=== PATIENT | male | born 1935 | race Caucasian/White ===

== ENCOUNTER 2017-12-26 04:05 | Observation (INO) | payer MEDICARE ==
[2017-12-26 05:10] LABS: INR-International Normal Ratio 2.1; PTT 35.9 SEC (22.9-36.1); Prothrombin Time 23.9 SEC (12.0-14.7)
[2017-12-26 05:17] LABS: ALT (SGPT) 36 U/L (8-55); AST (SGOT) 34 U/L (5-34); Albumin 4.3 g/dL (3.4-4.8); Alkaline Phosphatase 86 U/L (40-150); Anion Gap 12 mmol/L (10-20); BUN (Urea Nitrogen) 34 mg/dL (8.4-25.7); Bilirubin, Total 1.2 mg/dL (0.2-1.2); CK (CPK) 88 U/L (30-200); Calc. Creatinine Clearance 0 mL/min (70-130); Calcium 9.3 mg/dL (7.8-10.44); Carbon Dioxide 30 mmol/L (23-31); Chloride 102 mmol/L (98-107); Estimated GFR-MDRD 36; Globulin 2.8 g/dL (2.4-3.5); Glucose 162 mg/dL (83-110); Potassium 4.8 mmol/L (3.5-5.1); Protein, Total 7.1 g/dL (5.8-8.1); Sodium 139 mmol/L (136-145)
[2017-12-26 05:22] LABS: Troponin I 0.016 ng/mL (< 0.028)
[2017-12-26 05:35] LABS: #Eosinphils 0.1 thou/uL (0.0-0.7); #Lymphocytes 0.5 thou/uL (1.20-3.40); #Monocytes 0.8 thou/uL (0.11-0.59); #Neutrophils 7.4 thou/uL (1.40-6.50); %Basophils 0.1 % (0.0-1.0); %Eosinophils 0.7 % (0.0-10.0); %Lymphocytes 5.6 % (21.0-51.0); %Monocytes 8.9 % (0.0-10.0); %Neutrophils 84.6 % (42.0-75.0); Hemoglobin 13.3 g/dL (14.0-18.0); MDiff Complete? YES; Macrocytosis SLIGHT = 6-15 cells (100X) (0-5/hpf); Mean Corpuscular HGB CONC 32.5 g/dL (32.0-36.0); Mean Corpuscular Hemoglobin 33.5 pg (27.0-31.0); Mean Platelet Volume 9.5 fL (7.4-10.4); PLT Morphology Comment Appears Decreased; Platelet Count 112 thou/uL (130-400); RBC Distribution Width 12.5 % (11.5-14.5); Red Blood Cell (RBC) Count 3.97 mill/uL (4.70-6.10); White Blood Cell (WBC) Count 8.7 thou/uL (4.8-10.8)
[2017-12-26] MEDS ORDERED: Oseltamivir 75 MG CAP PO SCH (06:30)
[2017-12-26] MEDS ORDERED: Magnesium Sulfate 2 GM/100 ML BAG ONE (07:16)
[2017-12-26] MEDS ORDERED: Ondansetron HCl/PF 4 MG/2 ML Vial SLOW IVP PRN (08:31)
[2017-12-26] MEDS ORDERED: HYDROcodone/Acetaminophen 5/325 mg Tablet PO PRN ×2 (08:31)
[2017-12-26] MEDS ORDERED: Ondansetron ODT 4 MG TAB SL PRN (08:31)
[2017-12-26] MEDS ORDERED: Acetaminophen 325 MG TAB PO PRN (08:31)
--- NOTE | 2017-12-26 10:56 | RAD ---
CHEST 1 VIEW: HISTORY: Dyspnea. COMPARISON: 01/17/10 and 04/17/16. FINDINGS: Cardiac silhouette is magnified and upper limits of normal in size. Pulmonary vasculature is more en gorged than on the previous exam. Mediastinum is midline with postoperative changes, aortic calcific ation, and a multilead left subclavian cardiac electronic device. Chronic interstitial opacities of the lung bases appear stable. No pneumothorax. IMPRESSION: Chronic interstitial opacities and other chronic-type findings are stable. POS: PAOLA
[2017-12-26] MEDS ORDERED: Furosemide 40 MG TAB PO PRN (12:28)
[2017-12-26] MEDS ORDERED: Amiodarone 200 MG TAB PO SCH (12:30)
[2017-12-26] MEDS ORDERED: Potassium Chloride 10 MEQ TAB PO SCH (12:30)
[2017-12-26] MEDS ORDERED: Losartan 25 MG TAB PO SCH (12:30)
[2017-12-26] MEDS ORDERED: Dutasteride 0.5 MG CAP PO SCH (12:30)
[2017-12-26] MEDS ORDERED: Carvedilol 25 MG TAB PO SCH (12:30)
[2017-12-26] MEDS ORDERED: Furosemide 40 MG/4 ML VIAL SLOW IVP SCH (12:30)
--- NOTE | 2017-12-26 13:29 | HP ---
DATE OF ADMISSION: 12/26/2017 CHIEF COMPLAINT: Dyspnea. HISTORY OF PRESENT ILLNESS: This is an 82-year-old male patient of Dr. Ancelmo leblanc who came to the emergency room for acute onset of dyspnea with subjective fever and was worried he was having flu. He had been checked for flu and it was negative, also chest x-ray which showed no pu lmonary infiltrates. He does have a complicated history of ischemic cardiomyopathy. His temperature in the ER was 99. So the emergency room physician wanted to put him in for observation due to his l evel of the potential for problems. PAST MEDICAL HISTORY: Positive for ischemic cardiomyopathy, last EF of 15%-20%. He sees Dr. Herring. He has got atherosclerotic coronary vascular disease, atrial fibrillation, anticoagulated. Also has BPH with LUTS. Has history of hypertension, has a history of colon cancer and statin intolerance. PAST SURGICAL HISTORY: He had a vasectomy in 1970. He had a CABG in 1999 and had a partial colectom y for colon cancer in 2002. He had an incisional hernia repair in 2011 and an ICD placed in 2014. ALLERGIES: PENICILLIN AND DEMEROL. CURRENT MEDICATIONS: He is on Coumadin 4 mg a day, goes to the Coumadin clinic, he is on aspirin 81 mg a day, he is on potassium 10 mEq daily, Flomax daily, Maribell also takes that daily, Lasix 80 mg angelito ly, and he has 40 mg dose that he takes every 4 days, Coreg 6.25 mg twice a day, amiodarone 100 mg a day, losartan 25 mg a day, niacin 1000 mg twice a day, vitamin C daily, Benefiber daily, omega 3 farrah y, cinnamon daily, turmeric daily and p.r.n. Dulcolax. FAMILY HISTORY: He also has family history of heart disease in his parents. He had a sibling with a breast cancer and another with heart disease. He has children who has had sudden , acute AK, o ne with lung cancer, stroke and heart disease. SOCIAL HISTORY: He is a , has several children. He lives at home by himself. Occasional alc ohol use. No tobacco use. 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 REVIEW OF SYSTEMS: He denies any headache or visual changes. No trouble chewing or swallowing. No chest pain, just shortness of breath, but no cough, no hemoptysis. Denies any nausea, vomiting or ab dominal pain. Denies any hematemesis. No diarrhea, constipation or changes to his bowel habits. No hematochezia, melena or bright red blood per rectum. Denies any dysuria, hematuria or changes to th e bladder habits. Denies any paresis or paresthesias. No weakness and no auditory or visual halluci nations. Denies any suicidal or homicidal ideation. PHYSICAL EXAMINATION: GENERAL: He is asleep, but easily aroused, walk in the room. He had no complaints. Said his shortn ess of breath was essentially back to his baseline. He did have oxygen on currently by nasal cannula at 2 liters. His blood pressure 90s/60s which is fairly consistent with him at home, pulse 58, resp iration is 16, satting 99% on 2 liters. HEENT: Shows normocephalic, atraumatic cranium with pupils that are equal, round, and reactive to li ght and accommodation. Extraocular movements are intact. Mucosa membranes are moist, sclerae is ani cteric. NECK: Supple, no JVD, no bruits, no thyromegaly. HEART: S1, S2, with no rubs, murmurs, or gallops. LUNGS: Clear to auscultation bilaterally with no rales, rhonchi or wheezes. ABDOMEN: Soft, nontender, nondistended. No hepatosplenomegaly, bowel sounds are equal and throughou t. GENITOURINARY: Deferred. EXTREMITIES: Show good palpable pulses in all 4 extremities, but he does have 2+ edema to both lower extremities at the mid calf. DTRs are 2+ and equal. NEUROLOGIC: Alert and oriented x4. He has no motor or sensory deficits. Cranial nerves II-XII are equal and symmetrical. LABORATORY AND X-RAY FINDINGS: White count 8.7, H and H 13 and 41 respectively, 112,000 platelets. Neutrophils 85%, lymphocytes 5.5%. INR is within goal of 2.1. Chemistry shows sodium 139, potassium 4.8, chloride 102, bicarbonate 30, BUN 34, creatinine 1.8. Blood sugars are 162 and GFR is depresse d at 36. AST and ALT are normal at 34 and 36 respectively. CK is normal at 88. Beta natriuretic pe ptide is elevated at 758. Chest x-ray is negative and flu is negative as stated in the HPI. ASSESSMENT AND PLAN: Congestive heart failure exacerbation with dyspnea, also with likely chronic re nal insufficiency. We will continue his home medications. We will add one time Lasix dose now since he is essentially back to baseline. We will continue the DuoNebs and try to wean him off his oxygen . Hopefully home in the morning.
[2017-12-26] MEDS ORDERED: Warfarin Sodium 2 MG TAB PO SCH (17:00)
[2017-12-26 17:49] VITALS: BMI 28.0
[2017-12-26] MEDS ORDERED: Tamsulosin HCl 0.4 MG CAP PO SCH (21:00)
[2017-12-27 08:35] VITALS: TEMP 98
[2017-12-27 08:38] VITALS: BP 117/59
[2017-12-27] MEDS ORDERED: Losartan 25 MG TAB PO SCH (09:00)
[2017-12-27] MEDS ORDERED: Carvedilol 25 MG TAB PO SCH (09:00)
[2017-12-27] MEDS ORDERED: Amiodarone 200 MG TAB PO SCH (09:00)
[2017-12-27] MEDS ORDERED: Dutasteride 0.5 MG CAP PO SCH (09:00)
[2017-12-27] MEDS ORDERED: Potassium Chloride 10 MEQ TAB PO SCH (09:00)
[2017-12-27] MEDS ORDERED: Furosemide 80 MG TAB PO SCH (09:00)
--- NOTE | 2017-12-27 12:26 | DIS ---
DATE OF ADMISSION: 12/26/2017 DATE OF DISCHARGE: 12/27/2017 ADMISSION DIAGNOSIS: Acute bronchitis, possible congestive heart failure. DISCHARGE DIAGNOSIS: Bronchitis, improved. OTHER DIAGNOSES: Episode of hemoptysis, history of cardiomyopathy, history of coronary artery diseas e, history of benign prostatic hyperplasia. CONSULTATIONS: None. PROCEDURES: Telemetry monitoring, rule out OR, IV antibiotic therapy, oxygen therapy. HOSPITAL COURSE: This is an 82-year-old gentleman with a history of ischemic cardiomyopathy with an ejection fraction less than 20%. He is status post ICD placement in 2014. He was admitted with feve r and cough. He had negative flu test and was given a dose of Tamiflu. He admits to episodes of hem optysis after 1-2 days of severe coughing, this is improved. He is now ambulating in the hallway. Cinthia glass was given nebulizer treatments with significant improvement as well as IV antibiotics. He continue s to have a cough that is closer to his baseline, is ambulating without difficulty, and was able to w ramya off of oxygen, and is stable for discharge. DISCHARGE PHYSICAL EXAMINATION: VITAL SIGNS: Temperature 98.4, pulse is 60, respirations 12-16, pulse ox is 94% on room air, blood p ressure 108/66. GENERAL: He is awake and alert, in no acute distress. Speech is clear. Off of oxygen. Mucosa is m oist. NECK: Supple. HEART: Regular rate and rhythm. LUNGS: With scattered rhonchi. Occasional expiratory wheezes, but good aeration, no rales. ABDOMEN: Obese, soft. EXTREMITIES: With no edema. LABORATORY DATA: Reviewed. Cardiac enzymes were negative. INR of 2.1. DISCHARGE MEDICATIONS: Include DuoNeb q.6 hours p.r.n., amiodarone 200 mg daily, Coreg 25 mg daily, Avodart 0.5 mg daily, Lasix 80 mg daily, losartan 50 mg daily, potassium 10 mEq daily, Flomax 0.4 mg daily, warfarin 4 mg daily, Zithromax daily for 5 more days. Prescription given for nebulizer. FOLLOWUP INSTRUCTIONS: Patient to follow up in my office within the next week.
--- NOTE | 2018-02-11 10:39 | EKG ---
Test Reason : Blood Pressure : / mmHG Vent. Rate : 081 BPM Atrial Rate : 092 BPM P-R Int : 000 ms QRS Dur : 164 ms QT Int : 444 ms P-R-T Axes : 000 -46 090 degrees QTc Int : 515 ms Electronic ventricular pacemaker Appropriate capture Confirmed by MOISE DENIS DO ([id number]), commercial production editor MAY HENDRICKS ([id number]) on 02/11/2018 10:38:57 AM Referred By: Confirmed By:MOISE DENIS DO
== END 2017-12-27 09:52 | disposition home or self-care (01) ==
LOC: ERS 04:05 → 2SW 06:20
PROVIDERS: ADMIT Family Medicine; ATTEND Family Medicine
DX: J20.9 Acute bronchitis, unspecified (principal); I25.5 Ischemic cardiomyopathy; I25.10 Atherosclerotic heart disease of native coronary artery without angina pectoris; I48.91 Unspecified atrial fibrillation; I11.0 Hypertensive heart disease with heart failure; I50.9 Heart failure, unspecified; I25.2 Old myocardial infarction; N40.0 Benign prostatic hyperplasia without lower urinary tract symptoms; Z85.038 Personal history of other malignant neoplasm of large intestine; Z87.891 Personal history of nicotine dependence; Z80.1 Family history of malignant neoplasm of trachea, bronchus and lung; Z79.82 Long term (current) use of aspirin; Z79.01 Long term (current) use of anticoagulants; Z79.899 Other long term (current) drug therapy; Z88.0 Allergy status to penicillin; Z88.5 Allergy status to narcotic agent; Z88.8 Allergy status to other drugs, medicaments and biological substances; Z95.810 Presence of automatic (implantable) cardiac defibrillator; Z95.1 Presence of aortocoronary bypass graft; Z90.49 Acquired absence of other specified parts of digestive tract; Z98.890 Other specified postprocedural states
CPT/HCPCS: 71045; 80053; 82550; 82553; 83605; 83880; 84484; 85025; 85610; 85730; 87040; 87804 ×2; 93005; 94640 ×3; 96365; 96367; 96375 ×2; 99285; G0378; 36415; A4216; J0696; J1940; J3475; J7050; J7620

== ENCOUNTER 2018-05-16 09:58 | Emergency (ER) | payer MEDICARE ==
[2018-05-16] MEDS ORDERED: Adacel (T-DAP) 0.5 ML VIAL ONE (11:07)
[2018-05-16] MEDS ORDERED: Bacitracin Zinc 1 Packet ONE (11:16)
== END 2018-05-16 11:28 | disposition home or self-care (01) ==
LOC: ERS 09:58
DX: S51.812A Laceration without foreign body of left forearm, initial encounter (principal); I11.0 Hypertensive heart disease with heart failure; I50.9 Heart failure, unspecified; I49.9 Cardiac arrhythmia, unspecified; I25.2 Old myocardial infarction; I48.91 Unspecified atrial fibrillation; N40.0 Benign prostatic hyperplasia without lower urinary tract symptoms; Z79.01 Long term (current) use of anticoagulants; Z87.891 Personal history of nicotine dependence; Z23 Encounter for immunization; Z85.038 Personal history of other malignant neoplasm of large intestine
CPT/HCPCS: 90471; 90715

== ENCOUNTER 2019-03-30 10:44 | Emergency (ER) | payer MEDICARE ==
[2019-03-30 11:42] LABS: #Eosinphils 0.1 thou/uL (0.0-0.7); #Lymphocytes 0.8 thou/uL (1.20-3.40); #Monocytes 0.9 thou/uL (0.11-0.59); %Eosinophils 0.7 % (0.0-10.0); %Lymphocytes 5.9 % (21.0-51.0); %Monocytes 7.3 % (0.0-10.0); Hemoglobin 11.7 g/dL (14.0-18.0); Mean Corpuscular HGB CONC 32.6 g/dL (32.0-36.0); Mean Corpuscular Hemoglobin 32.8 pg (27.0-31.0); Mean Platelet Volume 8.9 fL (7.4-10.4); Platelet Count 183 thou/uL (130-400); RBC Distribution Width 12.5 % (11.5-14.5); Red Blood Cell (RBC) Count 3.57 mill/uL (4.70-6.10); White Blood Cell (WBC) Count 12.7 thou/uL (4.8-10.8)
[2019-03-30 12:03] LABS: ALT (SGPT) 40 U/L (8-55); AST (SGOT) 20 U/L (5-34); Albumin 3.8 g/dL (3.4-4.8); Alkaline Phosphatase 80 U/L (40-150); Anion Gap 10 mmol/L (10-20); BUN (Urea Nitrogen) 64 mg/dL (8.4-25.7); Bilirubin, Total 0.9 mg/dL (0.2-1.2); Calc. Creatinine Clearance 0 mL/min (70-130); Calcium 8.9 mg/dL (7.8-10.44); Carbon Dioxide 28 mmol/L (23-31); Chloride 101 mmol/L (98-107); Estimated GFR-MDRD 33; Globulin 2.4 g/dL (2.4-3.5); Glucose 127 mg/dL (83-110); Potassium 4.4 mmol/L (3.5-5.1); Protein, Total 6.2 g/dL (5.8-8.1); Sodium 135 mmol/L (136-145)
--- NOTE | 2019-03-30 12:37 | CT ---
Exam: Head CT without contrast HISTORY: Syncope COMPARISON: none FINDINGS: Hemorrhage: No intraparenchymal hemorrhage or extra-axial hematoma. Brain parenchyma: Cortical mayo-white matter differentiation is preserved. No mass effect or midline shift. Basilar cisterns are patent. Age-appropriate atrophy. Ventricular system: Ventricles and sulci are patent and symmetric. Calvarium: Intact. Sinuses and mastoid air cells: Adequate aeration. IMPRESSION: No acute intracranial process.
[2019-03-30 14:03] LABS: Bilirubin Negative (Negative); Blood, Urine Negative (Negative); Clarity CLEAR (Clear); Glucose, Urine (Dipstick) Negative (Negative); Leukocyte Negative (Negative); Nitrite Negative (Negative); Protein, Urine (Dipstick) Negative (Neg-Trace); Specific Gravity, Urine 1.016 (1.002-1.036); pH, Urine 5.5 (5.0-9.0)
== END 2019-03-30 14:20 | disposition home or self-care (01) ==
LOC: ERS 10:44
DX: R55 Syncope and collapse (principal); I25.2 Old myocardial infarction; I11.0 Hypertensive heart disease with heart failure; I50.9 Heart failure, unspecified; Z87.891 Personal history of nicotine dependence; Z79.899 Other long term (current) drug therapy
CPT/HCPCS: 36415; 70450; 80053; 81003; 82550; 83880; 84484; 85025; 93005

== ENCOUNTER 2019-08-09 09:27 | Emergency (ER) | payer MEDICARE ==
--- NOTE | 2019-08-09 10:28 | RAD ---
EXAM: XR Abdomen 2 View/1 View Cxr PROVIDED CLINICAL HISTORY: Constipation. COMPARISON: 10/15/2012 FINDINGS: A triple lead left subclavian AICD device remains in place. Postsurgical changes related to CABG are again noted. Cardiac silhouette is mildly enlarged. The pulmonary vasculature is within normal limits. Calcified granuloma again overlies the lateral right upper lung zone. There is mild linear at electasis versus scarring at the right lung base. There are postsurgical changes of the abdomen with radiopaque suture material overlying the right upp er quadrant and pelvis with surgical clips also overlying the central pelvis. A moderate amount of retained fecal material is seen in the colon extending from the proximal transverse colon to the rect um. Bowel gas pattern is otherwise nonspecific. No dilated distended gas-filled loops of small bowel are seen. Vascular calcifications are seen in the thoracic and abdominal aorta as well as iliac arteries. Mild degenerative changes are noted in the spine with mild left convex curvature of the lumbar spine. IMPRESSION: 1. Constipation. Bowel gas pattern is otherwise nonspecific. 2. Postsurgical changes of the abdomen.
== END 2019-08-09 11:12 | disposition home or self-care (01) ==
LOC: ERS 09:27
DX: K59.00 Constipation, unspecified (principal); I25.2 Old myocardial infarction; I48.91 Unspecified atrial fibrillation; I10 Essential (primary) hypertension; Z79.891 Long term (current) use of opiate analgesic; Z79.82 Long term (current) use of aspirin; Z79.899 Other long term (current) drug therapy
CPT/HCPCS: 74022

== ENCOUNTER 2019-09-27 08:09 | Outpatient (CLI) | payer MEDICARE ==
--- NOTE | 2019-09-27 09:15 | ULT ---
US Renal Bilateral STANDARD History: Chronic kidney disease Comparison: CT exam 2003 Findings: Real-time grayscale, color, and spectral analysis of the kidneys and renal arteries was per formed as well as the arcuate vessels. The right kidney measures 9.5 x 5 x 4.1 cm and the left kidney measures 11 x 5.6 x 4.5 cm. Urinary bl adder volume is 55 mL. No renal mass or hydronephrosis. There is an anterior interpolar left renal cyst measuring 1.1 cm, si milar to the CT examination from 2002. The right renal artery peak systolic velocity is 268 cm/s and the left renal artery peak systolic suellen ocity is 152 cm/s. The aortic peak systolic velocity is 91 cm/s. The right renal artery/aortic ratio is 2.9 and the left renal artery/aortic ratio is 1.6 Right kidney arcuate resistive index is 0.66 and the left kidney arcuate resistive index is 0.59. Impression: 1. Evidence of high-grade right renal artery stenosis. 2. Unchanged from 2003 simple cyst left kidney measuring up to 1.1 cm. 3. Mildly increased resistive right arcuate resistive indices.
== END 2019-09-27 08:10 | disposition home or self-care (01) ==
LOC: BICULT 08:09
PROVIDERS: ATTEND Internal Medicine Nephrology
DX: I12.9 Hypertensive chronic kidney disease with stage 1 through stage 4 chronic kidney disease, or unspecified chronic kidney disease (principal); N18.4 Chronic kidney disease, stage 4 (severe); D63.1 Anemia in chronic kidney disease; I25.5 Ischemic cardiomyopathy; R55 Syncope and collapse; M81.8 Other osteoporosis without current pathological fracture; I87.2 Venous insufficiency (chronic) (peripheral); E78.2 Mixed hyperlipidemia; G47.9 Sleep disorder, unspecified; I95.9 Hypotension, unspecified; I70.1 Atherosclerosis of renal artery; N28.1 Cyst of kidney, acquired; Z95.1 Presence of aortocoronary bypass graft; Z95.810 Presence of automatic (implantable) cardiac defibrillator
CPT/HCPCS: 76770; 93975

== ENCOUNTER 2019-12-11 15:53 | Inpatient (IN) | payer MEDICARE ==
[~2019-12-11 15:53] MED LIST: Heparin 1,000 UNITS/ML VIAL ONE
[2019-12-11 18:50] LABS: #Eosinphils 0.1 thou/uL (0.0-0.7); #Lymphocytes 0.8 thou/uL (1.20-3.40); #Monocytes 0.7 thou/uL (0.11-0.59); #Neutrophils 5.3 thou/uL (1.40-6.50); %Basophils 0.2 % (0.0-1.0); %Eosinophils 1.4 % (0.0-10.0); %Lymphocytes 11.9 % (21.0-51.0); %Monocytes 10.2 % (0.0-10.0); %Neutrophils 76.2 % (42.0-75.0); Hemoglobin 6.8 g/dL (14.0-18.0); Mean Corpuscular HGB CONC 28.4 g/dL (32.0-36.0); Mean Corpuscular Hemoglobin 20.7 pg (27.0-31.0); Mean Platelet Volume 11.3 fL (7.4-10.4); Platelet Count 173 thou/uL (130-400); Red Blood Cell (RBC) Count 3.27 mill/uL (4.70-6.10); White Blood Cell (WBC) Count 6.9 thou/uL (4.8-10.8)
[2019-12-11 18:57] LABS: INR-International Normal Ratio 1.4; PTT 34.2 SEC (22.9-36.1); Prothrombin Time 17.3 SEC (12.0-14.7)
--- NOTE | 2019-12-11 19:04 | RAD ---
CHEST ONE VIEW: Indication: History of CHF. Comparison: Acute abdominal series, 08-09-19 FINDINGS: There is mild cardiomegaly with mild pulmonary vascular congestion and mild interstitial edema. There are small bilateral pleural effusions. There is a multi-lead AICD and post CABG change, stable appea ring. No pneumothorax is evident. IMPRESSION: Findings of mild CHF. POS: BH
[2019-12-11 19:12] LABS: ALT (SGPT) 21 U/L (8-55); AST (SGOT) 15 U/L (5-34); Albumin 3.6 g/dL (3.4-4.8); Alkaline Phosphatase 90 U/L (40-110); Anion Gap 11 mmol/L (10-20); BUN (Urea Nitrogen) 38 mg/dL (8.4-25.7); Bilirubin, Total 0.6 mg/dL (0.2-1.2); Calc. Creatinine Clearance 27 mL/min (70-130); Calcium 8.5 mg/dL (7.8-10.44); Carbon Dioxide 30 mmol/L (23-31); Chloride 102 mmol/L (98-107); Estimated GFR-MDRD 29; Globulin 2.3 g/dL (2.4-3.5); Glucose 109 mg/dL (83-110); Magnesium 2.2 mg/dL (1.6-2.6); Potassium 4.1 mmol/L (3.5-5.1); Protein, Total 5.9 g/dL (5.8-8.1); Sodium 139 mmol/L (136-145)
[2019-12-11] MEDS ORDERED: Acetaminophen 325 MG TAB PO PRN (19:38)
[2019-12-11] MEDS ORDERED: Ondansetron PF 4 MG/2 ML Vial IVP PRN (19:38)
--- NOTE | 2019-12-11 20:59 | CON ---
DATE OF CONSULTATION: 12/11/2019 This is an Advanced Heart failure Cardiology consult service. REASON FOR CONSULT: Management of advanced heart failure. HISTORY OF PRESENT ILLNESS: Mr. Juan Alberto Baer, 84-year-old gentleman with heart failure with reduced ejection fraction, likely due to ischemic cardiomyopathy, is admitted for management of acute on chronic heart failure. He first experienced heart problems back in 1999 when he had a myocardial infarction. He said that he felt extremely short of breath, cannot breathe when he tried to go to sleep. Then, he went to the ER. He was found to have a myocardial infarction. He required emergent coronary artery bypass graft x3. He also received AICD implant. He was hospitalized for 28 days. He was discharged. After 7 years of steady rehab , he returned to normal function. He said that he can walk as far as he wants without any problem and do as much activities as he want without any problem. He was remarried in 2012. In fact, he was dancing with and did consistent ballroom dancing until spring. He said his symptoms really started in summer. He noticed his blood pressure dropped low in May 2019. He had problems standing up. His heart failure symptoms became progressive. His walking distance progressively decreased due to shortness of breath and fatigue. Just before admission, he could only walk about 15 to 30 steps. This greatly differed from his baseline. He also has increasing orthopnea. Within the last 3 to 4 weeks, he had to sleep straight up every night. In fact, he has PND every night. He describes that he was waking up about 2-3 o'clock in the morning and needed to breathe and cannot really go back to sleep. Due to his low blood pressure, his cardiac medication had to be decreased. He could not tolerate Entresto anymore; that was stopped. He was on carvedilol 25 mg twice a day that was able to maintain blood pressure over 100 with that for years, but due to his low blood pressure, that was also titrated back down to 6.25 mg twice a day. His diuretic was titrated up. He is up to Lasix 80 mg daily; unfortunately, that was insufficient. His edema has increased. He now requires wrapping of both legs. His edema started from the feet that is now about his hips. He also has early satiety. He was seen in the Heart Failure Clinic. At that time, his AICD Bi-V pacemaker was adjusted. The rate was increased from 60 to 70. Activity sensitivity threshold was decreased, so it rate increase will occur to support activity. He said that with that adjustment, his walking distance is doubled from 15 feet to 30 feet. Lasix was also changed to torsemide to have better gut absorption and longer duration. After a period of about 3 or 4 days, he may be negative only 0.5 pound. During that visit, many options were discussed. The three most probable options include: 1. Consideration of hospice. 2. Doing the best possible diuresis as an outpatient, expecting worsening renal function. 3. A trial of inotropic therapy to try to improve his quality of life, perhaps extend his life. After some discussion, the patient chose option 3. Since the short trial of torsemide was not beneficial, now he is being admitted for trial of inotropic therapy to relieve the symptoms and provide some relief. PAST MEDICAL HISTORY: 1. Coronary artery disease, CABGX3 in 1999 after a myocardial infarction. 2. Heart failure with reduced ejection fraction. 3. Mitral regurgitation. 4. Aortic insufficiency. 5. Some history of hepatitis. 6. Colon cancer, status post resection in year 2002. 7. Statin intolerance. SOCIAL HISTORY: 1. He is a former smoker, stopped in 1982. 2. He has occasional alcohol use. 3. He denies any illicit drugs. He currently lives with second . His first after over 50 years. He has been to his second since 2013. FAMILY HISTORY: His father of cancer at age 55. His mother at age 84 with complication from dementia. Sibling from breast cancer and heart disease. REVIEW OF SYSTEMS: CONSTITUTIONAL: No fever. No chills. No night sweats. However, he has progressive fatigue and also weight gain and also loss of appetite. HEENT: There is no changing noted in vision, hearing, or swallowing. However, he is on treatment for macular degeneration. He gets a shot every 4 months. PULMONARY: Please see HPI. CARDIOVASCULAR: Please see HPI. He denied palpitations, but he has some occasional chest discomfort. GI: No vomiting. No diarrhea. No blood in his stool. No change in the bowel habits. . He does take 2 prostate medications. He said he is able to urinate well with his 2 prostate medications. MUSCULOSKELETAL: He has some joint pains, but that is due to swelling. INTEGUMENT: He has skin breakdowns in his left leg due to severe edema and weeping and that portion is being wrapped currently. NEUROLOGIC: There are no focal deficits. PSYCHIATRIC: He is not depressed. ENDOCRINE: There is no polyuria, no polydipsia. HEMATOLOGIC: There is no easy bruising or bleeding, even though he is on Eliquis. ALLERGIES AND SENSITIVITY: He is allergic to penicillin. OUTPATIENT MEDICATIONS: His outpatient medications include: 1. Aspirin 81 mg daily. 2. Levothyroxine 25 mcg daily. 3. Finasteride 5 mg daily. 4. Tamsulosin, which is Flomax 0.4 mg daily. 5. Potassium chloride 10 mEq one tab daily. 6. Carvedilol 6.25 mg b.i.d. 7. Torsemide 40 mg daily. 8. Once A Day Vitamin daily. 9. Hutchinson-3 1200 mg capsule once a day. PHYSICAL EXAMINATION: VITAL SIGNS: Heart rate 70, blood pressure 98/46, his oxygen saturation is about 99% on room air. The telemetry was examined. He is paced at 70 beats per minute, but he has frequently occurring PVCs about once every 30 seconds. GENERAL: Alert and conversational; however, he is short of breath. He is unable to speak in long sentences without being about short of breath. He is in mild discomfort. HEENT: EOMI, PERRL. Oropharynx benign with moist mucosa. There is no lymphadenopathy. NECK: His JVP is very much elevated above his earlobe, >15 cm with positive hepatojugular reflux. PULMONARY: There is good air movement on the right lung, but there are diminished breath sounds and crackles at the left base. CARDIAC: Regular with occasional irregularity rhythm. There is S1, S2, there is 3/6 holosystolic murmur at the apex with radiation to the left axilla. There is 3/6 diastolic murmur at the right sternal border. There is a crescendo-decrescendo systolic murmur at the right upper sternal border, so consequently he has mitral regurgitation, aortic insufficiency, and aortic stenosis murmurs. His PMI also is inferiorly and laterally displaced about the 7th intercostal space on the left. ABDOMEN: Mildly distended. Positive bowel sounds. Some fluid wave. EXTREMITIES: His lower extremities are wrapped and there is 3+ pitting edema from his feet all the way to nearly upper thighs on the right leg and to the hip on the left. ASSESSMENT: An 84-year-old gentleman, who resides in AHA stage C and [place] [employer] IIIB heart failure with reduced ejection fraction. It is an ischemic cardiomyopathy with both systolic and diastolic dysfunction. Mitral regurgitation, aortic insufficiency, and possibly aortic stenosis all have contributed to this. He is currently in volume overload and decompensated. The need to gradually reduce his carvedilol to lowest effective dose of 6.25 mg, stopping Entresto, and increasing diuretic showed that he has considerably deteriorated in summer 2018. He is pacemaker dependent because he is E-nxgdy-Q-paced at 98%. Although he did improve with increasing pacing rate to 70, it was insufficient. At this point, the only reasonable option for him to improve functioning and improve quality of life is a trial of inotropic therapy. With inotropic support, we hope to pull off fluids and increase his mobility and give him some life back. Please see the following for recommendations. RECOMMENDATIONS: 1. Start Milrinone at 0.125 mcg/kg/minute IV GTT. If his systolic blood pressure is above 92 mmHg, increase that to 0.25 mcg/kg/minute IV GTT. 2. If the patient's blood pressures start to dip below 90 mmHg systolic, please start dobutamine at 2.5 mcg/kg/minute IV GTT. 3. Continue with carvedilol 6.25 mg b.i.d. 4. Restart amiodarone 200 mg p.o. b.i.d. He will likely need this. 5. Continue with Eliquis 2.5 mg p.o. b.i.d., but check his labs to make sure his PTT is not going too high. This will need to be held for insertion of PICC. 6. Please insert PICC for long-term Milrinone infusion therapy. 7. Please also do echocardiogram, we will need to document his new cardiac function, I believe this is much worsened than in summer 2018. 8. Also, we will provide Protonix 20 mg p.o. daily for GI protection. 9. Please consult Wound Care to see whether they will continue to wrap him and maintain through wrapping while he is hospitalized. 10. I will contact [employer] to re-interrogate the pacemaker to make sure there was no arrhythmia developing since last Wednesday. It has been a pleasure taking care of Ab Juan Alberto Baer, if you have any questions, please give me a call. Job ID: [id number]
--- NOTE | 2019-12-11 21:17 | PDOC.HHP ---
Hospitalist HPI - History of Present Illness SOB, MATSON History of Present Illness: 84 YO man with a PMH of CAD s/p CABG, ICD s/p AICD, Afib, cololn Ca s/p resctuon , NSTEMI and BPH who was admitted formj the cardiology clinc due to worsening SOB and MATSON. Pt has a hx of IHD s/p an AICD and has been on Coreg and Entresto with increased doses of Lasix but has been getting worse. SOB, MATSON and edema has gotten worse in the last few weeks. Pt is now unable to ambulate short distance without getting SOB. He now has to sleep on a chair. Edema despite compressive wrapping is now in up to his thigh. He had been referred to Dr Avalos the automotive painter helper and after review in the clinic today, it was decided that pt should be admitted for a milrinone gtt for failed oral med therapy. Pt denies CP, fever, chills or cough. He does have edema, PND and orthopnea. Pt has been admitted now for further mgt. Hospitalist ROS - Review of Systems Constitutional: reports: weakness. denies: fever, chills, sweats, malaise, other Eyes: denies: pain, vision change, conjunctivae inflammation, eyelid inflammation, redness, other ENT: denies: ear pain, ear discharge, nose pain, nose discharge, nose congestion , mouth pain, mouth swelling, throat pain, throat swelling, other Respiratory: reports: cough, shortness of breath, SOB with excertion. denies: dry, hemoptysis, pleuritic pain, sputum, wheezing, other Cardiovascular: reports: orthopnea, paroxysmal noc. dyspnea, edema. denies: chest pain, palpitations, light headedness, other Gastrointestinal: denies: nausea, vomiting, abdominal pain, diarrhea, constipation, melena, hematochezia, other Genitourinary: denies: dysuria, frequency, incontinence, hematuria, retention, other Musculoskeletal: denies: neck pain, shoulder pain, arm pain, back pain, hand pain, leg pain, foot pain, other Skin: denies: rash, lesions, karlo, bruising, other Neurological: denies: weakness, numbness, incoordination, change in speech, confusion, seizures, other - Medication Medications: Active Medications Generic Name Dose Route Start Last Admin Trade Name Marleny PRN Reason Stop Dose Admin Milrinone Lactate 20 mg/ 100 mls @ 2.9 mls/hr 12/11/19 18:45 12/11/19 19:48 Sodium Chloride IVPB 100 mls INF MAXI Administration Protocol Hospitalist History - Past Medical History Cardiac: reports: AFIB, CAD, CHF, HTN, FL, Valve insufficiency Heme/Onc: reports: Cancer (Colon cancer) - Past Surgical History Past Surgical History: reports: CABG, Hernia Repair, Other (Colon resection) - Family History Family History: reports: hypertension - Social History Smoking Status: Former smoker Alcohol: reports: None Living Situation: With Family Activity level: independent ambulation - Exam General Appearance: NAD, awake alert Eye: PERRL, anicteric sclera ENT: normocephalic atraumatic, no oropharyngeal lesions Neck: supple, symmetric, no thyromegaly, JVD Heart: RRR, no murmur, no gallops, normal peripheral pulses, murmur present, II/ IV, III/IV Respiratory: CTAB, no wheezes, no rales, no ronchi Gastrointestinal: soft, non-distended, normal bowel sounds Extremities: no cyanosis, no clubbing, no edema, 2+ LE edema Neurological: cranial nerve grossly intact, no focal deficits Musculoskeletal: normal tone, normal strength Psychiatric: normal affect, normal behavior, A&O x 3 Hospitalist Results - Labs Result Diagrams: 12/11/19 18:31 12/11/19 18:31 Lab results: WBC 6.9 thou/uL (4.8-10.8) 12/11/19 18:31 Hgb 6.8 g/dL (14.0-18.0) L 12/11/19 18:31 Hct 23.9 % (42.0-52.0) L 12/11/19 18:31 MCV 73.0 fL (78.0-98.0) L 12/11/19 18:31 Plt Count 173 thou/uL (130-400) 12/11/19 18: Neutrophils % 76.2 % (42.0-75.0) H 12/11/19 18:31 Sodium 139 mmol/L (136-145) 12/11/19 18:31 Potassium 4.1 mmol/L (3.5-5.1) 12/11/19 18:31 Chloride 102 mmol/L (98-107) 12/11/19 18:31 Carbon Dioxide 30 mmol/L (23-31) 12/11/19 18:31 BUN 38 mg/dL (8.4-25.7) H 12/11/19 18:31 Creatinine 2.16 mg/dL (0.7-1.3) H 12/11/19 18:31 Glucose 109 mg/dL (83-110) 12/11/19 18:31 Calcium 8.5 mg/dL (7.8-10.44) 12/11/19 18:31 Total Bilirubin 0.6 mg/dL (0.2-1.2) 12/11/19 18:31 AST 15 U/L (5-34) 12/11/19 18:31 ALT 21 U/L (8-55) 12/11/19 18:31 Alkaline Phosphatase 90 U/L (40-110) 12/11/19 18:31 B-Natriuretic Peptide 1346.7 pg/mL (0-100) H 12/11/19 18:25 Serum Total Protein 5.9 g/dL (5.8-8.1) 12/11/19 18:31 Albumin 3.6 g/dL (3.4-4.8) 12/11/19 18:31 Hospitalist H&P A/P - Problem (1) CHF (congestive heart failure), NYHA class IV Code(s): I50.9 - HEART FAILURE, UNSPECIFIED Status: Acute Qualifiers: Congestive heart failure chronicity: acute on chronic Assessment and Plan: Pt was on lasix, Coreg and entresto as an outpt but symps did not improve. Cardiology rec admission w milrinon gtt administration. Will defer mgt to cardiology and f/u with further recs (2) CAD (coronary artery disease) Code(s): I25.10 - ATHSCL HEART DISEASE OF [place] CORONARY ARTERY W/O ANG PCTRS Status: Acute Qualifiers: Coronary Disease-Associated Artery/Lesion type: [place] artery [place] vs. transplanted heart: [place] heart Associated angina: without angina Qualified Code(s): I25.10 - Atherosclerotic heart disease of [place] coronary artery without angina pectoris Assessment and Plan: Will cont med mgt. (3) Anemia Code(s): D64.9 - ANEMIA, UNSPECIFIED Status: Acute Qualifiers: Anemia type: unspecified type Qualified Code(s): D64.9 - Anemia, unspecified Assessment and Plan: Hg is 6.8. This could be contributing to pts SOB. Will transfuse 1 unit of PRBCs. Given use of Coumadin, will check for occult blood. Also give hx of colon cancer will check CEA. (4) CKD (chronic kidney disease) Code(s): N18.9 - CHRONIC KIDNEY DISEASE, UNSPECIFIED Status: Acute (5) CKD (chronic kidney disease), stage III Code(s): N18.3 - CHRONIC KIDNEY DISEASE, STAGE 3 (MODERATE) Status: Chronic Assessment and Plan: Unsure of baseline, will monitor for now. Will consult renal if needed. (6) BPH (benign prostatic hyperplasia) Code(s): N40.0 - BENIGN PROSTATIC HYPERPLASIA WITHOUT LOWER URINRY TRACT SYMP Status: Acute Qualifiers: Lower urinary tract symptom presence: symptoms absent Qualified Code(s): N40.0 - Benign prostatic hyperplasia without lower urinary tract symptoms Assessment and Plan: Cont Flomax. (7) Atrial fibrillation Code(s): I48.91 - UNSPECIFIED ATRIAL FIBRILLATION Status: Acute Assessment and Plan: Rate controlled. Cont med mgt including Coumadin. Will monitor INR. - Plan Plan: PPx: Coumadin. CODE: DNR. Disposition: Admit to ICU.
[2019-12-11] MEDS: Carvedilol 6.25 MG TAB PO SCH (22:20)
[2019-12-12 04:22] LABS: Iron 43 ug/dL (65-175); Iron Binding Capacity, Total 340 mcg/dL (261-462)
[2019-12-12 04:24] LABS: Anion Gap 10 mmol/L (10-20); BUN (Urea Nitrogen) 41 mg/dL (8.4-25.7); Calc. Creatinine Clearance 30 mL/min (70-130); Calcium 8.3 mg/dL (7.8-10.44); Carbon Dioxide 30 mmol/L (23-31); Chloride 104 mmol/L (98-107); Estimated GFR-MDRD 34; Glucose 97 mg/dL (83-110); Iron 43 ug/dL (65-175); Iron Binding Capacity, Total 344 mcg/dL (261-462); Potassium 3.9 mmol/L (3.5-5.1); Sodium 140 mmol/L (136-145)
[2019-12-12 04:36] LABS: #Eosinphils 0.1 thou/uL (0.0-0.7); #Lymphocytes 0.8 thou/uL (1.20-3.40); #Monocytes 0.7 thou/uL (0.11-0.59); #Neutrophils 3.7 thou/uL (1.40-6.50); %Basophils 0.6 % (0.0-1.0); %Eosinophils 2.3 % (0.0-10.0); %Lymphocytes 14.5 % (21.0-51.0); %Monocytes 12.6 % (0.0-10.0); %Neutrophils 69.9 % (42.0-75.0); Hemoglobin 6.7 g/dL (14.0-18.0); Mean Corpuscular HGB CONC 28.9 g/dL (32.0-36.0); Mean Corpuscular Hemoglobin 21.3 pg (27.0-31.0); Mean Corpuscular Volume 73.6 fL (78.0-98.0); Mean Platelet Volume 11.3 fL (7.4-10.4); Platelet Count 154 thou/uL (130-400); RBC Distribution Width 17.5 % (11.5-14.5); Red Blood Cell (RBC) Count 3.15 mill/uL (4.70-6.10); White Blood Cell (WBC) Count 5.3 thou/uL (4.8-10.8)
--- NOTE | 2019-12-12 07:36 | PDOC.PULCN ---
Pulmonology Consult: HPI - Date of Consult Date: 12/12/19 Time: 08:00 - Consult Details Reason for Consult: Acute on chronic CHF exacerbation requiring vasopressor support - History of Present Illness HPI: LENIN JAMES JR is a 84 year-old M with CHF with AICD, NYHA class IV, CKD, hx of colon cancer who was sent from cardiology clinic due to worsening edema and dyspnea. Patient reports he had been feeling SOB for the past 6 weeks in which he has been seeing Dr. Hart. He was switched from daily PO lasix to torsemide with some improvement initially. However, when seen in clinic yesterday he was noticeably short of breath and had increasing leg edema. He was sent straight to the hospital in which he was found to be in acute CHF exacerbation and started on milrinone and IV diuretics. Pulmonology Consult: ROS - Review of Systems Constitutional: negative: fever, chills Cardiovascular: paroxysmal nocturnal dyspnea. negative: chest pain, palpitations Respiratory: exercise intolerance. negative: chest tightness, pain on deep breathing, non-productive cough, short of breath, tachypnea, wheezing Pulmonology Consult: [facility] Source: patient Past Medical History: 1. CAD , CABG x3 after [place] in 2. HFrEF 3. Mitral regurg 4. Aortic insufficiency 5. Colon Ca s/p resection in 2002 - Social History Smoking Status: Former smoker Pack Years: 20 Alcohol Use: rarely Drug Use History: none Living Situation: Pulmonology Consult: Meds - Medications Medications: Current Medications Acetaminophen (Tylenol) 650 mg PO Q4H PRN PRN Reason: Headache/Fever/Mild Pain (1-3) Albuterol/Ipratropium (Duoneb) 3 ml NEB [id number] [facility] Last Admin: 12/12/19 00:41 Dose: 3 ml Amiodarone HCl (Cordarone) 200 mg PO DAILY [facility] Carvedilol (Coreg) 6.25 mg PO BID [facility] Last Admin: 12/11/19 22:20 Dose: 6.25 mg Dutasteride (Avodart) 0.5 mg PO DAILY [facility] Enoxaparin Sodium (Lovenox) 30 mg SC 0900 [facility] Furosemide (Lasix) 80 mg PO QAM [facility] Milrinone Lactate 20 mg/ (Sodium Chloride) 100 mls @ 2.9 mls/hr IVPB INF [facility]; Protocol Last Admin: 12/11/19 19:48 Dose: 100 mls Ondansetron HCl (Zofran) 4 mg IVP Q6H PRN PRN Reason: Nausea/Vomiting Potassium Chloride (Klor-Con 10) 10 meq PO QAM-WM MAXI Sodium Chloride (Flush - Normal Saline) 10 ml IVF PRN PRN PRN Reason: Saline Flush Tamsulosin HCl (Flomax) 0.4 mg PO DAILY MAXI Warfarin Sodium (Coumadin) 4 mg PO 1700 MAXI - Allergies Allergies/Adverse Reactions: Allergies Allergy/AdvReac Type Severity Reaction Status Date / Time ESTUARDO Inhibitors Allergy Verified 02/15/14 15:52 meperidine Allergy Verified 02/15/14 15:52 Penicillins Allergy Verified 02/15/14 15:52 [id number] Reductase Allergy Verified 02/15/14 15:52 Inhibitor Pulmonology Consult: PE - Physical Exam Constitutional: NAD HEENT: sclera anicteric Deviation from normal: JVD Respiratory: other (crackles in bibasilar areas). negative: accessory muscle use, prolonged expiratory phase, respiratory distress Focused Respiratory Location: decreased breath sounds: Right, Left, dullness to percussion: Right, Left Gastrointestinal: soft, non-tender Deviation from normal: 3+ edema left leg, 1+ righ tleg Neurological: non-focal, moves all 4 limbs Pulmonology Consult: Results - Labs Result Diagrams: 12/12/19 03:17 12/12/19 03:17 Pulmonology Consult: A/P - Problem (1) Anemia Current Visit: Yes Code(s): D64.9 - ANEMIA, UNSPECIFIED Status: Acute Qualifiers: Anemia type: unspecified type Qualified Code(s): D64.9 - Anemia, unspecified (2) CHF (congestive heart failure), NYHA class IV Current Visit: Yes Code(s): I50.9 - HEART FAILURE, UNSPECIFIED Status: Acute Qualifiers: Congestive heart failure chronicity: acute on chronic (3) Congestive heart failure, NYHA class 3 and ACC/AHA stage C Current Visit: Yes Code(s): I50.9 - HEART FAILURE, UNSPECIFIED Status: Acute (4) CAD (coronary artery disease) Current Visit: Yes Code(s): I25.10 - ATHSCL HEART DISEASE OF [place] CORONARY ARTERY W/O ANG PCTRS Status: Chronic Qualifiers: Coronary Disease-Associated Artery/Lesion type: [place] artery [place] vs. transplanted heart: [place] heart Associated angina: without angina Qualified Code(s): I25.10 - Atherosclerotic heart disease of [place] coronary artery without angina pectoris (5) Chronic anticoagulation Current Visit: Yes Code(s): Z79.01 - PENITENTIARY (CURRENT) USE OF ANTICOAGULANTS Status: Chronic (6) Pacemaker Current Visit: Yes Code(s): Z95.0 - PRESENCE OF CARDIAC PACEMAKER Status: Chronic (7) Atrial fibrillation Current Visit: No Code(s): I48.91 - UNSPECIFIED ATRIAL FIBRILLATION Status: Chronic - Time Time: 50% of the time was spent in coordination of care (as documented) at patient's floor/unit and/or counseling patient. Time with Patient: greater than 50 minutes - Plan Plan: 84 yo M with CHFrEF with AICD here with with acute CHF exacerbation requiring inotropic support 1. Acute on chronic CHF exacerbation-Requiring vasopressor support with milrinone with borderline MAPs. Consider dobutmaine. IV lasix. 2. Heart failure with reduced and preserved ejection fraction 3. Anemia, microcytic- Iron deficiency, replace iron. Monitor for clinical signs of bleeding. Patient with history of colon CA s/p colectomy. CT chest/abd pending to assess for recurrence. Hb 6.7, initiate PRBC x2 with lasix in between to prevent fluid overload. 4. Hypotension- Secondary to #2. Continue vasopressor support but consider addition of dobutamine since it has less effect
[2019-12-12] MEDS ORDERED: Furosemide 100 MG/10 ML VIAL SLOW IVP PRN (07:47)
[2019-12-12] MEDS ORDERED: Potassium Chloride 10 MEQ TAB PO SCH (08:00)
--- NOTE | 2019-12-12 08:29 | PRG ---
DATE OF SERVICE: 12/12/2019 SUBJECTIVE: Mr. Juan Alberto Baer was admitted for acute on chronic heart failure last night. He had an uneven night. He had difficulty falling sleep, was not able to sleep until about 4 o'clock this morning. He was short of breath and needed to sit up about 45 degrees or higher to sleep. He was found to have a low hemoglobin at about 6.9 and received 1 unit of transfusion. He seemed to be able to tolerated the transfusion without any difficulty. However, his blood pressure remained low between 90 and 95 most of the time. Actually this is not far from his baseline. REVIEW OF SYSTEMS: GENERAL: There is no fever or chills. HEENT: There is no change in vision, hearing, or swallowing. PULMONARY: See description. He still has shortness of breath with talking and he was orthopneic. CARDIOVASCULAR: He does not complain of palpitations or syncope. GI: He is able to eat. He did not have a bowel movement. He did not complain of blood in stool or dark stool. He did not complain of change in eating habit except for early satiety. : He is able to urinate. JOINTS: He has joint discomfort, but he felt like his edema has decreased. INTEGUMENT: There is no complaint of new lesion. NEUROLOGIC: He is able to move limbs well. There are no focal deficits. PSYCHIATRIC: He is not depressed. MEDICATIONS: His current cardiac medications are 1. Amiodarone 200 mg daily. 2. Warfarin 4 mg at night. 3. Carvedilol 6.25 mg twice a day. 4. Milrinone currently running at 0.25 mcg/kg/minute. 5. Lasix 80 mg by mouth in the morning. However, this was not given due to the lower blood pressure. 6. Potassium chloride 10 mEq daily. LABORATORY DATA: Sodium 140, potassium 3.9, BUN 41, creatinine at 1.91. This is slight improvement from last night. From overnight, his BNP is 1347. OBJECTIVE: VITAL SIGNS: His telemetry was reviewed overnight. He is generally paced at 70 beats per minute. There are PVCs, but there are no other concerning arrhythmias. His current vitals are heart rate paced at 70, blood pressure 94/ 49, oxygen saturation about 98%. GENERAL: He is alert, conversational, but he is short of breath when he is trying to speak long sentences. HEENT: EOMI, PERRL. Oropharynx benign with moist mucosa. There is no erythema. NECK: His JVP is elevated above to the earlobe, it is about 15 cm with positive hepatojugular reflux. PULMONARY: He has decreased breath sounds with crackles at the left base and a little more crackles on the right base, so this is worse than last night. HEART: Regular rate and regular rhythm, but with an occasional irregularity. There is normal S1, S2, there is a loud 3/6 holosystolic murmur at the apex with radiation to the left axilla, there is likely a 2/6 diastolic murmur at the right sternal border, there is 3/6 crescendo decrescendo murmur at right upper sternal border , his PMI is inferiorly and laterally displaced. ABDOMEN: Soft, nontender. Positive bowel sounds, possibly small amount of fluid wave. His lower extremities are still wrapped. He has a 3+ pitting edema going above his knees. ASSESSMENT: An 84-year-old gentleman remains in [place] Heart Association stage C and [place] Heart Association IIIB heart failure with reduced ejection fraction. He has a combination of systolic and diastolic dysfunctions. It is due to ischemic cardiomyopathy with likely both aortic insufficiency and mitral regurgitation contributions. He has anemia that is new. Apparently, anemia occurred about August of this past year. This needs to be worked up. He is currently still volume overloaded, little bit worse than last night as evidenced by increased crackles in lungs. Today, we will carefully transfused him to make sure he has enough hemoglobin and to find the source of potential blood loss, yet maintain his cardiac output, not volume overload to the point of severe decompensation. RECOMMENDATIONS: Please see the following for detailed recommendations. 1. Add dobutamine 2.5 mcg/kg/minute IV GTT in addition to milrinone. This will provide additional cardiac output and pressure. 2. Transfuse 2 units of blood. 3. Lasix 60 mg IV one dose between first and second unit of blood, so this will provide volume relief. 4. Noncontrast CT of the chest, abdomen and pelvis with oral contrast to look for potential bleeding and mass because he also has history of resected colon cancer that has not been followed. 5. Before blood transfusion, please add retic count, erythropoietin, ferritin, and a BNP to the lab this morning. 6. Consider consult GI after the CT scan if there are concerning lesions found because this could be recurrence of colon cancer in addition of a heart failure exacerbation. In addition, stop warfarin. He has not been taking warfarin. He has been using Eliquis, he will thus continue with the Eliquis 2.5 mg twice a day because that is easier reversed. 7. I will stop Flomax for now because that dropped his blood pressure. 8. Stop his oral Lasix as we are going to use IV for today. It has been a pleasure taking care of Mr. Juan Alberto Baer. If any questions, please give me a call. Job ID: [id number] MTDD
[2019-12-12 08:35] LABS: Reticulocyte Count 2.3 % (0.5-1.5)
[2019-12-12] MEDS: DOBUTamine 500 mg/250 ml 500 MG in Premix Bag 1 BAG IVPB SCH (08:49)
[2019-12-12] MEDS: Carvedilol 6.25 MG TAB PO SCH ×2 (08:56→20:44)
[2019-12-12] MEDS ORDERED: TAMSULOSIN HCL PO SCH (09:00)
[2019-12-12] MEDS ORDERED: Furosemide 80 MG TAB PO SCH (09:00)
[2019-12-12] MEDS ORDERED: Amiodarone 200 MG TAB PO SCH (09:00)
[2019-12-12] MEDS ORDERED: DUTASTERIDE PO SCH (09:00)
[2019-12-12] MEDS ORDERED: Enoxaparin Sodium 30 MG/0.3 ML SYRINGE SC SCH (09:00)
[2019-12-12] MEDS ORDERED: Tamsulosin HCl 0.4 MG CAP PO SCH ×2 (09:00)
[2019-12-12] MEDS ORDERED: [UNRECOGNIZED DRUG - OTHER] PO SCH (09:00)
[2019-12-12] MEDS ORDERED: Dutasteride 0.5 MG CAP PO SCH (09:00)
--- NOTE | 2019-12-12 09:10 | PDOC.HOSPP ---
- Subjective Encounter Date: 12/12/19 Encounter Time: 11:20 Subjective: Patient feels weak. SOB with any activity. Stable from yesterday. Admitted yesterday for severe CHF and trial of IV meds by cardiology. - Objective Vital Signs & Weight: Vital Signs (12 hours) Temp Pulse Pulse Resp BP BP BP 12/12/19 08:56 103/50 L 12/12/19 07:46 72 13 12/12/19 07:19 98.5 F 12/12/19 03:44 97.9 F 12/12/19 03:00 92/51 L 12/12/19 02:40 98.4 F 70 20 92/51 L 12/12/19 02:30 93/47 L 12/12/19 02:00 95/55 L 12/12/19 01:30 95/52 L 12/12/19 01:15 96/49 L 12/12/19 01:00 103/51 L 12/12/19 00:45 93/50 L 12/12/19 00:41 73 12 12/12/19 00:30 91/51 L 12/12/19 00:00 93/53 L 12/11/19 23:45 98.2 F 74 18 100/50 L 100/50 L 12/11/19 23:42 97.9 F 12/11/19 23:30 97.6 F 71 18 102/65 102/65 12/11/19 23:15 97/43 L 12/11/19 23:00 91/53 L 12/11/19 22:45 72 100/51 L 12/11/19 22:30 72 18 103/50 L 12/11/19 22:20 103/50 L 12/11/19 22:15 70 18 92/51 L 12/11/19 21:39 97.6 F Pulse Ox 12/12/19 08:56 12/12/19 07:46 100 12/12/19 07:19 12/12/19 03:44 12/12/19 03:00 12/12/19 02:40 100 12/12/19 02:30 12/12/19 02:00 12/12/19 01:30 12/12/19 01:15 12/12/19 01:00 12/12/19 00:45 01/21/20 00:41 100 12/12/19 00:30 12/12/19 00:00 12/11/19 23:45 100 12/11/19 23:42 12/11/19 23:30 100 12/11/19 23:15 12/11/19 23:00 12/11/19 22:45 12/11/19 22:30 100 12/11/19 22:20 12/11/19 22:15 100 12/11/19 21:39 Weight Weight 166 lb 1.6 oz Most Recent Monitor Data Heart Rate from ECG 70 NIBP 91/59 NIBP BP-Mean 69 Respiration from ECG 17 SpO2 99 I&O: 12/11/19 12/12/19 12/13/19 06:59 06:59 06:59 Intake Total 645 Output Total 580 Balance 65 Result Diagrams: 12/12/19 03:17 12/12/19 03:17 Hospitalist ROS - Review of Systems Constitutional: denies: fever, chills Respiratory: reports: SOB with excertion. denies: cough Cardiovascular: reports: orthopnea. denies: chest pain, palpitations Gastrointestinal: denies: nausea, vomiting, abdominal pain - Medication Medications: Active Medications Generic Name Dose Route Start Last Admin Trade Name Freq PRN Reason Stop Dose Admin Albuterol/Ipratropium 3 ml 12/12/19 01:00 12/12/19 07:46 Duoneb NEB 3 ml [id number] MAXI Administration Amiodarone HCl 200 mg 12/12/19 09:00 12/12/19 08:57 Cordarone PO Not Given DAILY MAXI Carvedilol 6.25 mg 12/11/19 21:00 12/12/19 08:56 Coreg PO 6.25 mg BID MAXI Administration Dutasteride 0.5 mg 12/12/19 09:00 12/12/19 08:56 Avodart PO 0.5 mg DAILY MAXI Administration Enoxaparin Sodium 30 mg 12/12/19 09:00 12/12/19 08:34 Lovenox SC Not Given 0900 MAXI Milrinone Lactate 20 mg/ 100 mls @ 2.9 mls/hr 12/11/19 18:45 12/11/19 19:48 Sodium Chloride IVPB 100 mls INF MAXI Administration Protocol Dobutamine HCl/Dextrose 500 mg 250 mls @ 5.65 mls/hr 12/12/19 07:45 12/12/19 08:49 / Device IVPB 250 mls INF MAXI Administration Protocol 2.5 MCG/KG/MIN Potassium Chloride 10 meq 12/12/19 08:00 12/12/19 08:56 Klor-Con 10 PO 10 meq QAM-WM MAXI Administration - Exam General Appearance: NAD, awake alert Heart: RRR, no murmur, no gallops, no rubs Respiratory: CTAB, no wheezes, no rales, no ronchi Gastrointestinal: soft, non-tender, non-distended, normal bowel sounds Extremities: 2+ LE edema Extremities - other findings: Left greater than right Psychiatric: normal affect, normal behavior, A&O x 3 Hosp A/P (1) Congestive heart failure, NYHA class 3 and ACC/AHA stage C Code(s): I50.9 - HEART FAILURE, UNSPECIFIED Status: Acute (2) Pacemaker Code(s): Z95.0 - PRESENCE OF CARDIAC PACEMAKER Status: Chronic (3) CAD (coronary artery disease) Code(s): I25.10 - ATHSCL HEART DISEASE OF [place] CORONARY ARTERY W/O ANG PCTRS Status: Chronic Qualifiers: Coronary Disease-Associated Artery/Lesion type: [place] artery [place] vs. transplanted heart: [place] heart Associated angina: without angina Qualified Code(s): I25.10 - Atherosclerotic heart disease of [place] coronary artery without angina pectoris (4) Chronic anticoagulation Code(s): Z79.01 - [place] (CURRENT) USE OF ANTICOAGULANTS Status: Chronic (5) Atrial fibrillation Code(s): I48.91 - UNSPECIFIED ATRIAL FIBRILLATION Status: Chronic (6) BPH (benign prostatic hyperplasia) Code(s): N40.0 - BENIGN PROSTATIC HYPERPLASIA WITHOUT LOWER URINRY TRACT SYMP Status: Chronic Qualifiers: Lower urinary tract symptom presence: symptoms absent Qualified Code(s): N40.0 - Benign prostatic hyperplasia without lower urinary tract symptoms (7) Anemia Code(s): D64.9 - ANEMIA, UNSPECIFIED Status: Acute Qualifiers: Anemia type: unspecified type Qualified Code(s): D64.9 - Anemia, unspecified (8) CKD (chronic kidney disease), stage III Code(s): N18.3 - CHRONIC KIDNEY DISEASE, STAGE 3 (MODERATE) Status: Chronic - Plan (1) Congestive heart failure, NYHA class 3 and ACC/AHA stage C - starting Milrinone drip - switch to IV Lasix - Dobutamine drip this AM (2) Pacemaker (3) CAD (coronary artery disease) - hx of CABG (4) Chronic anticoagulation - on Eliquis low dose (5) Atrial fibrillation - restarting Amiodarone per cardiology (6) BPH (benign prostatic hyperplasia) (7) Anemia - transfused 1 unit PRBC without improvement in Hgb, 2 units today with Lasix (8) CKD (chronic kidney disease), stage III - Uncertain baseline, improved this AM with heart interventions Further treatment course as directed by Dr. Avalos (Cardiology)
[2019-12-12 09:13] LABS: CEA, Serum 7.03 ng/mL (< or = 5.0); Ferritin 14.8 ng/mL (22-322)
[2019-12-12] MEDS: Apixaban 2.5 MG TAB PO SCH ×2 (09:38→20:44)
--- NOTE | 2019-12-12 10:28 | CT ---
EXAM: CT of the chest without contrast CT of the abdomen and pelvis without contrast HISTORY: Edema in the bilateral lower extremities. COMPARISON: None TECHNIQUE: 1. Multiple contiguous axial images were obtained in a CT the chest without contrast. Coronal and sag ittal reformats were performed. 2. Multiple contiguous axial images were obtained and a CT of the abdomen and pelvis without contrast . Oral contrast was administered. Coronal and sagittal reformats were performed. FINDINGS: CT CHEST: HEART: Increased in size without focal cardiac abnormality. There is a pacemaker with its leads in th e right atrium, right ventricle, and coronary sinus. MEDIASTINUM: No hilar or mediastinal lymphadenopathy. LUNGS: Calcified granuloma in the right upper lobe. Emphysematous changes in the lungs. PLEURAL SPACE: Small bilateral pleural effusions. CHEST WALL SOFT TISSUES: Unremarkable CT ABDOMEN/PELVIS: ABDOMEN: LIVER: within normal limits. BILE DUCTS: Normal caliber. GALLBLADDER: Absent. PANCREAS: within normal limits. SPLEEN: Calcified granuloma ADRENALS: within normal limits. KIDNEYS: within normal limits. PELVIS: REPRODUCTIVE ORGANS: No pelvic masses. URETERS: within normal limits. BLADDER: within normal limits. PERITONEUM: No ascites or free air, no fluid collection. BOWEL: Normal caliber. An anastomotic staple line is seen in the right colon in the right upper quadr ant of the abdomen. MESENTERY AND RETROPERITONEUM: No enlarged mesenteric or retroperitoneal lymph nodes. VESSELS: Atherosclerotic calcification in the aorta. ABDOMINAL WALL: Diffuse soft tissue anasarca is seen. OSSEOUS STRUCTURES: Degenerative changes in the spine. IMPRESSION: 1. No evidence of retroperitoneal hematoma. 2. Small bilateral pleural effusions
--- NOTE | 2019-12-12 15:54 | SPC ---
Ultrasound and Fluoroscopic guided right upper extremity PICC placement HISTORY: Need for central vascular access. FINDINGS: Informed consent obtained prior to the procedure. An appropriate access site was determined with ultrasound guidance. The area was then meticulously pr epped and draped in usual sterile fashion. Skin overlying the right basilic vein anesthetized with 1% buffered lidocaine. Utilizing direct sonog raphic guidance, vascular access is obtained via the right basilic vein, and an 0.018in guidewire was advanced to the distal SVC. Intravascular length is calculated at 36 cm, and the PICC is cut acco rdingly. Needle is removed and replaced with a peel-away sheath. The PICC was advanced over the wire. Wire and peel-away sheath were removed. The tip of the catheter overlies the distal SVC. The catheter was accessed and aspirated/flushed easily. FINDINGS: Technically successful placement of a 36 centimeter single lumen 5 [place] right upper extremity PICC line. IMPRESSION: Successful ultrasound guided placement of a right upper extremity PICC.
[2019-12-12] MEDS ORDERED: Warfarin Sodium 2 MG TAB PO SCH (17:00)
[2019-12-13] MEDS: DOBUTamine 500 mg/250 ml 500 MG in Premix Bag 1 BAG IVPB SCH (05:20)
[2019-12-13 05:48] LABS: #Eosinphils 0.1 thou/uL (0.0-0.7); #Lymphocytes 0.5 thou/uL (1.20-3.40); #Neutrophils 7.7 thou/uL (1.40-6.50); %Basophils 0.2 % (0.0-1.0); %Eosinophils 0.8 % (0.0-10.0); %Lymphocytes 5.4 % (21.0-51.0); %Monocytes 10.7 % (0.0-10.0); %Neutrophils 82.8 % (42.0-75.0); Hemoglobin 9.3 g/dL (14.0-18.0); Mean Corpuscular Hemoglobin 22.8 pg (27.0-31.0); Mean Corpuscular Volume 75.8 fL (78.0-98.0); Mean Platelet Volume 11.6 fL (7.4-10.4); Platelet Count 164 thou/uL (130-400); RBC Distribution Width 18.5 % (11.5-14.5); Red Blood Cell (RBC) Count 4.07 mill/uL (4.70-6.10); White Blood Cell (WBC) Count 9.3 thou/uL (4.8-10.8)
[2019-12-13] MEDS: Levothyroxine Sodium 25 MCG TAB PO SCH (05:54)
[2019-12-13 06:01] LABS: Anion Gap 11 mmol/L (10-20); BUN (Urea Nitrogen) 32 mg/dL (8.4-25.7); Calc. Creatinine Clearance 35 mL/min (70-130); Calcium 8.4 mg/dL (7.8-10.44); Carbon Dioxide 29 mmol/L (23-31); Chloride 103 mmol/L (98-107); Estimated GFR-MDRD 41; Glucose 96 mg/dL (83-110); Magnesium 2.3 mg/dL (1.6-2.6); Potassium 3.4 mmol/L (3.5-5.1); Sodium 140 mmol/L (136-145)
[2019-12-13] MEDS ORDERED: Potassium Chloride 10 MEQ TAB PO SCH (08:00)
[2019-12-13] MEDS ORDERED: Potassium Chloride 20 MEQ TAB PO SCH (08:15)
--- NOTE | 2019-12-13 08:46 | CON ---
DATE OF CONSULTATION: 12/13/2019 Advanced Heart failure consult Service Last 24 hours Mr. Baer had a good day. He received 2 units of blood transfusion throughout the day without difficulty. PICC was placed. CT scan was done and did not show any concerning mass or hematoma. He responded to Lasix 60 mg IV well. However, he required dobutamine 5 mcg/kg/min in addition to milrinone 0.25 mcg/kg/min to maintain his pressure and cardiac output. With this combination and blood, he has a systolic blood pressure now over 110 and sometimes over 120. He said he is breathing better, feeling stronger. He wants to walk now. He also believed that his leg has shrunk and the abdomen has gotten smaller. REVIEW OF SYSTEMS: GENERAL: He denies fever and chills. HEENT: He denies any changing in vision, hearing or swallowing. PULMONARY: He is less short of breath. CARDIOVASCULAR: No palpitation, no syncope and he is able to sleep through the night. GI. He is able to eat well. There is no report of blood in the stool or melena. : He was not able to urinate and Villegas had to be placed. JOINTS: He has evidence of joint swelling. The knee joint swelling has decreased. INTEGUMENT: He had breakdown of left leg, but he is not complaining of that. NEUROLOGIC: There are no focal deficits. CURRENT MEDICATIONS: Include amiodarone 200 mg b.i.d., Eliquis 2.5 mg b.i.d., dobutamine currently at 5 mcg/kg/min, carvedilol 6.25 mg b.i.d., Milrinone 0.25 mcg/kg/min p.o. b.i.d., furosemide 60 mg IV b.i.d., potassium 10 mEq daily, and levothyroxine at 25 mcg daily. PHYSICAL EXAMINATION: VITAL SIGNS: Heart rate 70, blood pressure 122/60. GENERAL: He is alert, conversational. He is less short of breath today, can able to sustain longer sentences. HEENT: Show EOMI, PERRL. Oropharynx benign. There is moist mucosa. There is no erythema . However, this has been draining at the left-side of back of his throat. PULMONARY: He has decreased breath sounds and crackles at the left base, but this is decreased from yesterday. HEART: Regular rate with some occasional irregular rhythm. There are some PVCs. There is a 3/6 diastolic murmur at the right sternal border. His PMI is inferolaterally displaced roughly about 7 intercostal space. ABDOMEN: Soft, nontender. Positive bowel sounds. It is less distended. EXTREMITIES: His lower extremity still has 3+ edema, but is now lower. His amount of edema around the knees also has decreased. LABORATORY DATA: He has significant values and his blood chemistry are sodium remains steady at 140, his potassium decreased from 3.9 to 3.4. His creatinine has improved from 1.91 down to 1.61. His BNP has decreased from greater than 1,300 down to 799. However, he has a low ferritin at 14.8 and slightly elevated CEA 7.03. ASSESSMENT: This is an 84-year-old gentleman remains in [place] Heart Association stage C and [place] heart Association class 3B heart failure with reduced ejection fraction. He has combination of systolic and diastolic dysfunction. It is caused by ischemic cardiomyopathy. He also has mitral regurgitation and aortic insufficiency contributing to heart failure. Currently , his anemia has been relieved with blood transfusion. His cardiac output has greatly increased with combination of blood transfusion, dobutamine and Milrinone. He remains volume overloaded, but less so. His renal function has improved. His BNP also significant decreased. We will still need to work out potential urology and GI issues during this visit. He will likely need long-term Milrinone therapy. RECOMMENDATIONS: 1. Decrease dobutamine down to 4 mcg/kg/minute IV GTT. We will be attempting to titrate this off in the next several days. 2. Please consult Urology for Urolift. This will allow him to urinate without needing a Villegas and without needing Flomax because he is not tolerating long- term Flomax. It lower his blood pressure too much. 3. Please consult GI. Please consider both EGD and colonoscopy for source of bleed. He does have iron deficiency anemia. Even though there is no masses seen on the noncontrast CT, it will be good to check for potential source of GI bleed. He is currently in stable enough condition to undergo both a colonoscopy and EGD. 4. Please give him K-Dur 40 mEq one dose now and then increase his potassium supplement to K-Dur 20 mEq twice per day. 5. We will also contact infusion company and have a financial look to see if his insurance can support long-term Milrinone. It has been a pleasure taking care of Mr. Juan Alberto Baer, if you have any questions, please feel free to give me a call. Job ID: [id number] MTDD
[2019-12-13] MEDS: Carvedilol 6.25 MG TAB PO SCH ×2 (09:24→20:40)
[2019-12-13] MEDS: Amiodarone 200 MG TAB PO SCH ×2 (09:24→20:40)
[2019-12-13] MEDS: Finasteride 5 MG TAB PO SCH (09:25)
[2019-12-13] MEDS: Furosemide 100 MG/10 ML VIAL SLOW IVP SCH ×2 (09:25→20:41)
[2019-12-13] MEDS: Apixaban 2.5 MG TAB PO SCH ×2 (09:25→20:40)
--- NOTE | 2019-12-13 09:36 | PDOC.HOSPP ---
- Subjective Encounter Date: 12/13/19 Encounter Time: 11:00 Subjective: Patient feeling a bit restless and wanting to ambulate some today. Feels like his edema is better. - Objective Vital Signs & Weight: Vital Signs (12 hours) Temp Pulse Resp BP BP BP Pulse Ox 12/13/19 09:24 115/53 L 12/13/19 09:05 97.8 F 74 20 120/59 L 98 12/13/19 08:00 73 20 113/58 L 98 12/13/19 07:16 98.0 F 12/13/19 06:58 70 16 12/13/19 06:45 71 18 110/56 L 97 12/13/19 06:30 71 18 117/56 L 96 12/13/19 06:15 118/56 L 12/13/19 06:00 105/37 L 12/13/19 05:45 119/56 L 12/13/19 05:30 109/55 L 12/13/19 04:30 114/53 L 12/13/19 04:00 98.6 F 117/56 L 12/13/19 03:30 116/55 L 12/13/19 03:00 118/53 L 12/13/19 02:30 111/53 L 12/13/19 02:00 109/52 L 12/13/19 01:30 113/54 L 12/13/19 01:00 103/51 L 12/13/19 00:30 122/56 L 12/13/19 00:06 70 16 99 12/13/19 00:00 98.5 F 117/56 L 12/12/19 23:30 109/56 L 12/12/19 23:00 106/53 L 12/12/19 22:00 107/51 L Weight Admit Weight 170 lb 14.4 oz Weight 167 lb 6.4 oz Most Recent Monitor Data Heart Rate from ECG 70 NIBP 111/50 NIBP BP-Mean 55 Respiration from ECG 16 SpO2 96 I&O: 12/12/19 12/13/19 12/14/19 06:59 06:59 06:59 Intake Total 645 1000 Output Total 580 1505 Balance 65 -505 Result Diagrams: 12/13/19 05:20 12/13/19 05:20 Hospitalist ROS - Review of Systems Constitutional: denies: fever, chills Respiratory: reports: SOB with excertion. denies: cough, shortness of breath Cardiovascular: reports: orthopnea. denies: chest pain, palpitations Gastrointestinal: denies: nausea, vomiting, abdominal pain Genitourinary: denies: dysuria, hematuria - Medication Medications: Active Medications Generic Name Dose Route Start Last Admin Trade Name Freq PRN Reason Stop Dose Admin Albuterol/Ipratropium 3 ml 12/12/19 01:00 12/13/19 06:58 Duoneb NEB 3 ml [id number] MAXI Administration Amiodarone HCl 200 mg 12/13/19 09:00 12/13/19 09:24 Cordarone PO 200 mg BID MAXI Administration Apixaban 2.5 mg 12/12/19 09:00 12/13/19 09:25 Eliquis PO 2.5 mg BID MAXI Administration Carvedilol 6.25 mg 12/11/19 21:00 12/13/19 09:24 Coreg PO 6.25 mg BID MAXI Administration Finasteride 5 mg 12/13/19 09:00 12/13/19 09:25 Proscar PO 5 mg DAILY MAXI Administration Furosemide 60 mg 12/13/19 09:00 12/13/19 09:25 Lasix SLOW IVP 60 mg BID MAXI Administration Milrinone Lactate 20 mg/ 100 mls @ 2.9 mls/hr 12/11/19 18:45 12/13/19 05:20 Sodium Chloride IVPB 100 mls INF MAXI Administration Protocol Levothyroxine Sodium 25 mcg 12/13/19 06:00 12/13/19 05:54 Synthroid PO 25 mcg 0600 MAXI Administration Potassium Chloride 40 meq 12/13/19 08:15 12/13/19 09:23 K-Dur PO 12/13/19 10:00 40 meq NOW MAXI Administration - Exam General Appearance: NAD, awake alert ENT: moist mucosa Heart: RRR, no murmur, no gallops, no rubs Respiratory: CTAB, no wheezes, no rales, no ronchi Gastrointestinal: soft, non-tender, non-distended, normal bowel sounds Extremities: 1+ LE edema Extremities - other findings: left greater than right Psychiatric: normal affect, normal behavior, A&O x 3 Hosp A/P (1) Congestive heart failure, NYHA class 3 and ACC/AHA stage C Code(s): I50.9 - HEART FAILURE, UNSPECIFIED Status: Acute (2) Pacemaker Code(s): Z95.0 - PRESENCE OF CARDIAC PACEMAKER Status: Chronic (3) CAD (coronary artery disease) Code(s): I25.10 - ATHSCL HEART DISEASE OF [place] CORONARY ARTERY W/O ANG PCTRS Status: Chronic Qualifiers: Coronary Disease-Associated Artery/Lesion type: [place] artery [place] vs. transplanted heart: [place] heart Associated angina: without angina Qualified Code(s): I25.10 - Atherosclerotic heart disease of [place] coronary artery without angina pectoris (4) Chronic anticoagulation Code(s): Z79.01 - TREASURY MANAGER (CURRENT) USE OF ANTICOAGULANTS Status: Chronic (5) Atrial fibrillation Code(s): I48.91 - UNSPECIFIED ATRIAL FIBRILLATION Status: Chronic (6) BPH (benign prostatic hyperplasia) Code(s): N40.0 - BENIGN PROSTATIC HYPERPLASIA WITHOUT LOWER URINRY TRACT SYMP Status: Chronic Qualifiers: Lower urinary tract symptom presence: symptoms absent Qualified Code(s): N40.0 - Benign prostatic hyperplasia without lower urinary tract symptoms (7) Anemia Code(s): D64.9 - ANEMIA, UNSPECIFIED Status: Acute Qualifiers: Anemia type: unspecified type Qualified Code(s): D64.9 - Anemia, unspecified (8) CKD (chronic kidney disease), stage III Code(s): N18.3 - CHRONIC KIDNEY DISEASE, STAGE 3 (MODERATE) Status: Chronic - Plan (1) Congestive heart failure, NYHA class 3 and ACC/AHA stage C - on Milrinone drip and Dobutamine with SBP 110-120 - switched to IV Lasix with some improvement - Cardiology plans to wean Dobutamine as tolerated (2) Pacemaker (3) CAD (coronary artery disease) - hx of CABG (4) Chronic anticoagulation - on Eliquis low dose (5) Atrial fibrillation - on Amiodarone per cardiology (6) BPH (benign prostatic hyperplasia) - Urology consulted by Dr. Avalos for possible prostate procedure (7) Anemia - transfused 3 units PRBC with improved Hbg to 9 - hemoccult stools and GI consult (8) CKD (chronic kidney disease), stage III - Uncertain baseline, improving Further treatment course as directed by Dr. Avalos (Cardiology)
[2019-12-13] MEDS: Potassium Chloride 20 MEQ TAB PO SCH (18:11)
--- NOTE | 2019-12-13 21:33 | CON ---
DATE OF CONSULTATION: 12/13/2019 REASON FOR CONSULTATION: Anemia, history of colonic malignancy. CONSULTING PROVIDER: Leroy Longoria MD HISTORY OF PRESENT ILLNESS: The patient is an 84-year-old male with past medical history of coronary artery disease, status post CABG, congestive heart failure with significantly decreased ejection fraction, status post AICD, atrial fibrillation, on anticoagulation, BPH and colon cancer, status post right hemicolectomy in October 2003, who initially presented with complaints of shortness of breath. He states that he was in his usual state of best until approximately 7 to 8 months ago when he started having progressively worsening shortness of breath, both at rest and exertion. This was accompanied by increased generalized weakness and fatigue, again progressing over the same time. 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 However, during the course of this hospitalization, he was noted to have a significantly decreased H and H concerning for a possible bleeding source. Labs obtained to that effect were more indicative of an iron deficiency anemia. Upon questioning the patient, he denies any episodes of hematemesis, melena, or hematochezia at any time and had been having approximately 1 bowel movement every 1 to 2 days that were normal in consistency and coloration. Prior to admission, he did endorse increased lower extremity edema bilaterally in addition to minimal weeping of fluid from his lower extremities in addition to increased constipation with harder to pass stools. However, he denies any nausea, vomiting, fevers, chills, hematemesis, hematochezia, melena, dysphagia, odynophagia, or diarrhea. 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 The patient subsequently underwent right hemicolectomy in October 2003 with 23 lymph nodes negative consistent with local regional disease. 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 He subsequently underwent a repeat colonoscopy in 2003 with normal-appearing anastomosis within the right colon in addition to no abnormalities seen in the rectum. Per patient, he states he had a repeat colonoscopy in or around 2009, but unfortunately does not remember where this procedure took place, nor records available for review at this time. He cannot remember any additional recommendations based on that particular colonoscopy. REVIEW OF SYSTEMS: A 10-category review of systems was obtained with all responses negative except for the pertinent positives as listed in HPI. PAST MEDICAL HISTORY: As per HPI. PAST SURGICAL HISTORY: CABG, hernia repair, right hemicolectomy. FAMILY HISTORY: Denies any GI malignancies. SOCIAL HISTORY: Denies any tobacco, alcohol, or illicit drug use. OUTPATIENT MEDICATIONS: Reviewed. ALLERGIES: ESTUARDO INHIBITORS, MEPERIDINE, PENICILLIN, AND STATINS. PHYSICAL EXAMINATION: VITAL SIGNS: Temperature 97.9, pulse 73, blood pressure 113/58, respiratory rate 24, saturating 96% on room air. GENERAL: The patient was lying in bed, in no acute distress. Alert and oriented x4. HEENT: Normocephalic, atraumatic. NECK: Supple. No scleral icterus noted. CARDIOVASCULAR: Regular rate and rhythm. 3/6 systolic murmur best heard at the left lower sternal border in the midclavicular line. No discernible gallops or rubs. RESPIRATORY: Clear to auscultation in the bilateral upper lung lainez as well as the right lower lung lainez, but diminished air flow within the left lower lobe. ABDOMEN: Normoactive bowel sounds, soft, nontender, nondistended. EXTREMITIES: 2+/3+ bilateral lower extremity edema extending up to the bilateral knees. No cyanosis or clubbing. LABORATORY DATA: CBC with a white blood cell count of 9.3, hemoglobin 9.3, hematocrit 30.8, platelets 164, MCV 73.6, and RDW 17.5. Chemistry with a sodium of 140, potassium 3.4, chloride 103, CO2 of 29, BUN 32, creatinine 1.61, glucose 96. AST 15, ALT 21, alkaline phosphatase 90, total bilirubin 0.6. Iron 43, ferritin 14, TIBC 340, reticulocyte count 2.3%. INR 1.4 with a BNP of 799. IMAGING DATA: CT of the abdomen and pelvis was obtained on December 12, 2019, which showed increased cardiac size without focal cardiac abnormality. The pacemaker was in appropriate position with leads in the right atrium, right ventricle and coronary sinus, emphysematous changes were seen in the lungs with a calcified granuloma in the right upper lobe. Also noted were small bilateral pleural effusions. However, in the abdomen, no ascites or free air were seen. An anastomotic staple line was seen in the right colon at roughly the right upper quadrant, but there were no enlarged mesenteric or retroperitoneal lymph nodes. Diffuse tissue anasarca was seen during that exam and there was no evidence of retroperitoneal hematoma. Chest x-ray was obtained on December 11, 2019, which showed mild cardiomegaly with mild pulmonary vascular congestion and mild interstitial edema in association with small bilateral pleural effusions consistent with congestive heart failure. ASSESSMENT AND PLAN: The patient is an 84-year-old male with past medical history of coronary artery disease, congestive heart failure with decreased ejection fraction, status post AICD, atrial fibrillation, on anticoagulation, BPH, and colonic adenocarcinoma, status post right hemicolectomy, presenting with an iron deficiency anemia. Iron deficiency anemia: The patient was initially admitted to the hospital with progressively worsening shortness of breath at both rest and exertion over the last 7 to 8 months. This was associated with increased lower extremity edema and generalized fatigue/weakness. On admission to the hospital, he was noted to have what appeared to be an acute on chronic congestive heart failure exacerbation and was placed on a dobutamine and Milrinone drip in order to maintain cardiac output. However, during the course of this admission, he was noted to have a significantly decreased H and H with an unknown etiology at this time given lack of evidence of hematemesis, melena, or hematochezia. When coupled with his personal history of colonic adenocarcinoma in 2002, it is concerning for a recurrence of colon cancer, although current imaging thus far does not yield any findings consistent with that diagnosis so far. Given his iron deficiency anemia, the differential could include GI malignancy, chronic GI blood loss (secondary to gastritis, esophagitis, arteriovenous malformation, Dieulafoy lesion, or colitis), ischemic colitis (especially due to decreased cardiac output) or non GI origin. RECOMMENDATIONS: 1. We would continue to trend the patient's H and H and transfuse as necessary to maintain an H and H of 06/11. 2. We will continue to monitor clinically for signs of active GI bleeding. 3. We will continue the patient on pantoprazole 40 b.i.d. in light of possible active GI bleed. 4. We would attempt to hold any anticoagulation on this patient, especially in light of possible active GI bleed. 5. At the current time, while the patient is on both dobutamine and Milrinone drip, he is currently at risk for periprocedural complications related to upper and lower endoscopy. I would recommend optimization of his cardiac status prior to undergoing endoscopic procedures. There was mention in the chart of Milrinone as an outpatient, which may be unavoidable, but the patient will need to be off a dobutamine drip prior to any sort of invasive procedures (especially in light of no active GI bleeding). 6. I broached the subject of a possible malignancy generating his iron deficiency anemia and the patient is of the opinion that if an additional cancer is found, that he would not want heroic measures for treatment of this including chemotherapy or surgery given his high risk of complications from either these modalities. We will continue to follow. Please call with any questions. Job ID: [id number]
--- NOTE | 2019-12-13 21:59 | CON ---
DATE OF CONSULTATION: 12/13/2019 REASON FOR CONSULTATION: Benign prostatic hypertrophy with outlet obstruction. HISTORY OF PRESENT ILLNESS: Mr. 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 The patient is admitted to the hospital for Milrinone treatment, as well as dobutamine. He is being treated with Lasix for congestive heart failure. The patient has had prostate hypertrophy, which has been managed with finasteride and tamsulosin in the past. As recently as September, he had a postvoid residual as low as 55 mL and was not known to be in retention. During this hospital admission, a Villegas catheter has been placed for management of large amounts of urinary output due to Lasix. He does not report gross hematuria. ALLERGIES: THE PATIENT SELF REPORTS AN ALLERGY TO DEMEROL AND PENICILLINS. MEDICATIONS: Complete home medication list includes: 1. Eliquis 2.5 mg p.o. daily. 2. Lasix 80 mg p.o. daily. 3. Carvedilol 25 mg p.o. daily. 4. Potassium chloride extended release 10 mEq p.o. daily. 5. Amiodarone 200 mg p.o. daily. 6. Aspirin 81 mg p.o. daily. 7. Daily multivitamin. 8. Finasteride 5 mg p.o. daily. 9. Tamsulosin 0.4 mg p.o. twice daily. 10. Levothyroxine 25 mcg p.o. daily. PAST MEDICAL HISTORY: 1. Coronary artery disease, status post coronary bypass graft. 2. History of atrial fibrillation. 3. Colon cancer, status post resection. 4. History of non-STEMI heart attack. 5. Benign prostatic hypertrophy managed with medical therapy. PAST SURGICAL HISTORY: 1. Coronary artery bypass graft. 2. ICD. 3. Open colon cancer resection. No history of previous genitourinary surgery. REVIEW OF SYSTEMS: GENERAL: This is patient is reporting shortness of breath at home. HEAD, EYES, EARS, NOSE, AND THROAT: Negative. PULMONARY: The patient reports dyspnea on exertion and shortness of breath. CARDIAC: Denies chest pain. GASTROINTESTINAL: Some bloating sensation. GENITOURINARY: The patient reports he is not generally able to void in the supine position, but voids fine while standing up when he is on his medications. NEUROLOGIC: No specific complaints. MUSCULOSKELETAL: No current complaints other than swelling of his bilateral lower extremities. The patient has had wrapping of his bilateral lower extremities. Reports he has had some weeping from his left leg in the recent days. PHYSICAL EXAMINATION: VITAL SIGNS: Pulse 73, respirations 18, O2 saturations 97% currently on room air, blood pressure is 105/52. GENERAL: This is a pleasant white male, in no apparent distress. He is evaluated in his intensive care unit room. He has some swelling of his lower extremities. HEAD, EYES, EARS, NOSE, AND THROAT: Extraocular movements are intact. Sclerae anicteric. Oropharynx is clear. NECK: Supple. LUNGS: Appear to be clearing superiorly. CARDIAC: Regular rate and rhythm. The patient has had an implantable defibrillator, status post coronary bypass grafting as a median sternotomy. ABDOMEN: Soft, obese, and nontender. He has had a midline supraumbilical to infraumbilical surgical incisional scar compatible with his known history of colon cancer surgery. GENITOURINARY: A Villegas catheter is in place and is draining straw-colored urine. The phallus is without lesion. Testes found bilaterally in scrotum. They are smooth, anodular, and nontender. Digital rectal examination is performed, finds relatively small prostate. EXTREMITIES: Bilateral lower extremities are edematous as his upper extremities. Due to presumed diuresis, there is some wrinkling observed of his arms bilaterally. This is less noticeable on his legs. Lower extremities are wrapped. LABORATORY STUDIES: The patient has no PSA on record. BNP was elevated to 799 at this admission. Serum electrolytes show current blood urea nitrogen at 32 and creatinine of 1.61. Estimated glomerular filtration rate is 41, BUN to creatinine ratio is 16.8. Hematologic profile shows white blood cell count at 9300 today, hemoglobin 9.3, and hematocrit of 30.8. Chest, abdomen, and pelvis CT was performed on 12/12/2019. This study shows increased heart size without focal cardiac abnormality. No hilar or mediastinal lymphadenopathy. Calcified granuloma present in the patient's left upper lobe and emphysematous changes in the lungs. Small bilateral pleural effusions were also noted. The abdomen appears essentially normal except for the absence of the gallbladder. Kidneys were read out as within normal limits. Ureters and patient's bladder also within normal limits. ASSESSMENT AND PLAN: 1. Benign prostatic hypertrophy, managed with medical therapy. The patient and I discussed various options for him which would include self intermittent catheterization, continuation of his indwelling Villegas catheter, a suprapubic tube or possibly surgical interventions if his health continues to improve and he could be removed from anticoagulation. Briefly discussed UroLift device with them in addition to transurethral resection or thermal therapies are also available. Laser ablation is also an available possibility. However, the patient would require general anesthesia. Discussed with the patient the options and he at this time is inclined to self intermittent catheterization, which is reasonable as long as the patient is proficient and performing it. 2. The patient may follow up in my office at [facility] at present time. Indwelling Villegas catheter appears appropriate given Lasix diuresis. A voiding trial could be performed prior to discharge home or in my office if necessary. Over 70 minutes of initial consultation, evaluation, and assessment time was spent on this patient today. Job ID: [id number]
[2019-12-14] MEDS: Levothyroxine Sodium 25 MCG TAB PO SCH (05:47)
[2019-12-14 05:54] LABS: Anion Gap 10 mmol/L (10-20); BUN (Urea Nitrogen) 28 mg/dL (8.4-25.7); Calc. Creatinine Clearance 37 mL/min (70-130); Calcium 8.2 mg/dL (7.8-10.44); Carbon Dioxide 29 mmol/L (23-31); Chloride 104 mmol/L (98-107); Estimated GFR-MDRD 44; Glucose 99 mg/dL (83-110); Magnesium 2.3 mg/dL (1.6-2.6); Potassium 3.6 mmol/L (3.5-5.1); Sodium 139 mmol/L (136-145)
[2019-12-14 06:36] LABS: Band 13 % (5-11); Eosinophils 2 % (0-10); Hemoglobin 9.1 g/dL (14.0-18.0); Lymphocytes 7 % (21-51); MDiff Complete? YES; Mean Corpuscular Volume 76.4 fL (78.0-98.0); Mean Platelet Volume 11.1 fL (7.4-10.4); Monocytes 7 % (0-10); Neutrophil 71 % (42-75); Platelet Count 158 thou/uL (130-400); RBC Distribution Width 19.1 % (11.5-14.5); Red Blood Cell (RBC) Count 3.95 mill/uL (4.70-6.10); White Blood Cell (WBC) Count 8.3 thou/uL (4.8-10.8)
--- NOTE | 2019-12-14 08:41 | PRG ---
DATE OF SERVICE: 12/14/2019 SUBJECTIVE: Overnight last 24 hour events. Mr. Baer had a good day. He feels strong. He is breathing well. He was visited by multiple people. I appreciate the input from Urology and also GI consultants. Urology believe when hospitalized Villegas catheter would do. He can go home on intermittent self catheterization if needed and perhaps consider outpatient procedure only if needed. From GI perspective, they would like to have dobutamine titrated off before they would consider a procedure. Mr. Baer has been able to sleep well. However, he wants to be able to walk. He denies any palpitations, syncope. He also believes his peripheral edema has decreased somewhat. He notices that his abdomen thinner and has less fluid around his knees. REVIEW OF SYSTEMS: GENERAL: No fever or chills. HEENT: There is no change in vision, hearing, or swallowing. PULMONARY: He denies productive cough. CARDIOVASCULAR: Please see HPI. GI: There is no melena, blood in his stool. He is hungry. : He is now requiring Villegas catheter to urination. INTEGUMENT: He believes his swelling is decreasing. MUSCULOSKELETAL: His joint swelling is decreasing. NEUROLOGIC: There is no focal deficit. PSYCH: He is not depressed. MEDICATIONS: His current cardiac medications include 1. Amiodarone 200 mg twice a day. 2. Apixaban 2.5 mg p.o. b.i.d. 3. Dobutamine currently at 4 mcg/kg/minute IV GTT. 4. Carvedilol 6.25 mg twice a day. 5. Milrinone 0.25 mcg/kg IV GTT. 6. Lasix 60 mg IV twice a day. 7. Potassium chloride 20 mEq twice a day. OBJECTIVE: VITAL SIGNS: His telemetry was reviewed. His heart rate is paced at 70, his average rate is about 75. He has been more active yesterday. There are no concerning arrhythmia. He does have PVCs. Heart rate 70, blood pressure 119/58, oxygen saturation 100% on room air. GENERAL: He is alert, conversational, quite energetic today. HEENT: Show EOMI, PERRL. Oropharynx benign. Moist mucosa. NECK: JVP is about 13 cm today, is less so than prior two days. PULMONARY: He has good air movement and good breath sounds both sides. He had left base crackles, now has disappeared. CARDIAC: Regular rate and rhythm with occasional PVCs. There is a 3/6 holosystolic murmur at apex with radiation to the left axilla. There is 2/6 diastolic murmur in the right sternal border. So, he has combination of mitral regurgitation, aortic insufficiency. His PMI is inferolaterally displaced. ABDOMEN: Soft, nontender, slightly distended. It is less so before. EXTREMITIES: His lower extremity edema is still 3+ to his knees, it is decreasing daily. He has a net negative of 1 L out yesterday. His BUN has decreased down to 28. Creatinine also has decreased down to 1.51, so his renal function is improving. ASSESSMENT: This 84-year-old gentleman remains [place] [employer] stage C and also [place] Heart [employer] Class 3B heart failure with reduced ejection fraction. He has combination of systolic and diastolic dysfunction. It is caused by ischemic cardiomyopathy. He has mitral regurgitation, aortic insufficiency contributing to his heart failure. Milrinone + dobutamine augmentation is providing sufficient cardiac output. He remains volume overloaded but less today. He will need chronic milrinone infusion for quality of life and also better survival. I appreciate the recommendations from Urology and GI. We will plan to titrate off dobutamine and have him ready for the procedure by next Wednesday. RECOMMENDATIONS: 1. Decrease dobutamine down to 2.5 mcg/kg/minute IV GTT. We will be titrating this down every day until it is off. The target day for completely off is this , then he will be ready for procedure next Wednesday. 2. Increase Milrinone to 0.3 mcg/kg/minute IV GTT. 3. Please ask cardiac rehab to come by to walk the patient at least twice today. 4. The cuff is causing quite a bit of pressure on the left arm, please find suitable cuff mechanism to measure blood pressure, he maybe needing them intermittently. It has been a pleasure taking care of Mr. Juan Alberto Baer. If you have any questions, please give me a call. Job ID: [id number] [facility]
[2019-12-14] MEDS: Potassium Chloride 20 MEQ TAB PO SCH ×2 (09:15→17:48)
[2019-12-14] MEDS: Apixaban 2.5 MG TAB PO SCH ×2 (09:15→21:12)
[2019-12-14] MEDS: Finasteride 5 MG TAB PO SCH (09:15)
[2019-12-14] MEDS: Carvedilol 6.25 MG TAB PO SCH ×2 (09:15→21:12)
[2019-12-14] MEDS: Amiodarone 200 MG TAB PO SCH ×2 (09:16→21:11)
[2019-12-14] MEDS: Furosemide 100 MG/10 ML VIAL SLOW IVP SCH ×2 (09:16→21:11)
--- NOTE | 2019-12-14 09:51 | PDOC.HOSPP ---
- Subjective Encounter Date: 12/14/19 Encounter Time: 11:10 Subjective: Patient without complaints. Does want to get up to ambulate so he doesn't get weak. Has been doing exercises on the edge of the bed. [place] in and urinating very well, lower extremity edema improved. - Objective Vital Signs & Weight: Vital Signs (12 hours) Temp Pulse Resp BP BP BP Pulse Ox 12/14/19 09:15 115/53 L 12/14/19 09:00 120/54 L 12/14/19 08:00 114/53 L 12/14/19 07:29 71 14 12/14/19 06:00 118/57 L 12/14/19 05:00 112/56 L 12/14/19 03:26 98.9 F 12/14/19 02:00 104/53 L 12/14/19 01:00 118/56 L 12/14/19 00:20 70 20 100 12/14/19 00:00 117/58 L 12/13/19 22:00 137/61 Weight Admit Weight 170 lb 14.4 oz Weight 165 lb 12.8 oz Most Recent Monitor Data Heart Rate from ECG 70 NIBP 99/64 NIBP BP-Mean 75 Respiration from ECG 21 SpO2 98 I&O: 12/13/19 12/14/19 12/15/19 06:59 06:59 06:59 Intake Total 1000 1761 Output Total 1505 2825 Balance -505 -1064 Result Diagrams: 12/14/19 05:25 12/14/19 05:25 Hospitalist ROS - Review of Systems Constitutional: denies: fever, chills Respiratory: denies: cough, shortness of breath Cardiovascular: denies: chest pain, palpitations, orthopnea Gastrointestinal: denies: nausea, vomiting, abdominal pain, diarrhea, constipation - Medication Medications: Active Medications Generic Name Dose Route Start Last Admin Trade Name Freq PRN Reason Stop Dose Admin Albuterol/Ipratropium 3 ml 12/12/19 01:00 12/14/19 07:29 Duoneb NEB 3 ml [id number] MAXI Administration Amiodarone HCl 200 mg 12/13/19 09:00 12/14/19 09:16 Cordarone PO 200 mg BID MAXI Administration Apixaban 2.5 mg 12/12/19 09:00 12/14/19 09:15 Eliquis PO 2.5 mg BID MAXI Administration Carvedilol 6.25 mg 12/11/19 21:00 12/14/19 09:15 Coreg PO 6.25 mg BID MAXI Administration Finasteride 5 mg 12/13/19 09:00 12/14/19 09:15 Proscar PO 5 mg DAILY MAXI Administration Furosemide 60 mg 12/13/19 09:00 12/14/19 09:16 Lasix SLOW IVP 60 mg BID MAXI Administration Levothyroxine Sodium 25 mcg 12/13/19 06:00 12/14/19 05:47 Synthroid PO 25 mcg 0600 MAXI Administration Pantoprazole Sodium 40 mg 12/14/19 09:00 12/14/19 09:15 Protonix PO 40 mg BID MAXI Administration Potassium Chloride 20 meq 12/13/19 17:00 12/14/19 09:15 K-Dur PO 20 meq BID-WM MAXI Administration - Exam General Appearance: NAD, awake alert ENT: moist mucosa Heart: RRR, no murmur, no gallops, no rubs Respiratory: CTAB, no wheezes, no rales, no ronchi Gastrointestinal: soft, non-tender, non-distended, normal bowel sounds Extremities: 1+ LE edema Neurological: no focal deficits Psychiatric: normal affect, normal behavior, A&O x 3 Hosp A/P (1) Congestive heart failure, NYHA class 3 and ACC/AHA stage C Code(s): I50.9 - HEART FAILURE, UNSPECIFIED Status: Acute (2) Pacemaker Code(s): Z95.0 - PRESENCE OF CARDIAC PACEMAKER Status: Chronic (3) CAD (coronary artery disease) Code(s): I25.10 - ATHSCL HEART DISEASE OF [place] CORONARY ARTERY W/O ANG PCTRS Status: Chronic Qualifiers: Coronary Disease-Associated Artery/Lesion type: [place] artery [place] vs. transplanted heart: [place] heart Associated angina: without angina Qualified Code(s): I25.10 - Atherosclerotic heart disease of [place] coronary artery without angina pectoris (4) Chronic anticoagulation Code(s): Z79.01 - RETIREMENT (CURRENT) USE OF ANTICOAGULANTS Status: Chronic (5) Atrial fibrillation Code(s): I48.91 - UNSPECIFIED ATRIAL FIBRILLATION Status: Chronic (6) BPH (benign prostatic hyperplasia) Code(s): N40.0 - BENIGN PROSTATIC HYPERPLASIA WITHOUT LOWER URINRY TRACT SYMP Status: Chronic Qualifiers: Lower urinary tract symptom presence: symptoms absent Qualified Code(s): N40.0 - Benign prostatic hyperplasia without lower urinary tract symptoms (7) Anemia Code(s): D64.9 - ANEMIA, UNSPECIFIED Status: Acute Qualifiers: Anemia type: unspecified type Qualified Code(s): D64.9 - Anemia, unspecified (8) CKD (chronic kidney disease), stage III Code(s): N18.3 - CHRONIC KIDNEY DISEASE, STAGE 3 (MODERATE) Status: Chronic - Plan (1) Congestive heart failure, NYHA class 3 and ACC/AHA stage C - on Milrinone drip and Dobutamine with SBP 110-120 - switched to IV Lasix and diuresing well - Cardiology plans to wean Dobutamine as tolerated (2) Pacemaker (3) CAD (coronary artery disease) - hx of CABG (4) Chronic anticoagulation - on Eliquis low dose (5) Atrial fibrillation - on Amiodarone per cardiology (6) BPH (benign prostatic hyperplasia) - Urology consulted by Dr. Avalos for possible prostate procedure, recommend atwood on I&O cath, f/u outpatient (7) Anemia- iron studies consistent with iron deficiency - transfused 3 units PRBC with improved Hbg to 9 - hemoccult stools and GI consult- plan for endoscopy after off dobutamine (8) CKD (chronic kidney disease), stage III - Uncertain baseline, improving PT to get patient ambulating as tolerated Further treatment course as directed by Dr. Avalos (Cardiology)
--- NOTE | 2019-12-14 20:26 | CON ---
DATE OF CONSULTATION: 12/14/2019 REASON FOR CONSULTATION: 1. Benign prostatic hypertrophy with a desire to be off tamsulosin. 2. Indwelling Villegas catheter. BRIEF HISTORY: Mr. 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 Avalos for cardiology needs. The patient is currently on diuresis with Lasix for his congestive heart failure and is making gradual progress toward the goal of a nearly diuresed state. The patient is having progressively decreased edema in his face and upper extremities, which is evident on exam today. There have been no overnight significant interval events other than continued diuresis. No specific events, specifically no gross hematuria despite low level Eliquis anticoagulation. PHYSICAL EXAMINATION: GENERAL: This is a pleasant elderly white male. He is awake, alert, and is able to arise from bed under his own strength. VITAL SIGNS: Blood pressure is 132/61, pulse 73, respirations 12, O2 saturations 100%. HEAD, EYES, EARS, NOSE, AND THROAT: Extraocular movements are intact. Sclerae anicteric. Oropharynx is clear. The patient is able to eat his regular solid food today. NECK: Supple. LUNGS: Clear bilaterally. CARDIAC: Regular rate and rhythm. ABDOMEN: Soft, obese, and nontender. EXTREMITIES: The upper extremities are clear to large amount of edema. There is some wrinkling of the skin on the right arm, also on the left, although there are areas of edema likely related to the blood pressure cuff. Lower extremities remain edematous. His generalized anasarca appears much reduced on physical exam today. LABORATORY STUDIES: The patient's white count is 8300, hemoglobin 9.1, hematocrit is 30.2. The differential today shows 91% neutrophils and 13% bands. Serum chemistries showed the patient's creatinine of 1.51, blood urea nitrogen at 28. Electrolytes otherwise within normal limits. BNP remains elevated today at 865. ASSESSMENT AND PLAN: Benign prostatic hypertrophy with obstruction with desire to be off tamsulosin. The patient and I discussed the intermittent catheterization as an alternative to having indwelling Villegas catheter and he would like to proceed with that diuresis has been performed. The patient may even be able to void on finasteride alone with the catheter removed after adequate diuresis has been performed. The patient and I discussed that he would not be a quality surgical candidate for UroLift or intervention such as TURP. I believe at the present time, UroLift would be a reasonable consideration for him, but I think he should be an outpatient status before we consider any type of intervention. At present time, I would recommend either leaving a Villegas catheter indwelling if he requires continued diuresis after discharge home, to proceed with a voiding trial in my office with personalized instruction and intermittent catheterization at that point or catheter replacement as his choice. Possible other temporizing measures might be required such as temporary suprapubic tube while he awaits a definitive procedure for outlet obstruction. Job ID: [id number]
--- NOTE | 2019-12-14 22:45 | PRG ---
DATE OF SERVICE: 12/14/2019 REASON FOR CONSULTATION: Anemia, history of colonic malignancy. SUBJECTIVE: The patient did well overnight with no acute events or problems. Per nursing staff today, the patient was able to get out of bed and ambulate around the unit a few times without difficulty or increased shortness of breath. He has also been having good urinary output consistent with adequate diuresis per Cardiology recommendations. However, he does continue to have both the milrinone and dobutamine drips at this time with down titration of the dobutamine drip ongoing. He adds that he was able to tolerate his diet well today without any acute events or problems. Currently, he denies any nausea, vomiting, fevers, chills, hematemesis, melena, hematochezia, dysphagia, or odynophagia. OBJECTIVE: VITAL SIGNS: Temperature 98.9, pulse 82, blood pressure 122/58, respiratory rate 17, saturating 100% on room air. GENERAL: The patient was sitting at bedside, in no acute distress. Alert and oriented x4. No conversational dyspnea. CARDIOVASCULAR: Regular rate and rhythm. 3/6 systolic murmur best heard at the left lower sternal border in the midclavicular line. No discernible gallops or rubs. RESPIRATORY: Clear to auscultation bilaterally, but with mildly diminished air flow within the left lower lobe. ABDOMEN: Normoactive bowel sounds. Soft, nontender, nondistended. EXTREMITIES: 2+ bilateral lower extremity edema extending up to the bilateral lower knees. No cyanosis or clubbing. LABORATORY DATA: CBC with a white blood cell count of 8.3, hemoglobin 9.1, hematocrit 30.2, platelets 158. Chemistry with sodium of 139, potassium 3.6, chloride 104, CO2 of 29, BUN 28, creatinine 1.51, glucose 99. IMAGING DATA: The patient underwent echocardiogram on December 13, 2019, which showed a decreased ejection fraction visually estimated at 20% to 25%, as well as anterior and apex akinetic wall and lateral wall severe hypokinesis. Restrictive filling pattern was also seen during the echo with normal right ventricular size and function. The left atrium was moderately to severely dilated in addition to moderate in large mid of the right atrium, severe mitral regurgitation was present, mild to moderate aortic regurgitation was present, moderate to severe tricuspid regurgitation, and mild pulmonic regurgitation was present. ASSESSMENT AND PLAN: The patient is an 84-year-old male with past medical history of coronary artery disease, congestive heart failure with ejection fraction of 20% to 25%, status post AICD, atrial fibrillation on anticoagulation, BPH, and colonic adenocarcinoma status post right hemicolectomy, presenting with iron deficiency anemia. Iron deficiency anemia. The patient was initially admitted to the hospital with progressively worsening shortness of breath at rest and exertion over the last seven to eight months. On admission to the hospital, he was noted to have significantly decreased H and H with iron indices consistent with an iron deficiency anemia. Prior to admission and during this admission, the patient denies any episodes of hematemesis, melena, or hematochezia. However, when coupled with his personal history of colonic adenocarcinoma in 2002 in addition to rectal polyps with high-grade dysplasia at the same time, it is concerning for recurrence of colonic adenocarcinoma. However, differential could also include GI malignancy, chronic GI blood loss secondary to arteriovenous malformation, Dieulafoy lesion, colitis or ulceration (ischemic colitis), stercoral colitis or adverse reaction of chronic anticoagulation. RECOMMENDATIONS: 1. Would continue to trend his H and H, transfuse as necessary to maintain an H and H of 7/21. 2. Continue to monitor clinically for signs of active GI bleeding. 3. Would continue patient on pantoprazole 40 mg b.i.d. in light of possible active GI bleed. 4. Would recommend holding any anticoagulation on this patient and specially in light of possible active GI bleed. 5. Currently, the patient is on both dobutamine and Milrinone drip, but with plans to down titrate the dobutamine drip over the course of the next 2 days. If this can be performed and given his increased functional status evidenced by his ability to ambulate around the unit, the patient could be considered for endoscopic evaluation concerning his anemia. However, his anticoagulation will need to be stopped at least 48 hours prior to the procedure. We will continue to follow. Please call with any questions. Job ID: [id number]
[2019-12-15 04:01] LABS: #Eosinphils 0.2 thou/uL (0.0-0.7); #Lymphocytes 0.8 thou/uL (1.20-3.40); #Neutrophils 6.5 thou/uL (1.40-6.50); %Basophils 0.1 % (0.0-1.0); %Eosinophils 2.6 % (0.0-10.0); %Lymphocytes 9.9 % (21.0-51.0); %Monocytes 11.2 % (0.0-10.0); %Neutrophils 76.2 % (42.0-75.0); Hemoglobin 9.2 g/dL (14.0-18.0); Mean Corpuscular HGB CONC 30.8 g/dL (32.0-36.0); Mean Corpuscular Hemoglobin 23.5 pg (27.0-31.0); Mean Corpuscular Volume 76.5 fL (78.0-98.0); Mean Platelet Volume 10.9 fL (7.4-10.4); Platelet Count 155 thou/uL (130-400); RBC Distribution Width 19.4 % (11.5-14.5); Red Blood Cell (RBC) Count 3.89 mill/uL (4.70-6.10); White Blood Cell (WBC) Count 8.5 thou/uL (4.8-10.8)
[2019-12-15] MEDS: Levothyroxine Sodium 25 MCG TAB PO SCH (05:44)
--- NOTE | 2019-12-15 08:28 | PRG ---
DATE OF SERVICE: 12/15/2019 SUBJECTIVE: Mr. Juan Alberto Baer had an excellent day yesterday. His came and visited him twice. He was able to walk with cardiac rehab completely around the unit. This is much more longer walking distance than he was able to do at home. He was able to do this without being short of breath. He denies palpitations or syncope. He still has some trouble sleeping, not because of orthopnea but because in the hospital situation, he wants to do more exercise. It was communicated to me that if we can get the dobutamine off today, then GI could possibly do colonoscopy on Wednesday. REVIEW OF SYSTEMS: GENERAL: No fever or chills. PULMONARY: There is no productive cough. CARDIOVASCULAR: See HPI. GI: He is eating well. There is no nausea, vomiting, or diarrhea. : He still needs a Villegas. MUSCULOSKELETAL: He said that his swelling around the knee joint has greatly decreased and he can feel being much more loose around his lower legs. INTEGUMENT: He does not complain of new skin breakdown. NEUROLOGIC: There are no focal deficits. PSYCHIATRIC: He is energetic, wants to do things today. There are no complaints or signs of depression. MEDICATIONS: Active medications include 1. Amiodarone 200 mg twice a day. 2. Apixaban 2.5 mg b.i.d. 3. Dobutamine currently at 2.5 mcg/kg/minute. 4. Carvedilol 6.25 mg twice a day. 5. Milrinone at 0.3 mcg/kg/minute IV GTT. 6. Lasix 60 mg IV b.i.d. 7. Potassium supplement at 20 mEq b.i.d. 8. Levothyroxine 25 mcg daily. PHYSICAL EXAMINATION: VITAL SIGNS: The telemetry was reviewed. His average heart rate is now slightly below 70. There are occasional PVCs. There are no concerning arrhythmias. His vitals are heart rate 71, blood pressure 117/56. GENERAL: He is alert and conversational, energetic, wants to eat breakfast and wants go out walking and wants to be able to dinner with his . HEENT: Show EOMI, PERRL. Oropharynx is benign. Moist mucosa. There is no erythema, no exudate. NECK: His JVP is little bit lower today about 12 cm. PULMONARY: Good air movement bilaterally. Clear to auscultation bilaterally. There are no more rales. This is an excellent improvement. CARDIAC: Regular rate and rhythm with occasional PVC, normal S1 and S2, there is 3/6 holosystolic murmur at the apex with radiation to the left axilla, there is 2/6 diastolic murmur at the right sternal border. ABDOMEN: Soft, nontender, is less distended. EXTREMITIES: Lower extremity, he still has pitting edema above the knee, but much less so today. His lower leg between his knee and feet is now soft. The edema also has greatly decreased there too. His net I's and O's are net negative 1033 mL. His weight has decreased down to 164 pounds. Furthermore, his BNP has decreased down to 787. 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 It is a combination of ischemic cardiomyopathy, mitral regurgitation, and also aortic insufficiency. He has combined systolic and diastolic dysfunction. Currently, he is doing well with lower dose of dobutamine and increasing dose of milrinone. This is providing sufficient cardiac output. We will aim to titrate off dobutamine completely today. Titrating off dobutamine will enable him to have a colonoscopy done on Wednesday if desired. RECOMMENDATIONS: 1. Decrease dobutamine down to 1.25 mcg/kg/minute IV GTT. If systolic pressure remains about 95 mmHg during the shift, dobutamine can be stopped. 2. Increase milrinone to 0.375 mcg/kg IV GTT. 3. Please also continue to have Cardiac Rehab to come out to walk him. 4. Please also consult Physical Therapy to give him the exercises he really wanted. 5. Please work with GI specialty sales consultant to set up to get bowel preparations on Wednesday. It is expected that he should be off dobutamine tonight. It has been a pleasure taking care of Mr. Juan Alberto Baer. If you any questions, please give me a call. Job ID: [id number] [id number]
[2019-12-15 09:42] LABS: Anion Gap 11 mmol/L (10-20); BUN (Urea Nitrogen) 26 mg/dL (8.4-25.7); Calc. Creatinine Clearance 37 mL/min (70-130); Calcium 8.8 mg/dL (7.8-10.44); Carbon Dioxide 30 mmol/L (23-31); Chloride 103 mmol/L (98-107); Estimated GFR-MDRD 44; Glucose 114 mg/dL (83-110); Magnesium 2.2 mg/dL (1.6-2.6); Potassium 3.6 mmol/L (3.5-5.1); Sodium 140 mmol/L (136-145)
[2019-12-15] MEDS: Amiodarone 200 MG TAB PO SCH ×2 (10:09→19:46)
[2019-12-15] MEDS: Furosemide 100 MG/10 ML VIAL SLOW IVP SCH ×2 (10:09→19:47)
[2019-12-15] MEDS: Finasteride 5 MG TAB PO SCH (10:09)
[2019-12-15] MEDS: Carvedilol 6.25 MG TAB PO SCH ×2 (10:09→19:47)
[2019-12-15] MEDS: Potassium Chloride 20 MEQ TAB PO SCH ×2 (10:09→17:58)
--- NOTE | 2019-12-15 14:52 | PRG ---
DATE OF SERVICE: 12/15/2019 REASON FOR CONSULTATION: Anemia, history of colonic malignancy. SUBJECTIVE: Overnight, the patient did not experience any acute events or problems. Per nursing staff, he was able to ambulate around the unit with cardiac rehab without any difficulty. Upon talking with the patient, he also states that with ambulation this morning, it did not make him increasingly short of breath compared to prior to admission. He has had approximately 1 bowel movement over the last 24 hours with no difficulty with defecation nor any bleeding noted. Currently, he denies any nausea, vomiting, fevers, chills, hematemesis, melena, hematochezia, dysphagia, or odynophagia. OBJECTIVE: VITAL SIGNS: Temperature 97.7, pulse 70, blood pressure 107/57, respiratory rate 15, saturating 99% on room air. GENERAL: The patient was lying in bed, in no acute distress. Alert and oriented x4. No conversational dyspnea. CARDIOVASCULAR: Regular rate and rhythm. 3/6 systolic murmur best heard at the left lower sternal border in the midclavicular line. No discernible gallops or rubs. RESPIRATORY: Clear to auscultation bilaterally. ABDOMEN: Normoactive bowel sounds. Soft, nontender, nondistended. EXTREMITIES: 2+ bilateral lower extremity edema extending up to the knees. No cyanosis or clubbing. LABORATORY DATA: CBC with a white blood cell count of 8.5, hemoglobin 9.2, hematocrit 29.8, platelets 155. Chemistry with a sodium of 140, potassium 3.6, chloride 103, CO2 of 30, BUN 26, creatinine 1.5, glucose 114, BNP 787. IMAGING DATA: No current GI imaging is available for review. ASSESSMENT AND PLAN: The patient is an 84-year-old male with past medical history of coronary artery disease, congestive heart failure with an ejection fraction of 20% to 25%, status post AICD, atrial fibrillation, on anticoagulation, BPH, and colonic adenocarcinoma, status post right hemicolectomy, presenting with iron deficiency anemia. Iron deficiency anemia: The patient was initially admitted to the hospital with progressive worsening of shortness of breath at both rest and exertion for over the last 7 to 8 months. On admission, he was noted to have an acute on chronic exacerbation of his congestive heart failure, but he was also noted to have a decreased H and H with iron indices consistent with iron deficiency anemia. Prior to and during this admission, he has not had any episodes of hematemesis, melena, or hematochezia that would be indicative of a GI bleed. However, the patient does have a history of colonic adenocarcinoma of the cecum in 2002 for which the patient underwent right hemicolectomy. At that time, he also had multiple rectal polyps that showed high-grade dysplasia with the most recent colonoscopy in 2009 showing no evidence of that after the initial polypectomies. At this time, the origin of his iron-deficiency anemia is unknown but could include GI malignancy, chronic GI blood loss secondary to bleeding source (arteriovenous malformation, Dieulafoy lesion, colitis or peptic ulcer disease), stercoral colitis, anemia of chronic disease or adverse reaction to chronic anticoagulation with Eliquis. RECOMMENDATIONS: 1. We will continue to trend his H and H and transfuse as necessary to maintain an H and H of 7/. 2. Continue to monitor clinically for signs of active GI bleeding. 3. Would continue patient on pantoprazole 40 mg b.i.d. in light of possible active GI bleed. 4. Would continue to hold any anticoagulation on this patient in preparation for procedures on Wednesday. 5. If the patient is cleared for endoscopic management and can be weaned off the dobutamine drip, then would consider both EGD and colonoscopy on Wednesday. We will continue to follow. Dr. Mendoza will be on-call this weekend. Please direct any questions toward him. Job ID: [id number]
[2019-12-15] MEDS: Apixaban 2.5 MG TAB PO SCH (14:59)
--- NOTE | 2019-12-15 19:14 | PDOC.HOSPP ---
- Subjective Subjective: Lying in bed comfortably. Still on dobutamine and milrinone drip. - Objective Vital Signs & Weight: Vital Signs (12 hours) Temp Pulse Pulse Pulse BP BP BP 12/15/19 18:00 12/15/19 17:00 69 12/15/19 15:17 98.6 F 12/15/19 15:00 12/15/19 14:00 12/15/19 13:00 12/15/19 12:00 12/15/19 11:30 97.7 F 12/15/19 11:00 12/15/19 10:09 122/58 L 12/15/19 10:00 12/15/19 09:10 94 70 131/61 108/52 L 12/15/19 09:00 12/15/19 08:00 12/15/19 07:30 98.4 F BP BP Pulse Ox Pulse Ox Pulse Ox 12/15/19 18:00 115/54 L 12/15/19 17:00 114/58 L 12/15/19 15:17 12/15/19 15:00 108/52 L 12/15/19 14:00 112/53 L 12/15/19 13:00 117/55 L 12/15/19 12:00 107/57 L 12/15/19 11:30 12/15/19 11:00 116/55 L 12/15/19 10:09 12/15/19 10:00 123/56 L 12/15/19 09:10 98 98 12/15/19 09:00 110/56 L 12/15/19 08:00 98/54 L 100 12/15/19 07:30 Weight Admit Weight 170 lb 14.4 oz Weight 164 lb Most Recent Monitor Data Heart Rate from ECG 72 NIBP 99/64 NIBP BP-Mean 75 Respiration from ECG 19 SpO2 94 I&O: 12/14/19 12/15/19 12/16/19 06:59 06:59 06:59 Intake Total 1761 2365 920 Output Total 6325 5604 1600 Balance -1064 -1033 -680 Result Diagrams: 12/15/19 03:51 12/15/19 08:53 Hospitalist ROS - Review of Systems All other systems reviewed; all pertinent +/- noted in HPI/Subj - Medication Medications: Active Medications Generic Name Dose Route Start Last Admin Trade Name Freq PRN Reason Stop Dose Admin Amiodarone HCl 200 mg 12/13/19 09:00 12/15/19 10:09 Cordarone PO 200 mg BID MAXI Administration Carvedilol 6.25 mg 12/11/19 21:00 12/15/19 10:09 Coreg PO 6.25 mg BID MAXI Administration Finasteride 5 mg 12/13/19 09:00 12/15/19 10:09 Proscar PO 5 mg DAILY MAXI Administration Furosemide 60 mg 12/13/19 09:00 12/15/19 10:09 Lasix SLOW IVP 60 mg BID MAXI Administration Milrinone Lactate 20 mg/ 100 mls @ 8.72 mls/hr 12/14/19 09:00 12/15/19 19:00 Sodium Chloride IVPB 100 mls INF MAXI Administration Protocol 0.375 MCG/KG/MIN Levothyroxine Sodium 25 mcg 12/13/19 06:00 12/15/19 05:44 Synthroid PO 25 mcg 0600 MAXI Administration Pantoprazole Sodium 40 mg 12/14/19 09:00 12/15/19 10:09 Protonix PO 40 mg BID MAXI Administration Potassium Chloride 20 meq 12/13/19 17:00 12/15/19 17:58 K-Dur PO 20 meq BID-WM MAXI Administration - Exam General Appearance: NAD, awake alert Eye: PERRL, anicteric sclera ENT: normocephalic atraumatic, no oropharyngeal lesions, moist mucosa Neck: supple, symmetric, no JVD, no thyromegaly, no lymphadenopathy, no carotid bruit Heart: RRR, no murmur, no gallops, no rubs, normal peripheral pulses Respiratory: CTAB, no wheezes, no rales, no ronchi, normal chest expansion, no tachypnea, normal percussion Gastrointestinal: soft, non-tender, non-distended, normal bowel sounds, no palpable masses, no hepatomegaly, no splenomegaly, no bruit Extremities: no cyanosis, no clubbing, no edema Skin: normal turgor, no lesions, no rashes Neurological: cranial nerve grossly intact, normal sensation to touch, no weakness, no focal deficits, no new deficit Musculoskeletal: normal tone, normal strength, no muscle wasting Psychiatric: normal affect, normal behavior, A&O x 3 Hosp A/P - Plan Hosp A/P (1) Congestive heart failure, NYHA class 3 and ACC/AHA stage C Code(s): I50.9 - HEART FAILURE, UNSPECIFIED Status: Acute (2) Pacemaker Code(s): Z95.0 - PRESENCE OF CARDIAC PACEMAKER Status: Chronic (3) CAD (coronary artery disease) Code(s): I25.10 - ATHSCL HEART DISEASE OF [place] CORONARY ARTERY W/O ANG PCTRS Status: Chronic Qualifiers: Coronary Disease-Associated Artery/Lesion type: [place] artery [place] vs. transplanted heart: [place] heart Associated angina: without angina Qualified Code(s): I25.10 - Atherosclerotic heart disease of [place] coronary artery without angina pectoris (4) Chronic anticoagulation Code(s): Z79.01 - MANAGER INTERNET (CURRENT) USE OF ANTICOAGULANTS Status: Chronic (5) Atrial fibrillation Code(s): I48.91 - UNSPECIFIED ATRIAL FIBRILLATION Status: Chronic (6) BPH (benign prostatic hyperplasia) Code(s): N40.0 - BENIGN PROSTATIC HYPERPLASIA WITHOUT LOWER URINRY TRACT SYMP Status: Chronic Qualifiers: Lower urinary tract symptom presence: symptoms absent Qualified Code(s): N40.0 - Benign prostatic hyperplasia without lower urinary tract symptoms (7) Anemia Code(s): D64.9 - ANEMIA, UNSPECIFIED Status: Acute Qualifiers: Anemia type: unspecified type Qualified Code(s): D64.9 - Anemia, unspecified (8) CKD (chronic kidney disease), stage III Code(s): N18.3 - CHRONIC KIDNEY DISEASE, STAGE 3 (MODERATE) Status: Chronic - Plan (1) Congestive heart failure, NYHA class 3 and ACC/AHA stage C - on Milrinone drip and Dobutamine with SBP 110-120 - Cardiology plans to wean Dobutamine as tolerated - Continue lasix IV (2) Pacemaker (3) CAD (coronary artery disease) - hx of CABG (4) Chronic anticoagulation - on Eliquis low dose (5) Atrial fibrillation - on Amiodarone per cardiology (6) BPH (benign prostatic hyperplasia) - Urology is following, [place] was traumatic, continue to monitor (7) Anemia- iron studies consistent with iron deficiency - Hb stable at 9 - GI to plan for endoscopy (8) CKD (chronic kidney disease), stage III - Uncertain baseline, improving PT to get patient ambulating as tolerated Further treatment course as directed by Dr. Avalos (Cardiology)
--- NOTE | 2019-12-15 22:07 | CON ---
DATE OF CONSULTATION: 12/15/2019 REASON FOR CONSULTATION: 1. Urinary retention. 2. Prostatic hypertrophy. 3. Need for Villegas catheter due to aggressive diuresis. HISTORY OF PRESENT ILLNESS: Mr. 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 The patient has had an indwelling Villegas catheter placed. He was well managed on finasteride and Flomax in the past but due to maximization of his management for cardiac needs, he is off his tamsulosin on this admission. The patient is making good progress with his diuresis, has indwelling Villegas catheter. He has had no interval issues with hematuria. PHYSICAL EXAMINATION: VITAL SIGNS: Temperature is 98.6, blood pressure is 108/52, pulse is 70, respiratory rate is down to 18, O2 saturation is now 97% on room air. HEAD, EYES, EARS, NOSE, AND THROAT: Extraocular movements are intact. Sclerae anicteric. Oropharynx clear. NECK: Supple. LUNGS: Predominantly clear superiorly today. There are few crackles in the bilateral bases. ABDOMEN: Soft and nontender. GENITOURINARY: Indwelling Villegas catheter is draining straw-colored urine. There is no blood evident. LABORATORY STUDIES: White count is 8500, hemoglobin is 9.2, and hematocrit of 29.8. Serum chemistries show blood urea nitrogen now at 26, with a creatinine of 1.50, unchanged from yesterday. ASSESSMENT AND PLAN: 1. Benign prostatic hypertrophy with obstruction. The patient will need to follow up in my office for further evaluation. I am recommending voiding trial, as well as intermittent catheterization instruction in my clinic. We will proceed with that after discharge and also will proceed with plans for cystoscopic evaluation to assess for actual cause of his obstructive outlet stricture, nonfunctional sphincter or BPH are in all the differential. He was previously managed well with finasteride and Flomax, and there seems to have been a global climate change analyst the last year or so. 2. At discharge, the patient's finasteride should be continued and it is okay to hold his Flomax. In my absence this weekend, Dr. Live Burgess, will be covering for me and is available by pager. Job ID: [id number]
[2019-12-16] MEDS: Levothyroxine Sodium 25 MCG TAB PO SCH (05:34)
[2019-12-16 06:06] LABS: #Eosinphils 0.2 thou/uL (0.0-0.7); #Lymphocytes 0.9 thou/uL (1.20-3.40); #Monocytes 0.8 thou/uL (0.11-0.59); %Basophils 0.2 % (0.0-1.0); %Eosinophils 2.3 % (0.0-10.0); %Lymphocytes 9.6 % (21.0-51.0); %Monocytes 9.1 % (0.0-10.0); %Neutrophils 78.8 % (42.0-75.0); Hemoglobin 9.7 g/dL (14.0-18.0); Mean Corpuscular Hemoglobin 23.3 pg (27.0-31.0); Mean Corpuscular Volume 77.7 fL (78.0-98.0); Mean Platelet Volume 11.6 fL (7.4-10.4); Platelet Count 173 thou/uL (130-400); RBC Distribution Width 20.2 % (11.5-14.5); Red Blood Cell (RBC) Count 4.17 mill/uL (4.70-6.10); White Blood Cell (WBC) Count 8.9 thou/uL (4.8-10.8)
[2019-12-16 06:07] LABS: INR-International Normal Ratio 1.2; PTT 32.7 SEC (22.9-36.1); Prothrombin Time 14.9 SEC (12.0-14.7)
[2019-12-16 06:30] LABS: ALT (SGPT) 16 U/L (8-55); AST (SGOT) 14 U/L (5-34); Albumin 3.6 g/dL (3.4-4.8); Alkaline Phosphatase 89 U/L (40-110); Anion Gap 12 mmol/L (10-20); BUN (Urea Nitrogen) 28 mg/dL (8.4-25.7); Bilirubin, Total 1.1 mg/dL (0.2-1.2); Calc. Creatinine Clearance 37 mL/min (70-130); Calcium 8.8 mg/dL (7.8-10.44); Carbon Dioxide 31 mmol/L (23-31); Chloride 103 mmol/L (98-107); Estimated GFR-MDRD 44; Globulin 2.5 g/dL (2.4-3.5); Glucose 116 mg/dL (83-110); Magnesium 2.2 mg/dL (1.6-2.6); Potassium 3.8 mmol/L (3.5-5.1); Protein, Total 6.1 g/dL (5.8-8.1); Sodium 142 mmol/L (136-145)
--- NOTE | 2019-12-16 09:35 | PRG ---
DATE OF SERVICE: 12/16/2019 This is a daily progress note from [facility]. SUBJECTIVE: Mr. Baer had another excellent day. He was able to walk around the unit twice without difficulty. He did not have shortness of breath. This is a significant improvement from home. Dobutamine was able to be titrated off yesterday. He was able to maintain the blood pressure well above 100 consistently without dobutamine. Consequently, he is ready to undergo colonoscopy. REVIEW OF SYSTEMS: GENERAL: No fever or chills. PULMONARY: There is no productive cough. CARDIOVASCULAR: There is no palpitation or syncope. GI: He is eating well. There is no nausea, vomiting, diarrhea, or blood in stool. : He still needs a Villegas. MUSCULOSKELETAL: He said he has a swelling around the knees, it continues to decrease. INTEGUMENT: There is no new skin breakdown. NEUROLOGIC: There are no focal deficits. PSYCHIATRIC: He is energetic, wants to walk and after conversation, he does agreeable to have an EGD and colonoscopy done. MEDICATIONS: His current cardiac medications include: 1. Amiodarone 200 mg b.i.d. 2. Carvedilol 6.25 mg p.o. b.i.d. 3. Milrinone at 0.375 mcg/kg/minute IV GTT. 4. Lasix at 60 mg IV b.i.d. 5. Potassium chloride supplement at 20 mEq twice per day. OBJECTIVE: VITAL SIGNS: Heart rate 70 and blood pressure 110/53. GENERAL: He is alert and conversational and energetic. HEENT: Show EOMI, PERRL. Oropharynx benign. There is no lymphadenopathy. His mucosas are moist. There is no erythema. No exudate. NECK: His JVP remains elevated about 12 cm with positive hepatojugular reflux. LUNGS: There are good air movements. Clear to auscultation bilaterally. HEART: Regular rate and rhythm with occasional irregularity, there is 3/6 holosystolic murmur at the apex with radiation to the left axilla. There is also 2/6 diastolic murmur at right sternal border. Thus, he has murmurs of mitral regurgitation and aortic insufficiency. ABDOMEN: Soft and nontender. Positive bowel sounds. His fluids waves have decreased. EXTREMITIES: Lower extremities still has 3+ edema about his knees, but less so in his lower extremity from knee until his feet is also much looser, so he has continued decreasing fluid. LABORATORY DATA: He has a net negative of 1.7 L. His significant labs are BUN 28 and creatinine 1.5. But, his creatinine has been stable at this number. His BNP has further decreased down to 759. 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 Combination ischemic cardiomyopathy, mitral regurgitation, and aortic insufficiency are contributed to his heart failure. He has combined systolic and diastolic dysfunction. Milrinone at 0.375 mcg/kg/ minute has provided him sufficient cardiac output. He remains a bit volume overloaded; however, he has sufficient diuresis with a net negative 1.7 L yesterday. It remains important to elucidate a cause of a 3 unit blood loss. It will affect his medical treatment greatly in the upcoming months. Thus, per the patient's agreement this morning, I believe that we should proceed with esophagogastroduodenoscopy and colonoscopy to identify the cause of blood loss. If there is no GI cause of blood loss with already very high erythropoetin level, then primary bone marrow failure could be the cause. If there is a GI cause of blood loss, then we would change the anticoagulation regimen and that will need to be corrected accordingly. Perhaps if it is a duodenal ulcer, then treatment with antibiotics would correct the situation. As discussed with the patient, if colon cancer was discovered, we will also alter the course of treatment completely. With the GI workup, we appreciate the help of a doctor, Kehinde Banuelos. Please see the following for my recommendations. RECOMMENDATIONS: 1. Continue Milrinone at 0.375 mcg/kg/minute. 2. Lasix 60 mg IV one dose only this morning and then hold it until the colonoscopy is over. 3. It is okay to hold and continue to hold Eliquis until the GI workup has been completed. 4. Once colonoscopy is over and if the patient remains stable, then will restart active diuresis again as Lasix 60 mg IV b.i.d. 5. After recent sufficient diuresis, we will convert to oral diuretics before going home. 6. It is anticipated that the patient will be going home next Wednesday or Wednesday. It has been a pleasure of taking care of Mr. Juan Alberto Baer. If you have questions, please give me a call. Job ID: [id number]
[2019-12-16] MEDS: Amiodarone 200 MG TAB PO SCH ×2 (09:48→20:35)
[2019-12-16] MEDS: Carvedilol 6.25 MG TAB PO SCH ×2 (09:48→20:34)
[2019-12-16] MEDS: Potassium Chloride 20 MEQ TAB PO SCH ×2 (09:48→17:43)
[2019-12-16] MEDS: Finasteride 5 MG TAB PO SCH (09:48)
[2019-12-16] MEDS: Furosemide 100 MG/10 ML VIAL SLOW IVP SCH (09:49)
--- NOTE | 2019-12-16 11:30 | PDOC.HOSPP ---
- Subjective Subjective: Off dobutamine. Still on Milrinone. Now participating in physical therapy. No overnight events. - Objective Vital Signs & Weight: Vital Signs (12 hours) Temp Pulse Pulse BP BP BP BP 12/16/19 11:05 98.4 F 12/16/19 10:57 79 72 116/56 L 106/54 L 12/16/19 09:48 122/58 L 12/16/19 07:48 12/16/19 07:09 97.4 F L 12/16/19 05:00 12/16/19 04:00 97.7 F 12/16/19 03:00 12/16/19 02:00 114/58 L 12/16/19 01:00 98.7 F 99/49 L 12/16/19 00:00 BP Pulse Ox Pulse Ox Pulse Ox 12/16/19 11:05 12/16/19 10:57 100 100 12/16/19 09:48 12/16/19 07:48 96 12/16/19 07:09 12/16/19 05:00 110/53 L 12/16/19 04:00 110/55 L 12/16/19 03:00 106/53 L 12/16/19 02:00 12/16/19 01:00 12/16/19 00:00 114/57 L Weight Admit Weight 170 lb 14.4 oz Weight 161 lb 12.8 oz Most Recent Monitor Data Heart Rate from ECG 71 NIBP 99/64 NIBP BP-Mean 75 Respiration from ECG 21 SpO2 98 I&O: 12/15/19 12/16/19 12/17/19 06:59 06:59 06:59 Intake Total 2217 1239 Output Total 5990 2950 Balance -1033 -1712 Result Diagrams: 12/16/19 05:45 12/16/19 05:45 Hospitalist ROS - Review of Systems All other systems reviewed; all pertinent +/- noted in HPI/Subj - Medication Medications: Active Medications Generic Name Dose Route Start Last Admin Trade Name Freq PRN Reason Stop Dose Admin Amiodarone HCl 200 mg 12/13/19 09:00 12/16/19 09:48 Cordarone PO 200 mg BID MAXI Administration Carvedilol 6.25 mg 12/11/19 21:00 12/16/19 09:48 Coreg PO 6.25 mg BID MAXI Administration Finasteride 5 mg 12/13/19 09:00 12/16/19 09:48 Proscar PO 5 mg DAILY MAXI Administration Milrinone Lactate 20 mg/ 100 mls @ 8.72 mls/hr 12/14/19 09:00 12/16/19 05:56 Sodium Chloride IVPB 100 mls INF MAXI Administration Protocol 0.375 MCG/KG/MIN Levothyroxine Sodium 25 mcg 12/13/19 06:00 12/16/19 05:34 Synthroid PO 25 mcg 0600 MAXI Administration Pantoprazole Sodium 40 mg 12/14/19 09:00 12/16/19 09:48 Protonix PO 40 mg BID MAXI Administration Potassium Chloride 20 meq 12/13/19 17:00 12/16/19 09:48 K-Dur PO 20 meq BID-WM MAXI Administration - Exam General Appearance: NAD, awake alert Eye: PERRL, anicteric sclera ENT: normocephalic atraumatic, no oropharyngeal lesions, moist mucosa Neck: supple, symmetric, no JVD, no thyromegaly, no lymphadenopathy, no carotid bruit Heart: RRR, no murmur, no gallops, no rubs, normal peripheral pulses Respiratory: CTAB, no wheezes, no rales, no ronchi, normal chest expansion, no tachypnea, normal percussion Gastrointestinal: soft, non-tender, non-distended, normal bowel sounds, no palpable masses, no hepatomegaly, no splenomegaly, no bruit Extremities: no cyanosis, no clubbing, no edema Skin: normal turgor, no lesions, no rashes Neurological: cranial nerve grossly intact, normal sensation to touch, no weakness, no focal deficits, no new deficit Musculoskeletal: normal tone, normal strength, no muscle wasting Psychiatric: normal affect, normal behavior, A&O x 3 Hosp A/P - Plan Hosp A/P (1) Congestive heart failure, NYHA class 3 and ACC/AHA stage C Code(s): I50.9 - HEART FAILURE, UNSPECIFIED Status: Acute (2) Pacemaker Code(s): Z95.0 - PRESENCE OF CARDIAC PACEMAKER Status: Chronic (3) CAD (coronary artery disease) Code(s): I25.10 - ATHSCL HEART DISEASE OF [place] CORONARY ARTERY W/O ANG PCTRS Status: Chronic Qualifiers: Coronary Disease-Associated Artery/Lesion type: [place] artery [place] vs. transplanted heart: [place] heart Associated angina: without angina Qualified Code(s): I25.10 - Atherosclerotic heart disease of [place] coronary artery without angina pectoris (4) Chronic anticoagulation Code(s): Z79.01 - [employer] (CURRENT) USE OF ANTICOAGULANTS Status: Chronic (5) Atrial fibrillation Code(s): I48.91 - UNSPECIFIED ATRIAL FIBRILLATION Status: Chronic (6) BPH (benign prostatic hyperplasia) Code(s): N40.0 - BENIGN PROSTATIC HYPERPLASIA WITHOUT LOWER URINRY TRACT SYMP Status: Chronic Qualifiers: Lower urinary tract symptom presence: symptoms absent Qualified Code(s): N40.0 - Benign prostatic hyperplasia without lower urinary tract symptoms (7) Anemia Code(s): D64.9 - ANEMIA, UNSPECIFIED Status: Acute Qualifiers: Anemia type: unspecified type Qualified Code(s): D64.9 - Anemia, unspecified (8) CKD (chronic kidney disease), stage III Code(s): N18.3 - CHRONIC KIDNEY DISEASE, STAGE 3 (MODERATE) Status: Chronic - Plan (1) Congestive heart failure, NYHA class 3 and ACC/AHA stage C - on Milrinone drip - Continue lasix IV - CV team, Dr. Avalos is following (2) Pacemaker (3) CAD (coronary artery disease) - hx of CABG (4) Chronic anticoagulation - on Eliquis low dose (5) Atrial fibrillation - on Amiodarone per cardiology (6) BPH (benign prostatic hyperplasia) - Urology is following, atwood was traumatic, continue to monitor (7) Anemia- iron studies consistent with iron deficiency - Hb stable at 9 - GI to plan for endoscopy tomorrow (8) CKD (chronic kidney disease), stage III - Uncertain baseline, improving PT to get patient ambulating as tolerated Further treatment course as directed by Dr. Avalos (Cardiology)
--- NOTE | 2019-12-16 17:07 | PRG ---
DATE OF SERVICE: 12/16/2019 This is a cross coverage for Dr. Kehinde Banuelos. SUBJECTIVE: Mr. Juan Alberto Baer is an 84-year-old male, hospitalized with heart failure and elevated BNP. He said he has been diuresed and he is feeling much better. He was seen by Dr. Banuelos because of anemia and past history of colon cancer surgery many years ago. His CEA level is slightly elevated. He had no h/o melena or hematochezia. No melena. He was on Eliquis, which is on hold for possible EGD, colonoscopy tomorrow. He appears very comfortable. He is not short winded. Denies any chest pain or any difficulty breathing. OBJECTIVE: GENERAL: He appears very comfortable. VITAL SIGNS: He is afebrile. Temperature 98.6 degrees Fahrenheit, pulse is 75, blood pressure 101/51. CARDIOVASCULAR SYSTEM: First and second heart sounds heard. LUNGS: Clear to auscultation. ABDOMEN: Soft. No organomegaly. No tenderness. LABORATORY DATA: From today shows WBC 8900, hemoglobin 9.7, hematocrit 32.4, MCV 77, platelet count is 173,000. Chem 7 is normal. BUN is 28, creatinine is 1.50. BNP is still high but coming down to 759. PLAN: EGD and colonoscopy tomorrow. Job ID: [id number] [facility]
[2019-12-16] MEDS ORDERED: GoLYTELY 4,000 ml Bottle PO SCH (18:00)
[2019-12-17 05:07] LABS: #Basophils 0.1 thou/uL (0.0-0.2); #Eosinphils 0.2 thou/uL (0.0-0.7); #Lymphocytes 0.9 thou/uL (1.20-3.40); #Monocytes 0.7 thou/uL (0.11-0.59); #Neutrophils 5.1 thou/uL (1.40-6.50); %Basophils 0.8 % (0.0-1.0); %Eosinophils 3.1 % (0.0-10.0); %Lymphocytes 12.6 % (21.0-51.0); %Neutrophils 73.5 % (42.0-75.0); Hemoglobin 8.8 g/dL (14.0-18.0); Mean Corpuscular HGB CONC 29.3 g/dL (32.0-36.0); Mean Corpuscular Hemoglobin 23.2 pg (27.0-31.0); Mean Corpuscular Volume 79.3 fL (78.0-98.0); Mean Platelet Volume 10.4 fL (7.4-10.4); Platelet Count 148 thou/uL (130-400); RBC Distribution Width 20.4 % (11.5-14.5); Red Blood Cell (RBC) Count 3.79 mill/uL (4.70-6.10)
[2019-12-17 05:22] LABS: Anion Gap 12 mmol/L (10-20); BUN (Urea Nitrogen) 23 mg/dL (8.4-25.7); Calc. Creatinine Clearance 43 mL/min (70-130); Calcium 8.5 mg/dL (7.8-10.44); Carbon Dioxide 32 mmol/L (23-31); Chloride 101 mmol/L (98-107); Estimated GFR-MDRD 53; Glucose 98 mg/dL (83-110); Magnesium 2.1 mg/dL (1.6-2.6); Potassium 3.5 mmol/L (3.5-5.1); Sodium 141 mmol/L (136-145)
[2019-12-17] MEDS: Levothyroxine Sodium 25 MCG TAB PO SCH (05:29)
[2019-12-17] MEDS ORDERED: PROPOFOL 200 MG/20 ML VIAL ONE (09:06)
--- NOTE | 2019-12-17 09:29 | PDOC.HOSPP ---
- Subjective Subjective: Going for colonoscopy and EGD today. No overnight issues. Has been particpating well with physical therapy. - Objective Vital Signs & Weight: Vital Signs (12 hours) Temp BP BP 12/17/19 07:06 98.8 F 12/17/19 06:21 94/47 L 12/17/19 05:00 108/54 L 12/17/19 04:00 104/52 L 12/17/19 03:48 98.6 F 12/17/19 03:00 99/50 L 12/17/19 01:00 100/50 L 12/17/19 00:00 123/58 L 12/16/19 23:31 97.7 F 12/16/19 23:00 101/49 L 12/16/19 22:00 98/47 L Weight Admit Weight 170 lb 14.4 oz Weight 161 lb 12.8 oz Most Recent Monitor Data Heart Rate from ECG 70 NIBP 99/64 NIBP BP-Mean 75 Respiration from ECG 16 SpO2 95 I&O: 12/16/19 12/17/19 12/18/19 06:59 06:59 06:59 Intake Total 1239 1136 Output Total 2950 1075 Balance -1711 61 Result Diagrams: 12/17/19 04:50 12/17/19 04:50 Hospitalist ROS - Review of Systems All other systems reviewed; all pertinent +/- noted in HPI/Subj - Medication Medications: Active Medications Generic Name Dose Route Start Last Admin Trade Name Freq PRN Reason Stop Dose Admin Amiodarone HCl 200 mg 12/13/19 09:00 12/16/19 20:35 Cordarone PO 200 mg BID MAXI Administration Carvedilol 6.25 mg 12/11/19 21:00 12/16/19 20:34 Coreg PO 6.25 mg BID MAXI Administration Finasteride 5 mg 12/13/19 09:00 12/16/19 09:48 Proscar PO 5 mg DAILY MAXI Administration Milrinone Lactate 20 mg/ 100 mls @ 8.72 mls/hr 12/14/19 09:00 12/16/19 18:07 Sodium Chloride IVPB 100 mls INF MAXI Administration Protocol 0.375 MCG/KG/MIN Levothyroxine Sodium 25 mcg 12/13/19 06:00 12/17/19 05:29 Synthroid PO 25 mcg 0600 MAXI Administration Pantoprazole Sodium 40 mg 12/14/19 09:00 12/16/19 20:34 Protonix PO 40 mg BID MAXI Administration Potassium Chloride 20 meq 12/13/19 17:00 12/16/19 17:43 K-Dur PO 20 meq BID-WM MAXI Administration - Exam General Appearance: NAD, awake alert Eye: PERRL, anicteric sclera ENT: normocephalic atraumatic, no oropharyngeal lesions, moist mucosa Neck: supple, symmetric, no JVD, no thyromegaly, no lymphadenopathy, no carotid bruit Heart: RRR, no murmur, no gallops, no rubs, normal peripheral pulses Respiratory: CTAB, no wheezes, no rales, no ronchi, normal chest expansion, no tachypnea, normal percussion Gastrointestinal: soft, non-tender, non-distended, normal bowel sounds, no palpable masses, no hepatomegaly, no splenomegaly, no bruit Extremities: no cyanosis, no clubbing, no edema Skin: normal turgor, no lesions, no rashes Neurological: cranial nerve grossly intact, normal sensation to touch, no weakness, no focal deficits, no new deficit Musculoskeletal: normal tone, normal strength, no muscle wasting Psychiatric: normal affect, normal behavior, A&O x 3 Hosp A/P - Plan Hosp A/P (1) Congestive heart failure, NYHA class 3 and ACC/AHA stage C Code(s): I50.9 - HEART FAILURE, UNSPECIFIED Status: Acute (2) Pacemaker Code(s): Z95.0 - PRESENCE OF CARDIAC PACEMAKER Status: Chronic (3) CAD (coronary artery disease) Code(s): I25.10 - ATHSCL HEART DISEASE OF [place] CORONARY ARTERY W/O ANG PCTRS Status: Chronic Qualifiers: Coronary Disease-Associated Artery/Lesion type: [place] artery [place] vs. transplanted heart: [place] heart Associated angina: without angina Qualified Code(s): I25.10 - Atherosclerotic heart disease of [place] coronary artery without angina pectoris (4) Chronic anticoagulation Code(s): Z79.01 - [place] (CURRENT) USE OF ANTICOAGULANTS Status: Chronic (5) Atrial fibrillation Code(s): I48.91 - UNSPECIFIED ATRIAL FIBRILLATION Status: Chronic (6) BPH (benign prostatic hyperplasia) Code(s): N40.0 - BENIGN PROSTATIC HYPERPLASIA WITHOUT LOWER URINRY TRACT SYMP Status: Chronic Qualifiers: Lower urinary tract symptom presence: symptoms absent Qualified Code(s): N40.0 - Benign prostatic hyperplasia without lower urinary tract symptoms (7) Anemia Code(s): D64.9 - ANEMIA, UNSPECIFIED Status: Acute Qualifiers: Anemia type: unspecified type Qualified Code(s): D64.9 - Anemia, unspecified (8) CKD (chronic kidney disease), stage III Code(s): N18.3 - CHRONIC KIDNEY DISEASE, STAGE 3 (MODERATE) Status: Chronic - Plan (1) Congestive heart failure, NYHA class 3 and ACC/AHA stage C - on Milrinone drip - Continue lasix IV - CV team, Dr. Avalos is following (2) Pacemaker (3) CAD (coronary artery disease) - hx of CABG (4) Chronic anticoagulation - on Eliquis low dose (5) Atrial fibrillation - on Amiodarone per cardiology (6) BPH (benign prostatic hyperplasia) - Urology is following, atwood was traumatic, continue to monitor (7) Anemia- iron studies consistent with iron deficiency - Hb stable at 9 (8) CKD (chronic kidney disease), stage III - Uncertain baseline, improving (9) Colonic mass - Seen on colonoscopy today, biopsed PT to get patient ambulating as tolerated Further treatment course as directed by Dr. Avalos (Cardiology) Disposition: Colonoscopy showing colonic mass today. Multidisciplinary conference with Dr. Avalos expected this week to decide further management and plan.
--- NOTE | 2019-12-17 09:49 | OP ---
DATE OF PROCEDURE: 12/17/2019 OPERATIVE PROCEDURES: 1. Colonoscopy with biopsy. 2. Colonoscopy with tattooing of lesion in the colon, around the splenic flexure, distal transverse colon. PREOPERATIVE DIAGNOSES: Anemia, history of colon cancer status post surgery more than 16 years ago. POSTOPERATIVE DIAGNOSES: 1. Polypoid lesion at the splenic flexure, possibly distal transverse colon. I cannot advance the scope past the lesion. 2. Retained fecal material. 3. Large hemorrhoids. DESCRIPTION OF PROCEDURE: The patient was placed on his left lateral position and was given sedation by Anesthesia Department. A rectal exam was done before scope was advanced into the rectum. No lesions felt on rectal exam. A Pentax video colonoscope was introduced into the rectum and advanced all the way to a distance of 90 cm. The patient did have some redundant colon. There was a friable polypoid lesion seen around 90 cm from the anal margin. I presumed the lesion to be located around the distal transverse colon, splenic flexure area. The lesion was biopsied. Also, the lesion was tattooed for future surgical resection. Withdrawal of scope in the area around the descending colon, sigmoid colon, no lesion seen. Rectum showed hemorrhoids, but he did have large amount of retained stool. ENDOSCOPIC IMPRESSION: Mass of the distal transverse colon, possibly splenic flexure, biopsied and tattooed. Recommend surgical input. Job ID: [id number]
[2019-12-17] MEDS: Carvedilol 6.25 MG TAB PO SCH ×2 (10:08→21:18)
[2019-12-17] MEDS: Amiodarone 200 MG TAB PO SCH ×2 (10:08→21:18)
[2019-12-17] MEDS: Finasteride 5 MG TAB PO SCH (10:08)
--- NOTE | 2019-12-17 10:08 | OP ---
DATE OF PROCEDURE: 12/17/2019 PROCEDURE PERFORMED: Esophagogastroduodenoscopy with biopsy. PREOPERATIVE DIAGNOSIS: Anemia. POSTOPERATIVE DIAGNOSES: 1. 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 2. Hiatus hernia. 3. 1 cm sized submucosal polypoid lesion over the lower pole of the gastric body, not biopsied as appears benign. 4. Prominent submucosal veins. Vigorous gastric atrophy. DESCRIPTION OF PROCEDURE: The patient was placed on his left lateral position and was given sedation by Anesthesia Department. Then Pentax videogastroscope under direct vision passed down the oropharynx past the GE junction into the stomach and subsequently descending duodenum. The Z-line was identified around 40 cm from the oral incisor. The patient had irregular Z-line and what appeared to be Mcclure's mucosa. He had a hiatus hernia, which measured probably about 3 to 4 cm. Retroflexion failed to show any pathology in fundus or cardia. The gastric mucosa showed some prominent submucosal veins. The lower pole of body indicative of possibly gastric atrophy. There was a 1 cm submucosal lesion in the gastric body over the lower part which was not biopsied. The incisura angularis, no lesion seen. The gastric and the antrum, no pathology. The duodenal bulb, descending duodenum, no lesions seen. The stomach decompressed and scope was removed. RECOMMENDATION: 1. Heart-healthy diet. 2. Surgical input. Job ID: [id number]
[2019-12-17] MEDS: Potassium Chloride 20 MEQ TAB PO SCH ×2 (10:09→16:50)
[2019-12-17] MEDS ORDERED: Iopamidol-370 76% 500 ML 1 ML ONE (14:24)
[2019-12-17] MEDS ORDERED: Furosemide 40 MG/4 ML VIAL SLOW IVP SCH (16:00)
--- NOTE | 2019-12-17 16:43 | PRG ---
DATE OF SERVICE: 12/17/2019 SUBJECTIVE: Mr. Baer had a good day. He was able to sleep well last night. He went through a colonoscopy preparation without any difficulties. However, he and the nursing staff did notice there was blood in the stool. He went down to colonoscopy at 7:15 this morning. He came back from colonoscopy and EGD without difficulties. Afterwards, he was able to walk 2 laps around this CCU. He said he is able to do this without being short of breath and feels good. He told his and daughter that he felt like his time went back with 5 years that he is really to live again. REVIEW OF SYSTEMS: GENERAL: No fever or chills. PULMONARY: No productive cough. CARDIOVASCULAR: No palpitations or syncope. GI: He went through colonoscopy. There was blood in the stool. : He still needs a Villegas. MUSCULOSKELETAL: He has swelling around knees, but it is still decreasing. INTEGUMENT: There is no new skin breakdown. NEUROLOGIC: There are no focal deficits. PSYCHIATRIC: He is energetic, wants to walk. He is not depressed. CARDIAC MEDICATIONS: 1. Amiodarone 200 mg b.i.d. 2. Carvedilol 6.25 mg b.i.d. 3. Milrinone at 0.375 mcg/kg/minute IV GTT. 4. Potassium chloride supplement at 20 mEq per day. OBJECTIVE: His tele was reviewed. He has an occasional PVC. There is no concerning arrhythmia. VITAL SIGNS: His heart rate 70, last blood pressure display on machine was 132/ 70, oxygen is 99% on room air. GENERAL: He is alert, conversational, and energetic. HEENT: Show EOMI. PERRL. Oropharynx benign. There is moist mucosa. There is no lymphadenopathy. There is no erythema. No exudate. NECK: His JVP about 12 cm with hepatojugular reflux is not increased. It is same as yesterday. LUNGS: Good air movement bilaterally. Clear to auscultation bilaterally. HEART: Regular rate and rhythm with occasional irregularity. There is 3/6 holosystolic murmur at the apex with radiation to axilla. There is also 2/6 diastolic murmur at the right sternal border. Says he has both mitral regurgitation and aortic insufficiency. ABDOMEN: Soft, nontender. Positive bowel sounds. His fluid waves have decreased. EXTREMITIES: He still has 3+ edema, but then the fluid around the knee has decreased. He can actually see his patella. His lower extremity still has edema, but then this is much more softer. This was even after only single dose of Lasix and bowel prep from yesterday. LABORATORY DATA: His laboratory value show that his creatinine has improved to 1.29. His BUN has decreased down to 23, however, he has a slight elevation of bicarb at 32. Images from colon cancer were reviewed. It show a bleeding mass about the splenic flexure. It is quite prominent. Thus, he is likely to have recurrent colon cancer. The procedure note also confirm the existence of colon cancer. ASSESSMENT: An 84-year-old gentleman, has [place] Heart Association stage C and [place] Heart Association class 3B heart failure with reduced ejection fraction. It is a combination of ischemic cardiomyopathy, mitral regurgitation, and aortic insufficiency. He has combined systolic and diastolic dysfunctions. He also has anemia. Now, it is showing that he has recurrent large colon cancer about the splenic flexure. This will change the treatment goals. Immediately, we will stop anticoagulation. We will also switch from more of an aggressive diuresis to renal function preservation. We will need to consult Oncology and also Surgery to assess the entire situation. He is at least a moderate risk to undergo for surgery. The overall approach needs to be discussed across multidiscipline and with the family. RECOMMENDATIONS: 1. Discontinue Eliquis. 2. Continue with milrinone 0.375 mcg/kg/ minute IV GTT. 3. Lasix 40 mg IV one dose now and see that output. We will aim to be -500 mL daily instead of much more to preserve renal function. 4. Please add acetazolamide 250 mg p.o. daily. 5. Consult Oncology, Dr. Yanes about on treatment of colon cancer. 6. We will contact Dr. Kehinde Banuelos and potential surgeon who may consider this surgery. 7. We will also consult with his long-term vigoureux printer, Dr. Jose Herring about heart and then all entire process. It has been pleasure taking care of Mr. Baer. Regardless of the overall decision, I will continue to help him and do my most to ensure he had good cardiac output for longevity and quality of life. Job ID: [id number] [facility]
[2019-12-18 04:49] LABS: #Eosinphils 0.2 thou/uL (0.0-0.7); #Lymphocytes 0.8 thou/uL (1.20-3.40); #Monocytes 0.7 thou/uL (0.11-0.59); #Neutrophils 6.9 thou/uL (1.40-6.50); %Basophils 0.4 % (0.0-1.0); %Eosinophils 1.9 % (0.0-10.0); %Lymphocytes 9.6 % (21.0-51.0); %Monocytes 7.9 % (0.0-10.0); %Neutrophils 80.2 % (42.0-75.0); Hemoglobin 8.9 g/dL (14.0-18.0); Mean Corpuscular HGB CONC 29.4 g/dL (32.0-36.0); Mean Corpuscular Hemoglobin 23.3 pg (27.0-31.0); Mean Corpuscular Volume 79.1 fL (78.0-98.0); Mean Platelet Volume 10.5 fL (7.4-10.4); Platelet Count 157 thou/uL (130-400); RBC Distribution Width 20.3 % (11.5-14.5); Red Blood Cell (RBC) Count 3.81 mill/uL (4.70-6.10); White Blood Cell (WBC) Count 8.6 thou/uL (4.8-10.8)
[2019-12-18 05:06] LABS: Anion Gap 10 mmol/L (10-20); BUN (Urea Nitrogen) 23 mg/dL (8.4-25.7); Calc. Creatinine Clearance 40 mL/min (70-130); Calcium 8.6 mg/dL (7.8-10.44); Carbon Dioxide 33 mmol/L (23-31); Chloride 100 mmol/L (98-107); Estimated GFR-MDRD 48; Glucose 105 mg/dL (83-110); Magnesium 2.1 mg/dL (1.6-2.6); Potassium 4.1 mmol/L (3.5-5.1); Sodium 139 mmol/L (136-145)
[2019-12-18] MEDS: Levothyroxine Sodium 25 MCG TAB PO SCH (05:16)
[2019-12-18] MEDS ORDERED: Sodium Chloride 0.9% 250 ML 250 ML IV SCH (07:45)
[2019-12-18] MEDS ORDERED: Spironolactone 25 MG TAB PO SCH (08:00)
--- NOTE | 2019-12-18 08:04 | CT ---
CT CHEST AND ABDOMEN AND PELVIS WITH IV CONTRAST: HISTORY: Splenic flexure mass seen in colonoscopy. Staging evaluation. COMPARISON: 12/12/2019 FINDINGS: THORAX: Small bilateral pleural effusions are again seen but the pleural effusions have each diminish ed in size compared to the prior exam. Calcified granulomata are seen in the right upper lobe. No noncalcified pulmonary nodule or mass is s een. There is no consolidation identified. Post surgical changes related to CABG are noted. A left subclavian AICD device is again noted in plac e. Prominent vascular calcifications are seen in the coronary arteries as well as involving the thora cic aorta. No mediastinal lymphadenopathy is seen. Contrast is seen in the esophagus, which may be related to gastroesophageal reflux. Calcifications are seen in each lobe of the thyroid gland. There has been no additional interval change from prior study. ABDOMEN AND PELVIS: Calcified granulomata are seen in the liver and spleen, similar to prior study. A subcentimeter, [id number]-characterize, hypodense lesion is seen in the mid portion left kidney. The pancreas is mildly atrophic but normal in appearance. The bilateral adrenal glands and right kidney demonstrate a normal CT appearance. A Villegas catheter is present in a partially decompressed urinary bladder. Gas is present in the urinar y bladder, likely related to the catheterization. Surgical clips are seen in the lower pelvis and there are anastomotic suture lines involving the rect um as well as involving the colon in the right upper quadrant. A moderate amount of retained fecal material is seen in the transverse colon. The patient has a repor mehul splenic flexure mass but this is difficult to definitely delineate on this exam although there is a questionable mild area of narrowing with suggested thickening in the region of the splenic flexure , however this would be better visualized on colonoscopy. There is evidence of a right hemicolectomy. Loops of small bowel are normal in caliber. Dense vascular calcifications are seen in the abdominal aorta and involving the iliac arteries. No enlarged lymph nodes are seen by CT size criteria. Degenerative changes are seen in the spine and involving the hips bilaterally. There has been no significant interval change compared to the prior exam. IMPRESSION: 1. Small left and tiny right pleural effusions. The pleural effusions have decreased in size compared to the prior study. 2. Contrast in the distal esophagus which may be related to gastroesophageal reflux. 3. Post surgical changes of the abdomen and pelvis. 4. Mass in the region of the splenic flexure is not definitely delineated on this examination. There is a questionable area of mild focal narrowing but again mass is difficult to definitely evaluate and would be better evaluated on a colonoscopy. 5. No evidence of lymphadenopathy. 6. No suspicious lytic or sclerotic osseous lesions are identified. POS: [facility]
--- NOTE | 2019-12-18 08:25 | PRG ---
DATE OF SERVICE: 12/18/2019 SUBJECTIVE: Mr. Juan Alberto Baer had a good day. He tolerated a colonoscopy procedure and an EGD procedures without any difficulty. Unfortunately, colon cancer was discovered at the left splenic flexure. Afterwards, GI ordered a contrast with CT scan and that was done overnight. Diuretics also was reduced in support of CT contrast. There was an episode where there was leaking milrinone tubing. So it is not sure how much milrinone he actually received during the day. Overall, he is doing well. He is energetic and vigorous. He does want to pursue curative surgery if that is possible. He was able to sleep well without PND. He also denied shortness of breath, palpitations and syncope. He is able to walk around the CCU unit at least twice without being short of breath which is a significant improvement from his baseline. REVIEW OF SYSTEMS: GENERAL: No fever and chills. PULMONARY: There is no productive cough. CARDIOVASCULAR: See HPI. GI: There is no complaint of nausea or vomiting. There is no josseline blood in the stool. : He still needs a Villegas for urine output. MUSCULOSKELETAL: He does have swelling around the knee joints and lower extremity. He has slightly increased edema. INTEGUMENT: There are no new breakdowns. NEUROLOGIC: There are no focal deficits. PSYCHIATRIC: He is not depressed. He wants to live life fully. CURRENT CARDIAC MEDICATIONS: Include 1. Carvedilol 6.25 mg twice per day. 2. Milrinone at 0.375 mcg/kg/minute. 3. Amiodarone 200 mg b.i.d. 4. Potassium 20 mEq supplement twice a day. 5. Acetazolamide 250 mg was added, first dose expected to be today. His creatinine bumped up slightly to 1.4. His BNP also increased. 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 It is caused by a combination of ischemic cardiomyopathy, mitral regurgitation, and also aortic insufficiency. He has both systolic and diastolic dysfunction. More importantly, he has recurrent colon cancer at the left splenic flexure. He has sufficient cardiac output with milrinone 0.375 mcg/kg/minute. The IV contrast flow, decrease in diuretics, and also some period of missing milrinone have caused slight increases in creatinine and bumped the BNP. At this point, we will focus on kidney preservation for potential surgery and keep him even or slightly negative in terms of volume status. We will wait for the official reading from Radiology, Oncology consult, and Surgery consult, for the eventual overall plan. Per discussion with patient and family last night, they will like to pursue curative surgery if possible. RECOMMENDATIONS: 1. Please provide normal saline 250 mL over 5 hours. 2. Afterwards, Lasix 60 mg IV one dose. 3. Start spironolactone at 12.5 mg p.o. daily. 4. We will assess day by day in terms of how much diuretics he needs in terms of keeping even at slightly net negative to preserve renal function. We will consult Surgery formally if that has not already not been done. 5. Aim to conduct a family meeting with multidisciplines on Wednesday if possible. It has been a pleasure taking care of Mr. Juan Alberto Baer. If any questions, please give me a call. Job ID: [id number] MTDD
[2019-12-18] MEDS: Potassium Chloride 20 MEQ TAB PO SCH ×2 (09:05→18:34)
[2019-12-18] MEDS: Amiodarone 200 MG TAB PO SCH ×2 (09:05→21:51)
[2019-12-18] MEDS: AcetaZOLAMIDE 250 MG TAB PO SCH (09:05)
[2019-12-18] MEDS: Carvedilol 6.25 MG TAB PO SCH ×2 (09:06→21:50)
[2019-12-18] MEDS: Finasteride 5 MG TAB PO SCH (09:06)
--- NOTE | 2019-12-18 11:17 | PDOC.GSCN ---
Surgery Consult: HPI - Consult details Date: 12/18/19 Time: 11:10 Reason for consult: endoscopy (colonoscopy showed cancer at left splenic flexure ) Requesting physician: Kehinde Banuelos History of present illness: 12/18/19 11:11 Mr. Baer is a 84-year-old male with a h/o of a significant PMH who was hospitalized for heart failure and elevated BNP. Yesterday he underwent a colonoscopy procedure and EGD procedure without any difficulty. Unfortunately, recurrent colon cancer was discovered at the left splenic flexure. He then had a CT scan with contrast. Surgery Consult: Exam - Vital signs Vital signs: Vital Signs - Most Recent Temp Pulse Resp BP Pulse Ox 98.4 F 74 20 122/59 L 96 12/18/19 07:00 12/17/19 13:16 12/17/19 09:50 12/18/19 09:06 12/18/19 08:00 Surgery Consult: Meds - Medications Medications: Current Medications Acetaminophen (Tylenol) 650 mg PO Q4H PRN PRN Reason: Headache/Fever/Mild Pain (1-3) Acetazolamide (Diamox) 250 mg PO QAM [facility] Last Admin: 12/18/19 09:05 Dose: 250 mg Albuterol/Ipratropium (Duoneb) 3 ml NEB Q6H PRN PRN Reason: Dyspnea/Wheezing/SOB Amiodarone HCl (Cordarone) 200 mg PO BID [facility] Last Admin: 12/18/19 09:05 Dose: 200 mg Carvedilol (Coreg) 6.25 mg PO BID [facility] Last Admin: 12/18/19 09:06 Dose: 6.25 mg Finasteride (Proscar) 5 mg PO DAILY [facility] Last Admin: 12/18/19 09:06 Dose: 5 mg Furosemide (Lasix) 60 mg IVPB 1200 [facility] Stop: 12/18/19 15:00 Dobutamine HCl/Dextrose (Dobutamine 500 Mg/250 Ml) 250 mls @ 2.847 mls/hr IVPB INF MAXI Milrinone Lactate 20 mg/ (Sodium Chloride) 100 mls @ 8.72 mls/hr IVPB INF [facility]; Protocol Last Admin: 12/16/19 18:07 Dose: 100 mls Sodium Chloride (Normal Saline 0.9% 250 Ml Bag) 250 mls @ 50 mls/hr IV .Q5H [facility] Stop: 12/18/19 12:44 Last Admin: 12/18/19 09:06 Dose: 250 mls Levothyroxine Sodium (Synthroid) 25 mcg PO 0600 [facility] Last Admin: 12/18/19 05:16 Dose: 25 mcg Ondansetron HCl (Zofran) 4 mg IVP Q6H PRN PRN Reason: Nausea/Vomiting Pantoprazole Sodium (Protonix) 40 mg PO BID [facility] Last Admin: 12/18/19 09:06 Dose: 40 mg Potassium Chloride (K-Dur) 20 meq PO BID-[facility] Last Admin: 12/18/19 09:05 Dose: 20 meq Sodium Chloride (Flush - Normal Saline) 10 ml IVF PRN PRN PRN Reason: Saline Flush Last Admin: 12/17/19 10:08 Dose: 10 ml Spironolactone (Aldactone) 12.5 mg PO QAM-[facility] Last Admin: 12/18/19 09:05 Dose: 12.5 mg - Allergies Allergies/Adverse Reactions: Allergies Allergy/AdvReac Type Severity Reaction Status Date / Time ESTUARDO Inhibitors Allergy Verified 02/15/14 15:52 meperidine Allergy Verified 02/15/14 15:52 Penicillins Allergy Verified 02/15/14 15:52 [id number] Reductase Allergy Verified 02/15/14 15:52 Inhibitor Surgery Consult: Results - Labs Result Diagrams: 12/18/19 04:32 12/18/19 04:32 Lab results: Laboratory Results WBC 8.6 thou/uL (4.8-10.8) 12/18/19 04:32 RBC 3.81 mill/uL (4.70-6.10) L 12/18/19 04:32 Hgb 8.9 g/dL (14.0-18.0) L 12/18/19 04:32 Hct 30.1 % (42.0-52.0) L 12/18/19 04:32 MCV 79.1 fL (78.0-98.0) 12/18/19 04:32 MCH 23.3 pg (27.0-31.0) L 12/18/19 04:32 MCHC 29.4 g/dL (32.0-36.0) L 12/18/19 04:32 RDW 20.3 % (11.5-14.5) H 12/18/19 04:32 Plt Count 157 thou/uL (130-400) 12/18/19 04:32 MPV 10.5 fL (7.4-10.4) H 12/18/19 04:32 Neutrophils % 80.2 % (42.0-75.0) H 12/18/19 04:32 Neutrophils % (Manual) Not Reportable 12/18/19 04:32 Band Neuts % (Manual) 13 % (5-11) H 12/14/19 05:25 Lymphocytes % 9.6 % (21.0-51.0) L 12/18/19 04:32 Lymphocytes % (Manual) 7 % (21-51) L 12/14/19 05:25 Monocytes % 7.9 % (0.0-10.0) 12/18/19 04:32 Monocytes % (Manual) 7 % (0-10) 12/14/19 05:25 Eosinophils % 1.9 % (0.0-10.0) 12/18/19 04:32 Eosinophils % (Manual) 2 % (0-10) 12/14/19 05:25 Basophils % 0.4 % (0.0-1.0) 12/18/19 04:32 Neutrophils # 6.9 thou/uL (1.40-6.50) H 12/18/19 04:32 Lymphocytes # 0.8 thou/uL (1.20-3.40) L 12/18/19 04:32 Monocytes # 0.7 thou/uL (0.11-0.59) H 12/18/19 04:32 Eosinophils # 0.2 thou/uL (0.0-0.7) 12/18/19 04:32 Basophils # 0.0 thou/uL (0.0-0.2) 12/18/19 04:32 Retic Count 2.3 % (0.5-1.5) H 12/12/19 08:09 Immature Retic Fraction 0.456 Ratio (0.163-0.362) H 12/12/19 08:09 PT 14.9 SEC (12.0-14.7) H 12/16/19 05:45 INR 1.2 12/16/19 05:45 APTT 32.7 SEC (22.9-36.1) 12/16/19 05:45 Sodium 139 mmol/L (136-145) 12/18/19 04:32 Potassium 4.1 mmol/L (3.5-5.1) 12/18/19 04:32 Chloride 100 mmol/L (98-107) 12/18/19 04:32 Carbon Dioxide 33 mmol/L (23-31) H 12/18/19 04:32 Anion Gap 10 mmol/L (10-20) 12/18/19 04:32 BUN 23 mg/dL (8.4-25.7) 12/18/19 04:32 Creatinine 1.40 mg/dL (0.7-1.3) H 12/18/19 04:32 Estimated GFR (MDRD) 48 12/18/19 04:32 Glucose 105 mg/dL (83-110) 12/18/19 04:32 Calcium 8.6 mg/dL (7.8-10.44) 12/18/19 04:32 Magnesium 2.1 mg/dL (1.6-2.6) 12/18/19 04:32 Iron 43 ug/dL (65-175) L 12/12/19 03:17 TIBC 344 mcg/dL (261-462) 12/12/19 03:17 % Saturation 13 % (20-50) L 12/12/19 03:17 Erythropoietin 773.0 mIU/mL (2.6-18.5) H 12/12/19 08:09 Ferritin 14.80 ng/mL (22-322) L 12/12/19 08:09 Total Bilirubin 1.1 mg/dL (0.2-1.2) 12/16/19 05:45 AST 14 U/L (5-34) 12/16/19 05:45 ALT 16 U/L (8-55) 12/16/19 05:45 Alkaline Phosphatase 89 U/L (40-110) 12/16/19 05:45 B-Natriuretic Peptide 1041.6 pg/mL (0-100) H 12/18/19 04:32 Serum Total Protein 6.1 g/dL (5.8-8.1) 12/16/19 05:45 Albumin 3.6 g/dL (3.4-4.8) 12/16/19 05:45 Globulin 2.5 g/dL (2.4-3.5) 12/16/19 05:45 Albumin/Globulin Ratio 1.4 g/dL (1.2-2.2) 12/16/19 05:45 Carcinoembryonic Ag 7.03 ng/mL (< or = 5.0) H 12/12/19 08:09 TSH 3rd Generation 4.7314 uIU/mL (0.35-4.94) 12/11/19 18:31 Blood Type A POSITIVE 12/16/19 05:45 Antibody Screen NEGATIVE 12/16/19 05:45 Crossmatch See Detail 12/11/19 18:29
[2019-12-18] MEDS ORDERED: Furosemide 100 MG/10 ML VIAL IVPB SCH (12:00)
[2019-12-18] MEDS ORDERED: Meropenem 2 GM, Admixture Fee 1 EACH in Sodium Chloride 0.9% 100 ML IVPB SCH (12:45)
[2019-12-18] MEDS ORDERED: GoLYTELY 4,000 ml Bottle PO SCH (12:45)
--- NOTE | 2019-12-18 18:28 | CON ---
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 Naik in 2002. He apparently had a colonoscopy in 2009. On this occasion, he came in terribly anemic and dyspneic and was found to have a hemoglobin of 6. He has been given 3 units of blood. His hemoglobin is 9. He feels much better and is not dyspneic anymore. He is on a Midodrine drip for his cardiomyopathy. Cardiac ejection fraction 20% to 25%, followed by Dr. Jose Herring. He has had a coronary artery bypass grafting in 3-vessels after an ME in 2009. The patient had a colonoscopy by Dr. Mendoza on 12/17/2019 and noted to have a small benign-appearing gastric polyp, but he could not pass the scope beyond the obstructing tumor mass in the area thought to be the splenic flexure. This was located about 90 cm from the anal verge. There was retained stool distally. The patient states he took a bowel prep prior to this and did not experience any nausea, vomiting, bloating, or distention and had bowel movements. After the colonoscopy, the patient was placed back on a regular diet. I was consulted today. As noted above, his hemoglobin is 8.9 after 3 units of blood. His coag studies are essentially normal. His anticoagulants have been held since admission. His renal function is slightly abnormal; creatinine 1.4, BUN 23, and GFR 48. His CEA level was 7.03. He has had two CT scans of his abdomen and pelvis, one on admission on 12/11/2019, and another on 12/17/2019. These have not revealed any hepatic abnormalities. There is no evidence of metastatic disease. He has changes post right colectomy on the second CAT scan. There was noted to be some appreciated abnormality of the splenic flexure. No evidence of metastasis. ALLERGIES: ESTUARDO INHIBITORS AND PENICILLIN. SOCIAL HISTORY: Tobacco none since . Alcohol, occasional drinker, two a day occasional. MEDICATIONS: At home; 1. Carvedilol. 2. Flomax. 3. Demadex. 4. Eliquis. 5. Finasteride. 6. Levothyroxine. PAST SURGICAL HISTORY: In 2002, Dr. Naik performed a right colectomy, open T3 N0 M0. In 2011, I performed a laparoscopic mesh repair of an incisional hernia, midline Parietex mesh. At the same anesthesia, he underwent a right inguinal hernia repair with mesh. In 2009, he had a coronary artery bypass grafting, three vessels after myocardial infarction. Had a vasectomy as a young adult. Right leg varicosities excision and stripping in greater saphenous vein many years ago. PAST MEDICAL HISTORY: Hepatitis B, hypertension, coronary artery disease, cardiac ejection fraction 20% to 25% on a midodrine drip probably going home that. Anemia, 3 units of blood transfused and chronic anticoagulation held since the . PICC line placed at this hospitalization. Past history of atrial fibrillation. The patient has class IIIb heart failure with a reduced ejection fraction 20% to 25%. Echocardiogram, diastolic and systolic dysfunction, ischemic history caused by an ischemic cardiomyopathy, status post CABG. He has mitral regurgitation, aortic insufficiency contributing to his heart failure. He has been seen by Cardiology, who will see him perioperatively. BPH. PHYSICAL EXAMINATION: VITAL SIGNS: Height 5 feet 6 inches, 166 pounds, and 26 BMI. Blood pressure 141/63, 71 heart rate, respiratory rate 18. HEAD, EARS, EYES, NOSE, AND THROAT: Unremarkable. LUNGS: Clear to auscultation. No wheezing. CARDIAC: Regular rate and rhythm without murmur and without gallop. ABDOMEN: Soft. Midline scar. Wound apparently healed secondarily. No evident hernia. EXTREMITIES: Unremarkable for some varicosities. LABORATORY DATA: As noted above. Hemoglobin on admission 6 and currently 8.9. Basic metabolic profile normal yesterday today be creatinine slightly elevated 1.4, GFR 48 to 50 chronically. ASSESSMENT AND PLAN: 1. History of right colon resection, now with a splenic flexure tumor mass. We would recommend a bowel prep and laparoscopic colectomy, possible open, pending operative findings. He understands risks and benefits and consents. 2. Coronary artery disease, cardiomyopathy, history of atrial fibrillation on chronic anticoagulation held since December 11. He has been transfused 3 units of blood. Perioperative cardiology support. He is felt to be at [id number] increased risk by Cardiology. 3. Chronic anticoagulation held since the . 4. Atrial fibrillation. 5. Mild valvular dysfunction. 6. Diastolic dysfunction. 7. Cardiomyopathy. 8. Benign prostatic hypertrophy. For his colon obstruction, we would recommend laparoscopic possible open resection. He will undergo a bowel prep. I placed him on clear liquids. Job ID: [id number]
--- NOTE | 2019-12-18 22:18 | PDOC.HOSPP ---
- Subjective Subjective: Feels ok. No complaints of SOB. Ready to move forward. - Objective Vital Signs & Weight: Vital Signs (12 hours) Temp Pulse Pulse BP BP BP BP 12/18/19 21:50 112/59 L 12/18/19 19:29 98.6 F 12/18/19 18:52 12/18/19 18:00 107/52 L 12/18/19 17:00 109/53 L 12/18/19 15:58 98.2 F 112/53 L 12/18/19 15:00 118/55 L 12/18/19 14:00 107/57 L 12/18/19 13:00 108/51 L 12/18/19 12:00 99/50 L 12/18/19 11:00 141/63 H 12/18/19 10:48 93 72 141/62 H 97/61 BP Pulse Ox Pulse Ox 12/18/19 21:50 12/18/19 19:29 12/18/19 18:52 104/53 L 12/18/19 18:00 12/18/19 17:00 12/18/19 15:58 12/18/19 15:00 12/18/19 14:00 12/18/19 13:00 12/18/19 12:00 12/18/19 11:00 12/18/19 10:48 96 99 Weight Admit Weight 170 lb 14.4 oz Weight 166 lb 6.4 oz Most Recent Monitor Data Heart Rate from ECG 70 NIBP 99/64 NIBP BP-Mean 75 Respiration from ECG 15 SpO2 98 I&O: 12/17/19 12/18/19 12/19/19 06:59 06:59 06:59 Intake Total 1136 1483.1 1450 Output Total 1075 1200 1750 Balance 61 283.1 -300 Result Diagrams: 12/28/19 06:23 12/28/19 06:23 Hospitalist ROS - Medication Medications: Active Medications Generic Name Dose Route Start Last Admin Trade Name Freq PRN Reason Stop Dose Admin Acetazolamide 250 mg 12/18/19 09:00 12/18/19 09:05 Diamox PO 250 mg QAM MAXI Administration Amiodarone HCl 200 mg 12/13/19 09:00 12/18/19 21:51 Cordarone PO 200 mg BID MAXI Administration Carvedilol 6.25 mg 12/11/19 21:00 12/18/19 21:50 Coreg PO 6.25 mg BID MAXI Administration Finasteride 5 mg 12/13/19 09:00 12/18/19 09:06 Proscar PO 5 mg DAILY MAXI Administration Milrinone Lactate 20 mg/ 100 mls @ 8.72 mls/hr 12/14/19 09:00 12/18/19 21:02 Sodium Chloride IVPB 100 mls INF MAXI Administration Protocol 0.375 MCG/KG/MIN Levothyroxine Sodium 25 mcg 12/13/19 06:00 12/18/19 05:16 Synthroid PO 25 mcg 0600 MAXI Administration Pantoprazole Sodium 40 mg 12/14/19 09:00 12/18/19 21:50 Protonix PO 40 mg BID MAXI Administration Polyethylene Glycol/Electrolytes 4,000 ml 12/18/19 12:45 12/18/19 14:04 Golytely PO 12/18/19 23:59 4,000 ml NOW MAXI Administration Potassium Chloride 20 meq 12/13/19 17:00 12/18/19 18:34 K-Dur PO 20 meq BID-WM MAXI Administration Sodium Chloride 10 ml 12/11/19 21:39 12/17/19 10:08 Flush - Normal Saline IVF 10 ml PRN PRN Administration Saline Flush Spironolactone 12.5 mg 12/18/19 08:00 12/18/19 09:05 Aldactone PO 12.5 mg QAM-WM MAXI Administration - Exam Heart: irregular, II/IV Respiratory: CTAB, no wheezes Gastrointestinal: soft, non-tender, non-distended, normal bowel sounds, no palpable masses, no hepatomegaly, no splenomegaly, no bruit Extremities: 2+ LE edema Musculoskeletal: generalized weakness Psychiatric: normal affect, normal behavior, A&O x 3 Hosp A/P (1) Colonic mass Code(s): K63.89 - OTHER SPECIFIED DISEASES OF INTESTINE Status: Acute (2) Hx of malignant neoplasm of colon Code(s): Z85.038 - PERSONAL HISTORY OF MALIGNANT NEOPLASM OF LARGE INTESTINE Status: Acute (3) CHF (congestive heart failure), NYHA class IV Code(s): I50.9 - HEART FAILURE, UNSPECIFIED Status: Acute Qualifiers: Congestive heart failure chronicity: acute on chronic (4) BPH (benign prostatic hyperplasia) Code(s): N40.0 - BENIGN PROSTATIC HYPERPLASIA WITHOUT LOWER URINRY TRACT SYMP Status: Chronic Qualifiers: Lower urinary tract symptom presence: symptoms absent Qualified Code(s): N40.0 - Benign prostatic hyperplasia without lower urinary tract symptoms (5) CAD (coronary artery disease) Code(s): I25.10 - ATHSCL HEART DISEASE OF [place] CORONARY ARTERY W/O ANG PCTRS Status: Chronic Qualifiers: Coronary Disease-Associated Artery/Lesion type: [place] artery [place] vs. transplanted heart: [place] heart Associated angina: without angina Qualified Code(s): I25.10 - Atherosclerotic heart disease of [place] coronary artery without angina pectoris (6) CKD (chronic kidney disease), stage III Code(s): N18.3 - CHRONIC KIDNEY DISEASE, STAGE 3 (MODERATE) Status: Chronic (7) Chronic anticoagulation Code(s): Z79.01 - TEST SKEIN WINDER (CURRENT) USE OF ANTICOAGULANTS Status: Chronic (8) Pacemaker Code(s): Z95.0 - PRESENCE OF CARDIAC PACEMAKER Status: Chronic (9) Atrial fibrillation Code(s): I48.91 - UNSPECIFIED ATRIAL FIBRILLATION Status: Chronic - Plan Patient reports he is prepared to move forward. Discussed with the patient, his and step-daughter. They understand the potential risk related to his cardiac situation. They understand that the surgery will likely reduce the risk of colonic obstruction, but may not cure the cancer. Dr. Avalos carefully managing his CHF.
[2019-12-19 04:57] LABS: #Eosinphils 0.2 thou/uL (0.0-0.7); #Lymphocytes 0.8 thou/uL (1.20-3.40); #Monocytes 0.6 thou/uL (0.11-0.59); %Basophils 0.5 % (0.0-1.0); %Eosinophils 3.3 % (0.0-10.0); %Lymphocytes 11.7 % (21.0-51.0); %Monocytes 9.3 % (0.0-10.0); %Neutrophils 75.3 % (42.0-75.0); Hemoglobin 8.8 g/dL (14.0-18.0); Mean Corpuscular HGB CONC 29.8 g/dL (32.0-36.0); Mean Corpuscular Hemoglobin 23.5 pg (27.0-31.0); Mean Corpuscular Volume 78.7 fL (78.0-98.0); Mean Platelet Volume 10.9 fL (7.4-10.4); Platelet Count 151 thou/uL (130-400); RBC Distribution Width 20.3 % (11.5-14.5); Red Blood Cell (RBC) Count 3.76 mill/uL (4.70-6.10); White Blood Cell (WBC) Count 6.7 thou/uL (4.8-10.8)
[2019-12-19 05:15] LABS: Anion Gap 9 mmol/L (10-20); BUN (Urea Nitrogen) 18 mg/dL (8.4-25.7); Calc. Creatinine Clearance 44 mL/min (70-130); Calcium 8.6 mg/dL (7.8-10.44); Carbon Dioxide 33 mmol/L (23-31); Chloride 102 mmol/L (98-107); Estimated GFR-MDRD 53; Glucose 95 mg/dL (83-110); Magnesium 2.1 mg/dL (1.6-2.6); Potassium 3.5 mmol/L (3.5-5.1); Sodium 140 mmol/L (136-145)
[2019-12-19] MEDS: Levothyroxine Sodium 25 MCG TAB PO SCH (06:09)
[2019-12-19] MEDS ORDERED: Furosemide 100 MG/10 ML VIAL SLOW IVP SCH (07:45)
--- NOTE | 2019-12-19 08:35 | PRG ---
DATE OF SERVICE: 12/19/2019 SUBJECTIVE: Mr. Juan Alberto Baer had a good day. He was able to walk around CCU twice without difficulty. He did not have any shortness of breath. This is a higher performance than the baseline. He responded well to Lasix 60 mg IV without difficulties. This CT scan did not find any metastasis concerning lymph nodes. He was seen by Dr. Ku for colon cancer. Currently, his colon cancer removal surgery is planned for tomorrow. Both the patient and his family have agreed to do this. He does not complain of palpitation or syncope. He also does not complain of any shortness of breath. REVIEW OF SYSTEMS: GENERAL: There is no fever or chills. PULMONARY: There is no productive cough. CARDIOVASCULAR: See HPI. GI: He did have a blood in the bowel movement during the GoLYTELY prep yesterday. : He still needs a Villegas. MUSCULOSKELETAL: He has bilateral knee swelling that has decreased a little bit yesterday. INTEGUMENT: There is no new skin breakdown. NEUROLOGIC: There are no focal deficits. PSYCHIATRIC: He is not depressed. He wants to live life fully and go through with the surgery. CURRENT CARDIAC MEDICATIONS: Include, 1. Carvedilol 6.25 mg twice per day. 2. Milrinone 0.375 mcg/kg/min IV GTT. 3. Amiodarone 200 mg b.i.d. 4. Potassium 20 mEq twice a day. 5. Acetazolamide 250 mg daily. 6. Spironolactone 12.5 mg daily. 7. IV Lasix dose depending on examination each day. PHYSICAL EXAMINATION: Telemetry was reviewed. He only has occasional PVC. He is paced at 70 beats per minute. GENERAL: Alert, conversational, and energetic. HEENT: Shows EOMI and PERRL. Oropharynx has moist mucosa without erythema, no exudate. NECK: His JVP is about 12 cm with positive hepatojugular reflux, it has not changed, it is same as yesterday. PULMONARY: Good air movement bilaterally and clear to auscultation bilaterally. CARDIAC: Regular rhythm with occasional irregularity, 3/6 holosystolic murmur at the apex with radiation to the left axilla, 2/6 diastolic murmur at the right sternal border. Says he has both mitral regurgitation and aortic insufficiency murmurs. ABDOMEN: Slightly distended. Hyperactive bowel sounds. Most likely due to the GoLYTELY prep. EXTREMITIES: Lower extremities has 3+ pitting edema to just above the knee. He got slightly less than yesterday to today. SIGNIFICANT LABORATORY VALUES: Include BUN 18 and creatinine 1.28. Says his renal functions improved, and the BNP has decreased to 833.6. ASSESSMENT: An 84-year-old gentleman has [place] Heart Association stage C and [place] Heart Association class IIIB heart failure with reduced ejection fraction. It contains both systolic and diastolic dysfunction. It is caused by combination of ischemic cardiomyopathy, mitral regurgitation, and aortic insufficiency. Currently, he has sufficient cardiac output with milrinone. Although he is still volume overloaded; however, he will need the volume to sustain him through the colon resection surgery. Conversely, we will not allow the volume to increase to the point of decompensation. Rather, will aim at even or slightly net negative. He is currently scheduled to undergo resection of bleeding colon cancer that is obstructive in nature. This is a potentially lifesaving surgery. He does have significant cardiac risk, likely moderate. However, benefit of the surgery outweighs the risk, thus, he can proceed with the surgery. We will support him as best as we can. RECOMMENDATIONS: 1. Lasix 60 mg IV one dose today along with albumin 25 gm IV one dose. 2. Increase spironolactone to 25 mg p.o. daily. 3. We will interrogate his biventricular pacer today to see if he has any underlying sinus rhythm. If he does not, that will be good to know. So, we will know how to manage perioperatively. 4. We will ask [employer] to increase his lower rate limit to 80 beats per minute tomorrow morning before the surgery. 5. Please ensure his type and screen is active. 6. Please add PTT and PT/INR to tomorrow morning's labs. 7. One can add dobutamine, norepinephrine, or epinephrine on top of milrinone. Milrinone, dobutamine, and epinephrine is an excellent combination. It achieved excellent results in heart transplant surgery and various surgeries involving low cardiac output. Thus please considered this combination during the support of surgery if needed. Conversely, he may not need this much support, but this is to provide some guidance. It has been a pleasure taking care of Mr. Juan Alberto Baer. If you have any questions, please give me a call. Job ID: [id number] AVINASH
[2019-12-19] MEDS ORDERED: Albumin 25% 25 GM/100 ML BOT IVPB SCH (08:45)
[2019-12-19] MEDS: Potassium Chloride 20 MEQ TAB PO SCH ×2 (09:07→17:14)
[2019-12-19] MEDS: Amiodarone 200 MG TAB PO SCH ×2 (09:08→20:32)
[2019-12-19] MEDS: Finasteride 5 MG TAB PO SCH (09:08)
[2019-12-19] MEDS: Carvedilol 6.25 MG TAB PO SCH ×2 (09:08→20:30)
[2019-12-19] MEDS: AcetaZOLAMIDE 250 MG TAB PO SCH (09:09)
[2019-12-19] MEDS: Spironolactone 25 MG TAB PO SCH (09:09)
--- NOTE | 2019-12-19 11:33 | PDOC.HOSPP ---
- Subjective Encounter Date: 12/19/19 Encounter Time: 11:31 Subjective: Doing very well. No complaints. Breathing well. Prepared for surgery tomorrow. - Objective Vital Signs & Weight: Vital Signs (12 hours) Temp BP BP BP Pulse Ox 12/19/19 11:16 98.6 F 12/19/19 09:08 112/59 L 12/19/19 09:00 123/58 L 12/19/19 08:00 100 12/19/19 07:17 98.0 F 12/19/19 06:00 101/51 L 12/19/19 05:00 108/51 L 12/19/19 04:00 111/57 L 12/19/19 03:40 98.3 F 12/19/19 03:00 102/50 L 12/19/19 02:00 106/51 L 12/19/19 00:00 107/53 L 12/18/19 23:54 98.3 F Weight Admit Weight 170 lb 14.4 oz Weight 167 lb 5 oz Most Recent Monitor Data Heart Rate from ECG 86 NIBP 99/64 NIBP BP-Mean 75 Respiration from ECG 24 SpO2 99 I&O: 12/18/19 12/19/19 12/20/19 06:59 06:59 06:59 Intake Total 1483.1 2262 Output Total 1200 2600 Balance 283.1 -338 Result Diagrams: 12/19/19 04:35 12/19/19 04:38 Hospitalist ROS - Medication Medications: Active Medications Generic Name Dose Route Start Last Admin Trade Name Freq PRN Reason Stop Dose Admin Acetazolamide 250 mg 12/18/19 09:00 12/19/19 09:09 Diamox PO 250 mg QAM MAXI Administration Amiodarone HCl 200 mg 12/13/19 09:00 12/19/19 09:08 Cordarone PO 200 mg BID MAXI Administration Carvedilol 6.25 mg 12/11/19 21:00 12/19/19 09:08 Coreg PO 6.25 mg BID MAXI Administration Finasteride 5 mg 12/13/19 09:00 12/19/19 09:08 Proscar PO 5 mg DAILY MAXI Administration Milrinone Lactate 20 mg/ 100 mls @ 8.72 mls/hr 12/14/19 09:00 12/19/19 10:31 Sodium Chloride IVPB 100 mls INF MAXI Administration Protocol 0.375 MCG/KG/MIN Levothyroxine Sodium 25 mcg 12/13/19 06:00 12/19/19 06:09 Synthroid PO 25 mcg 0600 MAXI Administration Pantoprazole Sodium 40 mg 12/14/19 09:00 12/19/19 09:08 Protonix PO 40 mg BID MAXI Administration Potassium Chloride 20 meq 12/13/19 17:00 12/19/19 09:07 K-Dur PO 20 meq BID-WM MAXI Administration Sodium Chloride 10 ml 12/11/19 21:39 12/17/19 10:08 Flush - Normal Saline IVF 10 ml PRN PRN Administration Saline Flush Spironolactone 25 mg 12/19/19 08:00 12/19/19 09:09 Aldactone PO 25 mg QAM-WM MAXI Administration - Exam General Appearance: NAD, awake alert Heart: RRR, no murmur, no gallops, no rubs, normal peripheral pulses Respiratory: CTAB, no wheezes, no rales, no ronchi, normal chest expansion, no tachypnea, normal percussion Gastrointestinal: soft, non-tender, non-distended, normal bowel sounds, no palpable masses, no hepatomegaly, no splenomegaly, no bruit Extremities: no cyanosis, 2+ LE edema Skin: normal turgor Musculoskeletal: normal tone Psychiatric: normal affect, normal behavior, A&O x 3 Hosp A/P (1) Colonic mass Code(s): K63.89 - OTHER SPECIFIED DISEASES OF INTESTINE Status: Acute (2) Hx of malignant neoplasm of colon Code(s): Z85.038 - PERSONAL HISTORY OF MALIGNANT NEOPLASM OF LARGE INTESTINE Status: Acute (3) CHF (congestive heart failure), NYHA class IV Code(s): I50.9 - HEART FAILURE, UNSPECIFIED Status: Acute Qualifiers: Congestive heart failure chronicity: acute on chronic (4) BPH (benign prostatic hyperplasia) Code(s): N40.0 - BENIGN PROSTATIC HYPERPLASIA WITHOUT LOWER URINRY TRACT SYMP Status: Chronic Qualifiers: Lower urinary tract symptom presence: symptoms absent Qualified Code(s): N40.0 - Benign prostatic hyperplasia without lower urinary tract symptoms (5) CAD (coronary artery disease) Code(s): I25.10 - ATHSCL HEART DISEASE OF [place] CORONARY ARTERY W/O ANG PCTRS Status: Chronic Qualifiers: Coronary Disease-Associated Artery/Lesion type: [place] artery [place] vs. transplanted heart: [place] heart Associated angina: without angina Qualified Code(s): I25.10 - Atherosclerotic heart disease of [place] coronary artery without angina pectoris (6) CKD (chronic kidney disease), stage III Code(s): N18.3 - CHRONIC KIDNEY DISEASE, STAGE 3 (MODERATE) Status: Chronic (7) Chronic anticoagulation Code(s): Z79.01 - ADJUSTER ARBITRATOR (CURRENT) USE OF ANTICOAGULANTS Status: Chronic (8) Pacemaker Code(s): Z95.0 - PRESENCE OF CARDIAC PACEMAKER Status: Chronic (9) Atrial fibrillation Code(s): I48.91 - UNSPECIFIED ATRIAL FIBRILLATION Status: Chronic - Plan Patient reports the plan is for surgery on Wed. Discussed with the patient, his and step-daughter. They understand the potential risk related to his cardiac situation. They understand that the surgery will likely reduce the risk of colonic obstruction, but may not cure the cancer. He is prepared to moved forward. Continue Milrinone under the guidance of Dr. Avalos. Gave Lasix today. Will increase base rate of PPM to 80 tomorrow prior to the surgery.
--- NOTE | 2019-12-19 14:30 | PRG ---
DATE OF SERVICE: 12/19/2019 SUBJECTIVE: Mr. Baer is doing well today. He completed his bowel prep yesterday without any difficulty. He took the entire GoLYTELY without any nausea, vomiting, or distention. He states he passed bloody stool. The patient's CEA level is 7.03. CAT scan is without evidence of metastasis. Chest x-ray is clear. I have talked to Dr. Avalos, and the patient will be maintained on a milrinone drip perioperatively. 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 The procedure was discussed with the patient. Questions were answered. We will keep clear liquids tonight and type and cross 2 units of blood tomorrow. Job ID: [id number]
[2019-12-19] MEDS ORDERED: Gabapentin 300 MG CAP PO SCH (21:00)
[2019-12-19] MEDS: Gabapentin 100 MG CAP PO SCH (21:47)
[2019-12-20 04:52] LABS: #Eosinphils 0.2 thou/uL (0.0-0.7); #Lymphocytes 0.8 thou/uL (1.20-3.40); #Monocytes 0.6 thou/uL (0.11-0.59); #Neutrophils 4.6 thou/uL (1.40-6.50); %Basophils 0.1 % (0.0-1.0); %Eosinophils 2.9 % (0.0-10.0); %Lymphocytes 12.4 % (21.0-51.0); %Neutrophils 75.5 % (42.0-75.0); Hemoglobin 8.6 g/dL (14.0-18.0); Mean Corpuscular HGB CONC 29.5 g/dL (32.0-36.0); Mean Corpuscular Hemoglobin 23.4 pg (27.0-31.0); Mean Corpuscular Volume 79.4 fL (78.0-98.0); Mean Platelet Volume 10.3 fL (7.4-10.4); Platelet Count 147 thou/uL (130-400); RBC Distribution Width 20.8 % (11.5-14.5); Red Blood Cell (RBC) Count 3.69 mill/uL (4.70-6.10); White Blood Cell (WBC) Count 6.1 thou/uL (4.8-10.8)
[2019-12-20 04:54] LABS: INR-International Normal Ratio 1.2; PTT 31.4 SEC (22.9-36.1); Prothrombin Time 15.1 SEC (12.0-14.7)
[2019-12-20 05:13] LABS: Anion Gap 12 mmol/L (10-20); BUN (Urea Nitrogen) 15 mg/dL (8.4-25.7); Calc. Creatinine Clearance 46 mL/min (70-130); Calcium 8.7 mg/dL (7.8-10.44); Carbon Dioxide 29 mmol/L (23-31); Chloride 105 mmol/L (98-107); Estimated GFR-MDRD 55; Glucose 91 mg/dL (83-110); Magnesium 2.1 mg/dL (1.6-2.6); Potassium 3.5 mmol/L (3.5-5.1); Sodium 142 mmol/L (136-145)
[2019-12-20] MEDS: Levothyroxine Sodium 25 MCG TAB PO SCH (06:25)
[2019-12-20] MEDS ORDERED: Potassium Chloride 40 MEQ in Premix Bag 1 BAG IVPB PRN (07:49)
[2019-12-20] MEDS ORDERED: Magnesium Oxide 400 MG TAB PO PRN ×2 (07:49)
[2019-12-20] MEDS ORDERED: PHOS-NAK 1 PKT PACK PO PRN ×2 (07:49)
[2019-12-20] MEDS ORDERED: Potassium Chloride 20 MEQ TAB PO PRN (07:49)
[2019-12-20] MEDS ORDERED: Potassium Phosphate 15 MMOL in Sodium Chloride 0.9% 250 ML 250 ML IV PRN (07:49)
[2019-12-20] MEDS ORDERED: Potassium Chloride 40 MEQ in Sodium Chloride 0.9% 250 ML 250 ML IVPB PRN (07:49)
[2019-12-20] MEDS ORDERED: Potassium Phosphate 9 MMOL in Sodium Chloride 0.9% 100 ML IVPB PRN (07:49)
[2019-12-20] MEDS ORDERED: Potassium Phosphate 12 MMOL in Sodium Chloride 0.9% 250 ML 250 ML IV PRN (07:49)
[2019-12-20] MEDS ORDERED: Magnesium 2 GM/50 ML 2 GM in Premix Bag 1 BAG IVPB PRN (07:49)
[2019-12-20] MEDS ORDERED: Albumin 25% 25 GM/100 ML BOT IVPB SCH ×2 (08:00→18:00)
--- NOTE | 2019-12-20 08:52 | PRG ---
DATE OF SERVICE: 12/20/2019 SUBJECTIVE: Mr. Juan Alberto Baer had another good day. Again, he was able to walk around the CCU twice without difficulty. He is not short of breath with this level of activity. He has been on clear liquids. He said he is hungry. He did not have any more bouts of bloody stool. He said he is ready to undergo colon cancer resection today. He denied palpitations, syncope. He was able to sleep well last night. REVIEW OF SYSTEMS: GENERAL: There is no fever or chills. PULMONARY: There is no productive cough. CARDIOVASCULAR: Please see HPI. GI: Please see HPI. : He still needs a Villegas catheter. MUSCULOSKELETAL: He has a bilateral knee swelling. It has decreased some yesterday. INTEGUMENT: There is no new skin breakdown, his left lower leg skin breakdown is almost healed. NEUROLOGIC: There is no focal deficit. PSYCHIATRIC: He is not depressed and is ready for surgery. ACTIVE CURRENT CARDIAC MEDICATIONS: 1. Carvedilol 6.25 mg twice per day. 2. Milrinone 0.375 mcg/kg/minute IV GT. 3. Amiodarone 200 mg b.i.d. for a 5 g load, this is to prevent recurrent atrial fibrillation or ventricular tachycardia with his cardiac condition. 4. Potassium 20 mEq twice a day. 5. Acetazolamide 250 mg daily. 6. Spironolactone 25 mg daily. 7. IV Lasix depending on the need of the day. PHYSICAL EXAMINATION: VITAL SIGNS: Telemetry was reviewed. Average rate of 70. He does not have any concerning arrhythmia. He has some PVCs. His rate was turned up to 80 beats per minute this morning in preparation for surgery. His vitals are paced rate at 80 , blood pressure 110/54. GENERAL: He is alert and conversational, and energetic. HEENT: Show EOMI, PERRL. Oropharynx is benign. Moist mucosa without erythema or no exudate. NECK: JVP is about 12 cm with positive hepatojugular reflux, is not changed from yesterday. PULMONARY: Good air movement bilaterally. Clear to auscultation bilaterally. HEART: Regular rate and rhythm, with some occasional irregularity, 3/6 holosystolic murmur best heard at the apex with radiation to the left axilla; there is also 2 /6 diastolic murmur at the right sternal border. His PMI is inferiorly and laterally displaced around seven intercostal space. He has both mitral regurgitation, aortic insufficiency murmurs. ABDOMEN: Soft, nontender. Positive bowel sounds. Slightly distended with positive fluid wave that is less than before. EXTREMITIES: He still has pitting edema to both knees. However, edema above the knees has decreased and edema of the lower extremity has also decreased. He has net negative balance 756 mL. His creatinine is at the best it ever has been at 1.24. His BNP is also low as it has been at 681. ASSESSMENT: An 84-year-old gentleman remains in [place] Heart Association stage C and [place] Heart Association class 3B heart failure with reduced ejection fraction. It contains both systolic and diastolic dysfunctions. It is caused by combination of ischemic cardiomyopathy, mitral regurgitation, and aortic insufficiency. Currently, he has sufficient cardiac output with Milrinone augmentation. He is now in the best cardiac and renal condition since for a long time. He says he is tuned up for surgery. Post surgery, we will assess his volume status and provide diuresis as needed. He is currently scheduled to undergo colon resection for colon cancer. This is a potentially life-saving surgery. Even though there is significant cardiac risk , the benefit outweighs the risk. Thus, he should proceed. RECOMMENDATIONS: 1. Albumin 25 g IV one dose en route to surgery. 2. One can use dobutamine, norepinephrine, and epinephrine on top of Milrinone. A possible algorithm is to add dobutamine first. Once dobutamine at 7.5 mcg/kg/min IV GTT has reached and there is an insufficient pressure, then we can add on either norepinephrine or epinephrine. Of note, Milrinone, dobutamine, and epinephrine has been a very effective combination in heart transplant and low ejection fraction surgery. 3. 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 He has sinus dysfunction and also probable complete heart block at times. Thus he may not have adequate heart rate response. If the heart rate needs to be increased, please page [phone]. The [employer] technical financial services representative will go to the OR to increase his heart rate by increasing his lower rate limit until the heart rate is high. 4. Please add complete metabolicmpanel and an ionized calcium to tomorrow morning's laboratory values. This will help to guide therapy. 4. We will assess the volume status postsurgery to adjust inotrope medication and diuresis as needed. It has been a pleasure taking care of Mr. Juan Alberto Baer. If there are questions, please give me a call. Job ID: [id number] MTDD
[2019-12-20] MEDS: Spironolactone 25 MG TAB PO SCH (09:16)
[2019-12-20] MEDS: AcetaZOLAMIDE 250 MG TAB PO SCH (09:16)
[2019-12-20] MEDS: Amiodarone 200 MG TAB PO SCH ×2 (09:16→21:31)
[2019-12-20] MEDS: Carvedilol 6.25 MG TAB PO SCH ×2 (09:16→21:33)
[2019-12-20] MEDS: Potassium Chloride 20 MEQ TAB PO SCH (09:16)
[2019-12-20] MEDS: Gabapentin 100 MG CAP PO SCH ×3 (09:17→21:31)
[2019-12-20] MEDS: Finasteride 5 MG TAB PO SCH (09:17)
[2019-12-20] MEDS ORDERED: PHENYLEPHRINE-NS 100 MCG/ML 10 ML SYRINGE ONE (09:38)
[2019-12-20] MEDS ORDERED: Bupivacaine HCl 0.5%/Epinephrine 1:200,000/PF 30 ml Vial ONE (09:38)
[2019-12-20] MEDS ORDERED: Rocuronium Bromide 10 MG/ML (10ML VIAL) ONE (09:38)
--- NOTE | 2019-12-20 09:56 | PDOC.HOSPP ---
- Subjective Encounter Date: 12/20/19 Encounter Time: 09:54 Subjective: Doing well overall. Feels good and ready for the surgery. - Objective Vital Signs & Weight: Vital Signs (12 hours) Temp BP BP BP Pulse Ox 12/20/19 09:16 115/55 L 12/20/19 08:00 96 12/20/19 07:02 98.1 F 12/20/19 06:00 110/54 L 12/20/19 05:00 109/54 L 12/20/19 04:00 101/50 L 12/20/19 03:15 97.9 F 12/20/19 03:00 97/55 L 12/20/19 02:00 104/52 L 12/20/19 01:00 102/52 L 12/20/19 00:00 97/53 L 12/19/19 23:25 98.7 F 12/19/19 23:00 94/49 L 12/19/19 22:00 108/53 L Weight Admit Weight 170 lb 14.4 oz Weight 168 lb 1 oz Most Recent Monitor Data Heart Rate from ECG 80 NIBP 99/64 NIBP BP-Mean 75 Respiration from ECG 16 SpO2 93 I&O: 12/19/19 12/20/19 12/21/19 06:59 06:59 06:59 Intake Total 2262 1514 Output Total 2600 2250 Balance -338 -736 Result Diagrams: 12/20/19 04:38 12/20/19 04:38 Hospitalist ROS - Medication Medications: Active Medications Generic Name Dose Route Start Last Admin Trade Name Freq PRN Reason Stop Dose Admin Acetazolamide 250 mg 12/18/19 09:00 12/20/19 09:16 Diamox PO Not Given QAM [facility] Amiodarone HCl 200 mg 12/13/19 09:00 12/20/19 09:16 Cordarone PO Not Given BID MAXI Carvedilol 6.25 mg 12/11/19 21:00 12/20/19 09:16 Coreg PO Not Given BID MAXI Finasteride 5 mg 12/13/19 09:00 12/20/19 09:17 Proscar PO Not Given DAILY MAXI Gabapentin 100 mg 12/19/19 21:00 12/20/19 09:17 Neurontin PO Not Given BID MAXI Milrinone Lactate 20 mg/ 100 mls @ 8.72 mls/hr 12/14/19 09:00 12/19/19 23:38 Sodium Chloride IVPB 100 mls INF MAXI Administration Protocol 0.375 MCG/KG/MIN Levothyroxine Sodium 25 mcg 12/13/19 06:00 12/20/19 06:25 Synthroid PO 25 mcg 0600 MAXI Administration Pantoprazole Sodium 40 mg 12/14/19 09:00 12/20/19 09:17 Protonix PO Not Given BID MAXI Potassium Chloride 20 meq 12/13/19 17:00 12/20/19 09:16 K-Dur PO Not Given BID-WM MAXI Sodium Chloride 10 ml 12/11/19 21:39 12/17/19 10:08 Flush - Normal Saline IVF 10 ml PRN PRN Administration Saline Flush Spironolactone 25 mg 12/19/19 08:00 12/20/19 09:16 Aldactone PO Not Given QAM-WM MAXI - Exam General Appearance: NAD, awake alert Neck: JVD Heart: RRR, no gallops, no rubs, normal peripheral pulses, II/IV Respiratory: CTAB, no wheezes, no rales, no ronchi, normal chest expansion, no tachypnea, normal percussion Gastrointestinal: soft, non-tender, non-distended, normal bowel sounds, no palpable masses, no hepatomegaly, no splenomegaly, no bruit Extremities: 2+ LE edema Musculoskeletal: generalized weakness Psychiatric: normal affect, normal behavior, A&O x 3 Hosp A/P (1) Colonic mass Code(s): K63.89 - OTHER SPECIFIED DISEASES OF INTESTINE Status: Acute (2) Hx of malignant neoplasm of colon Code(s): Z85.038 - PERSONAL HISTORY OF MALIGNANT NEOPLASM OF LARGE INTESTINE Status: Acute (3) CHF (congestive heart failure), NYHA class IV Code(s): I50.9 - HEART FAILURE, UNSPECIFIED Status: Acute Qualifiers: Congestive heart failure chronicity: acute on chronic (4) BPH (benign prostatic hyperplasia) Code(s): N40.0 - BENIGN PROSTATIC HYPERPLASIA WITHOUT LOWER URINRY TRACT SYMP Status: Chronic Qualifiers: Lower urinary tract symptom presence: symptoms absent Qualified Code(s): N40.0 - Benign prostatic hyperplasia without lower urinary tract symptoms (5) CAD (coronary artery disease) Code(s): I25.10 - ATHSCL HEART DISEASE OF [place] CORONARY ARTERY W/O ANG PCTRS Status: Chronic Qualifiers: Coronary Disease-Associated Artery/Lesion type: [place] artery [place] vs. transplanted heart: [place] heart Associated angina: without angina Qualified Code(s): I25.10 - Atherosclerotic heart disease of [place] coronary artery without angina pectoris (6) CKD (chronic kidney disease), stage III Code(s): N18.3 - CHRONIC KIDNEY DISEASE, STAGE 3 (MODERATE) Status: Chronic (7) Chronic anticoagulation Code(s): Z79.01 - CORRECTION (CURRENT) USE OF ANTICOAGULANTS Status: Chronic (8) Pacemaker Code(s): Z95.0 - PRESENCE OF CARDIAC PACEMAKER Status: Chronic (9) Atrial fibrillation Code(s): I48.91 - UNSPECIFIED ATRIAL FIBRILLATION Status: Chronic - Plan Patient reports the plan is for surgery today. Discussed with the patient, his and step-daughter. They understand the potential risk related to his cardiac situation. They understand that the surgery will likely reduce the risk of colonic obstruction, but may not cure the cancer. He is prepared to moved forward. Continue Milrinone under the guidance of Dr. Avalos. BNP is down, Creat improved. Gave Lasix yesterday. Will increase base rate of PPM to 80 prior to the surgery. He appears to be optimized for surgery today. All questions answered.
[2019-12-20] MEDS ORDERED: Norepinephrine 4 MG/4 ML VIAL ONE (10:25)
[2019-12-20] MEDS ORDERED: Fentanyl 100 MCG/2 ML VIAL ONE ×2 (10:25→10:51)
[2019-12-20] MEDS ORDERED: DOBUTamine 500 mg/250 ml 250 ML ONE (10:25)
[2019-12-20] MEDS ORDERED: Phenylephrine HCL 10 MG/ML VIAL ONE (10:25)
[2019-12-20] MEDS ORDERED: EPINEPHrine 1 MG/ML AMP ONE (10:31)
[2019-12-20] MEDS ORDERED: Lidocaine 1% w/Epinephrine 1:100K 20 ML VIAL ONE (10:31)
[2019-12-20] MEDS ORDERED: Bupivacaine 0.25% HCL 30 ML VIAL ONE (10:31)
[2019-12-20] MEDS ORDERED: Lidocaine 2% Jelly 5 ML TUBE ONE (11:16)
[2019-12-20] MEDS ORDERED: Midazolam HCl 2 mg/2 ml Vial ONE (11:51)
[2019-12-20] MEDS ORDERED: Sodium Chloride 0.9% 20 ML ONE (14:08)
[2019-12-20] MEDS ORDERED: Acetaminophen 500 MG TAB PO SCH ×2 (14:15→18:00)
[2019-12-20] MEDS ORDERED: SUGAMMADEX SODIUM 200 MG/2 ML VIAL ONE (14:37)
[2019-12-20] MEDS ORDERED: Morphine 2 MG/ML SYRINGE SLOW IVP PRN (15:25)
[2019-12-20] MEDS ORDERED: Morphine 4 MG/ML VIAL SLOW IVP PRN (15:25)
[2019-12-20] MEDS ORDERED: D5 1/2 NS w/30 mEq KCL 1,000 ML IV SCH (15:30)
[2019-12-20] MEDS ORDERED: Morphine Sulfate 2 MG/ML SYRINGE SLOW IVP PRN (15:42)
--- NOTE | 2019-12-20 15:42 | OP ---
DATE OF PROCEDURE: 12/20/2019 PREOPERATIVE DIAGNOSES: 1. Anemia. 2. Severe cardiomyopathy. 3. Congestive heart failure, on Milrinone drip. 4. Transverse colon cancer. 5. Prior history of right colectomy for right colon cancer, years passed with interval laparoscopic mesh repair of incisional hernia. POSTOPERATIVE DIAGNOSES: 1. Anemia. 2. Severe cardiomyopathy. 3. Congestive heart failure, on Milrinone drip. 4. Transverse colon cancer. 5. Prior history of right colectomy for right colon cancer, years passed with interval laparoscopic mesh repair of incisional hernia. 6. Prohibitive adhesions. PROCEDURES PERFORMED: 1. Laparoscopy with lysis of adhesions, converted to a laparotomy with lysis of adhesions. 2. Resection of previous ileocolic anastomosis from years past and transverse colon had tumor in the mid transverse colon with primary ileocolic anastomosis. 3. Placement of right subclavian vein central line. ESTIMATED BLOOD LOSS: 125 mL. BLOOD TRANSFUSED: 1 unit of blood. (Note, preoperative hemoglobin 8.9. No significant blood loss). ANESTHESIA: General anesthesia with TAP block. DESCRIPTION OF PROCEDURE: The patient was taken to the operating room, where under general anesthesia in the dorsal lithotomy position, Villegas catheter was placed. Abdomen and pelvis were prepared with ChloraPrep and Betadine respectively. Right lateral subcostal incision made, pneumoperitoneum to 15 mmHg was obtained with a Veress needle, replaced with a 5 port. There were adhesions in this area. Thus, a left lateral subcostal incision was made in adhesion free area under laparoscopic visualization and a 5 port placed. Left lateral mid abdominal incision made and left lower quadrant lateral abdominal incision made and 5 port was placed. Adhesiolysis carried out, freeing omental adhesions from the previously placed anterior abdominal wall mesh. There was small bowel adherent to the mesh, carefully peeled off. On the right side, the port that I placed in the right subcostal had what appeared to be enteric contents, but later as I evaluated this was bilious as it had a small puncture in the liver. Considering the severe adhesions in the right abdomen from the previous surgeries, a midline laparotomy was necessary. Midline incision was made, carried down to skin and subcutaneous tissue and adhesiolysis carried out, freeing adhesions of small bowel and colon. Midtransverse colon tumor appreciated, puckering the mucosa, involving the surrounding omentum, and it was tattooed. Dissection was carried out in the terminal ileum, freeing the ileum up to the ileocolic anastomosis. There were dense adhesions of colon to the inferior liver edge on the right just adjacent to the gallbladder, which was small and contracted. Careful adhesiolysis carried out, freeing the colon, mobilizing it. Palliative type resection undertaken, dividing the terminal ileum with a PETERSON stapler and the mesentery with serial fires of the LigaSure towards the tumor. Adherent omentum was left adherent to the tumor, dividing the omentum adjacent between LigaSure. Distal colon mobilized. As the colon was mobilized, I did not take the middle colic vessel proper, but more like the branches adjacent to the tumor to maximize blood supply. This tumor was resected. No extracolonic tumors were identified or noted either intraoperatively or imaging radiologically. At this point, the colon was divided with the PETERSON stapler distal to the tumor mass. The colon was viable. Distal transverse colon was viable as the ileum anastomosis to the distal transverse colon with a staple technique with the PETERSON 75 stapler and closed the common defect with the PETERSON stapler and reinforced the suture line with interrupted Lembert suture and 3-0 silk. Anastomosis was inspected and noted to be competent. Mesenteric defect closed with 3-0 silk sutures. Abdominal cavity thoroughly irrigated with saline solution. Good hemostasis noted. Small bowel was not injured. The area in the right upper quadrant initially thought to be a bowel injury. There was in fact a small amount of bile leakage from the liver, score inherent in the procedure during laparoscopic approach. The sponge and needle counts were correct. Abdominal cavity was thoroughly irrigated, irrigant evacuated. Good hemostasis noted. Midline fascia and old mesh were approximated with continuous suture of #1 PDS. Skin and subcutaneous tissues irrigated. Skin approximated loosely with shaquille and a EFE wound suction device applied. Port sites closed with shaquille. Right paraclavicular area was prepared with ChloraPrep and draped in routine fashion. Local anesthetic was infiltrated in the skin and subcutaneous tissue. Trocar catheter was cannulated in the subclavian vein, infraclavicular approach, threading the J-wire, removing the trocar, enlarging skin site, placing the dilator and removed, Seldinger technique was used to place a triple-lumen catheter, removing the J-wire, securing the catheter with 2 interrupted sutures of 3-0 silk. Sterile dressing applied. Each port aspirated blood, flushed with saline solution. Job ID: [id number]
--- NOTE | 2019-12-20 16:01 | RAD ---
EXAM: Single view of the chest HISTORY: Central line placement COMPARISON: 12/11/2019 FINDINGS: Single view of the chest shows an enlarged but stable cardiomediastinal silhouette. The pa tient is status post CABG. The pacemaker is unchanged in position. There is a right-sided PICC line with its tip in the superior vena cava. A right subclavian central venous catheter is seen with its t ip in the superior vena cava. No pneumothorax is seen. There is no evidence of consolidation, mass, or pleural effusion. The bones are unremarkable. IMPRESSION: Status post central line placement without evidence of complication.
[2019-12-20] MEDS ORDERED: Ketorolac Tromethamine 30 MG/ML VIAL IVP SCH (18:00)
[2019-12-20] MEDS: Potassium Chloride 30 MEQ in Dextrose 5 %-0.45 % NaCl 1,000 ML IV SCH (21:30)
[2019-12-20] MEDS: Albumin 25% 25 GM/100 ML BOT IVPB SCH ×2 (21:31→22:03)
[2019-12-20] MEDS: Enoxaparin Sodium 40 MG/0.4 ML SYRINGE SC SCH (21:32)
[2019-12-20] MEDS: Ketorolac Tromethamine 30 MG/ML VIAL IVP SCH (21:32)
[2019-12-20] MEDS: Acetaminophen 500 MG TAB PO SCH (21:35)
[2019-12-20] MEDS: DOBUTamine 500 mg/250 ml 250 ML IVPB SCH (21:36)
--- NOTE | 2019-12-20 22:38 | CON ---
DATE OF CONSULTATION: HISTORY OF PRESENT ILLNESS: Juan Alberto Baer is a very pleasant 84-year-old male, who underwent partial resection of colon mass today. He was extubated in the recovery room. I was consulted to assist in his management. 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 He surprisingly says he has minimal abdominal pain. PAST MEDICAL HISTORY: Remarkable for, 1. Colectomy on the right side for colon cancer that was T3 N0 M0 in 2002. 2. History of admission for anemia, requiring transfusion, but led to his diagnosis of a colon mass. 3. History of cardiomyopathy. 4. History of coronary artery disease. 5. History of coronary artery bypass grafting. He reports intolerance to ESTUARDO inhibitors and penicillin. SOCIAL HISTORY: He has not smoked since 81. Rarely drinks. MEDICATIONS: Reviewed. FAMILY HISTORY: Negative for lung disease in early age. PAST SURGICAL HISTORY: Well documented by Dr. Ku. Additional past medical history is remarkable for hepatitis B in the past, atrial fibrillation, diastolic heart failure, mitral regurgitation, and aortic insufficiency. REVIEW OF SYSTEMS: Otherwise negative. GENERAL: He really surprisingly says he does not feel bad and is lying flat in bed in no distress. VITAL SIGNS: Blood pressure 115/55, respiratory rate is 18, heart rate is in 80s, and oximetry is in the mid 90s. HEENT: Pupils are reactive. Sclerae are anicteric. NECK: Supple without lymphadenopathy. LUNGS: Clear. HEART: Regular rhythm. No S3. ABDOMEN: Was slightly distended from his surgery. EXTREMITIES: Without clubbing, cyanosis, or edema. NEUROLOGIC: Grossly nonfocal, although he was not extensively evaluated because of his postop state. LABORATORY DATA: White count 6.1, hemoglobin 8.6, and platelets 147. Electrolytes are normal. Creatinine is 1.24. IMPRESSION: Status post resection of a colon mass, clinically stable. We will be happy to follow the other physicians caring for him. TIME SPENT: 50-minute consult, 50% of the time spent on the unit coordinating care. Job ID: [id number]
[2019-12-20 23:31] LABS: #Basophils 0.1 thou/uL (0.0-0.2); #Lymphocytes 0.1 thou/uL (1.20-3.40); #Monocytes 0.4 thou/uL (0.11-0.59); #Neutrophils 11.2 thou/uL (1.40-6.50); %Eosinophils 0.1 % (0.0-10.0); %Monocytes 3.3 % (0.0-10.0); %Neutrophils 94.6 % (42.0-75.0); Hemoglobin 9.6 g/dL (14.0-18.0); Mean Corpuscular HGB CONC 29.6 g/dL (32.0-36.0); Mean Corpuscular Hemoglobin 23.9 pg (27.0-31.0); Mean Corpuscular Volume 80.9 fL (78.0-98.0); Mean Platelet Volume 10.3 fL (7.4-10.4); Platelet Count 138 thou/uL (130-400); RBC Distribution Width 20.6 % (11.5-14.5); Red Blood Cell (RBC) Count 4.02 mill/uL (4.70-6.10); White Blood Cell (WBC) Count 11.9 thou/uL (4.8-10.8)
[2019-12-20 23:50] LABS: Anion Gap 7 mmol/L (10-20); BUN (Urea Nitrogen) 14 mg/dL (8.4-25.7); Calc. Creatinine Clearance 46 mL/min (70-130); Carbon Dioxide 26 mmol/L (23-31); Chloride 109 mmol/L (98-107); Estimated GFR-MDRD 56; Glucose 126 mg/dL (83-110); Magnesium 1.9 mg/dL (1.6-2.6); Potassium 3.3 mmol/L (3.5-5.1); Sodium 139 mmol/L (136-145)
[2019-12-21] MEDS: Acetaminophen 500 MG TAB PO SCH ×4 (03:01→20:35)
[2019-12-21] MEDS: Albumin 25% 25 GM/100 ML BOT IVPB SCH ×4 (03:01→20:34)
[2019-12-21] MEDS: Ketorolac Tromethamine 30 MG/ML VIAL IVP SCH ×4 (03:01→20:34)
[2019-12-21 04:29] LABS: ALT (SGPT) 19 U/L (8-55); AST (SGOT) 23 U/L (5-34); Albumin 3.2 g/dL (3.4-4.8); Alkaline Phosphatase 58 U/L (40-110); Anion Gap 8 mmol/L (10-20); BUN (Urea Nitrogen) 16 mg/dL (8.4-25.7); Bilirubin, Total 1.2 mg/dL (0.2-1.2); Calc. Creatinine Clearance 41 mL/min (70-130); Carbon Dioxide 26 mmol/L (23-31); Chloride 110 mmol/L (98-107); Estimated GFR-MDRD 48; Globulin 1.6 g/dL (2.4-3.5); Glucose 110 mg/dL (83-110); Magnesium 1.8 mg/dL (1.6-2.6); Potassium 3.5 mmol/L (3.5-5.1); Protein, Total 4.8 g/dL (5.8-8.1); Sodium 140 mmol/L (136-145)
[2019-12-21 04:36] LABS: #Lymphocytes 0.3 thou/uL (1.20-3.40); #Monocytes 0.6 thou/uL (0.11-0.59); #Neutrophils 10.8 thou/uL (1.40-6.50); %Basophils 0.2 % (0.0-1.0); %Eosinophils 0.1 % (0.0-10.0); %Lymphocytes 2.4 % (21.0-51.0); %Monocytes 5.4 % (0.0-10.0); Anisocytosis SLIGHT = 6-15 cells (100X) (0-5/hpf); Hemoglobin 8.8 g/dL (14.0-18.0); MDiff Complete? YES; Mean Corpuscular HGB CONC 30.2 g/dL (32.0-36.0); Mean Corpuscular Hemoglobin 24.3 pg (27.0-31.0); Mean Corpuscular Volume 80.6 fL (78.0-98.0); Mean Platelet Volume 10.2 fL (7.4-10.4); Platelet Count 134 thou/uL (130-400); Platelet Morphology Comment Appears Adequate; RBC Distribution Width 20.2 % (11.5-14.5); Red Blood Cell (RBC) Count 3.63 mill/uL (4.70-6.10); White Blood Cell (WBC) Count 11.7 thou/uL (4.8-10.8)
[2019-12-21] MEDS: Levothyroxine Sodium 25 MCG TAB PO SCH (05:06)
--- NOTE | 2019-12-21 08:33 | RAD ---
Chest AP view INDICATION: Cc examination COMPARISON: December 20, 2019 FINDINGS: Lungs:There is worsening airspace opacity in the left lower lobe Cardiac silhouette:There is stable mild cardiomegaly Pulmonary vasculature:There is mild pulmonary vascular congestion Pleural spaces:There are worsening small bilateral pleural effusions Upper abdomen:Gastric catheter is stable. Osseous structures: No acute osseous abnormality. Additional findings:Post-CABG changes stable. Multi lead AICD is unchanged. Right-sided subclavian ce ntral venous catheter is unchanged. No pneumothorax. IMPRESSION: Persistent cardiomegaly with persistent pulmonary vascular congestion but with worsening left lower lobe airspace opacity and bilateral pleural effusions may reflect worsening volume overload or CHF. Component of pneumonia is not excluded. Recommend continued radiographic follow-up.
[2019-12-21] MEDS: Pantoprazole 40 MG VIAL IVP SCH (08:42)
[2019-12-21] MEDS: AcetaZOLAMIDE 250 MG TAB PO SCH (08:46)
[2019-12-21] MEDS: Finasteride 5 MG TAB PO SCH (08:46)
[2019-12-21] MEDS: Potassium Chloride 30 MEQ in Dextrose 5 %-0.45 % NaCl 1,000 ML IV SCH ×2 (08:47→16:46)
[2019-12-21] MEDS: Amiodarone 200 MG TAB PO SCH (08:47)
[2019-12-21] MEDS: Gabapentin 100 MG CAP PO SCH ×2 (08:47→20:35)
--- NOTE | 2019-12-21 08:51 | PRG ---
DATE OF SERVICE: 12/21/2019 SUBJECTIVE: Mr. Juan Alberto Baer went through resection for colon cancer yesterday afternoon. In the OR he received phenylephrine. He also received uptitration of Milrinone to 0.75 mcg/kg/min IV GTT. Later on a small dose of dobutamine was added. Phenylephrine was titrated down to off. Milrinone was left at 0.5 mcg/kg/min upon arrival at [facility]U. Dobutamine has gone off and his diastolic pressure dropped down to 30. CVP was transduced via central line. The CVP was around 3 or 4 mmHg. Milrinone was decreased down to 0.25 mcg/kg/min IV GTT to reduce vasodilation. Dobutamine was added and titrated up to 5 mcg/kg/min. Overnight, he maintained blood pressure about 99/30s. REVIEW OF SYSTEM: GENERAL: Mr. Baer is groggy this morning. He said he slept well. He really does not complain of fever and chills. HEENT: There is no change in vision or hearing. PULMONARY: He said that he has more trouble taking a deeper breath due to his surgery. CARDIAC: He did not notice any palpitations. GI: He went through surgery. : He is still on a Villegas. INTEGUMENT: There is no new breakdown noted. NEUROLOGIC: There are no focal deficits. PSYCH: He was too sleepy to really answer. PHYSICAL EXAMINATION: VITAL SIGNS: His heart rate is 85 due to being paced. Blood pressure is 99/31. Oxygen saturations are 99% when he takes deep breaths and CVP is transduced at between 1 and 3 mmHg. Telemetry was also reviewed. He has paced to 85 beats per minute. There is occasional PVC and noise interference. There is no concerning arrhythmia. GENERAL: He is very sleepy. However, he will easily be aroused and answer question correctly. HEENT: Show EOMI. He will follow commands and look well. He can talk. NECK: His JVP is just below his earlobes. However, he does have a low CVP at 3. PULMONARY: He has good breath sounds. There are no crackles. HEART: Regular rate and rhythm, which was paced. He has 3/6 holosystolic murmur at the apex with radiation to the left axilla. He also 2/6 diastolic murmur at the right sternal border. ABDOMEN: It is somewhat distended with fluid and the band is in place. EXTREMITIES: There is no sign of bleeding or exudate in the lower extremity. He has pitting edema from his feet to the knees, slightly more than preop, but not significantly so. LABORATORY VALUES: His white cell count elevated at 11.7. His hemoglobin dropped from 9.6 to 8.8 overnight. His creatinine has increased to 1.39. This is a small increase. His urine output also has decreased most likely due to low diastolic pressure. ASSESSMENT: 1. 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 This is due to a combination of ischemic cardiomyopathy, mitral regurgitation, aortic insufficiency. He was able to go through colon resection surgery. The rise in BNP is high due to phenylephrine and stress of surgery. Given his situation, his heart perform well. 2. He has low diastolic pressure. His central venous pressure is also low. This could be due to an underlying infection or his blood loss and this will need to be investigated and corrected. RECOMMENDATIONS: Please see the following for recommendations. 1. Stop milrinone. 2. Continue with dobutamine, may titrate up if need be. 3. If dobutamine is titrated up above 7.5 mcg/kg/min without effectiveness, then norepinephrine can be added. 4. Please do blood culture x2. 5. Please do urine culture. 6. Please transfuse 1 unit of blood after blood cultures have been done. 7. Please provide antibiotics and meropenem at 1 g IV q.8 hours. The pharmacy to dose. This could be to q.12 hours due to his age and renal function. 8. Please contact me after the blood transfusion to assess the CVP volume status. At that point, a low dose IV Lasix may be needed. 9. I will ask the [employer] rep to increase his basal rate to 90 to support him during this acute period and reduce duration of AI regurgitation with each beat. 10. Please also do an ionized calcium. His low calcium will also cause basal dilation and reduced contractility. It has been a pleasure taking care of Mr. Juan Alberto Baer. If any question, please give me a call.. Job ID: [id number] [facility]
[2019-12-21] MEDS ORDERED: Carvedilol 6.25 MG TAB PO SCH (09:00)
[2019-12-21] MEDS: Spironolactone 25 MG TAB PO SCH (09:08)
[2019-12-21] MEDS ORDERED: Furosemide 20 MG/2 ML VIAL SLOW IVP SCH (13:30)
[2019-12-21] MEDS: MEROPENEM 1 GM/50 ML 1 GM in Premix Bag 1 BAG IVPB SCH ×2 (13:34→21:41)
--- NOTE | 2019-12-21 16:13 | PRG ---
DATE OF SERVICE: SUBJECTIVE: Juan Alberto Baer is in no distress. He does not remember seeing me in the cover room. OBJECTIVE: VITAL SIGNS: Heart rate in the 80s, blood pressure is 104//43, respiratory rates in the high 20s. LUNGS: Remarkable for fine crackles at his bases. HEART: Regular rhythm. ABDOMEN: Soft. IMAGING STUDIES: Chest radiograph suggestive of bilateral lower lung field effusions which I would expect after a laparotomy. Overall, he is clinically stable. LABORATORY DATA: White count is 11.7, hemoglobin 8.8, platelets 134. Electrolytes; sodium 140, potassium 3.5, chloride 110, bicarb 26, BUN 16, creatinine 1.39. Intake and outputs, positive 977. Overall, he looks better than I would have expected after a big abdominal surgery given his cardiomyopathy. We will continue to follow. Job ID: [id number]
--- NOTE | 2019-12-21 16:45 | PDOC.HOSPP ---
- Subjective Subjective: Feeling pretty good overall. No complaints today. Not much discomfort. - Objective Vital Signs & Weight: Vital Signs (12 hours) Temp Pulse Pulse Pulse Resp BP BP 12/21/19 16:00 79 12/21/19 14:00 81 12/21/19 13:00 89 27 H 12/21/19 12:00 97.9 F 12/21/19 11:26 97.8 F 12/21/19 11:00 81 12/21/19 09:15 86 84 103/31 L 12/21/19 09:00 97.7 F 12/21/19 08:18 98.5 F 12/21/19 08:00 98.1 F 12/21/19 07:00 98.7 F 81 19 104/32 L BP Pulse Ox Pulse Ox Pulse Ox 12/21/19 16:00 12/21/19 14:00 12/21/19 13:00 98 12/21/19 12:00 12/21/19 11:26 12/21/19 11:00 12/21/19 09:15 102/36 L 98 96 12/21/19 09:00 12/21/19 08:18 12/21/19 08:00 97 12/21/19 07:00 97 Weight Admit Weight 170 lb 14.4 oz Weight 161 lb 13.109 oz Most Recent Monitor Data Heart Rate from ECG 89 NIBP 102/37 NIBP BP-Mean 67 Respiration from ECG 32 SpO2 95 I&O: 12/20/19 12/21/19 12/22/19 06:59 06:59 06:59 Intake Total 1514 1216.8 750 Output Total 2250 239 175 Balance -736 977.8 575 Result Diagrams: 12/21/19 03:55 12/21/19 03:30 Hospitalist ROS - Medication Medications: Active Medications Generic Name Dose Route Start Last Admin Trade Name Freq PRN Reason Stop Dose Admin Acetaminophen 1,000 mg 12/20/19 21:00 12/21/19 14:25 Tylenol PO 1,000 mg 0300,0900,1500,2100 MAXI Administration Acetazolamide 250 mg 12/18/19 09:00 12/21/19 08:46 Diamox PO 250 mg QAM MAXI Administration Albumin Human 25 gm 12/20/19 21:00 12/21/19 14:26 Albumin 25% IVPB 12/21/19 21:01 25 gm 0300,0900,1500,2100 MAXI Administration Amiodarone HCl 200 mg 12/21/19 09:00 12/21/19 08:47 Cordarone PO 200 mg 0900 MAXI Administration Enoxaparin Sodium 40 mg 12/20/19 21:00 12/20/19 21:32 Lovenox SC 40 mg 2100 MAXI Administration Finasteride 5 mg 12/13/19 09:00 12/21/19 08:46 Proscar PO 5 mg DAILY MAXI Administration Gabapentin 100 mg 12/19/19 21:00 12/21/19 08:47 Neurontin PO 100 mg BID MAXI Administration Dobutamine HCl/Dextrose 250 mls @ 11.39 mls/hr 12/13/19 08:15 12/20/19 21:36 Dobutamine 500 Mg/250 Ml IVPB 250 mls INF MAXI Administration 5 MCG/KG/MIN Potassium Chloride 40 meq/ 100 mls @ 50 mls/hr 12/20/19 07:49 12/21/19 04:56 Device IVPB 100 mls ASDIR PRN Administration FOR SERUM K+ 2.5 - 3.5 Magnesium Sulfate 1 gm/ Sodium 102 mls @ 102 mls/hr 12/20/19 07:49 12/21/19 04:56 Chloride IV 102 mls PRN PRN Administration MAG LEVEL 1.4 - 2.0 Potassium Chloride 30 meq/ 1,015 mls @ 75 mls/hr 12/20/19 20:45 12/21/19 08: 47 Dextrose/Sodium Chloride IV Not Given .[id number] [facility] Meropenem 1 gm/ Device 50 mls @ 200 mls/hr 12/21/19 14:00 12/21/19 13:34 IVPB 50 mls Q8HR MAXI Administration Ketorolac Tromethamine 15 mg 12/20/19 21:00 12/21/19 14:25 Toradol IVP 12/25/19 21:01 15 mg 0300,0900,1500,2100 MAXI Administration Levothyroxine Sodium 25 mcg 12/13/19 06:00 12/21/19 05:06 Synthroid PO 25 mcg 0600 MAXI Administration Pantoprazole Sodium 40 mg 12/21/19 09:00 12/21/19 08:42 Protonix IVP 40 mg DAILY MAXI Administration Sodium Chloride 10 ml 12/11/19 21:39 12/17/19 10:08 Flush - Normal Saline IVF 10 ml PRN PRN Administration Saline Flush - Exam General Appearance: NAD, awake alert Heart: RRR, no murmur, no gallops, no rubs, normal peripheral pulses Respiratory: CTAB, no wheezes, no rales, no ronchi, normal chest expansion, no tachypnea, normal percussion Respiratory - other findings: Diminished at bases. Gastrointestinal: soft, non-distended, no palpable masses, no hepatomegaly, no splenomegaly, no bruit, diminished bowl sounds Extremities - other findings: Edema all extr. LUE weeping serous fluid. Neurological: no focal deficits Musculoskeletal: generalized weakness Psychiatric: normal affect, normal behavior, A&O x 3 Hosp A/P (1) Colonic mass Code(s): K63.89 - OTHER SPECIFIED DISEASES OF INTESTINE Status: Acute (2) Hx of malignant neoplasm of colon Code(s): Z85.038 - PERSONAL HISTORY OF MALIGNANT NEOPLASM OF LARGE INTESTINE Status: Acute (3) CHF (congestive heart failure), NYHA class IV Code(s): I50.9 - HEART FAILURE, UNSPECIFIED Status: Acute Qualifiers: Congestive heart failure chronicity: acute on chronic (4) BPH (benign prostatic hyperplasia) Code(s): N40.0 - BENIGN PROSTATIC HYPERPLASIA WITHOUT LOWER URINRY TRACT SYMP Status: Chronic Qualifiers: Lower urinary tract symptom presence: symptoms absent Qualified Code(s): N40.0 - Benign prostatic hyperplasia without lower urinary tract symptoms (5) CAD (coronary artery disease) Code(s): I25.10 - ATHSCL HEART DISEASE OF [place] CORONARY ARTERY W/O ANG PCTRS Status: Chronic Qualifiers: Coronary Disease-Associated Artery/Lesion type: [place] artery [place] vs. transplanted heart: [place] heart Associated angina: without angina Qualified Code(s): I25.10 - Atherosclerotic heart disease of [place] coronary artery without angina pectoris (6) CKD (chronic kidney disease), stage III Code(s): N18.3 - CHRONIC KIDNEY DISEASE, STAGE 3 (MODERATE) Status: Chronic (7) Chronic anticoagulation Code(s): Z79.01 - SHELTER (CURRENT) USE OF ANTICOAGULANTS Status: Chronic (8) Pacemaker Code(s): Z95.0 - PRESENCE OF CARDIAC PACEMAKER Status: Chronic (9) Atrial fibrillation Code(s): I48.91 - UNSPECIFIED ATRIAL FIBRILLATION Status: Chronic - Plan Post-op surgery with laparotomy with partial colon resection. Dobutamine under the guidance of Dr. Avalos. BNP is back up, Creat stable. Lasix given. Low grade WBC. Dr. Avalos added Meropenem. Received one unit of blood.
[2019-12-21] MEDS ORDERED: traMADol HCl 50 MG TAB PO PRN (16:54)
--- NOTE | 2019-12-21 17:08 | PRG ---
DATE OF SERVICE: 12/21/2019 SUBJECTIVE: Juan Alberto Baer is doing well after laparoscopic converted to open adhesiolysis, ileocolic anastomosis, and transverse colon resection. Pathology course is still pending. Postop day #1, white count 11 and hemoglobin 8.8. Basic metabolic profile is normal with mild elevation in his creatinine of 1.39, potassium 3.5. The patient's NG tube has put out very little and it was removed this morning. Urine output has been acceptable. Dr. Avalos has ordered 1 unit of blood. He is monitoring his CVP. Dr. Avalos has continued intravenous antibiotics. These antibiotics could be discontinued at any time, as from a surgical standpoint post-colon resection, they can be discontinued. Usually, we do not continue those postoperatively. OBJECTIVE: LUNGS: Clear to auscultation. CARDIAC: Regular rate and rhythm without murmur or gallop. ABDOMEN: Soft. Postoperative tenderness. Minimal tympany. Bowel sounds present. He has passed flatus. EXTREMITIES: Unremarkable. ASSESSMENT AND PLAN: The patient is doing well overall today. We have reviewed his NG tube this morning and I have told him he can start clear liquids. He is taking his medications with a sip of water. He has been out of bed and he has walked this morning. Overall, he is doing well. Await pathology and continue ICU care. Job ID: [id number]
[2019-12-21] MEDS: Enoxaparin Sodium 40 MG/0.4 ML SYRINGE SC SCH (20:35)
[2019-12-21] MEDS: DOBUTamine 500 mg/250 ml 250 ML IVPB SCH (21:42)
[2019-12-22] MEDS: Ketorolac Tromethamine 30 MG/ML VIAL IVP SCH ×4 (03:01→22:30)
[2019-12-22] MEDS: Acetaminophen 500 MG TAB PO SCH ×4 (03:01→22:31)
[2019-12-22] MEDS: Potassium Chloride 30 MEQ in Dextrose 5 %-0.45 % NaCl 1,000 ML IV SCH (03:01)
[2019-12-22 03:30] LABS: Hemoglobin 9.9 g/dL (14.0-18.0); Mean Corpuscular HGB CONC 30.3 g/dL (32.0-36.0); Mean Corpuscular Volume 82.4 fL (78.0-98.0); Mean Platelet Volume 10.4 fL (7.4-10.4); Platelet Count 120 thou/uL (130-400); RBC Distribution Width 19.9 % (11.5-14.5); Red Blood Cell (RBC) Count 3.95 mill/uL (4.70-6.10)
[2019-12-22 03:46] LABS: Anion Gap 10 mmol/L (10-20); BUN (Urea Nitrogen) 19 mg/dL (8.4-25.7); Calc. Creatinine Clearance 41 mL/min (70-130); Calcium 8.9 mg/dL (7.8-10.44); Carbon Dioxide 23 mmol/L (23-31); Chloride 110 mmol/L (98-107); Estimated GFR-MDRD 51; Glucose 88 mg/dL (83-110); Magnesium 2.1 mg/dL (1.6-2.6); Sodium 139 mmol/L (136-145)
[2019-12-22 04:14] LABS: #Eosinphils 0.3 thou/uL (0.0-0.7); #Lymphocytes 0.4 thou/uL (1.20-3.40); #Monocytes 0.5 thou/uL (0.11-0.59); #Neutrophils 8.8 thou/uL (1.40-6.50); %Basophils 0.3 % (0.0-1.0); %Eosinophils 2.9 % (0.0-10.0); %Lymphocytes 3.8 % (21.0-51.0); %Monocytes 4.8 % (0.0-10.0); %Neutrophils 88.1 % (42.0-75.0); Anisocytosis SLIGHT = 6-15 cells (100X) (0-5/hpf); Hypochromia SLIGHT = 6-15 cells (100X) (0-5/hpf); MDiff Complete? YES; Platelet Morphology Comment Appears Decreased
[2019-12-22] MEDS: MEROPENEM 1 GM/50 ML 1 GM in Premix Bag 1 BAG IVPB SCH ×3 (05:28→22:30)
[2019-12-22] MEDS: Levothyroxine Sodium 25 MCG TAB PO SCH (05:28)
[2019-12-22] MEDS ORDERED: Furosemide 40 MG/4 ML VIAL SLOW IVP SCH (07:45)
[2019-12-22] MEDS: Carvedilol 6.25 MG TAB PO SCH ×2 (07:58→22:31)
--- NOTE | 2019-12-22 08:32 | PRG ---
DATE OF SERVICE: 12/22/2019 SUBJECTIVE: Many things occurred yesterday. Milrinone was stopped due to too much of vasodilation. Dobutamine was continued to support cardiac output. Due to drop of hemoglobin, 1 unit of blood was transfused. This combination allowed his diastolic pressure to increase about 15 points. He was able to tolerate clear liquids, but only a small amount. During the day, he was able to walk around the unit once. He said that he is not short of breath. He also said that he was able to sleep. However, he complains of cough. He said there was some tinged, possibly pink. He did not complain of palpitations nor syncope. In addition, his lower heart rate on his [employer]PER[employer]-D was increased to 90 beats per minute. This is to support his current condition and also decrease the duration of a regurgitant flow through the aorta. Combination of these changes provided sufficient pressure and cardiac output. REVIEW OF SYSTEMS: GENERAL: He denies fever or chills. HEENT: He is able to swallow and sip clear liquids. PULMONARY: Please see HPI. CARDIOVASCULAR: Please see HPI. GI: He said that he is able to pass flatus with a small bowel movement that was discovered. : He continued to need a Villegas catheter. MUSCULOSKELETAL: His bilateral knee swelling has increased. INTEGUMENT: There is no report of new breakdown. NEUROLOGIC: There are no focal deficits. PSYCH: He is looking forward to recovery MEDICATIONS: His cardiac-related medications include: 1. Dobutamine 5 mcg/kg per minute. 2. Acetazolamide 250 mg daily. 3. Potassium supplement per ICU protocol. 4. Amiodarone 200 mg daily. PHYSICAL EXAMINATION: VITAL SIGNS: Telemetry was reviewed. His heart rate paced at 90 beats per minute. There is occasional PVC. There are no concerning arrhythmias. His latest vitals are heart rate paced at 90, blood pressure 110/43. GENERAL: He is alert and conversational, sitting in a chair. He does appear to be a bit short of breath this morning and having difficulty to sustain long sentences. HEENT: EOMI. PERRL. Oropharynx is benign with moist mucosa. There is no erythema, no exudate. NECK: His JVP is not elevated about 14 cm right just below his earlobe while sitting up. PULMONARY: He has new crackles at the left base. CARDIAC: Regular rate and rhythm with occasional irregularities with a 3/6 holosystolic murmur at the apex with radiation to the left axilla. He also had a 2/6 diastolic murmur at the right sternal border. ABDOMEN: Distended, but soft and nontender. Positive bowel sounds. EXTREMITIES: 3+ pitting edema to above knees and also to the thigh. He also has some edema in the arms today. LABORATORY VALUES: Showed a white cell count of 10, hemoglobin 9.9, and platelets at 120. His BUN today is at 19 and creatinine is 1.33. His BNP has decreased from 1729 to 1177. ASSESSMENT: 1. Patient was admitted due to primary cause of recurring colon cancer causing GI bleed about to obstruct. He has underwent successful resection of colon cancer. We will support him with eventual goal of being able to discharge home. 2. An 84-year-old gentleman remains in [place] Heart Association stage C and also [place] Heart Association class 3B heart failure with reduced ejection fraction (HFrEF). This is due to combination of ischemic cardiomyopathy, mitral regurgitation, and also aortic insufficiency. Currently, dobutamine at 5 mcg/kg per minute is providing sufficient cardiac output along with pacemaker setting of 90 beats per minute. However, he is getting edematous. With diastolic pressures arising to his baseline, normal renal function, and the patient signed taking input, it is time to start diuresis. HFrEF is a secondary bystander diagnosis. However, we still has to treat this condition aggressively to support him to recover from colon cancer surgery. RECOMMENDATIONS: Please see the following for recommendations. 1. Stop continuing the IV fluids. 2. Lasix 40 mg IV one dose now. 3. Repeat CBC at 5 p.m. today. 4. We will examine the patient again this afternoon to see if he needs another dose of IV diuresis on twice per day basis. 5. Stop acetazolamide. 6. Please do echocardiogram to check severity of aortic insufficiency and also mitral regurgitation. 7. Continue dobutamine at 5 mcg/kg per minute IV GTT. If he needs more cardiac output, it can be titrated up. However, in the near future, if the pressure tolerates, we will eventually transition back to milrinone. 8. Please also do sputum culture. It has been a pleasure taking care of Mr. Juan Alberto Baer. If there are questions, please give me a call. Job ID: [id number] [facility]
[2019-12-22] MEDS: Pantoprazole 40 MG VIAL IVP SCH (08:33)
[2019-12-22] MEDS: Finasteride 5 MG TAB PO SCH (08:33)
[2019-12-22] MEDS: Amiodarone 200 MG TAB PO SCH (08:33)
[2019-12-22] MEDS: Gabapentin 100 MG CAP PO SCH ×2 (08:33→22:31)
--- NOTE | 2019-12-22 11:38 | PRG ---
DATE OF SERVICE: 12/22/2019 SUBJECTIVE: Juan Alberto Baer is sitting up in a chair. He has already walked this morning. He said he was feeling well. He is still on dobutamine. OBJECTIVE: VITAL SIGNS: Blood pressure 95/38, heart rate 90, respiratory rate in the 20s, oximetry is 99%. LUNGS: Remarkable for crackles at his lung bases. HEART: Regular rhythm. ABDOMEN: Soft and slightly distended. EXTREMITIES: Without asymmetry. LABORATORY DATA: White count 10, hemoglobin 9.9, and platelets 120,000. Sodium 139, potassium 4, chloride 110, bicarb 23, BUN 19, and creatinine 1.33. IMPRESSION: 1. Congestive heart failure, reasonably stable at this time. 2. Status post laparotomy. His colon segment pathology is still pending. 3. Bilateral pleural effusions, in part secondary to his cardiomyopathy, in part most likely secondary to his recent laparotomy (reactive effusions). We will continue to follow him while he is in the ICU when after he transfers out for few days. Job ID: [id number]
--- NOTE | 2019-12-22 12:27 | PRG ---
DATE OF SERVICE: 12/22/2019 SUBJECTIVE: Mr. Baer is doing well today. He is in IMCU. He is ambulated. He is up in a chair. He is tolerating full liquids. He has had multiple bowel movements and passing flatus. He denies having any nausea, vomiting, or abdominal distention. OBJECTIVE: LUNGS: Clear to auscultation. No wheezing. No rales. CARDIAC: Regular rate and rhythm. ABDOMEN: Soft. Bowel sounds present. Wound looks healthy with EFE suction device in place. EXTREMITIES: Unremarkable. He denies dyspnea. LABORATORY DATA: White count 10 and hemoglobin 9.9. Sodium 139, potassium 4.0, BUN 19, and creatinine 1.33. ASSESSMENT AND PLAN: Overall, the patient is doing well. He is tolerating full liquids and have bowel movements. I have talked about advancing in his diet. He would like to do this in the morning. We will advance him to a heart healthy, low-sodium diet in the morning. We would remove the patient's abdominal suction device and leave the wound open on Wednesday. I will be out of town until Wednesday. covering over the weekend and one of my associates Dr. Crawley will be seeing him on Wednesday. Overall, he is doing very well. I have canceled the Oncology consult, talked to the Oncology and we will arrange outpatient Oncology consultation as an outpatient. In that way, family can be present. The patient will be coherent to have a meaningful discussion. There is nothing Oncology has to offer at this time in this immediate postoperative period and pathology is still pending and probably will not be available until next week. Job ID: [id number]
--- NOTE | 2019-12-22 15:40 | PDOC.HOSPP ---
- Subjective Subjective: Doing very well post-op. No SOB. Has been up in a chair most of the day. - Objective Vital Signs & Weight: Vital Signs (12 hours) Temp BP Pulse Ox 12/22/19 11:55 98.6 F 12/22/19 07:58 110/38 L 12/22/19 07:24 98 12/22/19 07:00 97.8 F 12/22/19 04:00 98.0 F Weight Admit Weight 170 lb 14.4 oz Weight 173 lb 15.115 oz Most Recent Monitor Data Heart Rate from ECG 89 NIBP 92/57 NIBP BP-Mean 71 Respiration from ECG 21 SpO2 100 I&O: 12/21/19 12/22/19 12/23/19 06:59 06:59 06:59 Intake Total 1216.8 3088 480 Output Total 239 660 455 Balance 977.8 2428 25 Result Diagrams: 12/22/19 03:10 12/22/19 03:10 Hospitalist ROS - Medication Medications: Active Medications Generic Name Dose Route Start Last Admin Trade Name Marleny PRN Reason Stop Dose Admin Acetaminophen 1,000 mg 12/20/19 21:00 12/22/19 15:26 Tylenol PO 1,000 mg 0300,0900,1500,2100 MAXI Administration Amiodarone HCl 200 mg 12/21/19 09:00 12/22/19 08:33 Cordarone PO 200 mg 0900 MAXI Administration Carvedilol 6.25 mg 12/22/19 09:00 12/22/19 07:58 Coreg PO 6.25 mg BID MAXI Administration Enoxaparin Sodium 40 mg 12/20/19 21:00 12/21/19 20:35 Lovenox SC 40 mg 2100 MAXI Administration Finasteride 5 mg 12/13/19 09:00 12/22/19 08:33 Proscar PO 5 mg DAILY MAXI Administration Gabapentin 100 mg 12/19/19 21:00 12/22/19 08:33 Neurontin PO 100 mg BID MAXI Administration Dobutamine HCl/Dextrose 250 mls @ 11.39 mls/hr 12/13/19 08:15 12/21/19 21:42 Dobutamine 500 Mg/250 Ml IVPB 250 mls INF MAXI Administration 5 MCG/KG/MIN Potassium Chloride 40 meq/ 100 mls @ 50 mls/hr 12/20/19 07:49 12/21/19 04:56 Device IVPB 100 mls ASDIR PRN Administration FOR SERUM K+ 2.5 - 3.5 Magnesium Sulfate 1 gm/ Sodium 102 mls @ 102 mls/hr 12/20/19 07:49 12/21/19 04:56 Chloride IV 102 mls PRN PRN Administration MAG LEVEL 1.4 - 2.0 Meropenem 1 gm/ Device 50 mls @ 200 mls/hr 12/21/19 14:00 12/22/19 15:25 IVPB 50 mls Q8HR MAXI Administration Ketorolac Tromethamine 15 mg 12/20/19 21:00 12/22/19 15:25 Toradol IVP 12/25/19 21:01 15 mg 0300,0900,1500,2100 MAXI Administration Levothyroxine Sodium 25 mcg 12/13/19 06:00 12/22/19 05:28 Synthroid PO 25 mcg 0600 MAXI Administration Sodium Chloride 10 ml 12/11/19 21:39 12/17/19 10:08 Flush - Normal Saline IVF 10 ml PRN PRN Administration Saline Flush - Exam General Appearance: NAD, awake alert Heart: RRR, no gallops, no rubs, II/IV Heart - other findings: Paced Respiratory: CTAB, no wheezes, no rales, no ronchi, normal chest expansion, no tachypnea, normal percussion Respiratory - other findings: Diminished at bases. Gastrointestinal: soft, non-tender, non-distended, normal bowel sounds, no palpable masses, no hepatomegaly, no splenomegaly, no bruit Extremities: no cyanosis, no clubbing, 2+ LE edema Skin: normal turgor Musculoskeletal: generalized weakness Psychiatric: normal affect, normal behavior, A&O x 3 Hosp A/P (1) Colonic mass Code(s): K63.89 - OTHER SPECIFIED DISEASES OF INTESTINE Status: Acute (2) Hx of malignant neoplasm of colon Code(s): Z85.038 - PERSONAL HISTORY OF MALIGNANT NEOPLASM OF LARGE INTESTINE Status: Acute (3) CHF (congestive heart failure), NYHA class IV Code(s): I50.9 - HEART FAILURE, UNSPECIFIED Status: Acute Qualifiers: Congestive heart failure chronicity: acute on chronic (4) BPH (benign prostatic hyperplasia) Code(s): N40.0 - BENIGN PROSTATIC HYPERPLASIA WITHOUT LOWER URINRY TRACT SYMP Status: Chronic Qualifiers: Lower urinary tract symptom presence: symptoms absent Qualified Code(s): N40.0 - Benign prostatic hyperplasia without lower urinary tract symptoms (5) CAD (coronary artery disease) Code(s): I25.10 - ATHSCL HEART DISEASE OF [place] CORONARY ARTERY W/O ANG PCTRS Status: Chronic Qualifiers: Coronary Disease-Associated Artery/Lesion type: [place] artery [place] vs. transplanted heart: [place] heart Associated angina: without angina Qualified Code(s): I25.10 - Atherosclerotic heart disease of [place] coronary artery without angina pectoris (6) CKD (chronic kidney disease), stage III Code(s): N18.3 - CHRONIC KIDNEY DISEASE, STAGE 3 (MODERATE) Status: Chronic (7) Chronic anticoagulation Code(s): Z79.01 - MANAGER [employer] (CURRENT) USE OF ANTICOAGULANTS Status: Chronic (8) Pacemaker Code(s): Z95.0 - PRESENCE OF CARDIAC PACEMAKER Status: Chronic (9) Atrial fibrillation Code(s): I48.91 - UNSPECIFIED ATRIAL FIBRILLATION Status: Chronic Plan: Paced rhythm. - Plan Post-op surgery with laparotomy with partial colon resection. Dobutamine under the guidance of Dr. Avalos. BNP is back down a little today, Creat stable. Low grade WBC. Dr. Avalos added Meropenem. Received one unit of blood yesterday. Hgb up a bit.
[2019-12-22 17:45] LABS: Hemoglobin 10.6 g/dL (14.0-18.0); Mean Corpuscular HGB CONC 30.3 g/dL (32.0-36.0); Mean Corpuscular Hemoglobin 25.3 pg (27.0-31.0); Mean Corpuscular Volume 83.4 fL (78.0-98.0); Mean Platelet Volume 9.7 fL (7.4-10.4); Platelet Count 161 thou/uL (130-400); RBC Distribution Width 20.4 % (11.5-14.5); White Blood Cell (WBC) Count 17.1 thou/uL (4.8-10.8)
[2019-12-22 18:15] LABS: Anisocytosis MODERATE=16-30 cells (100X) (0-5/hpf); Band 22 % (5-11); Burr Cells SLIGHT = 2-5 cells (100X) (0-1/hpf); Eosinophils 4 % (0-10); Hypochromia SLIGHT = 6-15 cells (100X) (0-5/hpf); Lymphocytes 1 % (21-51); MDiff Complete? YES; Monocytes 1 % (0-10); Neutrophil 72 % (42-75); Ovalocytes SLIGHT = 2-5 cells (100X) (0-1/hpf); Platelet Morphology Comment Appears Adequate; Poikilocytosis SLIGHT = 6-15 cells (100X) (0-5/hpf); Polychromasia SLIGHT = 2-3 cells (100X) (0-2/hpf); Schistocytes SLIGHT = 2-5 cells (100X) (0-1/hpf); Spherocytes SLIGHT = 1-5 cells (100X) (None Seen); Toxic Granulation SLIGHT; Vacuoles SLIGHT
[2019-12-22] MEDS: DOBUTamine 500 mg/250 ml 250 ML IVPB SCH (19:48)
[2019-12-22] MEDS: Enoxaparin Sodium 40 MG/0.4 ML SYRINGE SC SCH (22:30)
[2019-12-23] MEDS: Ketorolac Tromethamine 30 MG/ML VIAL IVP SCH ×4 (02:53→21:48)
[2019-12-23] MEDS: Acetaminophen 500 MG TAB PO SCH ×4 (02:53→21:48)
[2019-12-23 04:34] LABS: Anion Gap 10 mmol/L (10-20); BUN (Urea Nitrogen) 22 mg/dL (8.4-25.7); Calc. Creatinine Clearance 44 mL/min (70-130); Calcium 8.8 mg/dL (7.8-10.44); Carbon Dioxide 22 mmol/L (23-31); Chloride 109 mmol/L (98-107); Estimated GFR-MDRD 51; Glucose 82 mg/dL (83-110); Magnesium 1.9 mg/dL (1.6-2.6); Potassium 4.4 mmol/L (3.5-5.1); Sodium 137 mmol/L (136-145)
[2019-12-23 05:48] LABS: Anisocytosis MODERATE=16-30 cells (100X) (0-5/hpf); Band 19 % (5-11); Burr Cells SLIGHT = 2-5 cells (100X) (0-1/hpf); Eosinophils 1 % (0-10); Hemoglobin 10.1 g/dL (14.0-18.0); Hypochromia SLIGHT = 6-15 cells (100X) (0-5/hpf); Lymphocytes 2 % (21-51); MDiff Complete? YES; Mean Corpuscular HGB CONC 29.5 g/dL (32.0-36.0); Mean Corpuscular Hemoglobin 24.6 pg (27.0-31.0); Mean Corpuscular Volume 83.4 fL (78.0-98.0); Monocytes 3 % (0-10); Neutrophil 75 % (42-75); Ovalocytes SLIGHT = 2-5 cells (100X) (0-1/hpf); Platelet Count 162 thou/uL (130-400); Platelet Morphology Comment Appears Adequate; Poikilocytosis SLIGHT = 6-15 cells (100X) (0-5/hpf); RBC Distribution Width 20.2 % (11.5-14.5); Red Blood Cell (RBC) Count 4.11 mill/uL (4.70-6.10); Spherocytes SLIGHT = 1-5 cells (100X) (None Seen); Toxic Granulation SLIGHT; White Blood Cell (WBC) Count 13.5 thou/uL (4.8-10.8)
[2019-12-23] MEDS: MEROPENEM 1 GM/50 ML 1 GM in Premix Bag 1 BAG IVPB SCH ×3 (06:18→21:48)
[2019-12-23] MEDS: Levothyroxine Sodium 25 MCG TAB PO SCH (06:18)
[2019-12-23] MEDS ORDERED: Albumin 25% 25 GM/100 ML BOT IVPB SCH (09:00)
[2019-12-23] MEDS: Amiodarone 200 MG TAB PO SCH (09:23)
[2019-12-23] MEDS: Gabapentin 100 MG CAP PO SCH ×2 (09:24→21:48)
[2019-12-23] MEDS: Finasteride 5 MG TAB PO SCH (09:24)
[2019-12-23] MEDS: Carvedilol 6.25 MG TAB PO SCH (09:34)
[2019-12-23] MEDS ORDERED: Lidocaine 1% PF 5 ML VIAL ONE (10:22)
[2019-12-23] MEDS ORDERED: Rocuronium Bromide 10 MG/ML (10ML VIAL) ONE (10:22)
[2019-12-23] MEDS ORDERED: PROPOFOL 200 MG/20 ML VIAL ONE (10:22)
[2019-12-23] MEDS ORDERED: Sodium Chloride 0.9% 250 ML 250 ML IVPB SCH (10:45)
[2019-12-23 11:46] LABS: ALT (SGPT) 16 U/L (8-55); AST (SGOT) 16 U/L (5-34); Alkaline Phosphatase 99 U/L (40-110); Anion Gap 9 mmol/L (10-20); BUN (Urea Nitrogen) 24 mg/dL (8.4-25.7); Bilirubin, Total 1.3 mg/dL (0.2-1.2); Calc. Creatinine Clearance 42 mL/min (70-130); Calcium 8.6 mg/dL (7.8-10.44); Carbon Dioxide 21 mmol/L (23-31); Chloride 110 mmol/L (98-107); Estimated GFR-MDRD 48; Gamma GT (GGT) 38 U/L (12-64); Globulin 1.9 g/dL (2.4-3.5); Glucose 110 mg/dL (83-110); Potassium 4.2 mmol/L (3.5-5.1); Protein, Total 4.9 g/dL (5.8-8.1)
[2019-12-23 11:53] LABS: Sodium 136 mmol/L (136-145)
[2019-12-23] MEDS: Sodium Chloride 0.9% 1,000 ML IV SCH (12:05)
[2019-12-23] MEDS ORDERED: Vancomycin HCl 1.25 GM in Sodium Chloride 0.9% 250 ML 250 ML IVPB SCH (15:00)
--- NOTE | 2019-12-23 15:49 | PDOC.GSPN ---
Surgery Progress Note: Subj - Subjective Patient reports: no new complaints, had a bowel movement, feels better, positive flatus, pain well controlled, tolerating liquids well Surgery Progress Note: Obj - Vital signs Vital signs: Vital Signs - Most Recent Temp Pulse Resp BP Pulse Ox 98.3 F 96 27 H 110/75 99 12/23/19 11:12 12/23/19 11:11 12/21/19 13:00 12/23/19 14:19 12/23/19 07:50 - Physical Exam General: no distress Cardiovascular: regular rate and rhythm Respiratory: clear to auscultation Abdomen: soft, non tender, nondistended, other (negative pressure wound dressing in place) Surgery Progress Note: Results - Labs Result Diagrams: 12/23/19 03:30 12/23/19 10:50 Lab results: Laboratory Results - last 24 hr 12/23/19 12/23/19 12/23/19 03:30 03:30 03:30 WBC 13.5 H RBC 4.11 L Hgb 10.1 L Hct 34.3 L MCV 83.4 MCH 24.6 L MCHC 29.5 L RDW 20.2 H Plt Count 162 MPV 10.0 Neutrophils % (Manual) 75 Band Neuts % (Manual) 19 H Lymphocytes % (Manual) 2 L Monocytes % (Manual) 3 Eosinophils % (Manual) 1 Hypochromia SLIGHT = 6-15 cells Toxic Granulation SLIGHT Plt Morphology Comment Appears Adequate Poikilocytosis SLIGHT = 6-15 cells Anisocytosis MODERATE=16-30 cells H Spherocytes SLIGHT = 1-5 cells Ovalocytes SLIGHT = 2-5 cells Asif Cells SLIGHT = 2-5 cells Sodium 137 Potassium 4.4 Chloride 109 H Carbon Dioxide 22 L Anion Gap 10 BUN 22 Creatinine 1.34 H Estimated GFR (MDRD) 51 Glucose 82 L Calcium 8.8 Magnesium 1.9 Total Bilirubin GGT AST ALT Alkaline Phosphatase B-Natriuretic Peptide 1006.9 H Serum Total Protein Albumin Globulin Albumin/Globulin Ratio Procalcitonin Blood Type Antibody Screen 12/23/19 12/23/19 12/23/19 10:50 10:50 10:50 WBC RBC Hgb Hct MCV MCH MCHC RDW Plt Count MPV Neutrophils % (Manual) Band Neuts % (Manual) Lymphocytes % (Manual) Monocytes % (Manual) Eosinophils % (Manual) Hypochromia Toxic Granulation Plt Morphology Comment Poikilocytosis Anisocytosis Spherocytes Ovalocytes [place] Cells Sodium 136 Potassium 4.2 Chloride 110 H Carbon Dioxide 21 L Anion Gap 9 L BUN 24 Creatinine 1.39 H Estimated GFR (MDRD) 48 Glucose 110 Calcium 8.6 Magnesium Total Bilirubin 1.3 H GGT 38 AST 16 ALT 16 Alkaline Phosphatase 99 B-Natriuretic Peptide Serum Total Protein 4.9 L Albumin 3.0 L Globulin 1.9 L Albumin/Globulin Ratio 1.6 Procalcitonin 3.02 Blood Type A POSITIVE Antibody Screen NEGATIVE Surgery Progress Note: A/P - Problem (1) Colonic mass Current Visit: Yes Code(s): K63.89 - OTHER SPECIFIED DISEASES OF INTESTINE Status: Acute - Plan Plan: Seems to be doing well, but with new leukocytosis. Discussed case with Drs. Ku and Robbie. Will culture blood and both lines. Both lines to be discontinued. Urine cultures positive, currently on Meropenum. Vancomycin added empirically this am. Obtain CXR to rule out pneumonia. Will follow culture results and consider CT ABD / pelvis in 48hrs pending clinical course.
--- NOTE | 2019-12-23 17:27 | RAD ---
EXAM: Chest Two Views 12/23/2019 5:21 PM HISTORY: Rule out infection COMPARISON: Upright portable chest radiograph dated December 21, 2019 FINDINGS: Lungs: There is persistent left lower lobe opacity possibly reflecting atelectasis or pneumonia. Heart: Stable mild cardiomegaly Pulmonary vessels: Stable mild pulmonary vascular congestion Costophrenic angles: Worsening small bilateral pleural effusions Pneumothorax: None. Osseous structures:Intact. Additional findings: There is new free air underlying the hemidiaphragms. Right chest wall subcutan eous emphysema is stable. Right-sided PICC line and right subclavian central venous catheter stable. Gastric catheter has been removed. AICD is unchanged. IMPRESSION: New free air underlying both hemidiaphragms. The patient is postop day 3. Findings are suspicious for possible anastomotic breakdown or perforated bowel. Recommend consideration for a repeat CT of the abdomen and pelvis. Findings discussed with Dr. Saucedo at 5:13 PM on December 23, 2019. Persistent left lower lobe opacity suspicious for atelectasis or pneumonia. Worsening small bilateral pleural effusions with persistent cardiomegaly and pulmonary vascular conge stion. Interval removal of the gastric catheter. Otherwise stable tubes and lines.
[2019-12-23] MEDS ORDERED: Micafungin 100 MG in Sodium Chloride 0.9% 100 ML IVPB SCH ×2 (17:45→18:00)
--- NOTE | 2019-12-23 18:03 | PRG ---
DATE OF SERVICE: 12/23/2019 SERVICE: Pulmonary Medicine. INTERVAL HISTORY: The patient is doing great from respiratory standpoint. Blood pressure has been marginal, he is on a dobutamine drip. He denies any current fevers or chills. Overnight, there were no significant events. He actually was eating very good appetite today. He had a normal bowel movement this morning. Otherwise, there has been no interval change to his condition. PHYSICAL EXAMINATION: VITAL SIGNS: T-max 99.7. There is the first low-grade temperature he has had since presentation. Pulse 91, blood pressure 110/64, respirations 22, and saturation 99% currently on 2 L nasal cannula. GENERAL: The patient is awake and alert, in no apparent distress. LUNGS: Decent air entry. No prolonged expiratory phase is present. There is no wheezing or crackles appreciated. HEART: Normal rate and regular. ABDOMEN: Soft, nontender, and nondistended. Bowel sounds are positive. There is absolutely no rebound or guarding present. NEUROLOGIC: Grossly nonfocal. LABORATORY DATA: WBC 13.5 and downtrending, band count is 19% on top of 75% neutrophils. Hemoglobin 10.1 and platelets 162,000. INR 1.2. Creatinine 1.39. Basic metabolic profile is otherwise unremarkable. BNP is downtrending, liver function studies are unremarkable. Enterococcus faecalis is growing in the urine culture. Respiratory culture and blood culture x2 are unremarkable. The Enterococcus is a pansensitive organism. ASSESSMENT: 1. Chronic systolic heart failure, returned to euvolemia. 2. 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 3. Free air in the abdomen that was not present on postop day #1. 4. Pleural effusions, bilateral, larger on the left. 5. Sepsis, evolving. 6. Gross peritonitis, suspected. DISCUSSION AND PLAN: My fear is that we are dealing with an anastomotic leak. There was no free air in the belly, postop day #1 on an upright chest x-ray and on this chest x-ray today, free air is clearly identified. The patient is also having a left shift and elevated white blood cell count. The Enterococcus is pansensitive, so vancomycin will be discontinued. Zosyn will be continued and I will add fluconazole for possible gross contamination of the peritoneal cavity. A surgical colleague has been notified of this potential complication. Pulmonary will continue to follow very closely while the patient remains in the hospital. Job ID: [id number] MTDD
[2019-12-23] MEDS: DOBUTamine 500 mg/250 ml 250 ML IVPB SCH (18:54)
[2019-12-23] MEDS ORDERED: Fentanyl 100 MCG/2 ML VIAL ONE (19:49)
[2019-12-23] MEDS ORDERED: EPINEPHrine 1 MG/ML AMP ONE (19:50)
[2019-12-23] MEDS ORDERED: Phenylephrine HCL 10 MG/ML VIAL ONE (19:50)
[2019-12-23] MEDS ORDERED: SUGAMMADEX SODIUM 500 MG/5 ML VIAL ONE (21:31)
[2019-12-23] MEDS: Enoxaparin Sodium 40 MG/0.4 ML SYRINGE SC SCH (21:48)
--- NOTE | 2019-12-23 21:55 | PDOC.HOSPP ---
- Subjective Encounter Date: 12/23/19 Encounter Time: 11:30 Subjective: No overnight events. Patient continues to feel well and has no complaints - Objective Vital Signs & Weight: Vital Signs (12 hours) Temp Pulse BP BP BP BP 12/23/19 19:21 98.4 F 12/23/19 18:00 104/62 12/23/19 17:00 110/64 12/23/19 16:02 99.7 F H 12/23/19 14:19 110/75 102/79 116/79 12/23/19 14:00 116/64 12/23/19 11:12 98.3 F 12/23/19 11:11 96 105/49 L Weight Admit Weight 170 lb 14.4 oz Weight 173 lb 1.6 oz Most Recent Monitor Data Heart Rate from ECG 100 NIBP 110/46 NIBP BP-Mean 67 Respiration from ECG 21 SpO2 98 I&O: 12/22/19 12/23/19 12/24/19 06:59 06:59 06:59 Intake Total 3088 1579 1492 Output Total 660 1020 500 Balance 2428 559 992 Result Diagrams: 12/23/19 03:30 12/23/19 10:50 Hospitalist ROS - Review of Systems Constitutional: denies: fever, chills, sweats, weakness, malaise, other Respiratory: reports: cough. denies: dry, shortness of breath, hemoptysis, SOB with excertion, pleuritic pain, sputum, wheezing, other Cardiovascular: denies: chest pain, palpitations, orthopnea, paroxysmal noc. dyspnea, edema, light headedness, other Gastrointestinal: denies: nausea, vomiting, abdominal pain, diarrhea Neurological: denies: weakness, numbness, incoordination, change in speech, confusion, seizures, other - Medication Medications: Active Medications Generic Name Dose Route Start Last Admin Trade Name Freq PRN Reason Stop Dose Admin Acetaminophen 1,000 mg 12/20/19 21:00 12/23/19 21:48 Tylenol PO Not Given 0300,0900,1500,2100 [facility] Amiodarone HCl 200 mg 12/21/19 09:00 12/23/19 09:23 Cordarone PO 200 mg 0900 [facility] Administration Enoxaparin Sodium 40 mg 12/20/19 21:00 12/23/19 21:48 Lovenox SC Not Given 2100 MAXI Finasteride 5 mg 12/13/19 09:00 12/23/19 09:24 Proscar PO 5 mg DAILY MAXI Administration Gabapentin 100 mg 12/19/19 21:00 12/23/19 21:48 Neurontin PO Not Given BID MAXI Dobutamine HCl/Dextrose 250 mls @ 11.39 mls/hr 12/13/19 08:15 12/23/19 18:54 Dobutamine 500 Mg/250 Ml IVPB 250 mls INF MAXI Administration 5 MCG/KG/MIN Potassium Chloride 40 meq/ 100 mls @ 50 mls/hr 12/20/19 07:49 12/21/19 04:56 Device IVPB 100 mls ASDIR PRN Administration FOR SERUM K+ 2.5 - 3.5 Magnesium Sulfate 1 gm/ Sodium 102 mls @ 102 mls/hr 12/20/19 07:49 12/21/19 04:56 Chloride IV 102 mls PRN PRN Administration MAG LEVEL 1.4 - 2.0 Meropenem 1 gm/ Device 50 mls @ 200 mls/hr 12/21/19 14:00 12/23/19 21:48 IVPB Not Given Q8HR MAXI Sodium Chloride 1,000 mls @ 50 mls/hr 12/23/19 10:45 12/23/19 12:05 Normal Saline 0.9% IV 1,000 mls .Q20H MAXI Administration Ketorolac Tromethamine 15 mg 12/20/19 21:00 12/23/19 21:48 Toradol IVP 12/25/19 21:01 Not Given 0300,0900,1500,2100 MAXI Levothyroxine Sodium 25 mcg 12/13/19 06:00 12/23/19 06:18 Synthroid PO 25 mcg 0600 MAXI Administration Sodium Chloride 10 ml 12/11/19 21:39 12/17/19 10:08 Flush - Normal Saline IVF 10 ml PRN PRN Administration Saline Flush - Exam General Appearance: NAD, awake alert Neck: supple, symmetric, no JVD, no carotid bruit Heart: RRR, no murmur, no gallops, no rubs, normal peripheral pulses Respiratory - other findings: reduced breath sounds throughout, appears to be due to reduced effort Gastrointestinal: soft, non-tender, non-distended, normal bowel sounds Gastrointestinal - other findings: midline wound vac, dressing is clean, no surrounding erythema; Neurological: cranial nerve grossly intact, no new deficit Musculoskeletal: normal tone, normal strength Psychiatric: normal affect, normal behavior Hosp A/P - Plan (1) Colonic mass Code(s): K63.89 - OTHER SPECIFIED DISEASES OF INTESTINE Status: Acute (2) Hx of malignant neoplasm of colon Code(s): Z85.038 - PERSONAL HISTORY OF MALIGNANT NEOPLASM OF LARGE INTESTINE Status: Acute (3) CHF (congestive heart failure), NYHA class IV Code(s): I50.9 - HEART FAILURE, UNSPECIFIED Status: Acute Qualifiers: Congestive heart failure chronicity: acute on chronic (4) BPH (benign prostatic hyperplasia) Code(s): N40.0 - BENIGN PROSTATIC HYPERPLASIA WITHOUT LOWER URINRY TRACT SYMP Status: Chronic Qualifiers: Lower urinary tract symptom presence: symptoms absent Qualified Code(s): N40.0 - Benign prostatic hyperplasia without lower urinary tract symptoms (5) CAD (coronary artery disease) Code(s): I25.10 - ATHSCL HEART DISEASE OF [place] CORONARY ARTERY W/O ANG PCTRS Status: Chronic Qualifiers: Coronary Disease-Associated Artery/Lesion type: [place] artery [place] vs. transplanted heart: [place] heart Associated angina: without angina Qualified Code(s): I25.10 - Atherosclerotic heart disease of [place] coronary artery without angina pectoris (6) CKD (chronic kidney disease), stage III Code(s): N18.3 - CHRONIC KIDNEY DISEASE, STAGE 3 (MODERATE) Status: Chronic (7) Chronic anticoagulation Code(s): Z79.01 - ASSISTED (CURRENT) USE OF ANTICOAGULANTS Status: Chronic (8) Pacemaker Code(s): Z95.0 - PRESENCE OF CARDIAC PACEMAKER Status: Chronic (9) Atrial fibrillation Code(s): I48.91 - UNSPECIFIED ATRIAL FIBRILLATION Status: Chronic Plan: Paced rhythm. - Plan -Remains on same dose of dobutamine; afebrile and clinically improving however: -Post-op laparotomy with partial colon resection; patient improving clinically however POD2 developed neutrophilia and bandemia; lower on POD3; though neutrophilia can occur postsurgically, usually subsides by POD3 and in this case , worrisome in context of other findings -Per Dr. Avalos, worried about new infection; blood cultures through lines and peripherally ordered, lines removed; -CXR showing new subdiaphragmic air; per surgery concern for anastamotic leak; may require surgical exploration -UCx growing pansusceptible enterococcus; stopped vancomycin; currently on meropenem per cardiology and micafungin per ICU for possible anastamotic leak -Dobutamine under the guidance of Dr. Avalos. Per Dr. avalos can increase dobutamine to 7.5-10 prior to starting norepinephrine for HD instablility. Code status: DNAR
--- NOTE | 2019-12-24 00:53 | OP ---
DATE OF PROCEDURE: 12/23/2019 PREOPERATIVE DIAGNOSES: 1. Malignancy of the transverse colon, status post resection. 2. Anastomotic leak. POSTOPERATIVE DIAGNOSES: 1. Malignancy of the transverse colon, status post resection. 2. Anastomotic leak. PROCEDURE: 1. Exploratory laparotomy 2. Suture of colon 3. Creation of diverting ileostomy ANESTHESIA: General, endotracheal. INDICATIONS: This is an 84-year-old male with severe heart failure, who was diagnosed with adenocarcinoma of the transverse colon. He underwent resection of his previous ileocolonic anastomosis on December 20, 2019. On postoperative day #3, he was noted to have a leukocytosis. Chest x-ray demonstrated significant amount of free air concerning for anastomotic leak. DESCRIPTION OF PROCEDURE: The patient was brought to the operating room and positioned supine on the operating room table. After induction of general, endotracheal anesthesia, the patient was prepared and draped in the usual fashion. Prior to beginning the procedure, a complete time-out was performed with all members of the operative team being present, and in agreement. The case was started by entering the previous celiotomy. The previous fascial sutures were removed in their entirety. Once access to the abdomen was obtained, it was examined. There was a large amount of murky fluid present. This was suctioned free. The anastomosis was examined after lysis of adhesions. There was a small anastomotic leak in the posterior staple line of the ileocolonic anastomosis. This was gently oversewn with 3-0 silks in an interrupted fashion. The abdomen was copiously irrigated. A 19-[place] drain was placed adjacent to the anastomosis. In the right lower quadrant, an elliptical skin incision was made. The subcutaneous tissues were dissected using electrocautery. The fascia was encountered, and a cruciate incision was made. The rectus abdominis muscle was bluntly dissected, and the posterior fascia was incised. A loop of distal ileum was brought through the defect. Once secured, we focused our attention on the midline celiotomy. The abdominal cavity was again irrigated. The abdominal cavity was examined and hemostasis achieved. The fascia was closed with a running 2-0 PDS suture in a running fashion. The skin was closed loosely using a skin stapling device with liliana. This was dressed with an incisional suction device. With the celiotomy closed, it was protected from the ileostomy creation site. The ileum was incised transversely, and ileostomy was created with interrupted 3-0 Vicryl sutures. The superior sutures were created in a Alyson fashion to elevate the ostomy. At conclusion of the case, all sponge and instrument counts were correct. ESTIMATED BLOOD LOSS: 15 mL. IMPLANTS: 19F round drain COMPLICATIONS: None. SPECIMENS: None. DISPOSITION: The patient was transported to the postoperative recovery unit, to be returned to the IMU when discharge criteria were met. Job ID: [id number] MTDD
[2019-12-24 01:45] LABS: Mean Corpuscular HGB CONC 28.9 g/dL (32.0-36.0); Mean Corpuscular Hemoglobin 24.2 pg (27.0-31.0); Mean Corpuscular Volume 83.6 fL (78.0-98.0); Mean Platelet Volume 10.2 fL (7.4-10.4); Platelet Count 163 thou/uL (130-400); RBC Distribution Width 20.9 % (11.5-14.5); Red Blood Cell (RBC) Count 4.12 mill/uL (4.70-6.10); White Blood Cell (WBC) Count 13.4 thou/uL (4.8-10.8)
[2019-12-24] MEDS ORDERED: Sodium Chloride 0.9% 250 ML IV SCH (02:15)
[2019-12-24 02:16] LABS: Band 13 % (5-11); Burr Cells SLIGHT = 2-5 cells (100X) (0-1/hpf); Eosinophils 3 % (0-10); Hypochromia SLIGHT = 6-15 cells (100X) (0-5/hpf); Lymphocytes 2 % (21-51); MDiff Complete? YES; Monocytes 1 % (0-10); Neutrophil 81 % (42-75); Toxic Granulation SLIGHT
[2019-12-24] MEDS: Albumin 25% 25 GM/100 ML BOT IVPB SCH ×4 (02:20→21:00)
[2019-12-24] MEDS: Ketorolac Tromethamine 30 MG/ML VIAL IVP SCH ×4 (02:21→21:00)
[2019-12-24] MEDS: Acetaminophen 500 MG TAB PO SCH ×4 (02:21→21:00)
[2019-12-24 02:29] LABS: Anion Gap 11 mmol/L (10-20); BUN (Urea Nitrogen) 28 mg/dL (8.4-25.7); Calc. Creatinine Clearance 45 mL/min (70-130); Carbon Dioxide 21 mmol/L (23-31); Chloride 111 mmol/L (98-107); Estimated GFR-MDRD 52; Glucose 84 mg/dL (83-110); Potassium 4.1 mmol/L (3.5-5.1); Sodium 139 mmol/L (136-145)
[2019-12-24] MEDS: MEROPENEM 1 GM/50 ML 1 GM in Premix Bag 1 BAG IVPB SCH ×3 (05:44→21:01)
[2019-12-24] MEDS: Levothyroxine Sodium 25 MCG TAB PO SCH (05:44)
[2019-12-24] MEDS ORDERED: D5 1/2 NS w/10 mEq KCl 1,000 ML/1,000 ML BAG IV SCH (09:45)
[2019-12-24] MEDS: Gabapentin 100 MG CAP PO SCH ×2 (10:38→21:00)
[2019-12-24] MEDS: Finasteride 5 MG TAB PO SCH (10:38)
[2019-12-24] MEDS: Amiodarone 200 MG TAB PO SCH (10:38)
[2019-12-24] MEDS: Sodium Chloride 0.9% 1,000 ML IV SCH (11:35)
--- NOTE | 2019-12-24 12:43 | PDOC.GSPN ---
Surgery Progress Note: Subj - Subjective Narrative: Doing well. Pain well controlled. Ostomy functioning. No acute events postoperatively. OOBTC Surgery Progress Note: Obj - Vital signs Vital signs: Vital Signs - Most Recent Temp Pulse Resp BP Pulse Ox 98.8 F 96 27 H 104/62 97 12/24/19 11:28 12/23/19 11:11 12/21/19 13:00 12/23/19 18:00 12/23/19 19:25 - Physical Exam General: no distress Abdomen: other (Soft, non-tender, wound clean and dressed. Ostomy viable with gas and stool output) Surgery Progress Note: Results - Labs Result Diagrams: 12/24/19 01:22 12/24/19 01:22 Lab results: Laboratory Results - last 24 hr 12/23/19 12/24/19 12/24/19 10:50 01:22 01:22 WBC RBC Hgb Hct MCV MCH MCHC RDW Plt Count MPV Neutrophils % (Manual) Band Neuts % (Manual) Lymphocytes % (Manual) Monocytes % (Manual) Eosinophils % (Manual) Neutrophils # Lymphocytes # Hypochromia Toxic Granulation Asif Cells Sodium 139 Potassium 4.1 Chloride 111 H Carbon Dioxide 21 L Anion Gap 11 BUN 28 H Creatinine 1.31 H Estimated GFR (MDRD) 52 Glucose 84 Calcium 9.0 Magnesium 2.0 C-React Prot High Sens 230.06 H B-Natriuretic Peptide 1035.1 H 12/24/19 01:22 WBC 13.4 H RBC 4.12 L Hgb 10.0 L Hct 34.4 L MCV 83.6 MCH 24.2 L MCHC 28.9 L RDW 20.9 H Plt Count 163 MPV 10.2 Neutrophils % (Manual) 81 H Band Neuts % (Manual) 13 H Lymphocytes % (Manual) 2 L Monocytes % (Manual) 1 Eosinophils % (Manual) 3 Neutrophils # Not Reportable Lymphocytes # Not Reportable Hypochromia SLIGHT = 6-15 cells Toxic Granulation SLIGHT Asif Cells SLIGHT = 2-5 cells Sodium Potassium Chloride Carbon Dioxide Anion Gap BUN Creatinine Estimated GFR (MDRD) Glucose Calcium Magnesium C-React Prot High Sens B-Natriuretic Peptide Surgery Progress Note: A/P - Problem (1) Colonic mass Current Visit: Yes Code(s): K63.89 - OTHER SPECIFIED DISEASES OF INTESTINE Status: Acute - Plan Plan: Continue management by medical team. Okay to advance diet as tolerated. Will maintain dressing for 72hrs. Dr. Ku will remove when he returns.
[2019-12-24 13:18] LABS: #Basophils 0.2 thou/uL (0.0-0.2); #Eosinphils 0.3 thou/uL (0.0-0.7); #Lymphocytes 0.2 thou/uL (1.20-3.40); #Monocytes 0.5 thou/uL (0.11-0.59); #Neutrophils 9.8 thou/uL (1.40-6.50); %Basophils 1.5 % (0.0-1.0); %Monocytes 4.7 % (0.0-10.0); %Neutrophils 88.9 % (42.0-75.0); Anisocytosis SLIGHT = 6-15 cells (100X) (0-5/hpf); Burr Cells SLIGHT = 2-5 cells (100X) (0-1/hpf); Hemoglobin 10.1 g/dL (14.0-18.0); Hypochromia SLIGHT = 6-15 cells (100X) (0-5/hpf); MDiff Complete? YES; Mean Corpuscular HGB CONC 29.2 g/dL (32.0-36.0); Mean Corpuscular Hemoglobin 24.1 pg (27.0-31.0); Mean Corpuscular Volume 82.5 fL (78.0-98.0); Ovalocytes SLIGHT = 2-5 cells (100X) (0-1/hpf); Platelet Count 187 thou/uL (130-400); Platelet Morphology Comment Appears Adequate; Polychromasia SLIGHT = 2-3 cells (100X) (0-2/hpf); RBC Distribution Width 20.6 % (11.5-14.5); Red Blood Cell (RBC) Count 4.19 mill/uL (4.70-6.10); Schistocytes SLIGHT = 2-5 cells (100X) (0-1/hpf); Target Cells SLIGHT = 2-5 cells (100X) (0-1/hpf); Tear Drops SLIGHT = 2-5 cells (100X) (0-1/hpf)
--- NOTE | 2019-12-24 16:29 | PRG ---
DATE OF SERVICE: 12/24/2019 SERVICE: Pulmonary Medicine. INTERVAL HISTORY: The patient is doing really remarkable in the postoperative period. He denies any current chest discomfort, nausea, vomiting, fevers, or chills. He really does not have much in the way of abdominal discomfort. He does not have an appetite yet. A little bit of food, and that was it. He is not having any output to the ostomy at this moment. Otherwise, there has been no interval change to his condition. PHYSICAL EXAMINATION: VITAL SIGNS: Afebrile, pulse 90, blood pressure 114/51, respirations 21, and saturation 99%, on 2 L nasal cannula. HEENT: Normocephalic and atraumatic. Sclerae white. Conjunctivae pink. Oral and nasal mucosa are moist and without lesions. LUNGS: Decent air entry. Crackling is present. No prolonged expiratory phase or wheezing is present. HEART: Normal rate. Regular. ABDOMEN: Minimal tenderness to palpation. Bowel sounds are hypoactive. There is no rebound or guarding present. MUSCULOSKELETAL: No cyanosis or clubbing. There is a diffuse 2+ pitting throughout. NEUROLOGIC: Grossly nonfocal. LABORATORY DATA: WBC 11.0 and downtrending, hemoglobin 10.1, and platelets 187,000 and uptrending. Creatinine 1.31 and BUN 28. Basic metabolic profile is otherwise unremarkable. BNP continues to trend downward. CRP was quite elevated previously. Urine culture is growing Enterococcus faecalis. Blood cultures x3 and original two blood cultures were unremarkable. ASSESSMENT: 1. Acute hypoxic respiratory failure. 2. Bilateral pleural effusions, larger on the left. 3. Severe sepsis. 4. Gross peritonitis secondary to anastomotic leak. 5. Adenocarcinoma of the colon, Likely limited disease with negative lymph nodes, postop day 3 with laparotomy and ileostomy formation, postop day 1. DISCUSSION AND PLAN: The patient is doing absolutely remarkable for his level of function in the postoperative period. At this point, his blood pressures are firm, and we can continue to diurese him through time as tolerated. Pulmonary/Critical Care will continue to follow along in this location. Job ID: [id number]
[2019-12-24] MEDS: DOBUTamine 500 mg/250 ml 250 ML IVPB SCH (18:19)
[2019-12-24] MEDS: Micafungin 100 MG in Sodium Chloride 0.9% 100 ML IVPB SCH (18:20)
[2019-12-24] MEDS: Enoxaparin Sodium 40 MG/0.4 ML SYRINGE SC SCH (21:00)
--- NOTE | 2019-12-24 23:40 | PDOC.HOSPP ---
- Subjective Encounter Date: 12/24/19 Encounter Time: 09:00 Subjective: Overnight, exploratory laparotomy, suturing of anastamotic leak, and diverting ileostomy. Patient doing well and has no complaints. - Objective Vital Signs & Weight: Vital Signs (12 hours) Temp 12/24/19 23:34 98.4 F 12/24/19 19:22 98.4 F 12/24/19 15:53 98.5 F Weight Admit Weight 170 lb 14.4 oz Weight 173 lb 1.6 oz Most Recent Monitor Data Heart Rate from ECG 89 NIBP 117/49 NIBP BP-Mean 71 Respiration from ECG 18 SpO2 99 I&O: 12/23/19 12/24/19 12/25/19 06:59 06:59 06:59 Intake Total 1579 2029.3 1589 Output Total 1020 1150 750 Balance 559 879.3 839 Result Diagrams: 12/24/19 12:28 12/24/19 01:22 Hospitalist ROS - Review of Systems Constitutional: denies: fever, chills, sweats, weakness, malaise, other Respiratory: denies: cough, dry, shortness of breath, hemoptysis, SOB with excertion, pleuritic pain, sputum, wheezing, other Cardiovascular: denies: chest pain, palpitations, orthopnea, paroxysmal noc. dyspnea, edema, light headedness, other Gastrointestinal: denies: nausea, vomiting, abdominal pain, diarrhea, constipation, melena, hematochezia, other Genitourinary: denies: hematuria - Medication Medications: Active Medications Generic Name Dose Route Start Last Admin Trade Name Timtohyq PRN Reason Stop Dose Admin Acetaminophen 1,000 mg 12/20/19 21:00 12/24/19 21:00 Tylenol PO 1,000 mg 0300,0900,1500,2100 MAXI Administration Amiodarone HCl 200 mg 12/21/19 09:00 12/24/19 10:38 Cordarone PO 200 mg 0900 MAXI Administration Enoxaparin Sodium 40 mg 12/20/19 21:00 12/24/19 21:00 Lovenox SC 40 mg 2100 MAXI Administration Finasteride 5 mg 12/13/19 09:00 12/24/19 10:38 Proscar PO 5 mg DAILY MAXI Administration Gabapentin 100 mg 12/19/19 21:00 12/24/19 21:00 Neurontin PO 100 mg BID MAXI Administration Dobutamine HCl/Dextrose 250 mls @ 11.39 mls/hr 12/13/19 08:15 12/24/19 18:19 Dobutamine 500 Mg/250 Ml IVPB 250 mls INF MAXI Administration 5 MCG/KG/MIN Potassium Chloride 40 meq/ 100 mls @ 50 mls/hr 12/20/19 07:49 12/21/19 04:56 Device IVPB 100 mls ASDIR PRN Administration FOR SERUM K+ 2.5 - 3.5 Magnesium Sulfate 1 gm/ Sodium 102 mls @ 102 mls/hr 12/20/19 07:49 12/21/19 04:56 Chloride IV 102 mls PRN PRN Administration MAG LEVEL 1.4 - 2.0 Micafungin Sodium 100 mg/ 100 mls @ 100 mls/hr 12/24/19 18:00 12/24/19 18:20 Sodium Chloride IVPB 100 mls Q24H MAXI Administration Meropenem 1 gm/ Device 50 mls @ 200 mls/hr 12/24/19 14:00 12/24/19 21:01 IVPB 12/31/19 14:01 50 mls Q8HR MAXI Administration Ketorolac Tromethamine 15 mg 12/20/19 21:00 12/24/19 21:00 Toradol IVP 12/25/19 21:01 15 mg 0300,0900,1500,2100 MAXI Administration Levothyroxine Sodium 25 mcg 12/13/19 06:00 12/24/19 05:44 Synthroid PO 25 mcg 0600 MAXI Administration Sodium Chloride 10 ml 12/11/19 21:39 12/17/19 10:08 Flush - Normal Saline IVF 10 ml PRN PRN Administration Saline Flush - Exam General Appearance: NAD, awake alert Neck: supple, symmetric, no JVD, no thyromegaly, no lymphadenopathy, no carotid bruit Heart: RRR, no murmur, no gallops, no rubs, normal peripheral pulses Respiratory: CTAB, no wheezes, no rales, no ronchi, normal chest expansion, no tachypnea, normal percussion Gastrointestinal: soft, non-tender, non-distended, normal bowel sounds, no guarding (midline laparotomy wound dressed, wound drainage ~ 50cc serosanguinous ; ileostomy bag functional), no rigidity Extremities: no edema Neurological: cranial nerve grossly intact, no focal deficits, no new deficit Psychiatric: normal affect, normal behavior Hosp A/P - Plan (1) Colonic mass Code(s): K63.89 - OTHER SPECIFIED DISEASES OF INTESTINE Status: Acute (2) Hx of malignant neoplasm of colon Code(s): Z85.038 - PERSONAL HISTORY OF MALIGNANT NEOPLASM OF LARGE INTESTINE Status: Acute (3) CHF (congestive heart failure), NYHA class IV Code(s): I50.9 - HEART FAILURE, UNSPECIFIED Status: Acute Qualifiers: Congestive heart failure chronicity: acute on chronic (4) BPH (benign prostatic hyperplasia) Code(s): N40.0 - BENIGN PROSTATIC HYPERPLASIA WITHOUT LOWER URINRY TRACT SYMP Status: Chronic Qualifiers: Lower urinary tract symptom presence: symptoms absent Qualified Code(s): N40.0 - Benign prostatic hyperplasia without lower urinary tract symptoms (5) CAD (coronary artery disease) Code(s): I25.10 - ATHSCL HEART DISEASE OF [place] CORONARY ARTERY W/O ANG PCTRS Status: Chronic Qualifiers: Coronary Disease-Associated Artery/Lesion type: [place] artery [place] vs. transplanted heart: [place] heart Associated angina: without angina Qualified Code(s): I25.10 - Atherosclerotic heart disease of [place] coronary artery without angina pectoris (6) CKD (chronic kidney disease), stage III Code(s): N18.3 - CHRONIC KIDNEY DISEASE, STAGE 3 (MODERATE) Status: Chronic (7) Chronic anticoagulation Code(s): Z79.01 - ASSISTED (CURRENT) USE OF ANTICOAGULANTS Status: Chronic (8) Pacemaker Code(s): Z95.0 - PRESENCE OF CARDIAC PACEMAKER Status: Chronic (9) Atrial fibrillation Code(s): I48.91 - UNSPECIFIED ATRIAL FIBRILLATION Status: Chronic Plan: Paced rhythm. - Plan -Remains on same dose of dobutamine; afebrile and clinically improving however: -Post-op laparotomy with partial colon resection; patient improving clinically however POD2 developed neutrophilia and bandemia; lower on POD3; though neutrophilia can occur postsurgically, usually subsides by POD3 and in this case , worrisome in context of other findings - now pod 1 exploration, anastamotic leak suturing and diverting ileostomy; HD improving and doing well otherwise -per surgery, can advnace diet Code status: DNAR
[2019-12-25] MEDS: MEROPENEM 1 GM/50 ML 1 GM in Premix Bag 1 BAG IVPB SCH ×3 (04:59→22:56)
[2019-12-25] MEDS: Ketorolac Tromethamine 30 MG/ML VIAL IVP SCH ×4 (05:05→20:41)
[2019-12-25] MEDS: Levothyroxine Sodium 25 MCG TAB PO SCH (05:05)
[2019-12-25] MEDS: Acetaminophen 500 MG TAB PO SCH ×4 (05:05→20:41)
[2019-12-25 05:42] LABS: Anion Gap 9 mmol/L (10-20); BUN (Urea Nitrogen) 33 mg/dL (8.4-25.7); Calc. Creatinine Clearance 45 mL/min (70-130); Calcium 9.5 mg/dL (7.8-10.44); Carbon Dioxide 22 mmol/L (23-31); Chloride 110 mmol/L (98-107); Estimated GFR-MDRD 52; Glucose 91 mg/dL (83-110); Magnesium 2.1 mg/dL (1.6-2.6); Potassium 4.1 mmol/L (3.5-5.1); Sodium 137 mmol/L (136-145)
[2019-12-25 06:01] LABS: #Basophils 0.1 thou/uL (0.0-0.2); #Eosinphils 0.2 thou/uL (0.0-0.7); #Lymphocytes 0.3 thou/uL (1.20-3.40); #Monocytes 0.6 thou/uL (0.11-0.59); #Neutrophils 9.8 thou/uL (1.40-6.50); %Basophils 0.8 % (0.0-1.0); %Eosinophils 1.9 % (0.0-10.0); %Lymphocytes 2.3 % (21.0-51.0); %Monocytes 5.3 % (0.0-10.0); %Neutrophils 89.7 % (42.0-75.0); Anisocytosis SLIGHT = 6-15 cells (100X) (0-5/hpf); Crenated RBC SLIGHT = 1-5 cells (100X) (None Seen); Elliptocytes SLIGHT = 2-5 cells (100X) (0-1/hpf); Hemoglobin 9.6 g/dL (14.0-18.0); MDiff Complete? YES; Mean Corpuscular HGB CONC 29.1 g/dL (32.0-36.0); Mean Corpuscular Hemoglobin 24.1 pg (27.0-31.0); Mean Corpuscular Volume 82.9 fL (78.0-98.0); Mean Platelet Volume 9.5 fL (7.4-10.4); Platelet Count 195 thou/uL (130-400); Red Blood Cell (RBC) Count 3.99 mill/uL (4.70-6.10); White Blood Cell (WBC) Count 10.9 thou/uL (4.8-10.8)
--- NOTE | 2019-12-25 07:36 | PRG ---
DATE OF SERVICE: 12/23/2019 SUBJECTIVE: Mr. Baer had uneventful day. He was moved from the ICU down to the [facility]. He was able to tolerate solid foods yesterday. He said he had 2 bowel movements. He slept well. He did not complain of any shortness of breath. REVIEW OF SYSTEMS: GENERAL: Mr. Baer denies fever or chills. HEENT: There is no change in vision, hearing, or swallowing. PULMONARY: Please see HPI. CARDIAC: He did not notice any palpitations or syncope. GI: Please see HPI. : He still have a Villegas catheter. INTEGUMENT: There is no new breakdown. NEUROLOGIC: There is no focal deficit. PSYCHIATRIC: He is not depressed. He is looking forward to being able to go home. PHYSICAL EXAMINATION: VITAL SIGNS: His systolic blood pressure has been decreasing now at 95. His current vitals are heart rate paced at 90, blood pressure 95/41, and oxygen saturation about 99% on room air. GENERAL: He is alert and conversational. HEENT: Show EOMI. PERRL. Oropharynx benign. The oral mucosa is moist. There is no erythema. No exudate. NECK: His neck veins showed his JVP is about 13 cm with positive hepatojugular reflux. PULMONARY: There is fair air movement. There are no rales bilaterally. HEART: His heart is regular rate and rhythm. S1 and S2, occasional irregularity. There is 3/6 holosystolic murmur at the apex with radiation to the left axilla. There is 2/6 diastolic murmur at the right sternal border. ABDOMEN: Distended and soft. Positive bowel sounds. Nontender. EXTREMITIES: Lower extremities have 3+ pitting edema from his feet to above his knees. However, this is still less than it was at admission. He is only net positive 559 mL. His urine output has increased to 1000 mL yesterday. LABORATORY DATA: His white cell count has jumped from 10,000 to 17,100, and then back down to 13,500. This occurred within a span of 24 hours. At 17,000 and at 13,000 numbers, has a high neutrophil bands at 22% to 19%. His creatinine is stable at 1.34. ASSESSMENT: 1. Mr. Juan Alberto Baer was admitted for bleeding colon cancer that was about obstructed. He successfully underwent a colon resection. Now, we just need to support him through the postop period. 2. Infection. Postop spangler, Mr. Baer has systolic blood pressure in 80s upon arrival in ICU. It took a combination of dobutamine, fluids, albumin, and later transfusion to bring this up. His white cell count decreased. It came well for a little while, now his white cell count went back up to 17,000 with 22% bands, the neutrophils. The possible causes of infection are line infection, spread of his urinary tract infection, and surgical related infection, so all of these will need to be investigated. 3. An 84-year-old gentleman remains in [place] Heart Association stage C and [place] Heart Association class 3B heart failure with reduced ejection fraction. It is combination of ischemic cardiomyopathy, mitral regurgitation, and also aortic insufficiency. Per echo, his left ventricle has dilated and there is some mild right ventricular dysfunction. He will need dobutamine augmentation during this acute period to support cardiac output. Eventually, it is hoped that he will be able to be discharged home on inotropic support. His heart failure is secondary and bystander to colon cancer and infection. RECOMMENDATIONS: 1. Discontinue Villegas catheter. 2. Please do bladder training and use in and out catheterization if needed for urination. 3. Blood cultures; first one through central line, second one through PICC line and third one through peripheral. Hopefully, we can identify the source of his infection. 4. Discontinue PICC line after culture was done. 5. Send tip of central line for culture and sensitivity. 6. Redo sputum culture. 7. Please provide albumin at 25 g IV twice per day, first dose now. 8. Discontinue carvedilol. 9. Please do CT of the chest, abdomen, and pelvis to look for fluid collection, infection, and blood. 10. Labs now, type and screen, complete metabolic panel, GGT, procalcitonin level, and CRP. 11. Please provide IV fluids, normal saline 50 mL/h over [address] scan. 12. If the patient's blood pressure started to drop, we may increase dobutamine to 7.5 mcg/kg/minute or higher. If dobutamine is unable to provide sufficient systolic blood pressure, so let say MAP over 65, then we can add norepinephrine. 13. I will contact the surgical team about potential complication It has been a pleasure taking care of Mr. Baer. If you have any question, please give me a call. Job ID: [id number] MTDD
--- NOTE | 2019-12-25 07:41 | PRG ---
DATE OF SERVICE: 12/24/2019 SUBJECTIVE: Mr. Juan Alberto Baer had a quite eventful day. He started today with drop in the systolic blood pressure. It was found that he has a high white cell count with high neutrophil and also bands. A chest x-ray was done as a part of sepsis workup. Chest x-ray show new air under the diaphragm. This is very suspicious for anastomotic leak from where colon resection was done. He was taken to the OR last night 8 p.m. and anastomotic leak was found. There was a lot of also murky fluid found in the abdomen. The abdomen was irrigated. Then after, the site was closed. The GI tract was diverted out well with ileostomy. So he came back to the unit with an ileostomy. He did well postop. He was able to maintain the blood pressure with systolic blood pressure about 100 to 110 overnight. This is a significant improvement from the morning and the night prior. He said he is doing well. He does have pain at the site of the ileostomy. He said that he is breathing easy, is not short of breath. He also said there was no palpitations or syncope. REVIEW OF SYSTEMS: GENERAL: No fever or chills. HEENT: There are no changes in vision or hearing. He thinks he can swallow. He has not been allowed to eat or drink yet. PULMONARY: Please see HPI. CARDIOVASCULAR: Please see HPI. GI: Please see HPI. : A Villegas catheter was reinserted during OR. MUSCULOSKELETAL: His knee swelling has still remained controlled, it is quite down from admission. INTEGUMENT: He has weeping mostly along his arms. NEUROLOGIC: There are no focal deficits. PSYCH: Not depressed. MEDICATIONS: His cardiac related medications include; 1. Amiodarone 200 mg daily. 2. Dobutamine currently at 5 mcg/kg/minute. His antibiotics include; 1. Meropenem 1 g IV q.8 hours. 2. Micafungin 100 mg every 24 hours. He also supplemented with levothyroxine at 25 mcg daily. PHYSICAL EXAMINATION: VITAL SIGNS: Telemetry was reviewed. He is continuing to be paced at 90 beats per minute. There is some PVC. There is no concerning arrhythmia. His systolic blood pressure is able to remain well above 100 to 124 throughout the night. This is a significant improvement. His current vitals are heart rate 90, which was paced; pressures are 117/51; and oxygen saturation 98% on room air. GENERAL: He is alert, conversational, reclining comfortably in bed. HEENT: EOMI. PERRL. His oropharynx is slightly dry. There is no erythema or no exudate. NECK: Neck veins elevated about 13+ cm with positive hepatojugular reflux. LUNGS: He has good air movement bilateral upper two-thirds, diminished breath sounds at the bases, however, there are no crackles. HEART: Regular rate and rhythm with occasional irregularity, 3/6 holosystolic murmur at apex with radiation to left axilla and there is also 2/6 diastolic murmur at the right sternal border. His PMI is inferiorly lateral displaced. He says he has dilated heart along with mitral regurgitation, aortic insufficiency. ABDOMEN: Distended, however, it is softer than yesterday morning. There is an ileostomy at the right lower quadrant. There is positive bowel sounds. There is bowel material and he also has a drain. EXTREMITIES: Lower extremity, he has pitting edema from the feet to above his knees. His knees are not edematous. He also has an edema in his arms. LABORATORY VALUES: His white cell count is 13.4, hemoglobin 10, and platelets 163. His chemistry shows sodium 139, BUN at 28, and creatinine at 1.31, this is a slight improvement. His BNP has not significantly changed. It is at 1035. ASSESSMENT: 1. Bleeding colon cancer. This was discovered during this hospitalization. It was successfully resected. 2. Anastomosis site leak: Post colon resection, he developed anastomotic site leak. Apparently, his colon is now sealed off and the small bowel has diverted output through an ileostomy as above on December 23, 2019. 3. Infectious near septic situation due to anastomosis site leak leading to peritonitis. It is now under control, is being treated with antibiotics and his abdomen has been washed out with surgery. 4. Heart failure with reduced ejection fraction. Mr. Baer resides in [place] Heart Association stage C and [place] Heart Association class 3B. Heart failure with reduced ejection fraction, it is a combination of ischemic cardiomyopathy, mitral regurgitation, and also aortic insufficiency. Currently using dobutamine 5 mcg/kg/minute IV GTT is providing sufficient cardiac output to sustain through the small multiple surgery infectious state. His heart rate also been set at 90 beats per minute during this acute stay. He is pacer dependent. For now, we will continue with dobutamine. After he stabilizes for 2 days, we will begin the process of transitioning to Milrinone for long-term outpatient Milrinone palliative therapy. RECOMMENDATIONS: 1. Continue dobutamine at 5 mcg/kg/minute IV GTT. This can be titrated up to 7.5, and then to 10 mcg/kg per minute IV GTT as needed. If the pressure continues to drop, then norepinephrine or epinephrine should be added. 2. For this acute period, please give albumin 25 g IV q.6 hours today. Tomorrow , we will decrease down to twice a day. 3. We will assess at least twice daily on the fluid status. Since he is not eating and drinking, we will aim to keep him at least fluid even, a little bit of positive would be acceptable. We will begin diuresis again once he is eating and drinking. 4. Please run half-normal saline with D5 half normal 10meqK IV fluid at 70 mL/h for least 250 mL. Stop after 250 mL if he eats. 5. CBC at noontime to follow the trend. 6. Please continue antibiotic for 7 days starting today. 7. Please ambulate the patient at least once today. It has been a pleasure taking care of . Juan Alberto Baer. If any question, please give me a call. Job ID: [id number] MTDD
[2019-12-25] MEDS ORDERED: Furosemide 20 MG/2 ML VIAL SLOW IVP SCH ×2 (08:15→14:00)
--- NOTE | 2019-12-25 08:28 | PRG ---
DATE OF SERVICE: 12/25/2019 This is [facility]. SUBJECTIVE: Mr. Juan Alberto Baer had a good day. He was able to tolerate start of liquids and then ate some solid food of vegetables last night. He was able to ambulate some yesterday also. Furthermore, he was able to this hold systolic blood pressure between 100 and 120 throughout the day. He said he did not have any fever or chills. He also said he was not short of breath. He said he was able to sleep comfortably. REVIEW OF SYSTEMS: GENERAL: There is no fever or chills. PULMONARY: There is no productive cough. CARDIOVASCULAR: He is not short of breath, there is no palpitation also. No syncope. GI: Please see HPI. : He still on a Villegas catheter. MUSCULOSKELETAL: He knee swelling did not increase. INTEGUMENT: He still has weeping from his arms. NEUROLOGIC: There are no focal deficits. PSYCH: He is not depressed. MEDICATION: His cardiac medication includes: 1. Amiodarone 200 mg daily. 2. Dobutamine at 5 mcg/kg/minute IV GTT. OBJECTIVE: VITAL SIGNS: His telemetry was reviewed. He is paced at 90 beats per minute. There is occasional PVC. There is no concerning arrhythmia. His vitals show his heart rate which is paced at 90. His blood pressure is at 117/45. GENERAL: He is alert and conversational, sitting comfortably in a chair. He is able to speak without being short of breath. HEENT: Show EOMI, PERRL. Oropharynx shows moist mucosa without erythema. NECK: His neck shows JVP is elevated at 14+ cm. LUNGS: Good air movement bilateral upper two thirds of lainez. There is diminished breath sounds at the left base. CARDIAC: Heart shows regular rate and rhythm with 2/6 holosystolic murmur at the apex with radiation to the left axilla. The holosystolic murmur is loudest at a left axilla. He also has 2/6 diastolic murmur at the right sternal border. He is demonstrating mitral regurgitation and aortic insufficiency murmurs. ABDOMEN: Distended, soft and nontender with ileostomy in place in the right upper quadrant. BACK: He has presacral edema. EXTREMITIES: Lower extremity he has 3+ pitting edema from his feet to above his knees and somewhat in his thighs. LABORATORY DATA: His laboratory values show sodium 137, potassium 4.1, BUN 33, and creatinine 1.3. His BNP is 1008. ASSESSMENT: 1. Recurring colon cancer has been resected. There is no active bleeding. 2. Anastomosis leak has been repaired and small bowel has been diverted out with ileostomy. 3. Septic like infectious state due to anastomotic leak causing peritonitis is being corrected. 4. He resides in [place] Heart Association stage C and also [place] Heart Association Class 3B heart failure with reduced ejection fraction. He has both systolic and diastolic dysfunctions. It is caused by combination of ischemic cardiomyopathy, mitral regurgitation and aortic insufficiency. Currently, combination pacing rate at 90 beats per minute and dobutamine at 5 mcg/kg/ minute IV GTT is providing enough cardiac output. This is supporting him through multiple surgeries and septic like states. The cardiac diagnosis is tertiary due to his abdominal problems. RECOMMENDATIONS: 1. Start Lasix 20 mg IV t.i.d. today in hopes to slowly remove volume. 2. Continue with albumin 25 mg IV b.i.d. 3. Complete metabolic panel, pre-albumin, CRP, procalcitonin level to tomorrow's morning labs. 4. Please do a portable chest x-ray today to follow resolution of air under the diaphragm. 5. Please place a Nutrition consult. He is showing signs of temporalis wasting. Suggest that he has significant amount of protein loss that has not been replaced. 6. Please ask Cardiac Rehab to continue to walk with the patient daily. It has been a pleasure taking care of Mr. Baer. If any questions, please give me a call. Job ID: [id number] [facility]
[2019-12-25] MEDS: Albumin 25% 25 GM/100 ML BOT IVPB SCH ×2 (09:10→20:42)
[2019-12-25] MEDS: Gabapentin 100 MG CAP PO SCH ×2 (09:11→20:41)
[2019-12-25] MEDS: Amiodarone 200 MG TAB PO SCH (09:11)
[2019-12-25] MEDS: Finasteride 5 MG TAB PO SCH (09:11)
--- NOTE | 2019-12-25 09:22 | RAD ---
PORTABLE CHEST 1 VIEW: Date: 12/25/2019 Time: 0835 hours HISTORY: CHF, check for air under the diaphragm. COMPARISON: 12/23/2019. FINDINGS/IMPRESSION: The free air under the diaphragm noted on the previous exam has resolved in the interim. There are changes of median sternotomy. Left-sided AICD and right subclavian central line remain in p lace. The heart size is stable. The aorta is tortuous. There is consolidation of the left lung base w ith accompanying small bilateral pleural effusions. No pneumothoraces are seen. POS: OFF
--- NOTE | 2019-12-25 14:14 | PRG ---
DATE OF SERVICE: 12/25/2019 SUBJECTIVE: Mr. Baer is an 84-year-old male, who is status post laparotomy and resection of a transverse colon malignancy with an ileocolic anastomosis (he had a prior right hemicolectomy). He had presented with severe anemia and heart failure. His hemoglobin was less than 7 and his ejection fraction was 20% to 25%. He has been maintained on some combination of dobutamine and milrinone since he was hospitalized and he is currently on a dobutamine drip. He is also receiving Lasix. He had an anastomotic leak that was repaired over the weekend by Dr. Mahajan (on December 23). His anastomosis was buttressed and the area was drained and the patient was given a proximal diverting ileostomy. The patient has done surprisingly well since his surgery. He is tolerating a solid diet currently and has no complaints. He has good ileostomy function. OBJECTIVE: VITAL SIGNS: He is afebrile, pulse is 90 (paced), blood pressure is 108/52. Urine output from his Villegas for yesterday was about 700 mL. His Shade-Beckford drain apparently drained 700 mL for yesterday. His nurse tells me that it is filling up fairly quickly today. It is draining light colored serosanguineous fluid. LUNGS: Clear to auscultation anteriorly. CARDIAC: Regular rate and rhythm. ABDOMEN: Soft. He has a Prevena dressing over his midline incision. He has a Shade-Beckford drain in place. Bowel sounds are present, but hypoactive. There is no focal tenderness. LABORATORY DATA: His basic metabolic panel is unremarkable. His BUN is 33 and creatinine is 1.3. His beta-natriuretic peptide, however, is quite elevated at 1008. It is noted that this is always elevated in the patient. At some point, a cutdown is low as 759, but he clearly has some degree of chronic heart failure. His CBC shows a white blood cell count of 10.9 with a hemoglobin of 9.6. ASSESSMENT AND PLAN: The patient appears to be stable at this point after 2 laparotomies. He does remain, however, on a dobutamine drip. From a surgical standpoint, it appears he is tolerating his diet. His ileostomy is functioning and his drain is draining appropriate fluid. He will continue to be managed by his heart failure specialist (Dr. Avalos). Dr. Ku will return tomorrow to finish managing his surgical component of his care. The patient does still have a Villegas catheter in, but given the amount of diuresis and desire to have an accurate output measurements, this is probably appropriate for now. The patient has been sinus. Job ID: [id number]
[2019-12-25] MEDS: DOBUTamine 500 mg/250 ml 250 ML IVPB SCH (15:30)
--- NOTE | 2019-12-25 17:16 | PDOC.HOSPP ---
- Subjective Encounter Date: 12/25/19 Encounter Time: 08:20 Subjective: No overnight events. This morning, sitting comfortably in chair and has no complaints. - Objective Vital Signs & Weight: Vital Signs (12 hours) Temp Pulse Pulse BP BP Pulse Ox Pulse Ox 12/25/19 15:25 98.3 F 12/25/19 11:38 98.6 F 12/25/19 09:19 89 90 127/51 L 117/47 L 99 12/25/19 08:22 98.0 F 12/25/19 08:00 97 Pulse Ox 12/25/19 15:25 12/25/19 11:38 12/25/19 09:19 99 12/25/19 08:22 12/25/19 08:00 Weight Admit Weight 170 lb 14.4 oz Weight 173 lb 1.6 oz Most Recent Monitor Data Heart Rate from ECG 90 NIBP 104/59 NIBP BP-Mean 74 Respiration from ECG 27 SpO2 99 I&O: 12/24/19 12/25/19 12/26/19 06:59 06:59 06:59 Intake Total 2029.3 2432 Output Total 1500 1410 100 Balance 529.3 1022 -100 Result Diagrams: 12/25/19 04:57 12/25/19 04:57 Radiology Reviewed by me: Yes Hospitalist ROS - Review of Systems Constitutional: denies: fever, chills, sweats, weakness, malaise, other Respiratory: denies: cough, dry, shortness of breath, hemoptysis, SOB with excertion, pleuritic pain, sputum, wheezing, other Cardiovascular: denies: chest pain, palpitations, orthopnea, paroxysmal noc. dyspnea, edema, light headedness, other Gastrointestinal: denies: nausea, vomiting, abdominal pain, diarrhea, constipation, melena, hematochezia, other Genitourinary: denies: hematuria Neurological: denies: weakness, change in speech - Medication Medications: Active Medications Generic Name Dose Route Start Last Admin Trade Name Freq PRN Reason Stop Dose Admin Acetaminophen 1,000 mg 12/20/19 21:00 12/25/19 15:33 Tylenol PO 1,000 mg 0300,0900,1500,2100 MAXI Administration Albumin Human 25 gm 12/25/19 09:00 12/25/19 09:10 Albumin 25% IVPB 12/25/19 21:01 25 gm BID MAXI Administration Amiodarone HCl 200 mg 12/21/19 09:00 12/25/19 09:11 Cordarone PO 200 mg 0900 MAXI Administration Enoxaparin Sodium 40 mg 12/20/19 21:00 12/24/19 21:00 Lovenox SC 40 mg 2100 MAXI Administration Finasteride 5 mg 12/13/19 09:00 12/25/19 09:11 Proscar PO 5 mg DAILY MAXI Administration Furosemide 20 mg 12/25/19 14:00 12/25/19 15:32 Lasix SLOW IVP 20 mg 0600,1400 MAXI Administration Gabapentin 100 mg 12/19/19 21:00 12/25/19 09:11 Neurontin PO 100 mg BID MAXI Administration Dobutamine HCl/Dextrose 250 mls @ 11.39 mls/hr 12/13/19 08:15 12/25/19 15:30 Dobutamine 500 Mg/250 Ml IVPB 250 mls INF MAXI Administration 5 MCG/KG/MIN Potassium Chloride 40 meq/ 100 mls @ 50 mls/hr 12/20/19 07:49 12/21/19 04:56 Device IVPB 100 mls ASDIR PRN Administration FOR SERUM K+ 2.5 - 3.5 Magnesium Sulfate 1 gm/ Sodium 102 mls @ 102 mls/hr 12/20/19 07:49 12/21/19 04:56 Chloride IV 102 mls PRN PRN Administration MAG LEVEL 1.4 - 2.0 Micafungin Sodium 100 mg/ 100 mls @ 100 mls/hr 12/24/19 18:00 12/24/19 18:20 Sodium Chloride IVPB 100 mls Q24H MAXI Administration Meropenem 1 gm/ Device 50 mls @ 200 mls/hr 12/24/19 14:00 12/25/19 15:33 IVPB 12/31/19 14:01 50 mls Q8HR MAXI Administration Ketorolac Tromethamine 15 mg 12/20/19 21:00 12/25/19 15:32 Toradol IVP 12/25/19 21:01 15 mg 0300,0900,1500,2100 MAXI Administration Levothyroxine Sodium 25 mcg 12/13/19 06:00 12/25/19 05:05 Synthroid PO 25 mcg 0600 MAXI Administration Sodium Chloride 10 ml 12/11/19 21:39 12/17/19 10:08 Flush - Normal Saline IVF 10 ml PRN PRN Administration Saline Flush - Exam General Appearance: NAD, awake alert Neck: supple, symmetric, no JVD Heart: RRR, no murmur, no gallops, no rubs, normal peripheral pulses Respiratory: CTAB, no wheezes, no rales, no ronchi, normal chest expansion, no tachypnea, normal percussion Gastrointestinal: soft, non-tender, non-distended, normal bowel sounds Gastrointestinal - other findings: wound drain has about 20cc serosanguinous fluid Extremities: no edema Skin - other findings: no erythema surrounding wound; overlying dressing clean Neurological: cranial nerve grossly intact, no focal deficits, no new deficit Musculoskeletal: normal tone, normal strength Psychiatric: normal affect, normal behavior Hosp A/P - Plan (1) Colonic mass Code(s): K63.89 - OTHER SPECIFIED DISEASES OF INTESTINE Status: Acute (2) Hx of malignant neoplasm of colon Code(s): Z85.038 - PERSONAL HISTORY OF MALIGNANT NEOPLASM OF LARGE INTESTINE Status: Acute (3) CHF (congestive heart failure), NYHA class IV Code(s): I50.9 - HEART FAILURE, UNSPECIFIED Status: Acute Qualifiers: Congestive heart failure chronicity: acute on chronic (4) BPH (benign prostatic hyperplasia) Code(s): N40.0 - BENIGN PROSTATIC HYPERPLASIA WITHOUT LOWER URINRY TRACT SYMP Status: Chronic Qualifiers: Lower urinary tract symptom presence: symptoms absent Qualified Code(s): N40.0 - Benign prostatic hyperplasia without lower urinary tract symptoms (5) CAD (coronary artery disease) Code(s): I25.10 - ATHSCL HEART DISEASE OF [place] CORONARY ARTERY W/O ANG PCTRS Status: Chronic Qualifiers: Coronary Disease-Associated Artery/Lesion type: [place] artery [place] vs. transplanted heart: [place] heart Associated angina: without angina Qualified Code(s): I25.10 - Atherosclerotic heart disease of [place] coronary artery without angina pectoris (6) CKD (chronic kidney disease), stage III Code(s): N18.3 - CHRONIC KIDNEY DISEASE, STAGE 3 (MODERATE) Status: Chronic (7) Chronic anticoagulation Code(s): Z79.01 - CUSTODIAL (CURRENT) USE OF ANTICOAGULANTS Status: Chronic (8) Pacemaker Code(s): Z95.0 - PRESENCE OF CARDIAC PACEMAKER Status: Chronic (9) Atrial fibrillation Code(s): I48.91 - UNSPECIFIED ATRIAL FIBRILLATION Status: Chronic Plan: Paced rhythm. - Plan 1. Remains on same dose of dobutamine; continues to do well clinically -Post-op laparotomy with partial colon resection; patient improved clinically however POD2 developed neutrophilia and bandemia; lower on POD3; though neutrophilia can occur postsurgically, usually subsides by POD3 and in this case , worrisome in context of other findings - now pod 2 exploration, anastamotic leak suturing and diverting ileostomy; HD -per surgery, advanced diet and well tolerated by patient; ileostomy bag functioning; plan to tend to and give final recommendations regarding abdominal incision (2/3) 3. currently nearly euvolemic; being diuresed mostly for persistently swelling right knee; defer CHF management to cardiology 4. Has atwood in; may be problematic to discontinue atwood while patient HD supported since tamsulosin (home med) may cause hypotension; Also active diuresis may exacerbate urinary retention 9. currently paced rhythm; defer management to cardiology Code status: DNAR
[2019-12-25] MEDS ORDERED: Furosemide 40 MG/4 ML VIAL SLOW IVP SCH (19:00)
[2019-12-25] MEDS: Micafungin 100 MG in Sodium Chloride 0.9% 100 ML IVPB SCH (19:08)
[2019-12-25] MEDS: Enoxaparin Sodium 40 MG/0.4 ML SYRINGE SC SCH (20:42)
[2019-12-26] MEDS ORDERED: Ibuprofen 600 MG TAB PO PRN (03:00)
[2019-12-26] MEDS: Acetaminophen 500 MG TAB PO SCH ×4 (03:10→21:16)
[2019-12-26] MEDS: Levothyroxine Sodium 25 MCG TAB PO SCH (05:13)
[2019-12-26] MEDS: MEROPENEM 1 GM/50 ML 1 GM in Premix Bag 1 BAG IVPB SCH ×2 (05:13→19:01)
[2019-12-26 05:56] LABS: Hemoglobin 9.3 g/dL (14.0-18.0); Mean Corpuscular HGB CONC 29.6 g/dL (32.0-36.0); Mean Corpuscular Hemoglobin 24.3 pg (27.0-31.0); Mean Platelet Volume 9.9 fL (7.4-10.4); Platelet Count 201 thou/uL (130-400); RBC Distribution Width 20.8 % (11.5-14.5); Red Blood Cell (RBC) Count 3.81 mill/uL (4.70-6.10); White Blood Cell (WBC) Count 9.5 thou/uL (4.8-10.8)
[2019-12-26] MEDS ORDERED: Furosemide 40 MG/4 ML VIAL SLOW IVP SCH (06:00)
[2019-12-26 06:02] LABS: ALT (SGPT) 12 U/L (8-55); AST (SGOT) 13 U/L (5-34); Albumin 3.5 g/dL (3.4-4.8); Alkaline Phosphatase 139 U/L (40-110); Anion Gap 10 mmol/L (10-20); BUN (Urea Nitrogen) 37 mg/dL (8.4-25.7); Bilirubin, Total 2.3 mg/dL (0.2-1.2); Calc. Creatinine Clearance 41 mL/min (70-130); Calcium 9.4 mg/dL (7.8-10.44); Carbon Dioxide 23 mmol/L (23-31); Chloride 109 mmol/L (98-107); Estimated GFR-MDRD 47; Globulin 1.7 g/dL (2.4-3.5); Glucose 96 mg/dL (83-110); Magnesium 2.1 mg/dL (1.6-2.6); Potassium 4.2 mmol/L (3.5-5.1); Protein, Total 5.2 g/dL (5.8-8.1); Sodium 138 mmol/L (136-145)
[2019-12-26 06:08] LABS: Anisocytosis SLIGHT = 6-15 cells (100X) (0-5/hpf); Band 10 % (5-11); Eosinophils 3 % (0-10); Hypochromia SLIGHT = 6-15 cells (100X) (0-5/hpf); Lymphocytes 5 % (21-51); MDiff Complete? YES; Monocytes 2 % (0-10); Neutrophil 80 % (42-75)
--- NOTE | 2019-12-26 08:41 | PRG ---
DATE OF SERVICE: 12/26/2019 This is [facility]. SUBJECTIVE: Mr. Baer had a good day. He was able to eat all 3 meals. He was able to ambulate, walk long distances down the hallway. He also said he was breathing easier. Active diuresis was restarted yesterday. Apparently that also helped with his breathing. He has a systolic blood pressure above 100 the entire time. REVIEW OF SYSTEMS: GENERAL: There is no fever or chills. PULMONARY: See HPI. CARDIOVASCULAR: There is no palpitations or syncope. There is continued edema. GI: See HPI. : He still needs a Villegas catheter. MUSCULOSKELETAL: His swelling on the knee is decreasing. INTEGUMENT: There is no new breakdown. NEUROLOGIC: There are no focal deficits. PSYCH: He is not depressed. MEDICATIONS: Cardiac medications include: 1. Amiodarone at 200 mg daily. 2. Dobutamine at 5 mcg/kg/min IV GTT. PHYSICAL EXAMINATION: Telemetry was reviewed. He is paced at 90 beats per minute. There are no concerning arrhythmias. VITAL SIGNS: Heart rate paced at 90, blood pressure 105/47. He is 99% on 2 L oxygen. GENERAL: He is alert and conversational, a bit more energetic than yesterday. HEENT: Show EOMI. OROPHARYNX: Benign with moist mucosa. There is no erythema, no exudate. NECK: His JVP is decreased. Today this is down to about 12 cm. PULMONARY: He has better air movement in both lungs. Clear to auscultation. HEART: Regular rate and rhythm with 2/6 holosystolic murmur at the apex with radiation to the left axilla and also 2/6 diastolic murmur at the right sternal border. His PMI is inferiorly and laterally displaced, thus he has both mitral regurgitation and aortic insufficiency. ABDOMEN: Soft. There is stool in his ileostomy bag. There is no sign of infection at the ileostomy site. EXTREMITIES: His lower extremities has 3+ pitting edema to above his knees and at mid thighs, but a little bit loose than yesterday. SIGNIFICANT LABORATORY VALUES: His hemoglobin is 9.3 today, that is a persistent drop from the last 2 days. His platelet is stable at 201. His white cell count has decreased down to 9.5. Sodium is 138, potassium 4.2, his BUN has risen to 37 and creatinine has bumped slightly to 1.44. His total bilirubin also increased to 2.3. On a good note C-reactive protein is decreased down to 14.9, and his procalcitonin level has decreased down to 1.12 signifying resolving infection. His pre-albumin is only 7 suggesting very poor nutrition. ASSESSMENT: 1. Recurrent colon cancer has been resected. 2. Anastomosis site leak has been repaired and small bowel has been diverted out with ileostomy. 3. Peritonitis is resolving with antibiotics meropenem and also antifungal micafungin. 4. An 84-year-old gentleman, resides in [place] Heart Association stage C and [place] heart Association class 3B heart failure with reduced ejection fraction. He has both systolic and diastolic dysfunctions. It is caused by a combination of ischemic cardiomyopathy, mitral regurgitation and aortic insufficiency. Currently, dobutamine is providing almost sufficient cardiac output. His increase in total bilirubin could be due to liver congestion or micafungin, so this need to be followed. He is currently intravascularly slightly depleted. However, extra volume spangler, he is volume overloaded as seen by the edema from his feet to legs all the way up to above his thighs. Due to being intravascular volume depleted we will stop Lasix today. We will also follow his CBC this afternoon. He could be having slow bleeding in someplace. If his hemoglobin drops below 9 today, he will need to be transfused. In the future when things stabilize, we hope to be able to transition him from dobutamine to milrinone. RECOMMENDATIONS: 1. Stop IV Lasix. 2. CBC at 4:00 p.m. today. 3. Increase dobutamine slightly to 6 mcg/kg per minute for today only. 4. Please keep type and screen active. 5. Please consult Surgery for tunneled catheter placement. 6. We will discuss with Surgery about potential need to look for source of bleeding. 7. Please add Protonix 40 mg p.o. daily. It has been a pleasure taking care of Mr. Baer. If you have any questions, please give me a call. Job ID: [id number] [facility]
--- NOTE | 2019-12-26 09:36 | PRG ---
DATE OF SERVICE: 12/26/2019 SUBJECTIVE: Juan Alberto Baer is doing well over the weekend. Two days ago, Wednesday, Dr. Mahajan performed repeat operation for increased free air and mild leukocytosis left shift. Findings were that of a posterior anastomotic ileocolonic small leak with some intraabdominal contamination. He performed oversew with diverting loop ileostomy. Drains were placed. The patient currently is doing well. He is tolerating a regular diet. OBJECTIVE: VITAL SIGNS: Heart rate 89, blood pressure 125/47, and respiratory rate 21. LUNGS: Clear to auscultation. CARDIAC: Regular rate and rhythm without murmur or gallop. ABDOMEN: Soft. Bowel sounds present. He is having stool in his ileostomy. LABORATORY DATA: The patient's hemoglobin has been relatively stable at 10.1 over the last few days, yesterday 9.6 and today 9.3. BUN 37, creatinine 1.44, which is slightly elevated. ASSESSMENT AND PLAN: 1. Congestive heart failure. Fluid management per Dr. Avalos. Dobutamine and milrinone management per Dr. Avalos. I have discussed with Dr. Avalos previously, we will hold off on peripherally inserted central catheter line and plan placement of cuffed tunneled Stubbs catheter in 48 hours. We will do this under IV sedation, local anesthesia in the OR to provide long-term IV access for cardiac drips. 2. Hemoglobin is relatively stable, probably mild changes due to fluid shifts. No indication of bleeding. Continue to monitor. 3. The patient would like to ambulate more, he is ambulating once a day with physical therapy. We will ask nurse to ambulate him in the evening. Continue the IMCU management. Job ID: [id number]
[2019-12-26] MEDS: Gabapentin 100 MG CAP PO SCH ×2 (09:57→21:14)
[2019-12-26] MEDS: Finasteride 5 MG TAB PO SCH (09:57)
[2019-12-26] MEDS: Amiodarone 200 MG TAB PO SCH (09:57)
[2019-12-26] MEDS: DOBUTamine 500 mg/250 ml 250 ML IVPB SCH (14:48)
[2019-12-26 16:26] LABS: Hemoglobin 9.9 g/dL (14.0-18.0); Mean Corpuscular HGB CONC 30.3 g/dL (32.0-36.0); Mean Corpuscular Hemoglobin 24.9 pg (27.0-31.0); Mean Corpuscular Volume 82.3 fL (78.0-98.0); Mean Platelet Volume 9.3 fL (7.4-10.4); Platelet Count 216 thou/uL (130-400); RBC Distribution Width 21.3 % (11.5-14.5); Red Blood Cell (RBC) Count 3.95 mill/uL (4.70-6.10); White Blood Cell (WBC) Count 8.4 thou/uL (4.8-10.8)
[2019-12-26 16:52] LABS: #Eosinphils 0.2 thou/uL (0.0-0.7); #Lymphocytes 0.5 thou/uL (1.20-3.40); #Monocytes 0.6 thou/uL (0.11-0.59); #Neutrophils 7.1 thou/uL (1.40-6.50); %Basophils 0.1 % (0.0-1.0); %Eosinophils 2.4 % (0.0-10.0); %Lymphocytes 6.3 % (21.0-51.0); %Monocytes 6.6 % (0.0-10.0); %Neutrophils 84.6 % (42.0-75.0); Anisocytosis SLIGHT = 6-15 cells (100X) (0-5/hpf); Burr Cells SLIGHT = 2-5 cells (100X) (0-1/hpf); Elliptocytes SLIGHT = 2-5 cells (100X) (0-1/hpf); Hypochromia SLIGHT = 6-15 cells (100X) (0-5/hpf); Large Platelets SLIGHT; MDiff Complete? YES; Ovalocytes SLIGHT = 2-5 cells (100X) (0-1/hpf); Platelet Morphology Comment Appears Adequate; Poikilocytosis SLIGHT = 6-15 cells (100X) (0-5/hpf); Polychromasia SLIGHT = 2-3 cells (100X) (0-2/hpf); Schistocytes SLIGHT = 2-5 cells (100X) (0-1/hpf); Toxic Granulation SLIGHT
[2019-12-26] MEDS: Micafungin 100 MG in Sodium Chloride 0.9% 100 ML IVPB SCH (19:01)
[2019-12-26] MEDS: Enoxaparin Sodium 40 MG/0.4 ML SYRINGE SC SCH (21:14)
--- NOTE | 2019-12-26 23:09 | PDOC.HOSPP ---
- Subjective Encounter Date: 12/26/19 Encounter Time: 08:00 Subjective: overnight, hypoxic episode that resolved by the morning. Sitting comfortably and has no complaints. ambulates on unit without pain or shortness of breath - Objective Vital Signs & Weight: Vital Signs (12 hours) Temp Pulse Ox 12/26/19 20:00 97 12/26/19 19:29 97.5 F L 12/26/19 12:00 97.5 F L 100 Weight Admit Weight 170 lb 14.4 oz Weight 174 lb 3.2 oz Most Recent Monitor Data Heart Rate from ECG 89 NIBP 134/54 NIBP BP-Mean 80 Respiration from ECG 21 SpO2 99 I&O: 12/25/19 12/26/19 12/27/19 06:59 06:59 06:59 Intake Total 2432 1020 1092 Output Total 1410 1270 1430 Balance 1022 -250 -338 Result Diagrams: 12/26/19 16:13 12/26/19 05:31 Hospitalist ROS - Review of Systems Constitutional: denies: fever, chills, sweats, weakness, malaise, other Respiratory: denies: cough, dry, shortness of breath, hemoptysis, SOB with excertion, pleuritic pain, sputum, wheezing, other Cardiovascular: denies: chest pain, palpitations, orthopnea, paroxysmal noc. dyspnea, edema, light headedness, other Gastrointestinal: denies: nausea, vomiting, abdominal pain, diarrhea, constipation, melena, hematochezia, other Genitourinary: denies: hematuria Neurological: denies: weakness - Medication Medications: Active Medications Generic Name Dose Route Start Last Admin Trade Name Marleny PRN Reason Stop Dose Admin Acetaminophen 1,000 mg 12/20/19 21:00 12/26/19 21:16 Tylenol PO Not Given 0300,0900,1500,2100 [facility] Amiodarone HCl 200 mg 12/21/19 09:00 12/26/19 09:57 Cordarone PO 200 mg 0900 MAXI Administration Enoxaparin Sodium 40 mg 12/20/19 21:00 12/26/19 21:14 Lovenox SC 40 mg 2100 MAXI Administration Finasteride 5 mg 12/13/19 09:00 12/26/19 09:57 Proscar PO 5 mg DAILY MAXI Administration Gabapentin 100 mg 12/19/19 21:00 12/26/19 21:14 Neurontin PO 100 mg BID MAXI Administration Dobutamine HCl/Dextrose 250 mls @ 13.668 mls/hr 12/13/19 08:15 12/26/19 14:48 Dobutamine 500 Mg/250 Ml IVPB 250 mls INF MAXI Administration 6 MCG/KG/MIN Potassium Chloride 40 meq/ 100 mls @ 50 mls/hr 12/20/19 07:49 12/21/19 04:56 Device IVPB 100 mls ASDIR PRN Administration FOR SERUM K+ 2.5 - 3.5 Magnesium Sulfate 1 gm/ Sodium 102 mls @ 102 mls/hr 12/20/19 07:49 12/21/19 04:56 Chloride IV 102 mls PRN PRN Administration MAG LEVEL 1.4 - 2.0 Micafungin Sodium 100 mg/ 100 mls @ 100 mls/hr 12/24/19 18:00 12/26/19 19:01 Sodium Chloride IVPB 100 mls Q24H MAXI Administration Meropenem 1 gm/ Device 50 mls @ 200 mls/hr 12/26/19 18:00 12/26/19 19:01 IVPB 12/31/19 22:00 50 mls 0600,1800 MAXI Administration Levothyroxine Sodium 25 mcg 12/13/19 06:00 12/26/19 05:13 Synthroid PO 25 mcg 0600 MAXI Administration Pantoprazole Sodium 40 mg 12/26/19 09:00 12/26/19 21:15 Protonix PO 40 mg BID MAXI Administration Sodium Chloride 10 ml 12/11/19 21:39 12/17/19 10:08 Flush - Normal Saline IVF 10 ml PRN PRN Administration Saline Flush - Exam General Appearance: NAD, awake alert Neck: no JVD Heart: RRR, no murmur, no gallops, no rubs, normal peripheral pulses Respiratory: CTAB, no wheezes, no rales, no ronchi, normal chest expansion, no tachypnea, normal percussion Gastrointestinal: soft, non-tender, non-distended, normal bowel sounds Gastrointestinal - other findings: wound drainage minimal, serous. Extremities: 2+ LE edema Psychiatric: normal affect, normal behavior Hosp A/P - Plan (1) Colonic mass Code(s): K63.89 - OTHER SPECIFIED DISEASES OF INTESTINE Status: Acute (2) Hx of malignant neoplasm of colon Code(s): Z85.038 - PERSONAL HISTORY OF MALIGNANT NEOPLASM OF LARGE INTESTINE Status: Acute (3) CHF (congestive heart failure), NYHA class IV Code(s): I50.9 - HEART FAILURE, UNSPECIFIED Status: Acute Qualifiers: Congestive heart failure chronicity: acute on chronic (4) BPH (benign prostatic hyperplasia) Code(s): N40.0 - BENIGN PROSTATIC HYPERPLASIA WITHOUT LOWER URINRY TRACT SYMP Status: Chronic Qualifiers: Lower urinary tract symptom presence: symptoms absent Qualified Code(s): N40.0 - Benign prostatic hyperplasia without lower urinary tract symptoms (5) CAD (coronary artery disease) Code(s): I25.10 - ATHSCL HEART DISEASE OF [place] CORONARY ARTERY W/O ANG PCTRS Status: Chronic Qualifiers: Coronary Disease-Associated Artery/Lesion type: [place] artery [place] vs. transplanted heart: [place] heart Associated angina: without angina Qualified Code(s): I25.10 - Atherosclerotic heart disease of [place] coronary artery without angina pectoris (6) CKD (chronic kidney disease), stage III - at baseline Code(s): N18.3 - CHRONIC KIDNEY DISEASE, STAGE 3 (MODERATE) Status: Chronic (7) Chronic anticoagulation Code(s): Z79.01 - RETIREMENT (CURRENT) USE OF ANTICOAGULANTS Status: Chronic (8) Pacemaker Code(s): Z95.0 - PRESENCE OF CARDIAC PACEMAKER Status: Chronic (9) Atrial fibrillation Code(s): I48.91 - UNSPECIFIED ATRIAL FIBRILLATION Status: Chronic Plan: Paced rhythm. - Plan - remains HD supported by dobutamine; per cardiology increase to 6mcg only 2/4 - HgB 9.9 and stable, no signs of overt bleeding. Will continue to follow -will await surgery recs regarding abdominal wound 4. Has atwood in; may be problematic to discontinue atwood while patient HD supported since tamsulosin (home med) may cause hypotension; Also active diuresis may exacerbate urinary retention 9. currently paced rhythm; defer management to cardiology Code status: DNAR
[2019-12-27] MEDS: Acetaminophen 500 MG TAB PO SCH ×4 (04:07→22:15)
[2019-12-27] MEDS: Levothyroxine Sodium 25 MCG TAB PO SCH (05:25)
[2019-12-27] MEDS: MEROPENEM 1 GM/50 ML 1 GM in Premix Bag 1 BAG IVPB SCH ×2 (05:25→17:07)
[2019-12-27 06:25] LABS: #Eosinphils 0.3 thou/uL (0.0-0.7); #Lymphocytes 0.6 thou/uL (1.20-3.40); #Monocytes 0.8 thou/uL (0.11-0.59); #Neutrophils 7.6 thou/uL (1.40-6.50); %Basophils 0.3 % (0.0-1.0); %Eosinophils 2.8 % (0.0-10.0); %Lymphocytes 6.1 % (21.0-51.0); %Monocytes 8.3 % (0.0-10.0); %Neutrophils 82.5 % (42.0-75.0); Hemoglobin 7.8 g/dL (14.0-18.0); Mean Corpuscular HGB CONC 30.2 g/dL (32.0-36.0); Mean Corpuscular Hemoglobin 24.8 pg (27.0-31.0); Mean Corpuscular Volume 81.9 fL (78.0-98.0); Mean Platelet Volume 9.1 fL (7.4-10.4); Platelet Count 283 thou/uL (130-400); RBC Distribution Width 21.1 % (11.5-14.5); Red Blood Cell (RBC) Count 3.13 mill/uL (4.70-6.10); White Blood Cell (WBC) Count 9.2 thou/uL (4.8-10.8)
[2019-12-27 06:44] LABS: Anion Gap 10 mmol/L (10-20); BUN (Urea Nitrogen) 36 mg/dL (8.4-25.7); Calc. Creatinine Clearance 49 mL/min (70-130); Calcium 9.4 mg/dL (7.8-10.44); Carbon Dioxide 25 mmol/L (23-31); Chloride 110 mmol/L (98-107); Estimated GFR-MDRD 60; Glucose 90 mg/dL (83-110); Magnesium 2.1 mg/dL (1.6-2.6); Potassium 4.3 mmol/L (3.5-5.1); Sodium 141 mmol/L (136-145)
--- NOTE | 2019-12-27 08:33 | PRG ---
DATE OF SERVICE: 12/27/2019 SERVICE: [facility]. SUBJECTIVE: Mr. Juan Alberto Baer had an excellent day. He was able to walk twice. He was able to double the distance of his walking. He also was able to eat three meals. However, the nursing staff reported there are black substance output into the ileostomy bag all day. Mr. Baer says he is breathing easy. He also said there is no shortness of breath. He denied any palpitations or syncope. REVIEW OF SYSTEMS: GENERAL: There is no fever or chills. HEENT: There is no changes in vision, hearing, or swallowing. PULMONARY: See HPI. CARDIOVASCULAR: Please see HPI. GI: Please see HPI. : He still has a Villegas in. MUSCULOSKELETAL: His knee swelling has decreased. INTEGUMENT: He still has arm weeping, but less so. NEUROLOGIC: There are no focal deficits. PSYCHIATRY: He is not depressed. MEDICATIONS: His current cardiac medications include: 1. Dobutamine at 6 mcg/kg per minute. 2. Amiodarone at 200 mg daily. 3. Lasix 40 mg IV and as needed basis. PHYSICAL EXAMINATION: VITAL SIGNS: His telemetry was reviewed. There is no concerning arrhythmia. It is paced at 90. Heart rate paced at 90, blood pressure 125/50, oxygen saturation about 97% on room air. GENERAL: He is alert and conversational, pleasant, able to carry on long sentence without being short of breath. HEENT: Show EOMI. Oropharynx is benign. He has moist mucosa without erythema and no exudate. NECK: JVP is about 12 cm with positive hepatojugular reflux. PULMONARY: Good air movement bilaterally. There are no rales bilaterally. HEART: Regular rate and rhythm. Occasional irregularity, there is 2/6 holosystolic murmur at the apex with radiation to the left axilla. There is also 2/6 diastolic murmur at right sternal border; he has both mitral regurgitation and aortic insufficiency. ABDOMEN: The ileostomy bag looks intact. There is some black material and some bilious material in the bag. EXTREMITIES: Lower extremity, he has 3+ edema up to his knees. He still have some edema about his thighs. His edema about the arms have decreased. LABORATORY DATA: His hemoglobin from dropped 9.9 down to 7.8. His platelet increased from 216 to 283. His creatinine has improved from 1.44 down to 1.15, and he has net negative at 1.27 L for the last 24 hours. ASSESSMENT: 1. Recurring colon cancer. This was resected. 2. Anastomotic site leak. This was corrected with surgery. He now has diverting ileostomy. 3. Peritonitis due to anastomotic site leak, it is resolving. He is continuing to be treated with antibiotic and antifungal for least one week. 4. He has a probable bleed. The drop of a hemoglobin from 9.9 down to 7.8 with corresponding increase in platelet and with corresponding net negative interval volume suggest that he has a bleed. 5. An 84-year-old gentleman, resides in [place] Heart Association Stage C and [place] Heart Association class 3B heart failure with reduced ejection fraction. This is due to combination of ischemic cardiomyopathy, mitral regurgitation, aortic insufficiency. We had increased the dobutamine to 6 mcg/kg per minute yesterday. This improved the cardiac output. This reflected by his net negative and also improvement in his creatinine. He may have down regulation of Beta-1 receptor as such that he would require increasing doses of dobutamine. We are hoped to be able to transition to milrinone. Milrinone will work for much longer period of time and will allow to restore of the Beta-1 receptor. However, with potential bleed, we will have to hold off on transition to Milrinone until tomorrow. We are also hoping to restart carvedilol at some point in time. This cannot be done safely until his bleeding issue is resolved. We will continue to support him from cardiac perspective. RECOMMENDATIONS: 1. Transfuse 2 units of blood. 2. Give Lasix 40 mg IV one dose in between the units of blood. 3. I will contact Dr. Juan Alberto Ku, about potential bleed. The patient may need a bleeding workup such as tagged red blood cell scan or an EGD. Meanwhile, we will need to keep his type and screen active. It has been a pleasure taking care of Mr. Baer. If you have any questions, please give me a call. Job ID: [id number] [facility]
[2019-12-27] MEDS: DOBUTamine 500 mg/250 ml 250 ML IVPB SCH (08:44)
[2019-12-27] MEDS: Gabapentin 100 MG CAP PO SCH ×2 (08:46→22:15)
[2019-12-27] MEDS: Finasteride 5 MG TAB PO SCH (08:46)
[2019-12-27] MEDS: Amiodarone 200 MG TAB PO SCH (08:46)
--- NOTE | 2019-12-27 14:02 | PDOC.HOSPP ---
- Subjective Encounter Date: 12/27/19 Encounter Time: 08:00 Subjective: no overnight events. This morning, HgB significantly reduced however no symptoms or signs of acute ischemia. Ostomy bag shows melenic stools but similar to yesterday other than being more liquidy. On encounter, has no complaints and denies acute generalized weakness, lightheadedness, dizziness, chest pain, palpitations, dyspnea, abdominal pain, hematuria, hematemesis, - Objective Vital Signs & Weight: Vital Signs (12 hours) Temp Pulse Resp BP Pulse Ox 12/27/19 11:51 98.3 F 12/27/19 11:33 98.0 F 92 22 H 121/60 98 12/27/19 11:17 98.4 F 12/27/19 07:22 98.6 F 12/27/19 03:40 98.5 F Weight Admit Weight 170 lb 14.4 oz Weight 167 lb Most Recent Monitor Data Heart Rate from ECG 91 NIBP 126/44 NIBP BP-Mean 71 Respiration from ECG 17 SpO2 96 I&O: 12/26/19 12/27/19 12/28/19 06:59 06:59 06:59 Intake Total 1020 1212 0 Output Total 1270 2485 Balance -250 -1273 0 Result Diagrams: 12/27/19 06:05 12/27/19 06:05 Hospitalist ROS - Review of Systems Constitutional: denies: fever, chills, sweats, weakness, malaise, other Respiratory: denies: cough, dry, shortness of breath, hemoptysis, SOB with excertion, pleuritic pain, sputum, wheezing, other Cardiovascular: denies: chest pain, palpitations, orthopnea, paroxysmal noc. dyspnea, edema, light headedness, other Gastrointestinal: denies: nausea, vomiting, abdominal pain, diarrhea, constipation, melena, hematochezia, other Genitourinary: denies: hematuria Neurological: denies: weakness - Medication Medications: Active Medications Generic Name Dose Route Start Last Admin Trade Name Freq PRN Reason Stop Dose Admin Acetaminophen 1,000 mg 12/20/19 21:00 12/27/19 08:46 Tylenol PO 1,000 mg 0300,0900,1500,2100 MAXI Administration Amiodarone HCl 200 mg 12/21/19 09:00 02/05/20 08:46 Cordarone PO 200 mg 0900 MAXI Administration Enoxaparin Sodium 40 mg 12/20/19 21:00 12/26/19 21:14 Lovenox SC 40 mg 2100 MAXI Administration Finasteride 5 mg 12/13/19 09:00 12/27/19 08:46 Proscar PO 5 mg DAILY MAXI Administration Gabapentin 100 mg 12/19/19 21:00 12/27/19 08:46 Neurontin PO 100 mg BID MAXI Administration Dobutamine HCl/Dextrose 250 mls @ 13.668 mls/hr 12/13/19 08:15 12/27/19 08:44 Dobutamine 500 Mg/250 Ml IVPB 250 mls INF MAXI Administration 6 MCG/KG/MIN Potassium Chloride 40 meq/ 100 mls @ 50 mls/hr 12/20/19 07:49 12/21/19 04:56 Device IVPB 100 mls ASDIR PRN Administration FOR SERUM K+ 2.5 - 3.5 Magnesium Sulfate 1 gm/ Sodium 102 mls @ 102 mls/hr 12/20/19 07:49 12/21/19 04:56 Chloride IV 102 mls PRN PRN Administration MAG LEVEL 1.4 - 2.0 Micafungin Sodium 100 mg/ 100 mls @ 100 mls/hr 12/24/19 18:00 12/26/19 19:01 Sodium Chloride IVPB 100 mls Q24H MAXI Administration Meropenem 1 gm/ Device 50 mls @ 200 mls/hr 12/26/19 18:00 12/27/19 05:25 IVPB 12/31/19 22:00 50 mls 0600,1800 MAXI Administration Levothyroxine Sodium 25 mcg 12/13/19 06:00 12/27/19 05:25 Synthroid PO 25 mcg 0600 MAXI Administration Pantoprazole Sodium 40 mg 12/26/19 09:00 12/27/19 08:46 Protonix PO 40 mg BID MAXI Administration Sodium Chloride 10 ml 12/11/19 21:39 12/27/19 08:46 Flush - Normal Saline IVF 10 ml PRN PRN Administration Saline Flush - Exam General Appearance: NAD, awake alert Neck: no JVD Heart: RRR, no murmur, no gallops, no rubs Heart - other findings: not tachycardic Respiratory: CTAB, no wheezes, no rales, no ronchi Gastrointestinal: soft (ostomy bag showing liquidy black fluid with some specks of black fecal material), non-tender, non-distended, normal bowel sounds Gastrointestinal - other findings: midline wound dressing clean, minimal serous bulb drainage Extremities - other findings: b/l LE pitting edema Neurological: cranial nerve grossly intact Psychiatric: normal affect, normal behavior Hosp A/P - Plan (1) Colonic mass Code(s): K63.89 - OTHER SPECIFIED DISEASES OF INTESTINE Status: Acute (2) Hx of malignant neoplasm of colon Code(s): Z85.038 - PERSONAL HISTORY OF MALIGNANT NEOPLASM OF LARGE INTESTINE Status: Acute (3) CHF (congestive heart failure), NYHA class IV Code(s): I50.9 - HEART FAILURE, UNSPECIFIED Status: Acute Qualifiers: Congestive heart failure chronicity: acute on chronic (4) BPH (benign prostatic hyperplasia) Code(s): N40.0 - BENIGN PROSTATIC HYPERPLASIA WITHOUT LOWER URINRY TRACT SYMP Status: Chronic Qualifiers: Lower urinary tract symptom presence: symptoms absent Qualified Code(s): N40.0 - Benign prostatic hyperplasia without lower urinary tract symptoms (5) CAD (coronary artery disease) Code(s): I25.10 - ATHSCL HEART DISEASE OF [place] CORONARY ARTERY W/O ANG PCTRS Status: Chronic Qualifiers: Coronary Disease-Associated Artery/Lesion type: [place] artery [place] vs. transplanted heart: [place] heart Associated angina: without angina Qualified Code(s): I25.10 - Atherosclerotic heart disease of [place] coronary artery without angina pectoris (6) CKD (chronic kidney disease), stage III - at baseline Code(s): N18.3 - CHRONIC KIDNEY DISEASE, STAGE 3 (MODERATE) Status: Chronic (7) Chronic anticoagulation Code(s): Z79.01 - HALFWAY (CURRENT) USE OF ANTICOAGULANTS Status: Chronic (8) Pacemaker Code(s): Z95.0 - PRESENCE OF CARDIAC PACEMAKER Status: Chronic (9) Atrial fibrillation Code(s): I48.91 - UNSPECIFIED ATRIAL FIBRILLATION Status: Chronic Plan: Paced rhythm. - Plan - remains HD supported by dobutamine; per cardiology will continue 6mcg - HgB 9.9 -> 7.8, melanic fecal material in ostomy bag, similar to yesterday; progressively increased BUN despite stable creatinine, may signify upper GI bleed; stopped ibuprofen, Protonix 40mg IVP bid, pending evaluation by surgery. -also will await surgery recs regarding abdominal wound - Has atwood in; may be problematic to discontinue atwood while patient HD supported since tamsulosin (home med) may cause hypotension; Also active diuresis may exacerbate urinary retention - currently paced rhythm; defer management to cardiology Code status: DNAR
[2019-12-27] MEDS: Furosemide 40 MG/4 ML VIAL SLOW IVP SCH (14:36)
[2019-12-27] MEDS: Micafungin 100 MG in Sodium Chloride 0.9% 100 ML IVPB SCH (17:08)
--- NOTE | 2019-12-27 19:57 | PRG ---
DATE OF SERVICE: 12/27/2019 SUBJECTIVE: Juan Alberto Baer is doing well today. He denies any significant pain. He is tolerating his diet. OBJECTIVE: VITAL SIGNS: Temperature 98.4 degrees and blood pressure 118/46. His drain is serosanguineous, output non-bloody, urine output is good. LUNGS: Clear to auscultation. CARDIAC: Regular rate and rhythm without murmur or gallop. ABDOMEN: Soft. LABORATORY DATA: White count 8, hemoglobin this morning was 7.8 down from 9.9 yesterday. There are no external signs of bleeding. Ileostomy output is healthy, non-bloody. The patient denies having any abdominal pain. Drains are not bloody in nature. Basic metabolic profile normal. BUN is slightly elevated at 36 and creatinine 1.15. ASSESSMENT AND PLAN: Diminished hemoglobin, this could be fluid shifts and there is no evidence of bleeding. At this point, the patient is being transfused 2 units of blood. We will his hemoglobin and make further recommendations pending clinical course. Wednesday, he is scheduled for a Stubbs catheter to provide access for his milrinone drip. Job ID: [id number]
[2019-12-27] MEDS: Pantoprazole 40 MG VIAL IVP SCH (22:15)
[2019-12-27 23:00] LABS: #Basophils 0.1 thou/uL (0.0-0.2); #Eosinphils 0.3 thou/uL (0.0-0.7); #Lymphocytes 0.4 thou/uL (1.20-3.40); #Monocytes 0.6 thou/uL (0.11-0.59); #Neutrophils 6.8 thou/uL (1.40-6.50); %Basophils 1.2 % (0.0-1.0); %Eosinophils 3.8 % (0.0-10.0); %Lymphocytes 4.7 % (21.0-51.0); %Monocytes 6.8 % (0.0-10.0); %Neutrophils 83.5 % (42.0-75.0); Anisocytosis SLIGHT = 6-15 cells (100X) (0-5/hpf); Hemoglobin 11.5 g/dL (14.0-18.0); Hypochromia SLIGHT = 6-15 cells (100X) (0-5/hpf); MDiff Complete? YES; Mean Corpuscular Hemoglobin 24.7 pg (27.0-31.0); Mean Corpuscular Volume 82.2 fL (78.0-98.0); Mean Platelet Volume 9.8 fL (7.4-10.4); Platelet Count 226 thou/uL (130-400); RBC Distribution Width 20.6 % (11.5-14.5); Red Blood Cell (RBC) Count 4.64 mill/uL (4.70-6.10); White Blood Cell (WBC) Count 8.1 thou/uL (4.8-10.8)
[2019-12-28] MEDS: Acetaminophen 500 MG TAB PO SCH ×4 (04:06→20:53)
[2019-12-28] MEDS: Levothyroxine Sodium 25 MCG TAB PO SCH (06:04)
[2019-12-28] MEDS: DOBUTamine 500 mg/250 ml 250 ML IVPB SCH (06:04)
[2019-12-28] MEDS: MEROPENEM 1 GM/50 ML 1 GM in Premix Bag 1 BAG IVPB SCH ×2 (06:04→17:48)
[2019-12-28 06:54] LABS: #Eosinphils 0.3 thou/uL (0.0-0.7); #Lymphocytes 0.4 thou/uL (1.20-3.40); #Monocytes 0.6 thou/uL (0.11-0.59); %Basophils 0.2 % (0.0-1.0); %Eosinophils 3.6 % (0.0-10.0); %Lymphocytes 4.6 % (21.0-51.0); %Monocytes 7.7 % (0.0-10.0); %Neutrophils 83.9 % (42.0-75.0); Mean Corpuscular HGB CONC 30.4 g/dL (32.0-36.0); Mean Platelet Volume 10.1 fL (7.4-10.4); Platelet Count 227 thou/uL (130-400); RBC Distribution Width 20.9 % (11.5-14.5); Red Blood Cell (RBC) Count 4.79 mill/uL (4.70-6.10); White Blood Cell (WBC) Count 8.3 thou/uL (4.8-10.8)
[2019-12-28 07:05] LABS: Anion Gap 10 mmol/L (10-20); BUN (Urea Nitrogen) 33 mg/dL (8.4-25.7); Calc. Creatinine Clearance 58 mL/min (70-130); Calcium 9.6 mg/dL (7.8-10.44); Carbon Dioxide 27 mmol/L (23-31); Chloride 109 mmol/L (98-107); Estimated GFR-MDRD 73; Glucose 116 mg/dL (83-110); Magnesium 2.2 mg/dL (1.6-2.6); Potassium 4.5 mmol/L (3.5-5.1); Sodium 141 mmol/L (136-145)
[2019-12-28] MEDS: Pantoprazole 40 MG VIAL IVP SCH ×2 (08:44→20:53)
[2019-12-28] MEDS: Amiodarone 200 MG TAB PO SCH (08:44)
[2019-12-28] MEDS: Gabapentin 100 MG CAP PO SCH ×2 (08:45→20:53)
[2019-12-28] MEDS: Finasteride 5 MG TAB PO SCH (08:45)
--- NOTE | 2019-12-28 09:03 | PRG ---
DATE OF SERVICE: 12/28/2019 SUBJECTIVE: Mr. Baer had a good day. He was able to walk longer distances around the [facility] area. He was able to tolerate three meals without difficulties. He believes he is getting stronger. He did not complain of shortness of breath with walking. He was able to sleep well. He also denied palpitations and syncope. It was reported that the dark material discharging into the ileostomy bag has decreased throughout the day. I also appreciate input from both the surgery and hospitalist team. Mr. Baer did receive 2 units of blood. After 2 units, he received Lasix 40 mg IVP. He has maintained a blood pressure between 110-130. He does not have any troubles throughout the day. REVIEW OF SYSTEMS: GENERAL: There is no fever or chills. HEENT: He does not complain any changes in his vision, hearing, or swallowing. PULMONARY: Please see HPI. CARDIOVASCULAR: Please see HPI. GI: Please see HPI. : He still needs a Villegas. MUSCULOSKELETAL: He believes that he gets stronger if he gets into physical therapy. There is no complaints today. INTEGUMENT: His weeping in both arm has greatly decreased and there are no new lesions. NEUROLOGIC: There is no focal deficit. PSYCHIATRIC: He is not depressed. MEDICATIONS: Cardiac medications include 1. Amiodarone 200 mg daily. 2. Dobutamine 6 mcg/kg/min. 3. Lasix 40 mg IV daily as needed. He will be evaluated on a day by day basis. PHYSICAL EXAMINATION: VITAL SIGNS: His telemetry was reviewed. There was no concerning arrhythmia. He is paced at 90 beats per minute. His current vitals are heart rate paced at 90, blood pressure 120/52, he is at 98% on room air. GENERAL: He is sitting in a chair comfortably, alert and conversational, energetic. He is more so energetic today than yesterday. HEENT: Show EOMI. Oropharynx is benign with moist mucosa. There is no erythema, no exudate. NECK: JVP is about 11 cm. Positive hepatojugular reflux. LUNGS: Good air movement bilaterally. Decreased breath sounds at left base. CARDIAC: Regular rate and rhythm with reduced mitral regurgitation murmur with about 2/6 holosystolic murmur best heard at near the left axilla; there is still 2/6 diastolic murmur at the right sternal border corresponding to aortic insufficiency. ABDOMEN: There is an ileostomy tube in place. There is discharge in it, but there is no sign of bleeding or infection. EXTREMITY: His arms are still very much less edematous today. It is approaching back to normal. He still has 3+ edema from the feet up to his thighs. LABORATORY DATA: He was net negative 751 mL from yesterday. His creatinine is stable at 1.15. His hemoglobin has increased to 12 after 2 units and diuresis. His white cell count at 8.3, and platelets at 227. ASSESSMENT: 1. Recurring colon cancer. This was resected. 2. Anastomosis site leak. The patient received diverting ileostomy in the distal portion of small bowel. There is currently no josseline signs of bleeding or infection. 3. Peritonitis from anastomotic site leak. The patient went to the operating room. This was washed out. He is currently being treated with antibiotic and antifungal. 4. An 84-year-old gentleman resides in [place] Heart Association stage C and also [place] heart Association class 3B heart failure with reduced ejection fraction. This is due to ischemic cardiomyopathy, mitral regurgitation, also aortic insufficiency. He has both systolic and diastolic dysfunction. Dobutamine at 6 mcg/kg/min and the pacing at 90 has provided sufficient cardiac output for recovery. With a sufficient pressure, good renal function now this is time to begin the transition from dobutamine to Milrinone to allow him for long-term outpatient care. We will also examine him daily to adjust with the fluid balance. Overall, he is volume overloaded. However, intravascularly he is not so. It will be a day by day assessment. RECOMMENDATIONS: 1. Start milrinone at 0.125 mcg/kg/min IV GTT. 2. After 6 hours if systolic blood pressure is greater than 95 mmHg, then decrease dobutamine down to 5 mcg/kg/minute and increase Milrinone to 0.25 mcg/kg/ minute. 3. Consult PT/OT to help patient with regaining strength and function. 4. Continue with cardiac rehab to walk the patient two times per day if possible. 5. Please do not restart ibuprofen or NSAIDs that could harm the kidneys or have harmful cardiovascular effects. 6. We will continue to follow his hemoglobin, hematocrit, and for any signs of recurring infection. It has been a pleasure taking care of Mr. Baer. If you have any questions, please give me a call. Job ID: [id number] MTDD
[2019-12-28] MEDS: MILRINONE IVPB SCH (10:05)
[2019-12-28] MEDS: SODIUM CHLORIDE 0.9% IVPB SCH (10:05)
[2019-12-28] MEDS: Micafungin 100 MG in Sodium Chloride 0.9% 100 ML IVPB SCH (17:48)
[2019-12-28] MEDS: Furosemide 40 MG/4 ML VIAL SLOW IVP SCH (17:48)
--- NOTE | 2019-12-28 20:06 | PRG ---
DATE OF SERVICE: 12/28/2019 SUBJECTIVE: Juan Alberto Baer is doing well after 12/20/2019, laparoscopy converted to laparotomy with transverse colectomy and ileocolic anastomosis and subsequent return to the operating room on 12/23/[address] Mahajan for leak, treated with oversew diverting loop ileostomy and a drain. The patient is tolerating his diet. He was given 2 units of blood yesterday for hemoglobin of 7.8. Today, his hemoglobin is 12, it was 11.5 last night. White count is 8.3. Intraabdominal drain serosanguineous in last 24 hours, this is expected. Villegas output is good, 1275. OBJECTIVE: LUNGS: Clear to auscultation. CARDIAC: Regular rate and rhythm without murmur or gallop. ABDOMEN: Soft and nontender. Ileostomy healthy. ASSESSMENT AND PLAN: Doing well after colectomy. His pathology reveals a transverse colon cancer, moderately differentiated, two tumor deposits present in the pericolonic fat, pericolonic lymph nodes negative. T4b N1c M0 with preoperative CEA level of 7. Oncology outpatient discussion will be held at a later time. There is no need for him to see him this hospitalization. We will arrange this as an outpatient. At this point, he is tolerating his diet. He has a severe cardiomyopathy, Dr. Avalos is following him. We will plan placement of a cuffed tunneled treatment catheter tomorrow for administration of Milrinone IV infusion. We will keep him n.p.o. after midnight tonight. We will plan this procedure tomorrow under IV sedation and local anesthesia. The patient denies having any pain is well controlled on the current regimen. Tomorrow will plan removal of his abdominal wound, suction device, and plan poly removal of his drain. Plan should be made for outpatient rehab versus and/or infusion therapy at [facility] care facility. The patient is doing well from physical therapy standpoint. Walking is limited once a day and up in a chair frequently. Job ID: [id number]
--- NOTE | 2019-12-28 20:42 | PDOC.HOSPP ---
- Subjective Encounter Date: 12/28/19 Encounter Time: :20 Subjective: no overnight events. Continues to do well, HgB responded to 2xPRBC. Spoke with family after they requested update regarding patient's condition and plan of care. - Objective Vital Signs & Weight: Vital Signs (12 hours) Temp Pulse Pulse BP BP Pulse Ox 12/28/19 19:29 98.9 F 12/28/19 16:20 98.8 F 12/28/19 13:43 90 87 136/58 L 123/62 99 12/28/19 11:58 98.1 F 12/28/19 11:53 98.4 F Weight Admit Weight 170 lb 14.4 oz Weight 167 lb Most Recent Monitor Data Heart Rate from ECG 109 NIBP 129/50 NIBP BP-Mean 76 Respiration from ECG 23 SpO2 94 I&O: 12/27/19 12/28/19 12/29/19 06:59 06:59 06:59 Intake Total 1212 1766 1000 Output Total 5775 2517 975 Balance -1273 -751 25 Result Diagrams: 12/29/19 05:10 12/29/19 05:10 Hospitalist ROS - Review of Systems Constitutional: denies: fever, chills, sweats, weakness, malaise, other Respiratory: denies: cough, dry, shortness of breath, hemoptysis, SOB with excertion, pleuritic pain, sputum, wheezing, other Cardiovascular: denies: chest pain, palpitations, orthopnea, paroxysmal noc. dyspnea, edema, light headedness, other Gastrointestinal: denies: nausea, vomiting, abdominal pain, diarrhea, constipation, melena, hematochezia, other Genitourinary: denies: dysuria, frequency, incontinence, hematuria, retention, other - Medication Medications: Active Medications Generic Name Dose Route Start Last Admin Trade Name Freq PRN Reason Stop Dose Admin Acetaminophen 1,000 mg 12/20/19 21:00 12/28/19 16:00 Tylenol PO Not Given 0300,0900,1500,2100 MAXI Amiodarone HCl 200 mg 12/21/19 09:00 12/28/19 08:44 Cordarone PO 200 mg 0900 MAXI Administration Finasteride 5 mg 12/13/19 09:00 12/28/19 08:45 Proscar PO 5 mg DAILY MAXI Administration Furosemide 40 mg 12/27/19 15:00 12/28/19 17:48 Lasix SLOW IVP 40 mg 1500 MAXI Administration Gabapentin 100 mg 12/19/19 21:00 12/28/19 08:45 Neurontin PO 100 mg BID MAXI Administration Dobutamine HCl/Dextrose 250 mls @ 13.668 mls/hr 12/13/19 08:15 12/28/19 06:04 Dobutamine 500 Mg/250 Ml IVPB 250 mls INF MAXI Administration 6 MCG/KG/MIN Potassium Chloride 40 meq/ 100 mls @ 50 mls/hr 12/20/19 07:49 12/21/19 04:56 Device IVPB 100 mls ASDIR PRN Administration FOR SERUM K+ 2.5 - 3.5 Magnesium Sulfate 1 gm/ Sodium 102 mls @ 102 mls/hr 12/20/19 07:49 12/21/19 04:56 Chloride IV 102 mls PRN PRN Administration MAG LEVEL 1.4 - 2.0 Micafungin Sodium 100 mg/ 100 mls @ 100 mls/hr 12/24/19 18:00 12/28/19 17:48 Sodium Chloride IVPB 100 mls Q24H MAXI Administration Meropenem 1 gm/ Device 50 mls @ 200 mls/hr 12/26/19 18:00 12/28/19 17:48 IVPB 12/31/19 22:00 50 mls 0600,1800 MAXI Administration Milrinone Lactate 50 mg/ 250 mls @ 0 mls/hr 12/28/19 08:00 12/28/19 10:05 Sodium Chloride IVPB 250 mls INF MAXI Administration Levothyroxine Sodium 25 mcg 12/13/19 06:00 12/28/19 06:04 Synthroid PO 25 mcg 0600 MAXI Administration Pantoprazole Sodium 40 mg 12/27/19 21:00 12/28/19 08:44 Protonix IVP 40 mg Q12HR MAXI Administration Sodium Chloride 10 ml 12/11/19 21:39 12/27/19 08:46 Flush - Normal Saline IVF 10 ml PRN PRN Administration Saline Flush - Exam General Appearance: NAD, awake alert Neck: supple, symmetric, no JVD Heart: RRR, no murmur, no gallops, no rubs Respiratory: CTAB, no wheezes, no rales, no ronchi Gastrointestinal: soft, non-tender, non-distended, normal bowel sounds Extremities: 2+ LE edema Psychiatric: normal affect, normal behavior, oriented to person, oriented to place Hosp A/P - Plan (1) Colonic mass Code(s): K63.89 - OTHER SPECIFIED DISEASES OF INTESTINE Status: Acute (2) Hx of malignant neoplasm of colon Code(s): Z85.038 - PERSONAL HISTORY OF MALIGNANT NEOPLASM OF LARGE INTESTINE Status: Acute (3) CHF (congestive heart failure), NYHA class IV Code(s): I50.9 - HEART FAILURE, UNSPECIFIED Status: Acute Qualifiers: Congestive heart failure chronicity: acute on chronic (4) BPH (benign prostatic hyperplasia) Code(s): N40.0 - BENIGN PROSTATIC HYPERPLASIA WITHOUT LOWER URINRY TRACT SYMP Status: Chronic Qualifiers: Lower urinary tract symptom presence: symptoms absent Qualified Code(s): N40.0 - Benign prostatic hyperplasia without lower urinary tract symptoms (5) CAD (coronary artery disease) Code(s): I25.10 - ATHSCL HEART DISEASE OF [place] CORONARY ARTERY W/O ANG PCTRS Status: Chronic Qualifiers: Coronary Disease-Associated Artery/Lesion type: [place] artery [place] vs. 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 - Plan - remains HD supported by dobutamine; per cardiology, weaning off in favor of milrinone - HgB responded to 2 x PRBC; FOBT -ve; will continue to monitor - Has atwood in; may be problematic to discontinue atwood while patient HD supported since tamsulosin (home med) may cause hypotension; Also active diuresis may exacerbate urinary retention - currently paced rhythm; defer management to cardiology Code status: DNAR
[2019-12-29] MEDS: Acetaminophen 500 MG TAB PO SCH ×4 (04:25→21:59)
[2019-12-29] MEDS: DOBUTamine 500 mg/250 ml 250 ML IVPB SCH (04:31)
[2019-12-29] MEDS: MEROPENEM 1 GM/50 ML 1 GM in Premix Bag 1 BAG IVPB SCH ×2 (05:29→18:38)
[2019-12-29 06:20] LABS: Anion Gap 8 mmol/L (10-20); BUN (Urea Nitrogen) 29 mg/dL (8.4-25.7); Calc. Creatinine Clearance 66 mL/min (70-130); Calcium 9.2 mg/dL (7.8-10.44); Carbon Dioxide 27 mmol/L (23-31); Chloride 106 mmol/L (98-107); Estimated GFR-MDRD 87; Glucose 101 mg/dL (83-110); Sodium 137 mmol/L (136-145)
[2019-12-29 06:28] LABS: Band 4 % (5-11); Eosinophils 5 % (0-10); Hemoglobin 10.9 g/dL (14.0-18.0); Lymphocytes 4 % (21-51); MDiff Complete? YES; Mean Corpuscular HGB CONC 29.1 g/dL (32.0-36.0); Mean Corpuscular Hemoglobin 23.6 pg (27.0-31.0); Mean Corpuscular Volume 81.2 fL (78.0-98.0); Mean Platelet Volume 9.8 fL (7.4-10.4); Metamyelocyte 1 % (0-0); Monocytes 4 % (0-10); Neutrophil 82 % (42-75); Platelet Count 235 thou/uL (130-400); Platelet Morphology Comment Appears Adequate; RBC Distribution Width 21.4 % (11.5-14.5); Red Blood Cell (RBC) Count 4.63 mill/uL (4.70-6.10); White Blood Cell (WBC) Count 8.7 thou/uL (4.8-10.8)
[2019-12-29] MEDS ORDERED: Bupivacaine PF 0.5% 30 ML VIAL ONE (06:37)
[2019-12-29] MEDS ORDERED: Lidocaine 2% w/Epinephrine 1:200K 20 ML VIAL ONE (06:37)
[2019-12-29] MEDS ORDERED: Lidocaine 1% w/Epinephrine 1:100K 20 ML VIAL ONE (06:47)
[2019-12-29] MEDS ORDERED: Bupivacaine 0.25% HCL 30 ML VIAL ONE (06:47)
[2019-12-29] MEDS: Levothyroxine Sodium 25 MCG TAB PO SCH (06:59)
[2019-12-29] MEDS ORDERED: Fentanyl 100 MCG/2 ML VIAL ONE (07:02)
[2019-12-29] MEDS ORDERED: Midazolam HCl 2 mg/2 ml Vial ONE (07:02)
--- NOTE | 2019-12-29 08:46 | PRG ---
DATE OF SERVICE: 12/29/2019 SERVICE: [facility]. SUBJECTIVE: Mr. Baer had an excellent day. He was able to walk quite a ways yesterday. He was able to walk all the way down to the end of the unit and walked back and then did the other way. This is double of the walking distance from the day before. He is able to tolerate his three meals. However, he ate very little. He required liquid supplementation. He said that he slept fairly well last night. He denied any palpitations or syncope. REVIEW OF SYSTEMS: GENERAL: There is no fever or chills. HEENT: There is no change in swallowing or hearing. PULMONARY: He is breathing easier. No productive cough. CARDIOVASCULAR: Please see HPI. GI: Please see HPI. There is output in his ostomy bag. : He is still on the Villegas. MUSCULOSKELETAL: His joint swelling has greatly decreased. INTEGUMENT: There is no new breakdown. NEUROLOGIC: There are no focal deficits. PSYCHIATRIC: He is not depressed. He is looking forward to be able to go home. CARDIAC MEDICATIONS: Include 1. Amiodarone 200 mg daily. 2. Dobutamine 5 mcg/kg/minute. 3. Milrinone 0.25 mcg/kg/minute. 4. Lasix 40 mg IV daily as needed. PHYSICAL EXAMINATION: Telemetry was reviewed. He is paced at 90. He has some PVC, but there is no concerning arrhythmia. VITAL SIGNS: Today, heart rate paced at 90, blood pressure 132/49. His is negative 830 mL from yesterday. GENERAL: He is alert, conversational, talkative, more energetic than yesterday. HEENT: EOMI. Oropharynx benign with moist mucosa. No erythema. No exudate. NECK: JVP is still elevated about 12 cm, but then it is a little bit less than yesterday. LUNGS: Good air movement bilaterally. There are no crackles today. This is the best sounding lungs in many days. ABDOMEN: Somewhat distended. Ostomy bag in place. There is fecal material emptying in the ostomy bag. There is no sign of bleeding. EXTREMITIES: Lower extremity has 3+ edema from his feet to just below his knee. This is an improvement from yesterday. The edema in his arm has gone away. LABORATORY DATA: BUN 29 and creatinine 0.84. This is the best kidney function yet. ASSESSMENT: 1. Recurrent colon cancer. This has been resected. 2. Anastomosis leak. This patient has received diverting ileostomy at the distal portion of small bowel. There is currently no signs of bleeding or infection. 3. Peritonitis from anastomotic site leak. The patient's abdomen has been washed out. He has been treated with antibiotic and antifungal. 4. An 84-year-old gentleman remains in [place] Heart Association stage C and [place] Heart Association class 3B heart failure with reduced ejection fraction. This is due to combination of ischemic cardiomyopathy, mitral regurgitation, and aortic insufficiency. He has both systolic and diastolic dysfunctions. The dobutamine at 5 mcg/kg and milrinone at 0.25 mcg/kg are providing more than sufficient cardiac output. Because of that, his renal function has significantly improved and he only required very little diuretics to remove fluid. At this point, we will aim to remove fluid and also turn down his dobutamine and titrate his dobutamine off. Long-term spangler, we are aiming for patient to be able to discharge on milrinone drip to improve quality of life and perhaps increase survival. RECOMMENDATIONS: 1. The patient to undergo a Stubbs placement today. 2. When patient returns, we will begin the process of titrating down dobutamine, decrease dobutamine to 4 mcg/kg/minute. 3. Depending on my exam, the patient will likely receive another Lasix 40 mg IV today. 4. We will have PT, OT to assess the patient to see if he can go to assisted living next week. 5. We will contact infusion company to plan for the eventual discharge from hospital aiming for earlier next week. It has been a pleasure taking care of Mr. Baer. If any questions, please give me a call. Job ID: [id number] MTDD
--- NOTE | 2019-12-29 09:25 | OP ---
DATE OF PROCEDURE: 12/29/2019 PREOPERATIVE DIAGNOSES: 1. Cardiomyopathy. 2. Status post laparotomy and colon resection. 3. Colon cancer. 4. Need of IV infusion access for milrinone drip. POSTOPERATIVE DIAGNOSES: 1. Cardiomyopathy. 2. Status post laparotomy and colon resection. 3. Colon cancer. 4. Need of IV infusion access for milrinone drip. 5. Occluded right internal jugular vein outflow. 6. Note, left subclavian vein pacemaker status and defibrillator status. PROCEDURE PERFORMED: Placement of left internal jugular dual-lumen Stubbs catheter. Fluoroscopy and ultrasound utilized. DESCRIPTION OF PROCEDURE: The patient was taken to the operating room, where under intravenous sedation, neck and chest were prepared with ChloraPrep and draped in routine fashion. Local anesthetic mixture with 0.5% Marcaine 30 mL mixed with 1% Xylocaine with epinephrine 20 mL mixture was infiltrated into the skin and subcutaneous tissue about the operative site. Using ultrasound guidance, the right internal jugular vein was cannulated. J-wire threaded, but would not thread fluoroscopically as noted right IJ to have occluded outflow. The left IJ was then cannulated with a trocar and catheter and J-wire threaded into the superior vena cava. Stab incision was made over the left chest medial to the pacemaker and the tunneling device was used to tunnel a dual-lumen Stubbs catheter, placing the fabric cuff beneath the skin exit site, securing the catheter with 2 interrupted sutures of 3-0 nylon and sterile dressing applied. Catheter tailored to length and placed through a Peel-Away sheath after dilator and Peel-Away sheath had been placed over the J-wire under fluoroscopic visualization of the superior vena cava. Dilator and J-wire were removed. Catheter placed with the Peel-Away sheath. Peel-away sheath removed. Fluoroscopically, catheter noted to be in good position and catheter aspirated blood, flushed with heparinized saline solution. The patient tolerated the procedure well. Job ID: [id number]
--- NOTE | 2019-12-29 09:30 | PRG ---
DATE OF SERVICE: 12/29/2019 SUBJECTIVE: Mr. Baer is doing well today. He is tolerating his diet. He has been up in a chair. He has been ambulating. He is on dobutamine drip with plans to wean the dobutamine and switch him to a milrinone drip. He needs long-term IV access. Therefore, we will plan placement of a cuffed tunneled Stubbs catheter today to provide long-term milrinone drip access. The patient is deconditioned and wants to go to rehab, but hoping to go home of course, he lives in assisted living. 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 I have talked to Dr. Avalos. The patient will probably be ready to be discharged home mid next week and we should start making plans for that. The patient is tolerating his diet. OBJECTIVE: VITAL SIGNS: Blood pressure 125/49, heart rate 74, and temperature 98.4 degrees. LUNGS: Clear to auscultation. CARDIAC: Regular rate and rhythm without murmur or gallop. ABDOMEN: Soft, flat, nontender. SIMON drain, serosanguineous. 175 serosanguineous output, urine 1770 via Villegas, ileostomy output acceptable, nonbloody. LABORATORY DATA: This morning, hemoglobin 10.9, which is more the expected level for his transfusion for hemoglobin of 7.8 two days ago. There are no signs of external bleeding. Basic metabolic profile is normal with BUN of 29, down from 33 yesterday, and creatinine of 0.84. ASSESSMENT AND PLAN: 1. Cardiomyopathy. Plan Stubbs catheter for a milrinone drip infusion. He will need arrangements for outpatient infusion long-term. 2. Deconditioning. He will need rehab most likely postoperatively and have submitted a request to the case finisher. 3. Status post laparotomy, T4 colon cancer resection, and he will need to see Oncology as an outpatient. We will work out at a later time as an outpatient. There is no chemotherapy to be initiated at this time, and that discussion will be had to be held concerning his cardiomyopathy, age, and condition. 4. Remove his Villegas catheter and remove his SIMON drain. These were removed in the operating room. Midline dressing was removed and Telfa liliana removed from the wound. We will start daily washing the wound with soap and water and apply dry dressing. Job ID: [id number]
[2019-12-29] MEDS: Amiodarone 200 MG TAB PO SCH (10:12)
[2019-12-29] MEDS: Finasteride 5 MG TAB PO SCH (10:12)
[2019-12-29] MEDS: Gabapentin 100 MG CAP PO SCH ×2 (10:12→21:59)
[2019-12-29] MEDS ORDERED: PROPOFOL 200 MG/20 ML VIAL ONE (10:26)
[2019-12-29] MEDS ORDERED: Lidocaine 1% PF 5 ML VIAL ONE (10:26)
--- NOTE | 2019-12-29 11:34 | RAD ---
SINGLE VIEW CHEST: Date: 12/29/2019 COMPARISON: 12/25/2019. HISTORY: Central line placement. FINDINGS: Single view of the chest shows an enlarged but stable cardiomediastinal silhouette. The patient is st atus post CABG. The pacemaker is unchanged in position. There is a right central venous catheter with its tip in the superior vena cava. A left IJ central venous catheter is seen with its tip in the sup erior vena cava. No pneumothorax is seen. IMPRESSION: Status post central line placement without evidence of complication. POS: TPC
[2019-12-29] MEDS: Pantoprazole 40 MG VIAL IVP SCH (11:48)
[2019-12-29] MEDS ORDERED: Furosemide 40 MG/4 ML VIAL SLOW IVP SCH (14:00)
[2019-12-29] MEDS: Furosemide 40 MG/4 ML VIAL SLOW IVP SCH (14:50)
[2019-12-29] MEDS: Micafungin 100 MG in Sodium Chloride 0.9% 100 ML IVPB SCH (18:38)
--- NOTE | 2019-12-29 22:17 | PDOC.HOSPP ---
- Subjective Encounter Date: 12/29/19 Encounter Time: 08:45 Subjective: no overnight events. This morning, went for placement of oliveira catheter in order to transition from dobutamine to midodrine. Returned from procedure without atwood, bladder scan showed urinary retention so atwood was replaced. Has no complaints and feels well. - Objective Vital Signs & Weight: Vital Signs (12 hours) Temp 12/29/19 19:37 97.9 F 12/29/19 15:46 98.8 F 12/29/19 11:50 98.4 F Weight Admit Weight 170 lb 14.4 oz Weight 163 lb 14.4 oz Most Recent Monitor Data Heart Rate from ECG 89 NIBP 115/47 NIBP BP-Mean 69 Respiration from ECG 20 SpO2 97 I&O: 12/28/19 12/29/19 12/30/19 06:59 06:59 06:59 Intake Total 1766 1690 750 Output Total 0824 2660 991 [facility] -751 -970 -241 Result Diagrams: 12/29/19 05:10 12/29/19 05:10 Hospitalist ROS - Review of Systems Constitutional: denies: fever, chills, sweats, weakness, malaise, other Respiratory: denies: cough, dry, shortness of breath, hemoptysis, SOB with excertion, pleuritic pain, sputum, wheezing, other Cardiovascular: denies: chest pain, palpitations, orthopnea, paroxysmal noc. dyspnea, edema, light headedness, other Gastrointestinal: denies: nausea, vomiting, abdominal pain, diarrhea, constipation, melena, hematochezia, other Genitourinary: reports: retention Neurological: denies: weakness, numbness, incoordination, change in speech, confusion, seizures, other - Medication Medications: Active Medications Generic Name Dose Route Start Last Admin Trade Name Freq PRN Reason Stop Dose Admin Acetaminophen 1,000 mg 12/20/19 21:00 12/29/19 21:59 Tylenol PO 1,000 mg 0300,0900,1500,2100 MAXI Administration Amiodarone HCl 200 mg 12/21/19 09:00 12/29/19 10:12 Cordarone PO 200 mg 0900 MAXI Administration Finasteride 5 mg 12/13/19 09:00 12/29/19 10:12 Proscar PO 5 mg DAILY MAXI Administration Furosemide 40 mg 12/27/19 15:00 12/29/19 14:50 Lasix SLOW IVP 40 mg 1500 MAXI Administration Gabapentin 100 mg 12/19/19 21:00 12/29/19 21:59 Neurontin PO 100 mg BID MXAI Administration Dobutamine HCl/Dextrose 250 mls @ 13.668 mls/hr 12/13/19 08:15 12/29/19 04:31 Dobutamine 500 Mg/250 Ml IVPB 250 mls INF MAXI Administration 6 MCG/KG/MIN Potassium Chloride 40 meq/ 100 mls @ 50 mls/hr 12/20/19 07:49 12/21/19 04:56 Device IVPB 100 mls ASDIR PRN Administration FOR SERUM K+ 2.5 - 3.5 Magnesium Sulfate 1 gm/ Sodium 102 mls @ 102 mls/hr 12/20/19 07:49 12/21/19 04:56 Chloride IV 102 mls PRN PRN Administration MAG LEVEL 1.4 - 2.0 Micafungin Sodium 100 mg/ 100 mls @ 100 mls/hr 12/24/19 18:00 12/29/19 18:38 Sodium Chloride IVPB 100 mls Q24H MAXI Administration Meropenem 1 gm/ Device 50 mls @ 200 mls/hr 12/26/19 18:00 12/29/19 18:38 IVPB 12/31/19 22:00 50 mls 0600,1800 MAXI Administration Milrinone Lactate 50 mg/ 250 mls @ 0 mls/hr 12/28/19 08:00 12/28/19 10:05 Sodium Chloride IVPB 250 mls INF MAXI Administration Levothyroxine Sodium 25 mcg 12/13/19 06:00 12/29/19 06:59 Synthroid PO Not Given 0600 MAXI Pantoprazole Sodium 40 mg 12/29/19 21:00 12/29/19 21:59 Protonix PO 40 mg 2100 MAXI Administration Sodium Chloride 10 ml 12/11/19 21:39 12/27/19 08:46 Flush - Normal Saline IVF 10 ml PRN PRN Administration Saline Flush - Exam General Appearance: NAD, awake alert Neck: supple, symmetric, no JVD Heart: RRR, no murmur, no gallops, no rubs Respiratory: CTAB, no wheezes, no rales, no ronchi, normal chest expansion Gastrointestinal: soft, non-tender, normal bowel sounds Gastrointestinal - other findings: dressing over wound clean Extremities: 2+ LE edema Extremities - other findings: mildly improved Neurological: cranial nerve grossly intact Psychiatric: normal affect, normal behavior, A&O x 3 Hosp A/P - Plan (1) Colonic mass Code(s): K63.89 - OTHER SPECIFIED DISEASES OF INTESTINE Status: Acute (2) Hx of malignant neoplasm of colon Code(s): Z85.038 - PERSONAL HISTORY OF MALIGNANT NEOPLASM OF LARGE INTESTINE Status: Acute (3) CHF (congestive heart failure), NYHA class IV Code(s): I50.9 - HEART FAILURE, UNSPECIFIED Status: Acute Qualifiers: Congestive heart failure chronicity: acute on chronic (4) BPH (benign prostatic hyperplasia) Code(s): N40.0 - BENIGN PROSTATIC HYPERPLASIA WITHOUT LOWER URINRY TRACT SYMP Status: Chronic Qualifiers: Lower urinary tract symptom presence: symptoms absent Qualified Code(s): N40.0 - Benign prostatic hyperplasia without lower urinary tract symptoms (5) CAD (coronary artery disease) Code(s): I25.10 - ATHSCL HEART DISEASE OF [place] CORONARY ARTERY W/O ANG PCTRS Status: Chronic Qualifiers: Coronary Disease-Associated Artery/Lesion type: [place] artery [place] vs. transplanted heart: [place] heart Associated angina: without angina Qualified Code(s): I25.10 - Atherosclerotic heart disease of [place] coronary artery without angina pectoris (6) CKD (chronic kidney disease), stage III - at baseline Code(s): N18.3 - CHRONIC KIDNEY DISEASE, STAGE 3 (MODERATE) Status: Chronic (7) Chronic anticoagulation Code(s): Z79.01 - MEDIA SPECIALIST (CURRENT) USE OF ANTICOAGULANTS Status: Chronic (8) Pacemaker Code(s): Z95.0 - PRESENCE OF CARDIAC PACEMAKER Status: Chronic (9) Atrial fibrillation Code(s): I48.91 - UNSPECIFIED ATRIAL FIBRILLATION Status: Chronic Plan: Paced rhythm. - Plan - remains HD supported by dobutamine; per cardiology, weaning off in favor of milrinone; - Has atwood in; may be problematic to discontinue atwood while patient HD supported since tamsulosin (home med) may cause hypotension; Also active diuresis may exacerbate urinary retention; lastly, has known urinary retention per nurse who's had him since admission and difficult atwood placement; prefer to attempt weaning off atwood after patient more HD stable - currently paced rhythm Code status: DNAR
[2019-12-30] MEDS: DOBUTamine 500 mg/250 ml 250 ML IVPB SCH ×2 (02:35→23:10)
[2019-12-30 04:12] LABS: #Eosinphils 0.2 thou/uL (0.0-0.7); #Lymphocytes 0.6 thou/uL (1.20-3.40); #Monocytes 0.6 thou/uL (0.11-0.59); #Neutrophils 8.8 thou/uL (1.40-6.50); %Eosinophils 2.3 % (0.0-10.0); %Lymphocytes 5.4 % (21.0-51.0); %Monocytes 6.3 % (0.0-10.0); %Neutrophils 86.1 % (42.0-75.0); Hemoglobin 10.2 g/dL (14.0-18.0); Mean Corpuscular HGB CONC 31.8 g/dL (32.0-36.0); Mean Corpuscular Hemoglobin 25.8 pg (27.0-31.0); Platelet Count 219 thou/uL (130-400); RBC Distribution Width 21.3 % (11.5-14.5); Red Blood Cell (RBC) Count 3.96 mill/uL (4.70-6.10); White Blood Cell (WBC) Count 10.2 thou/uL (4.8-10.8)
[2019-12-30 04:33] LABS: Anion Gap 9 mmol/L (10-20); BUN (Urea Nitrogen) 27 mg/dL (8.4-25.7); Calc. Creatinine Clearance 59 mL/min (70-130); Calcium 8.9 mg/dL (7.8-10.44); Carbon Dioxide 28 mmol/L (23-31); Chloride 105 mmol/L (98-107); Estimated GFR-MDRD 76; Glucose 111 mg/dL (83-110); Magnesium 1.9 mg/dL (1.6-2.6); Potassium 4.5 mmol/L (3.5-5.1); Sodium 137 mmol/L (136-145)
[2019-12-30] MEDS: Acetaminophen 500 MG TAB PO SCH ×4 (05:54→20:59)
[2019-12-30] MEDS: Levothyroxine Sodium 25 MCG TAB PO SCH (06:33)
[2019-12-30] MEDS: MEROPENEM 1 GM/50 ML 1 GM in Premix Bag 1 BAG IVPB SCH ×2 (06:33→17:56)
[2019-12-30] MEDS: Amiodarone 200 MG TAB PO SCH (10:16)
[2019-12-30] MEDS: Gabapentin 100 MG CAP PO SCH ×2 (10:16→20:59)
[2019-12-30] MEDS: Finasteride 5 MG TAB PO SCH (10:16)
--- NOTE | 2019-12-30 11:03 | PDOC.HOSPP ---
- Subjective Encounter Date: 12/30/19 Encounter Time: 11:01 Subjective: Mr. Baer was seen today in follow-up of CHF exacerbation, and recurrent colon cancer. He is sitting up in a chair. He does not have any complaints. - Objective Vital Signs & Weight: Vital Signs (12 hours) Temp Pulse Ox 12/30/19 08:01 97 12/30/19 07:45 98 12/30/19 07:38 99.8 F H 12/30/19 04:03 96 12/30/19 03:59 98.6 F 12/29/19 23:28 99.7 F H Weight Admit Weight 170 lb 14.4 oz Weight 163 lb 14.4 oz Most Recent Monitor Data Heart Rate from ECG 90 NIBP 112/45 NIBP BP-Mean 67 Respiration from ECG 19 SpO2 96 I&O: 12/29/19 12/30/19 12/31/19 06:59 06:59 06:59 Intake Total 1690 1470 250 Output Total 2660 2091 Balance -970 -621 250 Result Diagrams: 12/30/19 03:47 12/30/19 03:47 Hospitalist ROS - Medication Medications: Active Medications Generic Name Dose Route Start Last Admin Trade Name Freq PRN Reason Stop Dose Admin Acetaminophen 1,000 mg 12/20/19 21:00 12/30/19 10:16 Tylenol PO 1,000 mg 0300,0900,1500,2100 MAXI Administration Amiodarone HCl 200 mg 12/21/19 09:00 12/30/19 10:16 Cordarone PO 200 mg 0900 MAXI Administration Finasteride 5 mg 12/13/19 09:00 12/30/19 10:16 Proscar PO 5 mg DAILY MAXI Administration Furosemide 40 mg 12/27/19 15:00 12/29/19 14:50 Lasix SLOW IVP 40 mg 1500 MAXI Administration Gabapentin 100 mg 12/19/19 21:00 12/30/19 10:16 Neurontin PO 100 mg BID MAXI Administration Potassium Chloride 40 meq/ 100 mls @ 50 mls/hr 12/20/19 07:49 12/21/19 04:56 Device IVPB 100 mls ASDIR PRN Administration FOR SERUM K+ 2.5 - 3.5 Magnesium Sulfate 1 gm/ Sodium 102 mls @ 102 mls/hr 12/20/19 07:49 12/21/19 04:56 Chloride IV 102 mls PRN PRN Administration MAG LEVEL 1.4 - 2.0 Micafungin Sodium 100 mg/ 100 mls @ 100 mls/hr 12/24/19 18:00 12/29/19 18:38 Sodium Chloride IVPB 100 mls Q24H MAXI Administration Meropenem 1 gm/ Device 50 mls @ 200 mls/hr 12/26/19 18:00 12/30/19 06:33 IVPB 12/31/19 22:00 50 mls 0600,1800 MAXI Administration Milrinone Lactate 50 mg/ 250 mls @ 0 mls/hr 12/28/19 08:00 12/28/19 10:05 Sodium Chloride IVPB 250 mls INF MAXI Administration Dobutamine HCl/Dextrose 250 mls @ 9.112 mls/hr 12/30/19 01:57 12/30/19 02:35 Dobutamine 500 Mg/250 Ml IVPB 250 mls INF MAXI Administration 4 MCG/KG/MIN Levothyroxine Sodium 25 mcg 12/13/19 06:00 12/30/19 06:33 Synthroid PO 25 mcg 0600 MAXI Administration Pantoprazole Sodium 40 mg 12/29/19 21:00 12/29/19 21:59 Protonix PO 40 mg 2100 MAXI Administration Sodium Chloride 10 ml 12/11/19 21:39 12/27/19 08:46 Flush - Normal Saline IVF 10 ml PRN PRN Administration Saline Flush - Exam Eye: PERRL Heart: RRR, no gallops, no rubs, normal peripheral pulses, murmur present, II/IV Respiratory: CTAB, no wheezes, no rales, no ronchi, normal chest expansion, no tachypnea, normal percussion Gastrointestinal: soft, non-tender, non-distended, normal bowel sounds Extremities: no cyanosis, no clubbing, 2+ LE edema (+ pitting edema in both ankles and lower extremities) Hosp A/P (1) Congestive heart failure, NYHA class 3 and ACC/AHA stage C Code(s): I50.9 - HEART FAILURE, UNSPECIFIED Status: Acute (2) BPH (benign prostatic hyperplasia) Code(s): N40.0 - BENIGN PROSTATIC HYPERPLASIA WITHOUT LOWER URINRY TRACT SYMP Status: Chronic Qualifiers: Lower urinary tract symptom presence: symptoms absent Qualified Code(s): N40.0 - Benign prostatic hyperplasia without lower urinary tract symptoms (3) CAD (coronary artery disease) Code(s): I25.10 - ATHSCL HEART DISEASE OF [place] CORONARY ARTERY W/O ANG PCTRS Status: Chronic Qualifiers: Coronary Disease-Associated Artery/Lesion type: [place] artery [place] vs. transplanted heart: [place] heart Associated angina: without angina Qualified Code(s): I25.10 - Atherosclerotic heart disease of [place] coronary artery without angina pectoris (4) Atrial fibrillation Code(s): I48.91 - UNSPECIFIED ATRIAL FIBRILLATION Status: Chronic - Plan * Acute on chronic systolic heart failure- discussed with Dr. Avalos- will continue Dobutamine, and the plan with be for him to be transitioned out of the hospital on this medication or Miltrinone * Recurrent colon cancer- he is post laporatomy and removal of the tumor- he is also on antibiotics for resumed peritonitis * CAD- stable * AFIB- his heart rate is stable on Amiodarone, no anticoagulation due to chronic GI blood loss, and recent surgery- this may need to be re-started at some point * Severe deconditioning- continue PT/OT
[2019-12-30] MEDS: Furosemide 40 MG/4 ML VIAL SLOW IVP SCH (16:35)
[2019-12-30] MEDS: Micafungin 100 MG in Sodium Chloride 0.9% 100 ML IVPB SCH (17:56)
[2019-12-30] MEDS: MILRINONE IVPB SCH (23:11)
[2019-12-30] MEDS: SODIUM CHLORIDE 0.9% IVPB SCH (23:11)
[2019-12-31] MEDS: Acetaminophen 500 MG TAB PO SCH ×4 (02:07→21:36)
[2019-12-31 03:57] LABS: #Eosinphils 0.3 thou/uL (0.0-0.7); #Lymphocytes 0.7 thou/uL (1.20-3.40); #Monocytes 0.7 thou/uL (0.11-0.59); %Basophils 0.3 % (0.0-1.0); %Eosinophils 2.5 % (0.0-10.0); %Lymphocytes 5.8 % (21.0-51.0); %Monocytes 6.1 % (0.0-10.0); %Neutrophils 85.4 % (42.0-75.0); Hemoglobin 10.4 g/dL (14.0-18.0); Mean Corpuscular HGB CONC 31.3 g/dL (32.0-36.0); Mean Corpuscular Hemoglobin 25.6 pg (27.0-31.0); Mean Corpuscular Volume 81.7 fL (78.0-98.0); Mean Platelet Volume 9.9 fL (7.4-10.4); Platelet Count 221 thou/uL (130-400); RBC Distribution Width 21.8 % (11.5-14.5); Red Blood Cell (RBC) Count 4.06 mill/uL (4.70-6.10); White Blood Cell (WBC) Count 11.7 thou/uL (4.8-10.8)
[2019-12-31 04:20] LABS: Anion Gap 9 mmol/L (10-20); BUN (Urea Nitrogen) 24 mg/dL (8.4-25.7); Calc. Creatinine Clearance 67 mL/min (70-130); Calcium 8.6 mg/dL (7.8-10.44); Carbon Dioxide 28 mmol/L (23-31); Chloride 103 mmol/L (98-107); Estimated GFR-MDRD 88; Glucose 93 mg/dL (83-110); Magnesium 1.9 mg/dL (1.6-2.6); Potassium 4.4 mmol/L (3.5-5.1); Sodium 136 mmol/L (136-145)
[2019-12-31] MEDS: MEROPENEM 1 GM/50 ML 1 GM in Premix Bag 1 BAG IVPB SCH ×2 (05:24→18:09)
[2019-12-31] MEDS: Levothyroxine Sodium 25 MCG TAB PO SCH (05:24)
--- NOTE | 2019-12-31 09:42 | PDOC.HOSPP ---
- Subjective Encounter Date: 12/31/19 Encounter Time: 09:40 Subjective: Mr. Baer was seen today in follow-up of respiratory failure and recurrent colon cancer. He does not have any complaints. H says he was up with PT and felt ok. - Objective Vital Signs & Weight: Vital Signs (12 hours) Temp Pulse Ox 12/31/19 07:18 99.4 F 97 12/31/19 07:07 96 12/31/19 03:35 99.4 F 12/30/19 23:42 99.4 F Weight Admit Weight 170 lb 14.4 oz Weight 157 lb 9 oz Most Recent Monitor Data Heart Rate from ECG 89 NIBP 107/46 NIBP BP-Mean 66 Respiration from ECG 23 SpO2 96 I&O: 12/30/19 12/31/19 01/01/20 06:59 06:59 06:59 Intake Total 1470 1535 Output Total 2091 2200 Balance -764 -285 Result Diagrams: 12/31/19 03:40 12/31/19 03:30 Hospitalist ROS - Medication Medications: Active Medications Generic Name Dose Route Start Last Admin Trade Name Freq PRN Reason Stop Dose Admin Acetaminophen 1,000 mg 12/20/19 21:00 12/31/19 02:07 Tylenol PO Not Given 0300,0900,1500,2100 MAXI Amiodarone HCl 200 mg 12/21/19 09:00 12/30/19 10:16 Cordarone PO 200 mg 0900 MAXI Administration Finasteride 5 mg 12/13/19 09:00 12/30/19 10:16 Proscar PO 5 mg DAILY MAXI Administration Furosemide 40 mg 12/27/19 15:00 12/30/19 16:35 Lasix SLOW IVP 40 mg 1500 MAXI Administration Gabapentin 100 mg 12/19/19 21:00 12/30/19 20:59 Neurontin PO 100 mg BID MAXI Administration Potassium Chloride 40 meq/ 100 mls @ 50 mls/hr 12/20/19 07:49 12/21/19 04:56 Device IVPB 100 mls ASDIR PRN Administration FOR SERUM K+ 2.5 - 3.5 Magnesium Sulfate 1 gm/ Sodium 102 mls @ 102 mls/hr 12/20/19 07:49 12/21/19 04:56 Chloride IV 102 mls PRN PRN Administration MAG LEVEL 1.4 - 2.0 Micafungin Sodium 100 mg/ 100 mls @ 100 mls/hr 12/24/19 18:00 12/30/19 17:56 Sodium Chloride IVPB 100 mls Q24H MAXI Administration Meropenem 1 gm/ Device 50 mls @ 200 mls/hr 12/26/19 18:00 12/31/19 05:24 IVPB 01/05/20 06:14 50 mls 0600,1800 MAXI Administration Milrinone Lactate 50 mg/ 250 mls @ 0 mls/hr 12/28/19 08:00 12/30/19 23:11 Sodium Chloride IVPB 250 mls INF MAXI Administration Dobutamine HCl/Dextrose 250 mls @ 9.112 mls/hr 12/30/19 01:57 12/30/19 23:10 Dobutamine 500 Mg/250 Ml IVPB 250 mls INF MAXI Administration 4 MCG/KG/MIN Levothyroxine Sodium 25 mcg 12/13/19 06:00 12/31/19 05:24 Synthroid PO 25 mcg 0600 MAXI Administration Pantoprazole Sodium 40 mg 12/29/19 21:00 12/30/19 20:59 Protonix PO 40 mg 2100 MAXI Administration Sodium Chloride 10 ml 12/11/19 21:39 12/27/19 08:46 Flush - Normal Saline IVF 10 ml PRN PRN Administration Saline Flush - Exam Eye: PERRL Heart: RRR, no murmur, no gallops, no rubs, normal peripheral pulses Respiratory: CTAB (with decreased breath sounds at the bases), no rales, no ronchi Gastrointestinal: soft, non-tender, non-distended, normal bowel sounds Extremities: no cyanosis, no clubbing, 1+ LE edema Hosp A/P (1) Congestive heart failure, NYHA class 3 and ACC/AHA stage C Code(s): I50.9 - HEART FAILURE, UNSPECIFIED Status: Acute (2) BPH (benign prostatic hyperplasia) Code(s): N40.0 - BENIGN PROSTATIC HYPERPLASIA WITHOUT LOWER URINRY TRACT SYMP Status: Chronic Qualifiers: Lower urinary tract symptom presence: symptoms absent Qualified Code(s): N40.0 - Benign prostatic hyperplasia without lower urinary tract symptoms (3) CAD (coronary artery disease) Code(s): I25.10 - ATHSCL HEART DISEASE OF [place] CORONARY ARTERY W/O ANG PCTRS Status: Chronic Qualifiers: Coronary Disease-Associated Artery/Lesion type: [place] artery [place] vs. transplanted heart: [place] heart Associated angina: without angina Qualified Code(s): I25.10 - Atherosclerotic heart disease of [place] coronary artery without angina pectoris (4) Atrial fibrillation Code(s): I48.91 - UNSPECIFIED ATRIAL FIBRILLATION Status: Chronic - Plan * Acute on chronic systolic heart failure- discussed with Dr. Avalos- Continue to wean Dobutamine, and transition to Milrinone * It is noted he has decreased breath sounds at the left base, and elevated WBC count- plan is for CT scan of the chest to rule out pulmonary infiltrate or effusion * Recurrent colon cancer- he is post laporatomy and removal of the tumor- he is also on antibiotics for presumed peritonitis * CAD- stable * AFIB- his heart rate is remains stable on Amiodarone, no anticoagulation due to chronic GI blood loss, and recent surgery- * Severe deconditioning- continue PT/OT
--- NOTE | 2019-12-31 10:03 | PRG ---
DATE OF SERVICE: 12/31/2019 SUBJECTIVE: Mr. Baer had an excellent day. He was able to increase his walking distance to the point where he is able to walk around the entire unit. He did that well without being short of breath and felt well afterwards. He was not able to void on his own yesterday and Villegas catheter was replaced back in. Unfortunately, it was very difficult and there was some trauma involved. At this point, it is best to leave this Villegas catheter in place. Mr. Baer said he was able to eat three meals, but only able to manage half. He feels full pretty quickly. He denies fever, chills, cough, palpitations, or syncope. He believes his edema has been decreasing. There is no more weeping from his arms. REVIEW OF SYSTEMS: GENERAL: He denies fever and chills. HEENT: There is no change in hearing, vision, or swallowing. PULMONARY: Please see HPI. CARDIOVASCULAR: Please see HPI. GI: Please see HPI. : Please see HPI. NEUROLOGIC: There are no focal deficits. INTEGUMENT: His edema has decreased, arms not weeping. PSYCH: He is not depressed at all. He is looking forward to be able to leave the hospital. MEDICATIONS: Current cardiac medications: 1. Amiodarone 200 mg daily. 2. Dobutamine at 4 mcg/kg/minute IV GTT. 3. Milrinone at 0.375 mcg/kg/minute IV GTT. 4. Lasix 40 mg IV daily. PHYSICAL EXAMINATION: Telemetry was reviewed. He is paced at 90 beats per minute. There are a few PVC. There is no concerning arrhythmia. VITAL SIGNS: Heart rate paced at 90, blood pressure 110/48. GENERAL: He is alert and conversational, sitting comfortably in a chair. HEENT: Show EOMI. His oropharynx is benign with moist mucosa. There is no erythema or no exudate. NECK: His JVP is about 12 cm. A little bit less than yesterday. PULMONARY: Good air movement. Clear to auscultation on the right lung, however , his lung sounds diminished or nearly absent at the left base. This is a bit worse than yesterday. HEART: Regular rate and rhythm with normal S1, S2, there is 3/6 holosystolic murmur at apex with radiation to the left axilla, there is 2/6 diastolic murmur at the right sternal border; he has both mitral regurgitation and aortic insufficiency. ABDOMEN: Soft, nontender. Positive bowel sounds. He has an ostomy bag in place. There is fecal material in it. There are no signs of bleeding or infection. EXTREMITIES: His arms are much better. There is loose skin. There was not much fluid in any more. He still has 3+ pitting edema from feet to his right below the knee, is less than yesterday. He has an excellent creatinine 0.83 today, however, his white cell count is elevated to about 11.7 and hemoglobin stable at 10.4. He has a net negative of 665 mL. ASSESSMENT: 1. Recurrent colon cancer. Post successful resection. 2. Anastomotic site leak. This had been repaired. He now has a diverting ileostomy. 3. Peritonitis due to anastomotic site leak. His abdomen has been washed out and he is on antibiotic and antifungal for this. He is doing well. 4. An 84-year-old gentleman, resides in [place] Heart Association stage C and also [place] Heart Association class 3B heart failure with reduced ejection fraction. He has both systolic and diastolic dysfunction. It is caused by combination of ischemic cardiomyopathy, mitral regurgitation, and also aortic insufficiency. Currently, combination dobutamine 4 mcg/kg/minute and also Milrinone at 0.25 mcg /kg per minute is providing sufficient cardiac output to sustain through this very acute period. At this point, we would like to transition to Milrinone only. He has sufficient net negative fluid balance but he still remains volume overloaded. We will continue to diurese him at a slow steady rate. RECOMMENDATIONS: 1. Decrease dobutamine to 2.5 mcg/kg/minute. 2. Increase Milrinone to 0.375 mcg/kg/minute. 3. After 12 hours, which by 8 p.m. tonight, if the patient's blood pressures remain above 100, please decrease dobutamine down to 1.25 mcg/kg/minute. 4. I will ask [employer] come by to decrease his heart rate down to 85. 5. Please do noncontrast CT of his chest to look for pleural effusion and possible consolidation at the left base. 6. Please do manual differential on CBC to see if he had a new infection. 7. If everything goes well, the patient can be discharged next week. If desired , the patient could probably benefit from some periods of rehabilitation at a facility such as an LTAC. It has been a pleasure taking care of Mr. Baer. If any question, please give me a call. Job ID: [id number] [id number]
[2019-12-31 10:27] LABS: Eosinophils 1 % (0-10); Hemoglobin 10.8 g/dL (14.0-18.0); Hypersemented Neutrophil SLIGHT; Large Platelets MODERATE; Lymphocytes 1 % (21-51); MDiff Complete? YES; Mean Corpuscular HGB CONC 31.4 g/dL (32.0-36.0); Mean Corpuscular Hemoglobin 25.8 pg (27.0-31.0); Mean Corpuscular Volume 82.2 fL (78.0-98.0); Mean Platelet Volume 9.9 fL (7.4-10.4); Monocytes 3 % (0-10); Neutrophil 94 % (42-75); Platelet Count 235 thou/uL (130-400); Platelet Morphology Comment Appears Adequate; White Blood Cell (WBC) Count 13.6 thou/uL (4.8-10.8)
[2019-12-31] MEDS: Amiodarone 200 MG TAB PO SCH (10:28)
[2019-12-31] MEDS: Gabapentin 100 MG CAP PO SCH ×2 (10:29→21:34)
[2019-12-31] MEDS: Finasteride 5 MG TAB PO SCH (10:29)
--- NOTE | 2019-12-31 13:06 | CT ---
CT CHEST: 12/31/2019 PROVIDED CLINICAL HISTORY: Pleural effusion. FINDINGS: The heart, pericardium and great vessels are suboptimally evaluated in the absence of IV contrast mat erial. Vascular calcification, including coronary calcium, is demonstrated. Median sternotomy changes and CABG changes are noted. Left subclavian cardiac pacing device is noted. There is a moderate left pleural effusion and a small right pleural effusion. There is no evidence fo r pneumothorax. The lungs are free of SI opacity with probable passive atelectasis at each lung base. The airway appears patent and of normal caliber. There is no evidence for thoracic lymph node enlargement with limitations due to lack of IV contrast material. The visualized portions of the upper abdomen demonstrate an unremarkable unenhanced CT appearance. The osseous structures demonstrate no concerning lytic or blastic lesions. IMPRESSION: 1. Moderate left and small right pleural effusions. 2. Atherosclerosis. POS: GENA
--- NOTE | 2019-12-31 13:14 | PRG ---
DATE OF SERVICE: 12/31/2019 SUBJECTIVE: Mr. Baer is an 84-year-old man with history of chronic congestive heart failure, who underwent laparoscopic adhesiolysis converted to exploratory laparotomy with lysis of adhesions, resection of previous ileocolic anastomosis, partial colectomy with ileocolic anastomosis. Surgery was performed on 12/20/2019. The patient was returned to the operating room on 12/23/2019 for exploratory laparotomy, repair of anastomotic leak, and creation of a diverting ileostomy. Today, the patient is awake and alert, reports adequate pain control. He is tolerating diet. Urinary output is adequate. He has been on the escalating dose of dobutamine managed by heart failure specialist, stable hand. He reports no dyspnea or syncope. OBJECTIVE: VITAL SIGNS: This morning include blood pressure 105/53, pulse is 90, pacemaker dependent, respiratory rate is 23, maximum temperature in last 24 hours is 99.8 degrees Fahrenheit, currently temperature is 97.8 degrees Fahrenheit, oxygen saturation is 97% on 2 L by nasal cannula oxygen. ABDOMEN: Soft, nontender, and nondistended. Ostomy is functional with stool. He clearly has no peritoneal signs on examination. LABORATORY FINDINGS: Today includes a CBC with 13,600 white blood cells, hemoglobin and hematocrit are stable at 10.8 and 34.5 respectively, platelet count is 235,000. Differential counts as follows; 94 segmented neutrophils, 1 lymphocyte, 3 monocytes, 1 eosinophil, and 1 basophil with no bands. Metabolic profile; sodium 136, potassium is 4.4, chloride is 103, bicarb is 28, BUN is 24, creatinine 0.83, glucose is 93, magnesium is 1.9. IMPRESSIONS: 1. Postoperative day #11 status post exploratory laparotomy, lysis of adhesions, resection of previous ileocolic anastomosis, and revision of ileocolostomy. 2. Postop day #8, status post re-exploratory laparotomy, repair of anastomotic leak with protective proximal ileostomy. 3. Stable acute congestive heart failure exacerbation. 4. Resolved acute kidney injury. PLAN: 1. Increase activity per Physical and Occupational Therapy. 2. There is no acute surgical indication for this patient at this time. 3. Heart failure management is deferred to the patient's stable hand. Job ID: [id number]
[2019-12-31] MEDS ORDERED: Calcium Carbonate 500 MG ChewTAB PO PRN (15:30)
[2019-12-31] MEDS: Furosemide 40 MG/4 ML VIAL SLOW IVP SCH (16:23)
[2019-12-31] MEDS: Micafungin 100 MG in Sodium Chloride 0.9% 100 ML IVPB SCH (18:52)
[2020-01-01] MEDS: Acetaminophen 500 MG TAB PO SCH ×4 (04:09→21:42)
[2020-01-01 05:03] LABS: #Eosinphils 0.3 thou/uL (0.0-0.7); #Lymphocytes 0.6 thou/uL (1.20-3.40); #Monocytes 0.7 thou/uL (0.11-0.59); #Neutrophils 11.5 thou/uL (1.40-6.50); %Basophils 0.2 % (0.0-1.0); %Eosinophils 2.2 % (0.0-10.0); %Lymphocytes 4.8 % (21.0-51.0); %Monocytes 5.6 % (0.0-10.0); %Neutrophils 87.3 % (42.0-75.0); Hemoglobin 10.3 g/dL (14.0-18.0); Mean Corpuscular HGB CONC 31.2 g/dL (32.0-36.0); Mean Corpuscular Hemoglobin 25.5 pg (27.0-31.0); Mean Corpuscular Volume 81.7 fL (78.0-98.0); Mean Platelet Volume 9.9 fL (7.4-10.4); Platelet Count 255 thou/uL (130-400); Red Blood Cell (RBC) Count 4.04 mill/uL (4.70-6.10); White Blood Cell (WBC) Count 13.1 thou/uL (4.8-10.8)
[2020-01-01 05:24] LABS: Anion Gap 10 mmol/L (10-20); BUN (Urea Nitrogen) 23 mg/dL (8.4-25.7); Calc. Creatinine Clearance 63 mL/min (70-130); Calcium 8.9 mg/dL (7.8-10.44); Carbon Dioxide 28 mmol/L (23-31); Chloride 102 mmol/L (98-107); Estimated GFR-MDRD 85; Glucose 99 mg/dL (83-110); Magnesium 1.9 mg/dL (1.6-2.6); Potassium 4.1 mmol/L (3.5-5.1); Sodium 136 mmol/L (136-145)
[2020-01-01] MEDS: SODIUM CHLORIDE 0.9% IVPB SCH (05:59)
[2020-01-01] MEDS: MILRINONE IVPB SCH (05:59)
[2020-01-01] MEDS: MEROPENEM 1 GM/50 ML 1 GM in Premix Bag 1 BAG IVPB SCH ×2 (06:05→17:24)
[2020-01-01] MEDS: Levothyroxine Sodium 25 MCG TAB PO SCH (06:06)
[2020-01-01] MEDS: DOBUTamine 500 mg/250 ml 250 ML IVPB SCH (06:08)
--- NOTE | 2020-01-01 08:23 | PRG ---
DATE OF SERVICE: 01/01/2020 SUBJECTIVE: Mr. Baer had a good day. He said he has been gaining strength. He is not short of breath. He is able to walk around the entire unit without difficulty. He still has early satiety. He does not feel like that he can eat much. There is no palpitation. There ss no syncope. He is looking forward to be able to go home or leave the hospital some day soon. REVIEW OF SYSTEMS: GENERAL: There is no fever or chills. HEENT: There is no change in vision, hearing, or swallowing. PULMONARY: Please see HPI. CARDIOVASCULAR: Please see HPI. GI: Please see HPI. : He is still on a Villegas, but his urine output has decreased, but this is secondary to his decreased input. NEUROLOGIC: There are no focal deficits. INTEGUMENT: There is no upper arm weeping anymore. PSYCH: He is not depressed. CARDIAC MEDICATIONS: Include 1. Amiodarone 200 mg daily. 2. Dobutamine at 1.25 mcg/kg/minute. 3. Milrinone 0.375 mcg/kg/minute. 4. Lasix 40 mg IV daily. OBJECTIVE: His telemetry was reviewed. He is paced at 90 beats per minute. There is occasional PVC. There are no concerning arrhythmias. VITAL SIGNS: Heart rate paced at 90, blood pressure 106/50, saturating at 97% on room air. GENERAL: He is alert, conversational, sitting comfortably in chair, eating his breakfast. HEENT: EOMI, PERRL. Oropharynx benign. Moist mucosa. There is no erythema, no exudate. NECK: His JVP is about 11 cm, this has decreased a bit from yesterday. LUNGS: There is good air movement on the right side of the lung. There is a good air movement on left upper lung. Lower left base has absent lung sounds. HEART: Regular rate and rhythm with a normal S1, S2, there is 3/6 holosystolic murmur at the apex with radiation to the left axilla, there is also 2/6 diastolic murmur at the right sternal border; because he has a combination of mitral regurgitation and aortic insufficiency. ABDOMEN: Soft, nontender. There is an ileostomy in place with fecal material in it. INTEGUMENT: He has 2+ edema from the feet to just below his knees. The edema has continued to decrease. LABORATORY DATA: His chemistry showed that his creatinine is good at 0.85 and BUN is 23. However, he has persistent high white cell count of 13.1 with about 87% neutrophils. ASSESSMENT: 1. Recurrent colon cancer. It has been resected. 2. Anastomosis site leak. It has been repaired and a diverting ileostomy has been placed. 3. Peritonitis due to leaking in most of the site. The patient's abdomen has been washed out, had been treated with antibiotic. A drain was placed and drain has been pulled. Currently he has no active issues. The patient will need to go home on permanent ileostomy. 4. An 84-year-old gentleman, resides in [place] Heart Association stage C, [place] Heart Association class 3B heart failure with reduced ejection fraction. It contains both systolic and diastolic dysfunctions. It is caused by combination of ischemic cardiomyopathy, mitral regurgitation, and aortic insufficiency. He is being transitioned from dobutamine to milrinone. Currently, milrinone is providing sufficient cardiac output. We will aim to switch off dobutamine completely. He is to be discharged on milrinone. He is still mildly volume overloaded, but much less so. We will have one more day of active IV diuresis and tomorrow we plan to switch to oral diuretics as potential outpatient maintenance regimen. 5. Elevated white cell count and left pleural effusion. This needs to be investigated. RECOMMENDATIONS: 1. Stop dobutamine now. The patient seems to be doing well on milrinone. 2. Discontinue all prior Lasix ordered and use Lasix 60 mg IV daily. 3. Consult Pulmonology for potential either diagnostic or therapeutic left thoracentesis. 4. We will ask [employer] sales representative to reduce his heart rate down to 85. 5. If all goes well, the patient will go home on combination of chronic milrinone infusion and oral diuretics. In the next several days, his heart failure medication will be slowly added back too. It has been a pleasure taking care of Mr. Baer. If you have any questions, please give me a call. Job ID: [id number]
[2020-01-01] MEDS: Finasteride 5 MG TAB PO SCH (08:28)
[2020-01-01] MEDS: Amiodarone 200 MG TAB PO SCH (08:28)
[2020-01-01] MEDS: Gabapentin 100 MG CAP PO SCH ×2 (08:28→21:42)
--- NOTE | 2020-01-01 09:40 | PRG ---
DATE OF SERVICE: 12/30/2019 SUBJECTIVE: Mr. Baer had a good day. He went through Stubbs placement and also takedown of the SIMON drain without any difficulties. He returned. Afterwards, he was able to walk 450 feet. Villegas catheter was taken out. He was not able to urinate and felt bad afterwards. Overnight, Villegas catheter had to be replaced. REVIEW OF SYSTEMS: GENERAL: There is no fever or chills. HEENT: There is no change of vision, swallowing, or hearing. PULMONARY: He says he is not short of breath. Breathing easy. CARDIOVASCULAR: He has no palpitation or syncope. GI: He is able to eat 3 meals, but then he requires nutritional supplement. : Please see HPI. MUSCULOSKELETAL: He does not really complain of joint pain this morning. INTEGUMENT: There is no new breakdown. He says the weeping in his arm is a lot less. NEUROLOGIC: There are no focal deficits. PSYCHIATRIC: He is not depressed. CURRENT CARDIAC MEDICATIONS: Include, 1. Amiodarone 200 mg daily. 2. Dobutamine at 5 mcg/kg/minute IV GTT. 3. Milrinone at 0.25 mcg/kg IV GTT. 4. Lasix 40 mg IV daily. PHYSICAL EXAMINATION: VITAL SIGNS: Telemetry was reviewed. He has some PVC, but no concerning arrhythmia. His heart rate is paced at 90 beats per minute. Blood pressure 113 /48. His saturation is 97% on room air. GENERAL: He is alert, conversational, relaxed, eating breakfast. HEENT: Shows EOMI. Oropharynx benign with moist mucosa. NECK: JVP is about 4 cm. LUNGS: Clear to auscultation bilaterally. HEART: Regular rate and rhythm with normal S1 and S2, 2/6 holosystolic murmur at the apex with radiation to the left axilla, 2/6 diastolic murmur at the right sternal border; says he has both mitral regurgitation and aortic insufficiency murmur. ABDOMEN: Ileostomy is in place in right upper quadrant with some fecal material discharging into. There is no blood. There is no sign of infection. LOWER EXTREMITIES: He has 3+ pitting edema to up to his knees, but less so than yesterday. His arm has a lot less edema now. LABORATORY DATA: Creatinine still is steady at 0.94. [place] [address] This could be due to the procedure from yesterday. There was also a bump in his BNP to 1088, this again could be due to the procedure last night. ASSESSMENT: 1. Recurrent colon cancer that caused bleed and developing obstruction. This has been resected. 2. Anastomotic site leak. This has been corrected. The patient received a diverting ileostomy. 3. Peritonitis due to anastomotic site leak. The abdomen has been washed. The patient is on antibiotic and antifungal. 4. An 84-year-old gentleman, resides in [place] Heart Association stage C and [place] heart Association class IIIB heart failure with reduced ejection fraction. This is due to combination of ischemic cardiomyopathy, aortic insufficiency, and also mitral regurgitation. Combination of dobutamine at 5 mcg/kg/minute and milrinone 0.25 mcg/kg/minute and pacing at 90 beats per minute , provide sufficient cardiac output for his multiple surgeries and infectious conditions. At this point, we can now start to titrate off dobutamine. The goal will be titrating dobutamine off completely. He is still volume overloaded, but we will aim to pull off about 500 mL to 1000 mL per day. RECOMMENDATIONS: 1. Decrease dobutamine to 4 mcg/kg/minute. 2. We would decrease pacing rate down to 85. [employer]'s front office representative has been contacted. She will come in to turn the rate down today. 3. Please continue with the antibiotics and anti-fungal for 3 more days just to give a full 10-day course. 4. We will contact infusion company with potential goal of discharge next Wednesday provided everything has been done, this includes titrating off dobutamine completely, transition from IV diuretics to oral diuretics, and finding a stable outpatient oral medication regimen. He will go home on chronic milrinone infusion. 5. Please continue to work with the patient in PT and OT to allow regain function, and also for ostomy care. It has been a pleasure taking care of Mr. Baer. If you have any questions, please give me a call. Job ID: [id number] [facility]
[2020-01-01 09:49] LABS: Band 5 % (5-11); Eosinophils 3 % (0-10); Lymphocytes 4 % (21-51); Reactive Lymphocytes 1 % (0-10)
[2020-01-01 09:50] LABS: Monocytes 3 % (0-10); Neutrophil 83 % (42-75); Platelet Morphology Comment Appears Adequate; Polychromasia SLIGHT = 2-3 cells (100X) (0-2/hpf)
--- NOTE | 2020-01-01 11:10 | PDOC.GSPN ---
Surgery Progress Note: Subj - Subjective Narrative: Patient is a 84-year-old man with a hx of chronic CHF s/p laparoscopic adhesiolysis converted to exploratory laparotomy with KIZZY, partial transverse colectomy with ileocolic anastomosis on 12/20/2019 requiring a return to OR for exploratory laparotomy with repair of anastomotic leak and diverting ileostomy on 12/23/2019. He is currently on a milrinone infusion through a L IJ dual lumen Stubbs catheter placed by Dr Ku and is being followed by cardiology. An indwelling urinary catheter is in place for urinary retention.Today patient reports doing well overnight with minimal discomfort and adequate pain control. He endorses walking twice around the unit yesterday with PT. He is able to maintain his diet,however reports early satiety. He has had good output into his ileostomy. He denies passage of stool through anus, fever, chills, n/v, SOB , cough, CP, abdominal pain, wound drainage or erythma. Midline abdominal dressing was changed yesterday Surgery Progress Note: Obj - Vital signs Vital signs: Vital Signs - Most Recent Temp Pulse Resp BP Pulse Ox 98.0 F 90 19 113/48 L 97 01/01/20 07:12 12/31/19 11:00 12/27/19 14:29 12/31/19 11:00 01/01/20 08:00 - Physical Exam General: no distress, well developed, well nourished Cardiovascular: regular rate and rhythm Respiratory: clear to auscultation, normal expansion, normal respiratory effort , breath sounds present Abdomen: soft, non tender, nondistended, positive bowel sounds Genitourinary (Male): other Integumentary: other Psychiatric: memory intact, oriented to time, oriented to person, oriented to place, speech is normal Wound: dressing clean,dry,intact, ostomy/colostomy (Ostomy healthy and pink appearing with moderate volume of bowel contents in bag), other (small area of midline cutaneous dehiscence with intact underlying fascia) Surgery Progress Note: Results - Labs Result Diagrams: 01/01/20 05:00 01/01/20 05:00 Lab results: Laboratory Results - last 24 hr 01/01/20 01/01/20 01/01/20 05:00 05:00 05:00 WBC 13.1 H RBC 4.04 L Hgb 10.3 L Hct 33.0 L MCV 81.7 MCH 25.5 L MCHC 31.2 L RDW 22.0 H Plt Count 255 MPV 9.9 Neutrophils % 87.3 H Neutrophils % (Manual) 83 H Band Neuts % (Manual) 5 Lymphocytes % 4.8 L Lymphocytes % (Manual) 4 L Reactive Lymphs % 1 Monocytes % 5.6 Monocytes % (Manual) 3 Eosinophils % 2.2 Eosinophils % (Manual) 3 Basophils % 0.2 Basophils % (Manual) 1 Neutrophils # 11.5 H Lymphocytes # 0.6 L Monocytes # 0.7 H Eosinophils # 0.3 Basophils # 0.0 Plt Morphology Comment Appears Adequate Polychromasia SLIGHT = 2-3 cells Sodium 136 Potassium 4.1 Chloride 102 Carbon Dioxide 28 Anion Gap 10 BUN 23 Creatinine 0.85 Estimated GFR (MDRD) 85 Glucose 99 Calcium 8.9 Magnesium 1.9 B-Natriuretic Peptide 1753.6 H Surgery Progress Note: A/P - Plan Plan: Assessment: 1. S/P exploratory laparotomy, KIZZY, reswection of previous ileocolic anastomosis and transverse colon mass, POD#12 2. S/P re-exploratory laparotomy w/ repair of anastomotic leak and proximal ileostomy formation 3. CHF exacerbation, stable and followed by cardiology PLAN: Patient is doing well from a surgical standpoint with adequate bowel function and pain well managed. Continue to encourage ambulation and working with PT/OT. Continue heart healthy diet. Will follow recommendations for treatment of CHF from cardiology. Will wait until pt is stabilized on milrinone drip to begin bladder training for severe BPH. Indwelling catheter will currently remain in place Addendum - Physician - Physician Attestation Date/Time: 01/01/20 [id number] I personally performed or re-performed the physical examination and medical decision making. I have verified all student documentation or findings, including history, physical exam and/or medical decision making. Tolerate diet. Wound has some open areas without infection' Keeping atwood in for now secondary to retention WBC up to 13 today but otherwise clinically doing better. CT without contrast showed no obvious abscess. Will need placement. Sounds like milrinone if required may make him need LTAC
--- NOTE | 2020-01-01 11:19 | PDOC.HOSPP ---
- Subjective Encounter Date: 01/01/20 Encounter Time: 11:14 Subjective: Mr. Baer was seen today in follow-up of CHF exacerbation and recurrent colon cancer. He does not have any complaints. He denies chest pain - Objective Vital Signs & Weight: Vital Signs (12 hours) Temp Pulse Ox 01/01/20 08:00 97 01/01/20 07:12 98.0 F 01/01/20 04:26 97.7 F 12/31/19 23:37 97.7 F Weight Admit Weight 170 lb 14.4 oz Weight 161 lb 6.4 oz Most Recent Monitor Data Heart Rate from ECG 89 NIBP 108/47 NIBP BP-Mean 67 Respiration from ECG 21 SpO2 99 I&O: 12/31/19 01/01/20 01/02/20 06:59 06:59 06:59 Intake Total 1535 1590 200 Output Total 2200 2150 Balance -665 -560 200 Result Diagrams: 01/01/20 05:00 01/01/20 05:00 Hospitalist ROS - Medication Medications: Active Medications Generic Name Dose Route Start Last Admin Trade Name Freq PRN Reason Stop Dose Admin Acetaminophen 1,000 mg 12/20/19 21:00 01/01/20 08:50 Tylenol PO Not Given 0300,0900,1500,2100 MAXI Amiodarone HCl 200 mg 12/21/19 09:00 01/01/20 08:28 Cordarone PO 200 mg 0900 MAXI Administration Calcium Carbonate 500 mg 12/31/19 15:30 12/31/19 16:22 Tums PO 500 mg Q4H PRN Administration Heartburn or Indigestion Finasteride 5 mg 12/13/19 09:00 01/01/20 08:28 Proscar PO 5 mg DAILY MAXI Administration Gabapentin 100 mg 12/19/19 21:00 01/01/20 08:28 Neurontin PO 100 mg BID MAXI Administration Potassium Chloride 40 meq/ 100 mls @ 50 mls/hr 12/20/19 07:49 12/21/19 04:56 Device IVPB 100 mls ASDIR PRN Administration FOR SERUM K+ 2.5 - 3.5 Magnesium Sulfate 1 gm/ Sodium 102 mls @ 102 mls/hr 12/20/19 07:49 12/21/19 04:56 Chloride IV 102 mls PRN PRN Administration MAG LEVEL 1.4 - 2.0 Meropenem 1 gm/ Device 50 mls @ 200 mls/hr 12/26/19 18:00 01/01/20 06:05 IVPB 01/05/20 06:14 50 mls 0600,1800 MAXI Administration Milrinone Lactate 50 mg/ 250 mls @ 0 mls/hr 12/28/19 08:00 01/01/20 05:59 Sodium Chloride IVPB 250 mls INF MAXI Administration Micafungin Sodium 100 mg/ 100 mls @ 100 mls/hr 12/31/19 19:00 12/31/19 18:52 Sodium Chloride IVPB 100 mls 1900 MAXI Administration Levothyroxine Sodium 25 mcg 12/13/19 06:00 01/01/20 06:06 Synthroid PO 25 mcg 0600 MAXI Administration Magnesium Oxide 400 mg 12/20/19 07:49 01/01/20 08:28 Magnesium Oxide PO 400 mg BIDPRN PRN Administration FOR SERUM MAG 1.4 - 2.0 Pantoprazole Sodium 40 mg 12/29/19 21:00 12/31/19 21:34 Protonix PO 40 mg 2100 MAXI Administration Sodium Chloride 10 ml 12/11/19 21:39 12/27/19 08:46 Flush - Normal Saline IVF 10 ml PRN PRN Administration Saline Flush - Exam Eye: PERRL Respiratory: CTAB, no wheezes, no rales, no ronchi, normal chest expansion, rhonchi Gastrointestinal: soft, non-tender, non-distended, normal bowel sounds, no palpable masses Extremities: no cyanosis Hosp A/P (1) Congestive heart failure, NYHA class 3 and ACC/AHA stage C Code(s): I50.9 - HEART FAILURE, UNSPECIFIED Status: Acute (2) BPH (benign prostatic hyperplasia) Code(s): N40.0 - BENIGN PROSTATIC HYPERPLASIA WITHOUT LOWER URINRY TRACT SYMP Status: Chronic Qualifiers: Qualified Code(s): N40.0 - Benign prostatic hyperplasia without lower urinary tract symptoms (3) CAD (coronary artery disease) Code(s): I25.10 - ATHSCL HEART DISEASE OF [place] CORONARY ARTERY W/O ANG PCTRS Status: Chronic Qualifiers: Qualified Code(s): I25.10 - Atherosclerotic heart disease of [place] coronary artery without angina pectoris (4) Atrial fibrillation Code(s): I48.91 - UNSPECIFIED ATRIAL FIBRILLATION Status: Chronic - Plan * Acute on chronic systolic heart failure- he has been weaned off Dobutamine, and is on Milrinone * CT scan of the chest was noted- he has a pleural effusion, which is expected * Recurrent colon cancer- he is post laporatomy and removal of the tumor- he is also on antibiotics for presumed peritonitis * CAD- stable * AFIB- his heart rate is remains stable on Amiodarone, no anticoagulation due to chronic GI blood loss, and recent surgery- * Severe deconditioning- continue PT/OT * Awaiting Placement
[2020-01-01] MEDS ORDERED: Furosemide 100 MG/10 ML VIAL SLOW IVP SCH (13:00)
[2020-01-01] MEDS: Micafungin 100 MG in Sodium Chloride 0.9% 100 ML IVPB SCH (17:54)
[2020-01-02] MEDS: Acetaminophen 500 MG TAB PO SCH ×4 (05:44→21:39)
[2020-01-02 06:04] LABS: Anion Gap 10 mmol/L (10-20); BUN (Urea Nitrogen) 25 mg/dL (8.4-25.7); Calc. Creatinine Clearance 64 mL/min (70-130); Calcium 8.9 mg/dL (7.8-10.44); Carbon Dioxide 26 mmol/L (23-31); Chloride 103 mmol/L (98-107); Estimated GFR-MDRD 87; Glucose 93 mg/dL (83-110); Potassium 3.9 mmol/L (3.5-5.1); Sodium 135 mmol/L (136-145)
[2020-01-02] MEDS: Levothyroxine Sodium 25 MCG TAB PO SCH (06:23)
[2020-01-02] MEDS: MEROPENEM 1 GM/50 ML 1 GM in Premix Bag 1 BAG IVPB SCH ×2 (06:23→17:15)
[2020-01-02 06:46] LABS: Hemoglobin 10.2 g/dL (14.0-18.0); Mean Corpuscular HGB CONC 30.2 g/dL (32.0-36.0); Mean Corpuscular Hemoglobin 25.2 pg (27.0-31.0); Mean Corpuscular Volume 83.4 fL (78.0-98.0); Mean Platelet Volume 9.9 fL (7.4-10.4); Platelet Count 292 thou/uL (130-400); RBC Distribution Width 22.3 % (11.5-14.5); Red Blood Cell (RBC) Count 4.03 mill/uL (4.70-6.10)
[2020-01-02 06:47] LABS: #Basophils 0.1 thou/uL (0.0-0.2); #Eosinphils 0.3 thou/uL (0.0-0.7); #Lymphocytes 0.8 thou/uL (1.20-3.40); #Monocytes 0.7 thou/uL (0.11-0.59); #Neutrophils 8.1 thou/uL (1.40-6.50); %Basophils 0.5 % (0.0-1.0); %Eosinophils 3.5 % (0.0-10.0); %Lymphocytes 8.2 % (21.0-51.0); %Monocytes 6.9 % (0.0-10.0)
[2020-01-02 06:54] LABS: MDiff Complete? YES; Macrocytosis SLIGHT = 6-15 cells (100X) (0-5/hpf); Microcytosis MODERATE=15-30 cells (100X) (0-5/hpf); Ovalocytes SLIGHT = 2-5 cells (100X) (0-1/hpf); Platelet Morphology Comment Appears Adequate
[2020-01-02] MEDS ORDERED: Spironolactone 25 MG TAB PO SCH (08:00)
--- NOTE | 2020-01-02 08:29 | PRG ---
DATE OF SERVICE: 01/02/2020 This is from [facility]. SUBJECTIVE: Mr. Baer had a good day. He doubled his walking distance. He was able to walk around the CC[place] square twice without difficulty. He denies shortness of breath. He feels good. He still have early satiety. He only can eat a little bit of food at a time. He was able to sleep well. He denies palpitations or syncope. He denies fever and chills. REVIEW OF SYSTEMS: GENERAL: Denies fever and chills. HEENT: There is no changing in vision hearing or swallowing. PULMONARY: See HPI. CARDIOVASCULAR: Please see HPI. GI: Please see HPI. : He is still on the Villegas catheter. MUSCULOSKELETAL: He has swelling. He believes this is still decreasing, but he still has some edema around his thighs and legs. NEUROLOGIC: There is no focal deficit. INTEGUMENT: There is no skin breakdown. PSYCHIATRIC: He is not depressed and he is looking forward to leaving the hospital soon. MEDICATIONS: His cardiac medications include: 1. Amiodarone 200 mg daily. 2. Milrinone at 0.375 mcg/kg/min. 3. Lasix 60 mg IV daily. PHYSICAL EXAMINATION: VITAL SIGNS: Telemetry was reviewed. He is paced at 85 beats per minute. This is changed from yesterday. His pacemaker was adjusted. There is no concerning arrhythmia. There are a few PVCs. VITAL SIGNS: Heart rate paced at 85, blood pressure 99/46. His oxygen saturations 97% on room air. GENERAL: He is alert and conversational, sitting comfortably in chair, eating breakfast. NECK: JVP is at 11 cm. LUNGS: Good air movement. Clear to auscultation on the right side; however, he has decreased breath sounds on the left side corresponding to left pleural effusion. CARDIAC: Regular rate and rhythm with occasional irregularity, normal S1, S2, there is 3/6 holosystolic murmur at the apex with radiation to the left axilla. There is 2/6 diastolic murmur at the right sternal border; consequently, he has both mitral regurgitation and aortic insufficiency. ABDOMEN: Soft. There is ileostomy in place in right upper quadrant. There is fecal material but there is no blood or signs of infection. EXTREMITIES: Lower extremity, he has 3+ pitting edema up to his knees, but he does have some pitting edema in his thighs. Overall it has decreased, but then this is still there. LABORATORY VALUES: BUN 25, creatinine 0.84. White cell count 10, and hemoglobin 10.2. His BNP has decreased from >1700 down to 1146. ASSESSMENT: 1. Recurrent colon cancer. This has been resected. 2. Anastomosis site leak. The patient received diverting ileostomy. 3. Peritonitis due to anastomosis site leak. The abdomen has been washed out during surgery and the patient has been receiving treatment of antibiotics and antifungal. There is currently no active issue. 4. Leukocytosis. The white cell count came down from 13,000 to 10,000. There are no bands. 5. Persistent moderate level of pleural effusion. We will ask Pulmonary to come assess it. 6. 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 Currently, milrinone at 0.375 mcg/kg/min provides him enough cardiac output. He was able to maintain his blood pressure and normal renal function. He is still volume overloaded, but less so since admission. At this point, there is no reason to hold him in the hospital for long-term diuresis. This will need to be done over time. We will restart his heart failure treatment medications including small dose of carvedilol, small dose spironolactone and converting from IV diuretics to oral diuretics. If patient does well on the regimen and we increase it tomorrow there is a good chance that he may take until Wednesday for discharge because it would take some time to titrate up his oral medication, make sure the patient is stable. RECOMMENDATIONS: 1. Discontinue IV Lasix. 2. Start torsemide 40 mg by mouth daily. 3. Start carvedilol 3.125 mg every 12 hours. 4. Provide K-Dur 10 mEq daily. 5. Start spironolactone 12.5 mg daily. 6. Continue with Pulmonary consult to assess the need for thoracentesis of the left pleural effusion. 7. We will consult Infectious Disease about the length of antibiotics since the patient had essentially intestinal perforation and peritonitis. It has been a pleasure taking care of Mr. Baer. If any questions, please give me a call. Per Dr. Louis Wheat's Infectious Disease) recommendations, we will need to continue with Ertapanem 1 gm daily and fluconazole 200 mg daily for 5-days post discharge. We appreciate Dr. Wheat's input. Job ID: [id number] [facility]TD[facility]
[2020-01-02] MEDS: Gabapentin 100 MG CAP PO SCH ×2 (08:35→21:39)
[2020-01-02] MEDS: Potassium Chloride 10 MEQ TAB PO SCH (08:35)
[2020-01-02] MEDS: Finasteride 5 MG TAB PO SCH (08:35)
[2020-01-02] MEDS: Amiodarone 200 MG TAB PO SCH (08:35)
[2020-01-02] MEDS: Carvedilol 3.125 MG TAB PO SCH ×2 (08:35→21:39)
[2020-01-02] MEDS ORDERED: Torsemide 20 MG TAB PO SCH (09:00)
--- NOTE | 2020-01-02 11:38 | PDOC.HOSPP ---
- Subjective Encounter Date: 01/02/20 Encounter Time: 11:34 Subjective: Mr. Baer was seen today in follow-up recurrent colon cancer, and CHF exacerbation. He does not have any complaints. - Objective Vital Signs & Weight: Vital Signs (12 hours) Temp BP Pulse Ox 01/02/20 11:03 98/42 L 01/02/20 08:05 98 F 01/02/20 07:47 97 01/02/20 04:00 98.0 F Weight Admit Weight 170 lb 14.4 oz Weight 158 lb 14.4 oz Most Recent Monitor Data Heart Rate from ECG 84 NIBP 92/40 NIBP BP-Mean 57 Respiration from ECG 19 SpO2 97 I&O: 01/01/20 01/02/20 01/03/20 06:59 06:59 06:59 Intake Total 1590 1440 200 Output Total 2150 1435 Balance -560 5 200 Result Diagrams: 01/02/20 05:00 01/02/20 05:00 Hospitalist ROS - Medication Medications: Active Medications Generic Name Dose Route Start Last Admin Trade Name Freq PRN Reason Stop Dose Admin Acetaminophen 1,000 mg 12/20/19 21:00 01/02/20 08:35 Tylenol PO Not Given 0300,0900,1500,2100 MAXI Amiodarone HCl 200 mg 12/21/19 09:00 01/02/20 08:35 Cordarone PO 200 mg 0900 MAXI Administration Calcium Carbonate 500 mg 12/31/19 15:30 12/31/19 16:22 Tums PO 500 mg Q4H PRN Administration Heartburn or Indigestion Carvedilol 3.125 mg 01/02/20 09:00 01/02/20 08:35 Coreg PO 3.125 mg Q12HR MAXI Administration Finasteride 5 mg 12/13/19 09:00 01/02/20 08:35 Proscar PO 5 mg DAILY MAXI Administration Gabapentin 100 mg 12/19/19 21:00 01/02/20 08:35 Neurontin PO 100 mg BID MAXI Administration Potassium Chloride 40 meq/ 100 mls @ 50 mls/hr 12/20/19 07:49 12/21/19 04:56 Device IVPB 100 mls ASDIR PRN Administration FOR SERUM K+ 2.5 - 3.5 Magnesium Sulfate 1 gm/ Sodium 102 mls @ 102 mls/hr 12/20/19 07:49 12/21/19 04:56 Chloride IV 102 mls PRN PRN Administration MAG LEVEL 1.4 - 2.0 Meropenem 1 gm/ Device 50 mls @ 200 mls/hr 12/26/19 18:00 01/02/20 06:23 IVPB 01/05/20 06:14 50 mls 0600,1800 MAXI Administration Milrinone Lactate 50 mg/ 250 mls @ 0 mls/hr 12/28/19 08:00 01/01/20 05:59 Sodium Chloride IVPB 250 mls INF MAXI Administration Micafungin Sodium 100 mg/ 100 mls @ 100 mls/hr 12/31/19 19:00 01/01/20 17:54 Sodium Chloride IVPB 100 mls 1900 MAXI Administration Levothyroxine Sodium 25 mcg 12/13/19 06:00 01/02/20 06:23 Synthroid PO 25 mcg 0600 MAXI Administration Magnesium Oxide 400 mg 12/20/19 07:49 01/01/20 08:28 Magnesium Oxide PO 400 mg BIDPRN PRN Administration FOR SERUM MAG 1.4 - 2.0 Pantoprazole Sodium 40 mg 12/29/19 21:00 01/01/20 21:42 Protonix PO 40 mg 2100 MAXI Administration Potassium Chloride 10 meq 01/02/20 09:00 01/02/20 08:35 Klor-Con 10 PO 10 meq DAILY MAXI Administration Sodium Chloride 10 ml 12/11/19 21:39 12/27/19 08:46 Flush - Normal Saline IVF 10 ml PRN PRN Administration Saline Flush Spironolactone 12.5 mg 01/02/20 08:00 01/02/20 08:35 Aldactone PO 12.5 mg QAM-WM MAXI Administration Torsemide 40 mg 01/02/20 09:00 01/02/20 09:45 Demadex PO 40 mg DAILY MAXI Administration - Exam Eye: PERRL, anicteric sclera Heart: RRR, no murmur, no gallops, no rubs, normal peripheral pulses Respiratory: CTAB (decreased breath sounds at the bases), no wheezes, no rales, no ronchi, normal chest expansion Gastrointestinal: soft, non-tender, non-distended, normal bowel sounds, no palpable masses, no hepatomegaly Extremities: no cyanosis, no clubbing, 1+ LE edema Hosp A/P (1) Congestive heart failure, NYHA class 3 and ACC/AHA stage C Code(s): I50.9 - HEART FAILURE, UNSPECIFIED Status: Acute (2) BPH (benign prostatic hyperplasia) Code(s): N40.0 - BENIGN PROSTATIC HYPERPLASIA WITHOUT LOWER URINRY TRACT SYMP Status: Chronic Qualifiers: Lower urinary tract symptom presence: symptoms absent Qualified Code(s): N40.0 - Benign prostatic hyperplasia without lower urinary tract symptoms (3) CAD (coronary artery disease) Code(s): I25.10 - ATHSCL HEART DISEASE OF [place] CORONARY ARTERY W/O ANG PCTRS Status: Chronic Qualifiers: Coronary Disease-Associated Artery/Lesion type: [place] artery [place] vs. transplanted heart: [place] heart Associated angina: without angina Qualified Code(s): I25.10 - Atherosclerotic heart disease of [place] coronary artery without angina pectoris (4) Atrial fibrillation Code(s): I48.91 - UNSPECIFIED ATRIAL FIBRILLATION Status: Chronic - Plan * Acute on chronic systolic heart failure- Discussed with Dr. Avalos- will begin to introduce his heart failure medications. He has been started on a low dose of Carvediolol, and spironolactone. Continue Milrinone * Pleural effusion- Pulmonary has been consulted, and there is no need for thorocentesis * Recurrent colon cancer- he is post laporatomy and removal of the tumor- ID has been consulted for recommendations regarding his antibiotics going forward * CAD- stable * AFIB- his heart rate is remains stable on Amiodarone, no anticoagulation due to chronic GI blood loss, and recent surgery- * Severe deconditioning- continue PT/OT * He has been accepted to [facility]
--- NOTE | 2020-01-02 11:47 | CON ---
DATE OF CONSULTATION: 01/02/2020 CONSULTING PHYSICIAN: Dr. Avalos. REASON FOR CONSULTATION: Left pleural effusion. HISTORY OF PRESENT ILLNESS: The patient is a pleasant 84-year-old male who was initially admitted to this facility on December 11 for treatment of shortness of breath and increasing dyspnea with exertion. He has been treated rather aggressively for congestive heart failure with a Milrinone drip. He was seen by Gastroenterology and had an EGD and colonoscopy performed by Dr. Mendoza on 12/17/2019. This showed a polypoid lesion and splenic flexure in distal transverse colon. He eventually underwent laparoscopy by Dr. Ku on 12/20/2019 with adhesiolysis and resection of a previous ileocolonic anastomosis in a transverse colon and placement of a right subclavian central line. The patient had to go back to the operating room on 12/[address] Ku for placement of a Stubbs catheter. I have been consulted for small left pleural effusion. The patient is currently asymptomatic and has no complaints about this at this time. He is not requiring home oxygen. For past history, see Dr. Walker's consultation from 12/20/2019. PHYSICAL EXAMINATION: VITAL SIGNS: Temperature 98, pulse 84, blood pressure 102/50. HEENT: Unremarkable. NECK: No adenopathy or JVD. CHEST: He has a left Stubbs catheter in place. CARDIAC: S1 and S2. Regular. LUNGS: Mildly diminished breath sounds at left base, right side clear. ABDOMEN: Midline surgical wound covered with dressing. EXTREMITIES: No clubbing or cyanosis. He has lymphedema from his knees downward. LABORATORY DATA: White blood cell count 10, hematocrit 33.6, and platelet count 292. BNP is 1146. Sodium 135, potassium 3.9, chloride 103, CO2 of 26, BUN 25, and creatinine 0.8. IMAGING STUDIES: I reviewed his x-ray from 12/31 shows minimal left pleural effusion. I reviewed CT scan also showed left pleural effusion. ASSESSMENT: Minimal left pleural effusion, likely related to heart failure, possibly postsurgical in nature. RECOMMENDATIONS: I would recommend conservative treatment with observation and continued diuresis and treatment of heart failure. I do not think the effusion needs thoracentesis at this time. I will notify Dr. Walker has seen the patient before. Job ID: [id number]
[2020-01-02 13:27] VITALS: BMI 25.6
[2020-01-02] MEDS: Micafungin 100 MG in Sodium Chloride 0.9% 100 ML IVPB SCH (17:15)
--- NOTE | 2020-01-02 18:07 | CON ---
DATE OF CONSULTATION: 01/02/2020 REASON FOR CONSULTATION: Evaluate need for continuation of antimicrobial therapy and duration. HISTORY OF PRESENT ILLNESS: An 84-year-old gentleman, who has a history of ischemic cardiomyopathy with AICD in place, prior colon cancer resection in 2002 elsewhere, who had developed worsening dyspnea. The patient was given amiodarone, Coreg, Avodart, Lovenox, milrinone, and dobutamine. He was transfused 3 units of packed red blood cells, guaiac in stools and GI consult were placed, and the patient had a colonoscopy, which demonstrated a friable polypoid lesion around 90 cm from the anal margin. 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 There were 2 tumor deposits present within the pericolonic fat and 3 pericolonic lymph nodes obtained which were negative for metastatic cancer. They are following the initial intervention, which was on December 20. The patient had dehiscence of the anastomotic area, and on December 23, had a second intervention with exploratory laparotomy, suture of colon, and creation of a diverting ileostomy. Since then, the patient has steadily improved until 2 days ago and there was mild elevation in white cell count up to 13.6 with mild neutrophilia. He has received meropenem since December 26 and micafungin which was started on December 31. The patient has not had any repeat imaging study other than a CT scan of chest, which was done on December 31 and it showed moderate left and small right pleural effusion. Currently, Mr. Baer is sitting by the bedside. He is awake, alert, oriented, pleasant. He denies any headaches. No visual symptoms, sore throat, odynophagia, or dysphagia. No dyspnea or chest pain. No abdominal pain. He has a Villegas catheter in place and has a tunneled catheter in the left subclavian position for administration of milrinone. PAST MEDICAL HISTORY: Includes ischemic cardiomyopathy, AICD in place, hypertension, colon cancer in 2002 and now. SURGICAL HISTORY: Hernia repair, colon resection in 2002 and now, bypass graft surgery, AICD placement. FAMILY HISTORY: Hypertension. SOCIAL HISTORY: Former smoker. No alcoholic beverage use. Retired. ALLERGY HISTORY: ESTUARDO inhibitors, meperidine, penicillin, and statins. CURRENT MEDICATIONS: 1. DuoNeb. 2. Cordarone. 3. Tums. 4. Coreg. 5. Proscar. 6. Neurontin. 7. Synthroid. 8. Magnesium. 9. Meropenem. 10. Micafungin. 11. Milrinone. 12. Torsemide. 13. Spironolactone. PHYSICAL EXAMINATION: VITAL SIGNS: Temperature max 99.8 on December 30. He has been afebrile since. Blood pressure 102/45, pulse 81, respirations 20, O2 saturations 99% on room air. SKIN: Midline incision for the laparotomy. There is area of blistering with superficial rupture of the blister in the left leg associated with edema. He has quite a bit of edema in right and left lower extremities. There is a tunneled double-lumen catheter in the left subclavian position. The surgical incision appears normal with one area of elliptical dehiscence in the lower segment measuring about 1 cm and there is an ileostomy area in the right lower quadrant. No lymphadenopathy. HEENT: Ocular movements are conjugate. Oral cavity with artificial dentures, otherwise normal. NECK: Supple. Some jugular vein distention. LUNGS: With basilar inspiratory crackles. No wheezing. HEART: S1 and S2. Diminished heart sounds. Soft aortic murmur and a soft apex murmur. [place] impulse is displaced to the left. ABDOMEN: Not distended. No ascites. No bladder distention. No organomegaly. EXTREMITIES: 3 to 4+ edema in lower extremities. Could not evaluate the lower extremity skin other than the photos that have been taken due to compressive dressing bilaterally. Moves extremities with limitations due to his condition, but no focal weakness. He is awake and oriented, follows commands. Speech is normal. Recollection is normal. LABORATORY DATA: Current labs: White cell count 11.7, went up to 13.6, now down to 10.0; hemoglobin 10.2; platelets 292. Creatinine 0.84. BNP is down from 1800 to 1100. CRP 5.7. Microbiology; we have 4 sets of blood cultures negative. Enterococcus faecalis from urine culture from December 21. No samples obtained from the abdomen. IMAGING STUDIES: CT abdomen and pelvis on the with small pleural effusions , mass in the region of the splenic flexure. No lymphadenopathy. ASSESSMENT: 1. Ischemic cardiomyopathy with automatic implantable cardioverter- defibrillator in place and requiring inotropic agent given intravenously. The patient to be discharged on this inotropic agent. 2. Anemia with newly diagnosed second primary colon cancer, which was resected. 3. Dehiscence of the initial anastomosis, which had to be repaired and the ileostomy prepared, associated with peritonitis. The patient has steadily improved except for this transient elevation in white cell count over the past few days, which has resolved. DISCUSSION: Most surgical patients with peritonitis following complications associated with bowel interventions do not require protracted antimicrobial therapy administration, as long as source control has been achieved. In this case, it seems to be that after the ileostomy in the second procedure that there are no findings to suggest that there is not a proper source control except for this transient elevation in white cell count. The reasons for this transient elevation are not precisely determined at this point, and the differential diagnosis includes anything from cardiovascular instability with adrenergic response to persistence of an inflammatory process in the abdominal area, which appears to be less likely, since one would not expect quick resolution as displayed by the patient, and the third possibility would be colonization of the central line, which was placed previously. This colonization could include [place] species colonization. He does have risk factors for such. Urinary tract process, thromboembolism would be considered as well and I do not see any DVT prophylaxis in place at this point in time. The decision to extend the antimicrobial therapy is not a necessary one, although probably due to the uncertainties involved in this case, I would probably extend another 5 days with either ertapenem plus oral Diflucan or meropenem plus oral Diflucan. The dose of Diflucan would be 400 mg a day and ertapenem would be 1 g daily and meropenem will be 1 g q.8 hours. He would be still at risk for delayed recrudescence of inflammatory process, and in that case, then a repeat imaging studies with a CT of abdomen and pelvis with contrast would be advised. He will be at risk for line complications particularly bacteremia and fungemia, and those may develop at a later stage of his treatment. Job ID: [id number] [facility]
[2020-01-03] MEDS: Acetaminophen 500 MG TAB PO SCH ×2 (02:53→09:03)
[2020-01-03 05:09] LABS: #Eosinphils 0.3 thou/uL (0.0-0.7); #Lymphocytes 0.8 thou/uL (1.20-3.40); #Monocytes 0.6 thou/uL (0.11-0.59); #Neutrophils 7.8 thou/uL (1.40-6.50); %Basophils 0.5 % (0.0-1.0); %Eosinophils 2.9 % (0.0-10.0); %Lymphocytes 8.6 % (21.0-51.0); %Monocytes 6.7 % (0.0-10.0); %Neutrophils 81.3 % (42.0-75.0); Hemoglobin 10.5 g/dL (14.0-18.0); Mean Corpuscular HGB CONC 32.7 g/dL (32.0-36.0); Mean Corpuscular Hemoglobin 26.8 pg (27.0-31.0); Mean Corpuscular Volume 81.8 fL (78.0-98.0); Mean Platelet Volume 9.6 fL (7.4-10.4); Platelet Count 327 thou/uL (130-400); RBC Distribution Width 22.1 % (11.5-14.5); Red Blood Cell (RBC) Count 3.92 mill/uL (4.70-6.10); White Blood Cell (WBC) Count 9.6 thou/uL (4.8-10.8)
[2020-01-03 05:23] LABS: Anion Gap 11 mmol/L (10-20); BUN (Urea Nitrogen) 27 mg/dL (8.4-25.7); Calc. Creatinine Clearance 52 mL/min (70-130); Calcium 8.9 mg/dL (7.8-10.44); Carbon Dioxide 28 mmol/L (23-31); Chloride 102 mmol/L (98-107); Estimated GFR-MDRD 70; Glucose 105 mg/dL (83-110); Potassium 3.6 mmol/L (3.5-5.1); Sodium 137 mmol/L (136-145)
[2020-01-03] MEDS: MEROPENEM 1 GM/50 ML 1 GM in Premix Bag 1 BAG IVPB SCH ×2 (05:40→17:43)
[2020-01-03] MEDS: Levothyroxine Sodium 25 MCG TAB PO SCH (05:40)
--- NOTE | 2020-01-03 08:13 | RAD ---
FRONTAL RADIOGRAPH CHEST: DATE: 01/03/2020. COMPARISON: 01/27/2020. HISTORY: Central line placement. FINDINGS: Left-sided central venous catheter present in stable position, distal tip overlying the region of the proximal right atrium. Midline sternotomy wires and mediastinal clips are present. Stable transven ous pacing device. There is dense opacity in the medial left lung base suggesting left lower lobe co nsolidation/collapse. Small associated left pleural effusion suspected. Increased linear density wi th pulmonary hyperinflation noted. Small volume nonspecific soft tissue gas/subcutaneous emphysema n oted in the inferior lateral right hemithorax as before. IMPRESSION: No significant interval change. POS: [facility]
--- NOTE | 2020-01-03 08:14 | PRG ---
DATE OF SERVICE: 01/03/2020 SUBJECTIVE: This is an [facility] Service. Mr. Juan Alberto Baer had a good day. He was able to walk the unit twice plus a little bit more. He said it is over 684 feet. He was able to perform this without shortness of breath without being fatigued. He said he has increased appetite and was able to eat most of the meals. He also has a good night sleep. He denies palpitations or syncope. The weeping in his arm has gone. He believed that he has been losing fluid weight too. REVIEW OF SYSTEMS: GENERAL: There is no fever or chills. HEENT: There are no changes in vision, hearing, or swallowing. PULMONARY: There is no cough. Please see HPI. CARDIOVASCULAR: Please see HPI. GI: Please see HPI. He was able to empty his ostomy bag. : He is still on Villegas catheter. MUSCULOSKELETAL: He still has some joint swelling, but does not appear much less so from admission. It is at the knee joint. INTEGUMENT: There are no new lesions. His weeping from his skin has stopped. NEUROLOGIC: There are no focal deficits. PSYCHIATRIC: He is not depressed, and looking forward to be leaving from the hospital. CARDIAC MEDICATIONS: 1. Amiodarone 200 mg daily. 2. Carvedilol 3.125 mg every 12 hours. 3. Milrinone at 0.375 mcg/kg/min. 4. Torsemide 40 mg p.o. daily at noontime. 5. Spironolactone at 12.5 mg daily. PHYSICAL EXAMINATION: Telemetry is reviewed. He is paced at 85 beats per minute. There are few PVCs. Thus, there is no alarming arrhythmia. VITAL SIGNS: His heart rate paced at 85, blood pressure is 99/47. GENERAL: He is alert, conversational, sitting comfortably, waiting for breakfast. HEENT: EOMI. Oropharynx is benign with moist mucosa without erythema nor exudate. NECK: His JVP is about 11 cm. It is a little slightly less than yesterday. PULMONARY: Good air movement. Clear to auscultation in the upper left two- third, and lower one-third has absent breath sound corresponding to pleural effusion. HEART: Heart rate 85, paced. Normal S1, S2. There is 3/6 holosystolic murmur best heard at the apex with radiation to the left axilla, and there is 2/6 diastolic murmur at the right sternal border. ABDOMEN: Soft with ileostomy tube in place at the right upper quadrant. There is fecal material, and there are no signs of infection or bleeding. EXTREMITIES: His arms are dry. They are not weeping. He has excessive skinfold due to the lots of fluid in the arms. His lower extremities have about 3+ pitting edema to knee and some pitting edema about thigh; However, his edematous is much less than admission. Apparently, he has lost significant weight. His admission weight was pounds. His weight today is lowest ever 155 pounds. LABORATORY DATA: His labs show BUN 27 and creatinine 1.05. ASSESSMENT: 1. Recurrent colon cancer. It has been resected. 2. Anastomotic site leak. This has been repaired, and diverting ileostomy has been placed. 3. Peritonitis. His abdomen has been surgically washed out and was treated with antibiotic and antifungal. Currently, there are no issues. He will need to be on antibiotic for extended period time. The Infectious Disease specialist, Dr. Carpio, has recommended to finish a course of antibiotics as an outpatient. An 84-year-old gentleman resides in [place] Heart [employer] stage C and also [place] Heart Association Class IIIB heart failure with reduced ejection fraction. He has both systolic and diastolic dysfunction. Combination of ischemic cardiomyopathy, mitral regurgitation, and aortic insufficiency have contributed to his heart failure. Milrinone at 0.375 mcg/kg/min is providing sufficient cardiac output. Torsemide 40 mg daily is providing sufficient diuretic at this point. At this point, carvedilol 3.125 is all he can tolerate. With his blood pressure has been between 92 and 105, at this point, we will not increase his medication, but stop the spironolactone. RECOMMENDATIONS: 1. Stop spironolactone. 2. The patient may go home either today or tomorrow, as arrangements are made. 3. Please have the patient follow up in Heart Failure Clinic within 7 days post discharge. 4. Please complete a course of antibiotic for 5 days as an outpatient. This will be ertapenem at 1 g IV daily. This replaces meropenem. Fluconazole will not be used because it will prolong QT and has chance of causing torsades in light of his cardiac dysfunction, It has been a pleasure of taking care of Mr. Baer. If you have any questions, please give me a call. Job ID: [id number] MTDD
[2020-01-03] MEDS: Potassium Chloride 10 MEQ TAB PO SCH (08:56)
[2020-01-03] MEDS: Carvedilol 3.125 MG TAB PO SCH ×2 (08:57→20:11)
[2020-01-03] MEDS: Finasteride 5 MG TAB PO SCH (08:57)
[2020-01-03] MEDS: Amiodarone 200 MG TAB PO SCH (08:57)
[2020-01-03] MEDS: Gabapentin 100 MG CAP PO SCH ×2 (08:57→20:11)
--- NOTE | 2020-01-03 10:19 | PDOC.HOSPP ---
- Subjective Encounter Date: 01/03/20 Encounter Time: 10:17 Subjective: Mr. Baer was seen today in follow-up of recurrent colon cancer, and CHF exacerbation. He does not have any complaints. - Objective Vital Signs & Weight: Vital Signs (12 hours) Temp Pulse Resp BP BP Pulse Ox 01/03/20 08:00 98 01/03/20 07:12 97.9 F 01/03/20 04:00 97.2 F L 85 20 92/52 L 97 01/02/20 23:43 97.8 F 85 20 95/43 L 95 Weight Admit Weight 170 lb 14.4 oz Weight 155 lb 11.2 oz Most Recent Monitor Data Heart Rate from ECG 86 NIBP 99/49 NIBP BP-Mean 65 Respiration from ECG 18 SpO2 98 I&O: 01/02/20 01/03/20 01/04/20 06:59 06:59 06:59 Intake Total 1440 900 Output Total 1435 1860 Balance 5 -960 Result Diagrams: 01/03/20 04:50 01/03/20 04:50 Hospitalist ROS - Medication Medications: Active Medications Generic Name Dose Route Start Last Admin Trade Name Freq PRN Reason Stop Dose Admin Acetaminophen 1,000 mg 12/20/19 21:00 01/03/20 09:03 Tylenol PO Not Given 0300,0900,1500,2100 MAXI Amiodarone HCl 200 mg 12/21/19 09:00 01/03/20 08:57 Cordarone PO 200 mg 0900 MAXI Administration Calcium Carbonate 500 mg 12/31/19 15:30 12/31/19 16:22 Tums PO 500 mg Q4H PRN Administration Heartburn or Indigestion Carvedilol 3.125 mg 01/02/20 09:00 01/03/20 08:57 Coreg PO 3.125 mg Q12HR MAXI Administration Finasteride 5 mg 12/13/19 09:00 01/03/20 08:57 Proscar PO 5 mg DAILY MAXI Administration Gabapentin 100 mg 12/19/19 21:00 01/03/20 08:57 Neurontin PO 100 mg BID MAXI Administration Potassium Chloride 40 meq/ 100 mls @ 50 mls/hr 12/20/19 07:49 12/21/19 04:56 Device IVPB 100 mls ASDIR PRN Administration FOR SERUM K+ 2.5 - 3.5 Magnesium Sulfate 1 gm/ Sodium 102 mls @ 102 mls/hr 12/20/19 07:49 12/21/19 04:56 Chloride IV 102 mls PRN PRN Administration MAG LEVEL 1.4 - 2.0 Meropenem 1 gm/ Device 50 mls @ 200 mls/hr 12/26/19 18:00 01/03/20 05:40 IVPB 01/05/20 06:14 50 mls 0600,1800 MAXI Administration Milrinone Lactate 50 mg/ 250 mls @ 0 mls/hr 12/28/19 08:00 01/01/20 05:59 Sodium Chloride IVPB 250 mls INF MAXI Administration Micafungin Sodium 100 mg/ 100 mls @ 100 mls/hr 12/31/19 19:00 01/02/20 17:15 Sodium Chloride IVPB 100 mls 1900 MAXI Administration Levothyroxine Sodium 25 mcg 12/13/19 06:00 01/03/20 05:40 Synthroid PO 25 mcg 0600 MAXI Administration Magnesium Oxide 400 mg 12/20/19 07:49 01/01/20 08:28 Magnesium Oxide PO 400 mg BIDPRN PRN Administration FOR SERUM MAG 1.4 - 2.0 Pantoprazole Sodium 40 mg 12/29/19 21:00 01/02/20 21:39 Protonix PO 40 mg 2100 MAXI Administration Potassium Chloride 10 meq 01/02/20 09:00 01/03/20 08:56 Klor-Con 10 PO 10 meq DAILY MAXI Administration Sodium Chloride 10 ml 12/11/19 21:39 12/27/19 08:46 Flush - Normal Saline IVF 10 ml PRN PRN Administration Saline Flush - Exam Eye: PERRL, anicteric sclera Heart: RRR, no murmur, no gallops, no rubs, normal peripheral pulses, irregular , diminshed peripheral pulses Respiratory: CTAB, no wheezes, no rales, no ronchi Gastrointestinal: soft, non-tender, non-distended, normal bowel sounds, no palpable masses, no hepatomegaly Extremities: no cyanosis, 1+ LE edema Hosp A/P (1) Colon cancer Code(s): C18.9 - MALIGNANT NEOPLASM OF COLON, UNSPECIFIED Status: Acute (2) Congestive heart failure, NYHA class 3 and ACC/AHA stage C Code(s): I50.9 - HEART FAILURE, UNSPECIFIED Status: Acute (3) BPH (benign prostatic hyperplasia) Code(s): N40.0 - BENIGN PROSTATIC HYPERPLASIA WITHOUT LOWER URINRY TRACT SYMP Status: Chronic Qualifiers: Lower urinary tract symptom presence: symptoms absent Qualified Code(s): N40.0 - Benign prostatic hyperplasia without lower urinary tract symptoms (4) CAD (coronary artery disease) Code(s): I25.10 - ATHSCL HEART DISEASE OF [place] CORONARY ARTERY W/O ANG PCTRS Status: Chronic Qualifiers: Coronary Disease-Associated Artery/Lesion type: [place] artery [place] vs. transplanted heart: [place] heart Associated angina: without angina Qualified Code(s): I25.10 - Atherosclerotic heart disease of [place] coronary artery without angina pectoris (5) Atrial fibrillation Code(s): I48.91 - UNSPECIFIED ATRIAL FIBRILLATION Status: Chronic - Plan * Recurrent Colon cancer- post resection- stable * Acute on chronic systolic heart failure- Discussed with Dr. Avalos- He has been transitioned to Carvediolol, and continue Milrinone. Torsemide has been added, and Spironolactone discontinued * ID recommendations noted- he would benefit from % more days of Meropenem * CAD- stable * AFIB- his heart rate is remains stable on Amiodarone, no anticoagulation due to chronic GI blood loss, and recent surgery- * Severe deconditioning- continue PT/OT * Possible transition to [place] soon
[2020-01-03] MEDS ORDERED: Acetaminophen 500 MG TAB PO PRN (11:01)
[2020-01-03] MEDS ORDERED: Torsemide 20 MG TAB PO SCH (12:00)
--- NOTE | 2020-01-03 15:33 | PDOC.GSPN ---
Surgery Progress Note: Subj - Subjective Patient reports: tolerating a regular diet Narrative: Ileostomy output moderate to high Surgery Progress Note: Obj - Vital signs Vital signs: Vital Signs - Most Recent Temp Pulse Resp BP Pulse Ox 97.6 F 85 20 96/45 L 98 01/03/20 11:41 01/03/20 04:00 01/03/20 04:00 01/03/20 14:38 01/03/20 08:00 - Physical Exam General: no distress Abdomen: soft, non tender, nondistended Wound: healing well (Perfecto can probably be removed tomorrow before transfer) Surgery Progress Note: Results - Labs Result Diagrams: 01/03/20 04:50 01/03/20 04:50 Lab results: Laboratory Results - last 24 hr 01/03/20 01/03/20 01/03/20 04:50 04:50 04:50 WBC 9.6 RBC 3.92 L Hgb 10.5 L Hct 32.1 L MCV 81.8 MCH 26.8 L MCHC 32.7 RDW 22.1 H Plt Count 327 MPV 9.6 Neutrophils % 81.3 H Neutrophils % (Manual) Not Reportable Lymphocytes % 8.6 L Monocytes % 6.7 Eosinophils % 2.9 Basophils % 0.5 Neutrophils # 7.8 H Lymphocytes # 0.8 L Monocytes # 0.6 H Eosinophils # 0.3 Basophils # 0.0 Sodium 137 Potassium 3.6 Chloride 102 Carbon Dioxide 28 Anion Gap 11 BUN 27 H Creatinine 1.01 Estimated GFR (MDRD) 70 Glucose 105 Calcium 8.9 Magnesium 2.0 B-Natriuretic Peptide 805.7 H Surgery Progress Note: A/P - Problem (1) Colon cancer Current Visit: Yes Code(s): C18.9 - MALIGNANT NEOPLASM OF COLON, UNSPECIFIED Status: Acute - Plan Plan: Doing well, ready for rehab I do not think he needs any additional antibiotics. He has no signs of infection. Check ileostomy output for cdiff.
[2020-01-03] MEDS: Micafungin 100 MG in Sodium Chloride 0.9% 100 ML IVPB SCH (18:40)
[2020-01-03] MEDS: MILRINONE IVPB SCH (18:41)
[2020-01-03] MEDS: SODIUM CHLORIDE 0.9% IVPB SCH (18:41)
[2020-01-04] MEDS: Levothyroxine Sodium 25 MCG TAB PO SCH (05:03)
[2020-01-04] MEDS: MEROPENEM 1 GM/50 ML 1 GM in Premix Bag 1 BAG IVPB SCH (05:03)
[2020-01-04 05:58] LABS: Anion Gap 10 mmol/L (10-20); BUN (Urea Nitrogen) 28 mg/dL (8.4-25.7); Calc. Creatinine Clearance 44 mL/min (70-130); Calcium 8.9 mg/dL (7.8-10.44); Carbon Dioxide 29 mmol/L (23-31); Chloride 102 mmol/L (98-107); Estimated GFR-MDRD 59; Glucose 133 mg/dL (83-110); Magnesium 1.8 mg/dL (1.6-2.6); Potassium 3.7 mmol/L (3.5-5.1); Sodium 137 mmol/L (136-145)
[2020-01-04 06:05] LABS: #Basophils 0.1 thou/uL (0.0-0.2); #Eosinphils 0.3 thou/uL (0.0-0.7); #Lymphocytes 0.7 thou/uL (1.20-3.40); #Monocytes 0.8 thou/uL (0.11-0.59); #Neutrophils 7.5 thou/uL (1.40-6.50); %Basophils 0.7 % (0.0-1.0); %Eosinophils 3.2 % (0.0-10.0); %Lymphocytes 7.8 % (21.0-51.0); %Monocytes 8.4 % (0.0-10.0); Hemoglobin 10.4 g/dL (14.0-18.0); MDiff Complete? YES; Mean Corpuscular HGB CONC 30.8 g/dL (32.0-36.0); Mean Corpuscular Hemoglobin 25.8 pg (27.0-31.0); Mean Corpuscular Volume 83.6 fL (78.0-98.0); Mean Platelet Volume 8.7 fL (7.4-10.4); Ovalocytes SLIGHT = 2-5 cells (100X) (0-1/hpf); Platelet Count 337 thou/uL (130-400); Platelet Morphology Comment Appears Adequate; RBC Distribution Width 22.3 % (11.5-14.5); Red Blood Cell (RBC) Count 4.04 mill/uL (4.70-6.10); White Blood Cell (WBC) Count 9.4 thou/uL (4.8-10.8)
--- NOTE | 2020-01-04 08:46 | PRG ---
DATE OF SERVICE: 01/04/2020 SUBJECTIVE: Mr. Baer had a good day. He was able to walk around the unit twice again yesterday. He also participated with PT, OT to make sure that he is an able to get around and also carry out all activities of daily living at assisted living facility. He says his appetite is increasing. He is able to eat most of his meals now. He did not have any trouble with any of the exercise routine. He is not short of breath. He also denies fever, chills, productive cough. He is looking forward to going home. REVIEW OF SYSTEMS: GENERAL: Denies fever and chills. HEENT: He denies any change in vision, hearing, or swallowing. PULMONARY: Please see HPI. CARDIOVASCULAR: There is no palpitations or syncope. : See HPI. There is a good output into the ostomy bag. He is still on a Villegas catheter. INTEGUMENT: There is no new breakdown. His skins are now drier and pulverizer tender. There is no weeping anywhere. MUSCULOSKELETAL: He is still have joint swellings in both knees. However, this is much less so than admission. NEUROLOGIC: There are no focal deficits. PSYCHOLOGICAL: He is not depressed and looking for to going home. PHYSICAL EXAMINATION: His telemetry was reviewed. His heart rate is paced at 85. There is some PVC. There is no concerning arrhythmia. VITAL SIGNS: His heart rate paced at 85, blood pressure 99/49. GENERAL: He is alert and conversational, sitting comfortably in chair waiting for breakfast. HEENT: Show EOMI. Oropharynx benign. He has moist mucosa. There is no erythema, no exudate. NECK: His JVP is between 10 and 11 cm. That is the lowest he ever has been. PULMONARY: He has good air movement on the right side. There are no crackles on the right side. On the left side there is good air movement on top two thirds and there is absent breath sounds on the lower left base. CARDIAC: Regular rate and rhythm, normal S1, S2, there is 3/6 holosystolic murmur at the apex with radiation to the left axilla, there is 2/6 diastolic murmur at the right sternal border; says he has combination of mitral regurgitation and aortic insufficiency. ABDOMEN: Soft and there is discharge material into the ostomy bag. Ostomy bags are without blood or signs of infection. EXTREMITIES: His lower extremities do have 3+ pitting edema up to knees and some in his thighs, however, it is less so than yesterday. His net input/output is charted as a net negative 2L over 24 hours. This may be a mistake. However, his weight is now down to 153 pounds. LABORATORY DATA: His BUN is on the rise at 28, creatinine at 1.18 and his blood pressure has trended a bit lower yesterday mainly in the mid-to-high 90s. However, his BNP is lowest ever at 583. ASSESSMENT: 1. Recurrent colon cancer. This has been resected. 2. Anastomosis leak. Diverting colostomy was placed and the distal colon sewn. 3. Peritonitis due to anastomosis leak. His abdomen has been washed during surgery and he has been treated with antibiotics and antifungal. Currently, there is no problem. We will follow infectious disease specialist's recommendations. 4. An 84-year-old gentleman, resides in [place] Heart Association stage C and [place] Heart Failure class 3B heart failure with reduced ejection fraction. He has both systolic and diastolic dysfunction. It is caused by combination of ischemic cardiomyopathy, mitral regurgitation, also the aortic insufficiency. Currently, milrinone 0.375 mcg/kg/min is providing sufficient cardiac output. He is only tolerating low-dose carvedilol 3.125 twice a day. We will keep at this dosage. He is maybe a bit over diuresed at this point. This is shown by significant drop in weight and the decrease in blood pressure and slight increase in BUN and creatinine. We will slow down the diuretics for now and then will increase it in the future. RECOMMENDATIONS: 1. Decrease torsemide down to 20 mg p.o. daily, we will readjust this at outpatient. 2. Will see Mr. Baer in the outpatient heart failure clinic within 7 days. At that time, we will be adjusting his diuretics again. 3. His outpatient milrinone regimen is consisting of 0.375 mcg/kg/min at 162 pounds. The labs that need to be drawn prior to clinic visit are CBC, complete metabolic panel, magnesium, and BNP. 4. The patient is overall stable. He is much improved in comparison to hospital admission. I believe that he has recovered to the point where he will be discharged today. It has been a pleasure taking care of Ab Juan Alberto Baer. If you have any questions, please give me a call. Job ID: [id number] MTDD
--- NOTE | 2020-01-04 09:20 | PRG ---
DATE OF SERVICE: 01/04/2020 SUBJECTIVE: Juan Alberto Baer is doing well today. He is tolerating his diet. His ileostomy is functioning well. OBJECTIVE: LUNGS: Clear to auscultation. No rhonchi. CARDIAC: Regular rate and rhythm without murmur or gallop. ABDOMEN: Soft. Bowel sounds are present. Good ileostomy output. ASSESSMENT AND PLAN: I would discontinue his meropenem and micafungin today as he has had adequate course of that antibiotic and no longer needs that. He would like to avoid antibiotic related complications. The patient has Stubbs catheter for his milrinone. He has twice experienced urinary retention, the last retention 600 to 800 mL, requiring replacement of the Villegas since the Flomax discontinued. I have submitted the text communication to Dr. Avalos regarding risk of leaving the Villegas catheter in and not restarting the Flomax, which apparently he requires for urination versus trial of finasteride. We will await his input. The patient can go home today with home health nursing to help him with his ileostomy care and supplies. Wound Care will give him ileostomy supplies on discharge. Home physical therapy can be arranged. Follow up in my office in 2 to 3 weeks. We will ask nursing to remove his shaquille and leave the small gaps open. He can wash the wound with soap and water and apply dry dressing until dry, then leave open at any time. I will see him in the office in 2 to 3 weeks. Job ID: [id number]
--- NOTE | 2020-01-04 10:13 | PDOC.HOSPP ---
- Subjective Encounter Date: 01/04/20 Encounter Time: 10:11 Subjective: Mr. Baer was seen today in follow-up of recurrent colon cancer, and CHF. He does not have any complaints. - Objective Vital Signs & Weight: Vital Signs (12 hours) Temp 01/04/20 07:17 98.2 F 01/04/20 03:21 98.2 F 01/03/20 23:53 97.8 F Weight Admit Weight 170 lb 14.4 oz Weight 153 lb 8 oz Most Recent Monitor Data Heart Rate from ECG 84 NIBP 92/44 NIBP BP-Mean 60 Respiration from ECG 30 SpO2 99 I&O: 01/03/20 01/04/20 01/05/20 06:59 06:59 06:59 Intake Total 900 512 Output Total 9317 6004 Balance - Result Diagrams: 01/04/20 05:13 01/04/20 05:13 Hospitalist ROS - Medication Medications: Active Medications Generic Name Dose Route Start Last Admin Trade Name Freq PRN Reason Stop Dose Admin Amiodarone HCl 200 mg 12/21/19 09:00 01/03/20 08:57 Cordarone PO 200 mg 0900 MAXI Administration Calcium Carbonate 500 mg 12/31/19 15:30 12/31/19 16:22 Tums PO 500 mg Q4H PRN Administration Heartburn or Indigestion Carvedilol 3.125 mg 01/02/20 09:00 01/03/20 20:11 Coreg PO 3.125 mg Q12HR MAXI Administration Finasteride 5 mg 12/13/19 09:00 01/03/20 08:57 Proscar PO 5 mg DAILY MAXI Administration Gabapentin 100 mg 12/19/19 21:00 01/03/20 20:11 Neurontin PO 100 mg BID MAXI Administration Potassium Chloride 40 meq/ 100 mls @ 50 mls/hr 12/20/19 07:49 12/21/19 04:56 Device IVPB 100 mls ASDIR PRN Administration FOR SERUM K+ 2.5 - 3.5 Magnesium Sulfate 1 gm/ Sodium 102 mls @ 102 mls/hr 12/20/19 07:49 12/21/19 04:56 Chloride IV 102 mls PRN PRN Administration MAG LEVEL 1.4 - 2.0 Milrinone Lactate 50 mg/ 250 mls @ 0 mls/hr 12/28/19 08:00 01/03/20 18:41 Sodium Chloride IVPB 250 mls INF MAXI Administration Levothyroxine Sodium 25 mcg 12/13/19 06:00 01/04/20 05:03 Synthroid PO 25 mcg 0600 MAXI Administration Magnesium Oxide 400 mg 12/20/19 07:49 01/01/20 08:28 Magnesium Oxide PO 400 mg BIDPRN PRN Administration FOR SERUM MAG 1.4 - 2.0 Pantoprazole Sodium 40 mg 12/29/19 21:00 01/03/20 20:11 Protonix PO 40 mg 2100 MAXI Administration Potassium Chloride 10 meq 01/02/20 09:00 01/03/20 08:56 Klor-Con 10 PO 10 meq DAILY MAXI Administration Sodium Chloride 10 ml 12/11/19 21:39 12/27/19 08:46 Flush - Normal Saline IVF 10 ml PRN PRN Administration Saline Flush - Exam Eye: PERRL Heart: RRR, no murmur, no gallops, no rubs, normal peripheral pulses Respiratory: CTAB, no wheezes, no rales, no ronchi, normal chest expansion, no tachypnea Gastrointestinal: soft, non-tender, non-distended, normal bowel sounds, no palpable masses, no hepatomegaly Extremities: 1+ LE edema Hosp A/P (1) Colon cancer Code(s): C18.9 - MALIGNANT NEOPLASM OF COLON, UNSPECIFIED Status: Acute (2) Congestive heart failure, NYHA class 3 and ACC/AHA stage C Code(s): I50.9 - HEART FAILURE, UNSPECIFIED Status: Acute (3) BPH (benign prostatic hyperplasia) Code(s): N40.0 - BENIGN PROSTATIC HYPERPLASIA WITHOUT LOWER URINRY TRACT SYMP Status: Chronic Qualifiers: Lower urinary tract symptom presence: symptoms absent Qualified Code(s): N40.0 - Benign prostatic hyperplasia without lower urinary tract symptoms (4) CAD (coronary artery disease) Code(s): I25.10 - ATHSCL HEART DISEASE OF [place] CORONARY ARTERY W/O ANG PCTRS Status: Chronic Qualifiers: Coronary Disease-Associated Artery/Lesion type: [place] artery [place] vs. transplanted heart: [place] heart Associated angina: without angina Qualified Code(s): I25.10 - Atherosclerotic heart disease of [place] coronary artery without angina pectoris (5) Atrial fibrillation Code(s): I48.91 - UNSPECIFIED ATRIAL FIBRILLATION Status: Chronic - Plan * Recurrent Colon cancer- post resection- stable * Acute on chronic systolic heart failure- compensated * He has been transitioned off antibiotics * CAD- stable * AFIB- his heart rate is remains stable on Amiodarone, no anticoagulation due to chronic GI blood loss, and recent surgery- * Severe deconditioning- continue PT/OT * Plan to discharge to [facility]
[2020-01-04] MEDS: Potassium Chloride 10 MEQ TAB PO SCH (10:33)
[2020-01-04] MEDS: Carvedilol 3.125 MG TAB PO SCH (10:33)
[2020-01-04] MEDS: Amiodarone 200 MG TAB PO SCH (10:33)
[2020-01-04] MEDS: Gabapentin 100 MG CAP PO SCH (10:33)
[2020-01-04] MEDS: Finasteride 5 MG TAB PO SCH (10:33)
[2020-01-04 10:58] VITALS: BP 117/56
[2020-01-04 11:25] VITALS: TEMP 98
[2020-01-04] MEDS ORDERED: Torsemide 20 MG TAB PO SCH (12:00)
--- NOTE | 2020-01-05 03:08 | DIS ---
DATE OF ADMISSION: 12/11/2019 DATE OF DISCHARGE: 01/04/2020 DISCHARGE DISPOSITION: [facility]. DISCHARGE DIAGNOSES: 1. Recurrent colon cancer. 2. Peritonitis. 3. Acute on chronic systolic heart failure. 4. Atrial fibrillation. 5. Coronary artery disease. 6. Hypertension. 7. History of mitral valve insufficiency. 8. BPH with urinary retention. DISCHARGE MEDICATIONS: Please note that the patient is not being discharged on an ESTUARDO inhibitor or an ARB due to hypotension. The patient is being discharged on, 1. Milrinone infusion. 2. Torsemide 20 mg daily. 3. Carvedilol 3.125 mg twice a day. 4. Flomax 0.4 mg b.i.d. 5. Potassium chloride 10 mEq daily. 6. Levothyroxine 25 mcg p.o. daily. 7. Finasteride 5 mg daily. IMAGING DONE DURING THE HOSPITAL STAY: The patient had a CT scan of the abdomen and pelvis showing no evidence of any retroperitoneal hematoma. There were a small bilateral pleural effusions. The patient had an echocardiogram and this demonstrated an ejection fraction estimated at 20% to 25%. There was some anterior wall and apex akinesia, lateral wall severe hypokinesia, and severe mitral regurgitation was present. The patient had an upper and lower endoscopy. The colonoscopy showed a polypoid lesion at the splenic flexure. There were some retained fecal material and large hemorrhoids. 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 The patient underwent resection of the previous anastomosis and then a transverse colon tumor removed. The patient had to go back to surgery after it was noted that the patient had an anastomotic leak and had to have this repaired and had washout. The patient had a Stubbs catheter placed. CODE STATUS: DNAR. ALLERGIES: ESTUARDO INHIBITORS, MEPERIDINE, PENICILLINS, AND STATINS. HOSPITAL COURSE: Mr. Baer is an 84-year-old gentleman, who was admitted to the hospital due to shortness of breath as well as some abdominal pain. During the course of his evaluation, he was found to be anemic with a hemoglobin of 6.8. It was thought that the anemia was the cause of his dyspnea initially. GI was consulted. He underwent upper and lower endoscopy. It was found that he had a recurrence of his colon cancer. Surgery was consulted and he underwent resection of the mass. Pathology was sent. It was determined that it was an invasive adenocarcinoma, which was moderately differentiated. Shortly after the procedure, it was found that he had an anastomotic leak, he had to have surgical repair of this as well as washout. Also during the course of his hospital stay, he developed an acute exacerbation of his chronic systolic heart failure. Dr. Avalos, who had been seeing the patient in the outpatient setting was consulted. He was initially tried on diuretic therapy in addition to heart failure medication. He was found to be refractory to IV diuretics. As a result, he was placed on both dobutamine as well as milrinone. He was also noted to be hypotensive as well. Therefore, it was very difficult to restart him on his heart failure medications such as carvedilol and an angiotensin receptor bambi. Over the course of the next several days, he was able to be titrated off dobutamine and was placed on milrinone. His blood pressure finally got to the level where he was able to be placed back on carvedilol; however, his blood pressure did remain marginal and therefore, an angiotensin receptor bambi was not started. During this time, he recovered with regard to the surgical incision and the peritonitis. ID was consulted to determine the length of therapy for IV antibiotics and it had been determined that during the course of his admission, which was approximately 3 weeks in duration, he had received enough antibiotics during his hospital stay and would not require any additional antibiotics at the time of discharge. There was concern that he would not be able to manage the new ileostomy as well as the incision and for this reason, he is being discharged to the care home part of the [place]. They were able to manage the IV milrinone there. Also, he has significant BPH and had urinary retention. For this reason, a Villegas catheter was placed and the Villegas catheter will remain in place at the time of discharge. The patient plans to follow up after he is released from the care home facility to see Dr. George Dejesus to have a voiding trial with regard to the indwelling Villegas catheter. Therefore, the patient was discharged on 01/04/2020 once all of these things were arranged. Job ID: [id number]
== END 2020-01-04 15:20 | disposition home or self-care (01) | DRG 329 ==
LOC: IMCU/EMU 17:19 → CCU 12-20 18:35 → IMCU/EMU 12-22 20:45
PROVIDERS: ADMIT Hospitalist; ATTEND Internal Medicine
PROC: 02HV33Z Insertion of Infusion Device into Superior Vena Cava, Percutaneous Approach (ICD-10-PCS; principal; 2019-12-12)
PROC: B548ZZA Ultrasonography of Superior Vena Cava, Guidance (ICD-10-PCS; 2019-12-12)
PROC: 3E033XZ Introduction of Vasopressor into Peripheral Vein, Percutaneous Approach (ICD-10-PCS; 2019-12-12)
PROC: 0DBL8ZX Excision of Transverse Colon, Via Natural or Artificial Opening Endoscopic, Diagnostic (ICD-10-PCS; 2019-12-17)
PROC: 0DJ08ZZ Inspection of Upper Intestinal Tract, Via Natural or Artificial Opening Endoscopic (ICD-10-PCS; 2019-12-17)
PROC: 0DBL0ZZ Excision of Transverse Colon, Open Approach (ICD-10-PCS; 2019-12-20)
PROC: 0DNE0ZZ Release Large Intestine, Open Approach (ICD-10-PCS; 2019-12-20)
PROC: 0DN80ZZ Release Small Intestine, Open Approach (ICD-10-PCS; 2019-12-20)
PROC: 0WJG4ZZ Inspection of Peritoneal Cavity, Percutaneous Endoscopic Approach (ICD-10-PCS; 2019-12-20)
PROC: 0DB80ZZ Excision of Small Intestine, Open Approach (ICD-10-PCS; 2019-12-20)
PROC: 02HV33Z Insertion of Infusion Device into Superior Vena Cava, Percutaneous Approach (ICD-10-PCS; 2019-12-29)
PROC: B5181ZA Fluoroscopy of Superior Vena Cava using Low Osmolar Contrast, Guidance (ICD-10-PCS; 2019-12-29)
PROC: B548ZZA Ultrasonography of Superior Vena Cava, Guidance (ICD-10-PCS; 2019-12-29)
DX: C18.4 Malignant neoplasm of transverse colon (principal); I50.23 Acute on chronic systolic (congestive) heart failure; K65.9 Peritonitis, unspecified; J96.01 Acute respiratory failure with hypoxia; A41.9 Sepsis, unspecified organism; R65.20 Severe sepsis without septic shock; Q43.8 Other specified congenital malformations of intestine; K91.89 Other postprocedural complications and disorders of digestive system; N17.9 Acute kidney failure, unspecified; I13.0 Hypertensive heart and chronic kidney disease with heart failure and stage 1 through stage 4 chronic kidney disease, or unspecified chronic kidney disease; N18.3 Chronic kidney disease, stage 3 (moderate); Z66 Do not resuscitate; I95.9 Hypotension, unspecified; I25.5 Ischemic cardiomyopathy; I25.10 Atherosclerotic heart disease of native coronary artery without angina pectoris; I48.91 Unspecified atrial fibrillation; N40.1 Benign prostatic hyperplasia with lower urinary tract symptoms; K44.9 Diaphragmatic hernia without obstruction or gangrene; K29.40 Chronic atrophic gastritis without bleeding; K63.5 Polyp of colon; R33.9 Retention of urine, unspecified; D50.9 Iron deficiency anemia, unspecified; K64.9 Unspecified hemorrhoids; D63.1 Anemia in chronic kidney disease; I08.0 Rheumatic disorders of both mitral and aortic valves; I25.2 Old myocardial infarction; Z95.1 Presence of aortocoronary bypass graft; Z95.810 Presence of automatic (implantable) cardiac defibrillator; Z85.038 Personal history of other malignant neoplasm of large intestine; Z90.49 Acquired absence of other specified parts of digestive tract; Z87.891 Personal history of nicotine dependence; Z88.0 Allergy status to penicillin; Z79.01 Long term (current) use of anticoagulants
CPT/HCPCS: 36415; 36416; 36430; 36569; 71045; 71046; 71250; 71260; 74177; 80048; 80053; 82274; 82330; 82378; 82668; 82728; 82977; 83540; 83550; 83735; 83880; 84134; 84145; 84443; 85025; 85046; 85060; 85610; 85730; 86140; 86141; 86850; 86900; 86901; 87040; 87070; 87077; 87086; 87186; 87205; 87324; 87449; 88305; 88309; 88312; 88313; 88361; 93306; 93798; 94640; 99205; 99214; C1751; C9113; G0463; J0171; J0670; J1250; J1642; J1644; J1650; J1885; J1940; J2001; J2185; J2248; J2250; J2260; J2370; J2704; J3010; J3370; J3475; J3480; J3490; J7042; J7050; J7620; P9016; P9047; Q9967; S0020

== ENCOUNTER 2020-07-22 10:28 | Inpatient (IN) | payer MEDICARE, OTHER ==
--- NOTE | 2020-07-22 11:05 | RAD ---
EXAM: Single view of the chest HISTORY: Shortness of breath for a day COMPARISON: 01/03/2020 FINDINGS: Single view of the chest shows a normal sized cardiomediastinal silhouette. The patient is status post CABG. There appears to be a central line projecting over the left chest with its tip in the superior vena cava. The pacemaker is unchanged in position. A tiny calcified granuloma seen i n the right upper lobe. No acute osseous abnormality. IMPRESSION: No evidence of acute cardiopulmonary disease
[2020-07-22 11:52] LABS: #Eosinphils 0.1 thou/uL (0.0-0.7); #Lymphocytes 0.7 thou/uL (1.20-3.40); #Monocytes 0.7 thou/uL (0.11-0.59); #Neutrophils 7.4 thou/uL (1.40-6.50); %Eosinophils 0.6 % (0.0-10.0); %Lymphocytes 7.5 % (21.0-51.0); %Monocytes 8.2 % (0.0-10.0); %Neutrophils 83.7 % (42.0-75.0); Hemoglobin 12.7 g/dL (14.0-18.0); Mean Corpuscular HGB CONC 33.7 g/dL (32.0-36.0); Mean Corpuscular Hemoglobin 32.2 pg (27.0-31.0); Mean Corpuscular Volume 95.6 fL (78.0-98.0); Mean Platelet Volume 7.6 fL (7.4-10.4); Platelet Count 206 thou/uL (130-400); RBC Distribution Width 11.9 % (11.5-14.5); Red Blood Cell (RBC) Count 3.96 mill/uL (4.70-6.10); White Blood Cell (WBC) Count 8.8 thou/uL (4.8-10.8)
[2020-07-22] MEDS ORDERED: Milrinone Lactate/D5W 20 MG in Premix Bag 1 BAG IV SCH (12:00)
[2020-07-22 12:12] LABS: ALT (SGPT) 18 U/L (8-55); AST (SGOT) 12 U/L (5-34); Albumin 3.9 g/dL (3.4-4.8); Alkaline Phosphatase 70 U/L (40-110); Anion Gap 21 mmol/L (10-20); Bilirubin, Total 0.5 mg/dL (0.2-1.2); Calc. Creatinine Clearance 0 mL/min (70-130); Chloride 103 mmol/L (98-107); Estimated GFR-MDRD 12; Globulin 2.5 g/dL (2.4-3.5); Glucose 116 mg/dL (83-110); Potassium 4.7 mmol/L (3.5-5.1); Protein, Total 6.4 g/dL (5.8-8.1); Sodium 127 mmol/L (136-145)
[2020-07-22 12:15] LABS: Carbon Dioxide 8 mmol/L (23-31)
[2020-07-22 12:25] LABS: BUN (Urea Nitrogen) 132 mg/dL (8.4-25.7)
[2020-07-22 12:32] LABS: Analyzer IN Cardio ER; Base Excess (BEa) -16.7 mEq/L (-2.0 to +3.0); Calcium, Ionized (arterial) 1.25 mmol/L (1.12-1.30); Hemoglobin (Hb) 13.3 g/dL (14.0-18.0); O2 Tension (PaO2), arterial 123.6 mmHg (> 60.0); Potassium - ABG Lab 4.72 mmol/L (3.70-5.30); pH, Arterial 7.26 (7.35-7.45)
[2020-07-22 12:33] LABS: CO2 Tension 18.2 mmHg (35.0-45.0)
[2020-07-22 12:34] LABS: Puncture Site LRA
[2020-07-22] MEDS ORDERED: Aspirin Chewable 81 MG TAB ONE (13:01)
[2020-07-22 13:09] LABS: SARS-CoV-2 NAA Rapid Test Not Detected (NotDetected)
[2020-07-22] MEDS ORDERED: Cefepime 2 GM VIAL ONE (13:26)
[2020-07-22] MEDS ORDERED: Sodium Chloride 0.9% 100 ML ONE (13:26)
[2020-07-22 13:54] LABS: Clarity Hazy (Clear)
[2020-07-22 13:55] LABS: Glucose, Urine (Dipstick) Negative (Negative); Leukocyte Large (Negative); Nitrite Negative (Negative); Protein, Urine (Dipstick) 100 mg/dL (Neg-Trace)
[2020-07-22 13:56] LABS: Bacteria/HPF 4+ HPF (None Seen); Bilirubin Negative (Negative); Blood, Urine 3+ (Negative); Ketone, Urine Negative (Negative); RBC/HPF Greater than 50 HPF (0-3); Urobilinogen 0.2 mg/dL (Less than 2); WBC/HPF Greater Than 50 HPF (0-3)
--- NOTE | 2020-07-22 14:39 | PDOC.HHP ---
Hospitalist HPI - History of Present Illness worsening shortness of breath for two days History of Present Illness: 84yo M w/ MHx of CAD s/p CABG, HFrEF IV s/p AICD, Afib (on eliquis), colon Ca s/ p resctuon (solostomy), NSTEMI, BPH and urinary retention with chronic atwood presents with worsening shortenss of breath for the past two days. Wasn't active when first noticed shortness of breath, most noticeable when walks, and worse than his baseline. Spoke with his Furniture Dipper, Dr. Avalos, who advised the patient to come to the ED. On encounter, lying in bad comfortably and endorses breathing faster than usual but no shortness of breath. Denies chest pain, palpitations, jaw, shoulder, upper back, or arm pain/numbness, orthopnea, PND, presyncope, syncope, palpitations, AICD firing, lower extremity swelling, increased cough, pleuritic pain, abdomianl pain, hematochezia, melena, hematemesis, hematuria, change in urine volume in atwood bag, new medications or running out of medications ED Course: In the ED, found to be acidotic with elevated troponin and acute on chronic renal failure. Was admitted for further management Hospitalist ROS - Review of Systems All other systems reviewed; all pertinent +/- noted in HPI/Subj Hospitalist History - Past Medical History Source: old records (- Past Medical History Cardiac: reports: AFIB, CAD, CHF, HTN, MT, Valve insufficiency Heme/Onc: reports: Cancer (Colon cancer) - Past Surgical History Past Surgical History: reports: CABG, Hernia Repair, Other ( Colon resection) - Family History Family History: reports: hypertension - Social History Smoking Status: Former smoker Alcohol: reports: None Living Situation: With Family Activity level: independent ambulation) Heme/Onc: reports: Cancer (Colon cancer) - Past Surgical History Past Surgical History: reports: CABG, Hernia Repair, Other (Colon resection) - Social History Alcohol: reports: None - Exam General Appearance: NAD, awake alert Eye: PERRL, anicteric sclera ENT: normocephalic atraumatic, moist mucosa Neck: no JVD Neck - other findings: left upper thorax catheter in place Heart: RRR, no gallops, no rubs, murmur present Heart - other findings: most audible left 5th parasternal, decrescendo systolic Respiratory: CTAB, no wheezes, no rales, no ronchi Gastrointestinal: soft, non-tender, non-distended, normal bowel sounds Gastrointestinal - other findings: colostomy bag functional Extremities: 1+ LE edema Extremities - other findings: dryness, mild erythema over both shins Neurological: cranial nerve grossly intact, no focal deficits Psychiatric: normal affect, normal behavior, A&O x 3 Hospitalist Results - Labs Result Diagrams: 07/22/20 11:33 07/22/20 14:35 Lab results: WBC 8.8 thou/uL (4.8-10.8) 07/22/20 11:33 Hgb 12.7 g/dL (14.0-18.0) L 07/22/20 11:33 Hct 37.8 % (42.0-52.0) L 07/22/20 11:33 MCV 95.6 fL (78.0-98.0) 07/22/20 11:33 Plt Count 206 thou/uL (130-400) 07/22/20 11:33 Neutrophils % 83.7 % (42.0-75.0) H 07/22/20 11:33 ABG pH 7.26 (7.35-7.45) L 07/22/20 12:25 ABG pCO2 18.2 mmHg (35.0-45.0) L* 07/22/20 12:25 ABG pO2 123.6 mmHg (> 60.0) H 07/22/20 12:25 Sodium 127 mmol/L (136-145) L 07/22/20 11:33 Potassium 4.7 mmol/L (3.5-5.1) 07/22/20 11:33 Chloride 103 mmol/L (98-107) 07/22/20 11:33 Carbon Dioxide 8 mmol/L (23-31) L* 07/22/20 11:33 BUN 132 mg/dL (8.4-25.7) H 07/22/20 11:33 Creatinine 4.82 mg/dL (0.7-1.3) H 07/22/20 11:33 Glucose 116 mg/dL (83-110) H 07/22/20 11:33 Lactic Acid 0.7 mmol/L (0.5-2.2) 07/22/20 13:29 Calcium 9.0 mg/dL (7.8-10.44) 07/22/20 11:33 Total Bilirubin 0.5 mg/dL (0.2-1.2) 07/22/20 11:33 AST 12 U/L (5-34) 07/22/20 11:33 ALT 18 U/L (8-55) 07/22/20 11:33 Alkaline Phosphatase 70 U/L (40-110) 07/22/20 11:33 CK-MB (CK-2) 14.0 ng/mL (0-6.6) H* 07/22/20 11:33 Troponin I 0.369 ng/mL (< 0.028) H* 07/22/20 11:33 B-Natriuretic Peptide 241.6 pg/mL (0-100) H 07/22/20 11:33 Serum Total Protein 6.4 g/dL (5.8-8.1) 07/22/20 11:33 Albumin 3.9 g/dL (3.4-4.8) 07/22/20 11:33 Urine Ketones Negative mg/dL (Negative) 07/22/20 13:34 Urine Blood 3+ (Negative) A 07/22/20 13:34 Urine Nitrite Negative (Negative) 07/22/20 13:34 Ur Leukocyte Esterase Large (Negative) H 07/22/20 13:34 Urine RBC Greater than 50 HPF (0-3) A 07/22/20 13:34 Urine WBC Greater Than 50 HPF (0-3) A 07/22/20 13:34 Ur Squamous Epith Cells 4-6 HPF (0-3) A 07/22/20 13:34 Urine Bacteria 4+ HPF (None Seen) A 07/22/20 13:34 - EKG Interpretation EKG: paced with no concordant TORRES or discordant TORRES > 5mm. Similar to EKG in 03/2020 - Radiology Interpretation Chest x-ray Status: image reviewed by me (no acute cardiopulmonary process. Flattened diaphragms) Hospitalist H&P A/P - Problem (1) Acute renal failure Status: Acute (2) Metabolic acidosis Code(s): E87.2 - ACIDOSIS Status: Acute (3) CHF (congestive heart failure), NYHA class IV Code(s): I50.9 - HEART FAILURE, UNSPECIFIED Status: Acute Qualifiers: Congestive heart failure chronicity: acute on chronic (4) Colon cancer Code(s): C18.9 - MALIGNANT NEOPLASM OF COLON, UNSPECIFIED Status: Acute (5) Atrial fibrillation Code(s): I48.91 - UNSPECIFIED ATRIAL FIBRILLATION Status: Chronic (6) CKD (chronic kidney disease) Code(s): N18.9 - CHRONIC KIDNEY DISEASE, UNSPECIFIED Status: Chronic - Plan Plan: #shortness of breath #metabolic acidosis with respiratory compensation -nearly euvolemic -Well's score low risk for PE; has been on eliquis for afib -likely related to acidosis resulting and respiratory compensation and tachypnea -acidosis AG (renal failure) + NAG (colostomy, possible RTA) based on delta delta gap -chronic hyponatremia likely due to acute on chronic cardiorenal syndrome -fluid restriction 1.2L/24h -started bicarbonate #XAVI on CKD III #chronic hyponatremia -per patient, no change in urine volume in atwood bag -likely acute on chronic cardiorenal -urine and serum Na and Cr -Nephrology consulted #troponinemia -EKG showing no signs of new ishcemia -no complaints c/w ACS other than shortness of breath -elevated troponinemia and CKMB likely due to demand/XAVI on CKD -telemetry -continue to trend trop HFrEF Class IV -resume home medications, milrinone #p. afib #CAD s/p CABG -resume home medications, eliquis; changed coreg to metoprolol for lesser inotropic effects #BPH #chronic urinary retention, atwood -resume home medications; Dispo/PPx: DNAR GI PPx: no Ix DVT PPx: on therapeutic eliquis
[2020-07-22] MEDS ORDERED: Sodium Bicarbonate Tab 325 MG TAB PO SCH (15:00)
[2020-07-22 15:02] LABS: Calc. Creatinine Clearance 0 mL/min (70-130); Estimated GFR-MDRD 12; Sodium 127 mmol/L (136-145)
[2020-07-22 15:15] LABS: Troponin I 0.322 ng/mL (< 0.028)
[2020-07-22] MEDS ORDERED: Sodium Bicarbonate 150 MEQ in Dextrose 5% in Water 1,000 ML IV SCH (15:30)
[2020-07-22 16:18] LABS: Bacteria/HPF 4+ HPF (None Seen); Bilirubin Negative (Negative); Blood, Urine 1+ (Negative); Clarity Turbid (Clear); Glucose, Urine (Dipstick) Normal (Negative); Ketone, Urine Negative (Negative); Leukocyte 500 Leu/uL (Negative); Nitrite Negative (Negative); Protein, Urine (Dipstick) 30 mg/dL (Neg-Trace); Specific Gravity, Urine 1.011 (1.002-1.036); Squamous Epithelial None Seen HPF (0-3); Urobilinogen Normal mg/dL (Less than 2); WBC/HPF Greater than 50 HPF (0-3); pH, Urine 5.5 (5.0-9.0)
[2020-07-22 16:21] LABS: Urine Culture Reflex Yes Yes
[2020-07-22] MEDS: DOBUTamine 500 mg/250 ml 250 ML IVPB SCH (16:30)
[2020-07-22 16:44] LABS: Creatinine, Urine 139.84 mg/dL (63-166)
[2020-07-22] MEDS ORDERED: Cosyntropin 250 MCG VIAL SLOW IVP SCH (16:45)
--- NOTE | 2020-07-22 16:56 | PDOC.EVN ---
Event Note - Event Note Event Note: per Cardiology, increased fluid restriction to 2L/24hr, strated metoprolol succinate, amiodarone, bicarb IV, milrinone 0.25mg/kg. urinalysis positive, started on antibiotics for CAUTI
[2020-07-22] MEDS ORDERED: Amiodarone 200 MG TAB PO SCH (17:00)
--- NOTE | 2020-07-22 17:47 | CON ---
DATE OF CONSULTATION: 07/22/2020 REASON FOR CONSULTATION: Management of shortness of breath. HISTORY OF PRESENT ILLNESS: Mr. Juan Alberto Baer is an 84-year-old gentleman with recurrent colon cancer-ileostomy bag-chronic indwelling Villegas- chronic milrinone therapy on 0.75 mcg/kg/minute dose for heart failure, presented with sensation of shortness of breath and lethargy. Mr. Baer says he was in his usual state of health for a while. He had a good visit with [facility]. However, he started feeling lethargic, starting about 4 days ago. In the same time, his had headache, nausea, and also stomach pains. Mr. Baer said his 's symptoms started about the same time. Mr. Baer also has some slight cough. He also did not feel well in the abdominal area. He also could not eat well. His lethargy increased. He did not want to get out of bed. This is quite unusual for him. He actually called for help with someone to bathe him. This is also very unusual. Then on Wednesday, July 20, 2020, he developed shortness of breath. He felt like the shortness of breath worsened much on Wednesday. He felt particularly bad and weak. This morning, he felt so short of breath. He requested [facility]. He asked his daughter to call me late last night and also this morning to coordinate the help with his current condition. Mr. Baer said that he does not feel like that he has any increasing edema. In fact, he said he has decreased edema. He said he has lost 10 pounds in the last 2 weeks. He denies palpitations or syncope. He sleeps chronically in a recliner with head elevated about 20 degrees. He said that this was no change. He is concerned that he is short of breath, but does not know why this is so. Since he was seen in the ER, multiple tests were done. He was tested for COVID- 19. He was COVID-19 negative. The ABG showed a metabolic acidosis pattern and the blood chemistry showed acute renal failure with a BUN high at 132 and creatinine of 4.82. One amp of sodium bicarb was given. He seems stable with good blood pressure about 100 and heart rate paced about 80. He was transferred to telemetry floor. PAST MEDICAL HISTORY: 1. Coronary artery disease, coronary artery bypass x3 in 1999 after a myocardial infarction. 2. Heart failure with reduced ejection fraction with combined systolic and diastolic dysfunction. His echocardiogram done on December 22, 2019, showed left ventricular ejection fraction of 25%, moderate mitral regurgitation, moderate aortic insufficiency, and also reduced right ventricular function. 3. Recurrent colon cancer, first resection in 2002, recurred in 2019 with near obstruction that required resection to prevent obstruction. 4. Ileostomy. After the 2019 colon cancer resection, he developed anastomotic leak. This resulted in peritonitis. Thus, a diverting ileostomy was placed. 5. Inactive bladder. Due to this, he is now on a chronic Villegas catheter. 6. Statin intolerance. SOCIAL HISTORY: 1. He is a former smoker, stopped in 1982. 2. He has occasional alcohol use, but has not used recently. Unfortunately, he has been drinking quite a bit of excess Dr. pepper. He drinks two or more Dr. Pepper per day, that is all he drinks. 3. He denies illicit drug use. He currently lives with his second . His first after 50 years . He lives in independent living section of [facility] FAMILY HISTORY: 1. His father of cancer at age 56. 2. His mother at age 84 with complications from dementia. 3. Sibling from breast cancer and heart diseases. REVIEW OF SYSTEMS: GENERAL: There is no fever or chills. However, please see HPI for decline in function and lethargy. HEENT: There is no change in vision, hearing, or swallowing. PULMONARY: Please see HPI. CARDIAC: Please see HPI. GASTROINTESTINAL: Please see HPI. GENITOURINARY: He has chronic indwelling catheter. MUSCULOSKELETAL: He has complained of bilateral lower extremity pain about his feet and around his ankles. INTEGUMENT: He does not complain of any new skin breakdown. NEUROLOGIC: He does not complain of any new focal deficits or weaknesses. ALLERGIES AND SENSITIVITIES: His allergies include ESTUARDO inhibitors, meperidine, and penicillin. OUTPATIENT MEDICATIONS: His outpatient medications are uncertain currently. It came from multiple sources. He is currently being followed at [facility] in [place] for chronic milrinone infusion therapy. From what I can gather, here are his medications, 1. Amiodarone 200 mg daily. 2. Apixaban, which is Eliquis, 2.5 mg twice a day. 3. Carvedilol 6.25 mg twice a day. 4. Bumex 1 mg either once per day or twice per day. This had been changed to torsemide one time. It could have been switched back. It is quite uncertain. 5. Milrinone currently at 0.75 mcg/kg/minute. Calculated based on body weight 160 pounds. 6. Aspirin 81 mg daily. 7. Dimock-3 capsule 1200 mg once a day. 8. Levothyroxine 25 mcg daily. 9. Finasteride 5 mg daily. 10. Fludrocortisone 0.1 mg, frequency is currently uncertain. It was 3 times per week; however, it was reported by his daughter that it has increased to 0.1 mg twice a day by [facility]. We will need to see the medication list from [facility] to understand what his outpatient regimen is currently. PHYSICAL EXAMINATION: VITAL SIGNS: Heart rate 89, blood pressure 119/55. GENERAL: He is alert and conversational. He does appear tachypneic. He is trying to breathe fast and that is causing mild distress and his face is a little bit flushed because of that. HEENT: Show EOMI. Oropharynx is a bit dry. His lips are dry. NECK: His JVP is actually normal at about 7 cm, but with positive hepatojugular reflux. PULMONARY: There is good air movement bilaterally. There is decreased breath sounds at left base. CARDIAC: Regular rate and rhythm with 2/6 diastolic murmur at the right base. There is a 2/6 holosystolic murmur at the left upper sternal border and also 2/6 holosystolic murmur at the apex with radiation to the left axilla. ABDOMEN: Soft, nontender. Positive bowel sounds. His ostomy bag is in place with quite a bit of fluid material in it, so this could be fluid leak or diarrhea- like cyst substance. It would not be surprising worse amount of fluid displacement into the ostomy bag. EXTREMITIES: Lower extremities have slight pitting edema from feet to above ankles. However, both the feet and lower extremities are sensitive to touch. LABORATORY VALUES: Sodium 127; potassium 4.7; chloride 103; bicarb very low at 8, this is just metabolic acidosis; BUN 132 and creatinine 4.82, this suggests acute renal failure; total bilirubin 0.5; AST 12; ALT is 18. His BNP value is 242. This is much lower than his usual BNP. He has mildly elevated troponin at 0.369 on the first check. Three hours later, it has decreased down to 0.322. Chest x-ray is reviewed. There is torturous aorta with calcifications. There is a bypass in place. There is [employer]CH[employer] ADVISOR-D with bi-V ICD in place with the leads in the right atrium , the right ventricle, and also the left ventricle. The blood vessels are mildly prominent. There is no pulmonary edema. There is a slight left pleural effusion. Thus, there is no acute pneumonia or heart failure. The blood gas was done and also reviewed. It shows pH 7.26, pCO2 of 18.2, pO2 of 123.6 with O2 saturation measured at 98%. This is on room air. COVID-19 PCR was negative. ASSESSMENT: An 84-year-old gentleman has metabolic acidosis causing tachypnea. This metabolic acidosis is caused by acute renal failure as seen by a high BUN at 132 and creatinine of 4.82. It is not entirely clear what caused this renal failure. It could be a combination of diuretic and excessive emptying into ostomy bag. His had the gastrointestinal problems. They could have eaten something bad or had gastrointestinal viral enteritis that could have made them both sick, but in his case cause fluid loss into ostomy bag. Renal failure cause metabolic acidosis, which drove for tachypnea. The reason for his tachypnea was physiological response of using respiratory compensation. Unfortunately, respiratory compensation is not sufficient to overcome the metabolic acidosis. At this point, we will need to carefully correct his volume status and metabolic acidosis. Milrinone is also renally cleared. This will need to be converted to dobutamine for the interim. Otherwise, there will be a toxic dose of milrinone causing severe insisting hypotension. Please see the following for my recommendations. RECOMMENDATIONS: 1. Give sodium bicarb 150 mEq at 50 mL/hour for at least 10 hours and then follow labs. 2. Decrease milrinone from 0.75 mcg/kg/minute down to 0.25 mcg/kg/minute. We will follow and may need to titrate off. 3. Start dobutamine 2.5 mcg/kg/minute. He has severe cardiomyopathy and he has been inotrope dependent, so we will use dobutamine to augment heart through this difficulty. Eventually, we will transition back to milrinone. 4. Stop all diuretics for now. 5. Continue with amiodarone 200 mg daily. He will need this. He does have a history of atrial flutter and atrial fibrillation. Once he goes into atrial flutter and atrial fibrillation, he will be much worse. 6. Continue apixaban 2.5 mg twice a day. 7. One can hold carvedilol for now. May need to convert to Toprol-XL in the near future once milrinone was resumed. 8. Please consult Nephrology. Right now, he probably does not need dialysis because his mind is clear. He is still making urine. However, if anything changes such as more uremic or more acidotic, then he will need dialysis. It has been a pleasure taking care of Mr. Juan Alberto Baer. If you have any questions, please give me a call. Job ID: [id number]
[2020-07-22 17:58] LABS: Critical Call Chem Troponin I RESULT DECREASING; Troponin I 0.316 ng/mL (< 0.028)
[2020-07-22] MEDS: cefTRIAXone\\ROCEPHIN 1 GM in Sodium Chloride 0.9% 100 ML IVPB SCH (18:08)
[2020-07-22] MEDS: Apixaban 2.5 MG TAB PO SCH (20:28)
[2020-07-22] MEDS: Triamcinolone 0.1% Cream 15 GM TUBE TOP SCH (20:29)
[2020-07-22] MEDS ORDERED: Fludrocortisone Acetate 0.1 MG TAB PO SCH (21:00)
[2020-07-22] MEDS ORDERED: Metoprolol Tartrate 25 MG TAB PO SCH (21:00)
[2020-07-23 04:14] LABS: #Basophils 0.1 thou/uL (0.0-0.2); #Lymphocytes 0.2 thou/uL (1.20-3.40); #Monocytes 0.3 thou/uL (0.11-0.59); #Neutrophils 7.8 thou/uL (1.40-6.50); %Basophils 1.7 % (0.0-1.0); %Eosinophils 0.3 % (0.0-10.0); %Lymphocytes 2.8 % (21.0-51.0); %Monocytes 3.1 % (0.0-10.0); %Neutrophils 92.1 % (42.0-75.0); Hemoglobin 11.6 g/dL (14.0-18.0); Mean Corpuscular HGB CONC 33.3 g/dL (32.0-36.0); Mean Corpuscular Hemoglobin 31.2 pg (27.0-31.0); Mean Corpuscular Volume 93.8 fL (78.0-98.0); Mean Platelet Volume 8.2 fL (7.4-10.4); Platelet Count 180 thou/uL (130-400); RBC Distribution Width 11.8 % (11.5-14.5); White Blood Cell (WBC) Count 8.5 thou/uL (4.8-10.8)
[2020-07-23 04:42] LABS: ALT (SGPT) 16 U/L (8-55); AST (SGOT) 13 U/L (5-34); Albumin 3.4 g/dL (3.4-4.8); Alkaline Phosphatase 61 U/L (40-110); Anion Gap 19 mmol/L (10-20); Bilirubin, Total 0.4 mg/dL (0.2-1.2); Calc. Creatinine Clearance 10 mL/min (70-130); Calcium 8.3 mg/dL (7.8-10.44); Chloride 104 mmol/L (98-107); Estimated GFR-MDRD 12; Globulin 2.4 g/dL (2.4-3.5); Glucose 116 mg/dL (83-110); Magnesium 2.4 mg/dL (1.6-2.6); Potassium 4.6 mmol/L (3.5-5.1); Protein, Total 5.8 g/dL (5.8-8.1); Sodium 127 mmol/L (136-145)
[2020-07-23 04:45] LABS: Carbon Dioxide 9 mmol/L (23-31)
[2020-07-23 04:54] LABS: BUN (Urea Nitrogen) 138 mg/dL (8.4-25.7)
[2020-07-23] MEDS: Levothyroxine Sodium 25 MCG TAB PO SCH (05:14)
[2020-07-23] MEDS: Aspirin 81 mg Enteric Coated Tablet PO SCH (07:54)
[2020-07-23] MEDS: Fludrocortisone Acetate 0.1 MG TAB PO SCH (07:54)
[2020-07-23] MEDS: Finasteride 5 MG TAB PO SCH (07:54)
[2020-07-23] MEDS: Apixaban 2.5 MG TAB PO SCH ×2 (07:55→20:48)
[2020-07-23] MEDS ORDERED: Sodium Bicarbonate 150 MEQ in Dextrose 5% in Water 1,000 ML IV SCH (08:00)
[2020-07-23] MEDS: Amiodarone 200 MG TAB PO SCH (09:00)
[2020-07-23] MEDS: Triamcinolone 0.1% Cream 15 GM TUBE TOP SCH ×2 (09:00→20:48)
--- NOTE | 2020-07-23 09:26 | PRG ---
DATE OF SERVICE: 07/23/2020 SERVICE: Advanced Heart Failure [facility]ing [facility]. SUBJECTIVE: Mr. Baer had a good evening. He said he is breathing easier, but less short of breath. He is able to sleep and he also said he has increased energy level. He was visited by his terminal manager, Dr. Luna last night about [address] Luna also believed that he is severely dehydrated. REVIEW OF SYSTEMS: GENERAL: There is no fever, chills, or productive cough. HEENT: There is no change in vision, hearing, or swallowing. PULMONARY: He is still tachypneic, but feeling less short of breath. GI: He is able to eat. : He is still on a Villegas catheter. MUSCULOSKELETAL: He believes he is weak and cannot move too well, but there is no complaint of new joint or back pain. INTEGUMENT: There is no complaint of new skin breakdown. NEUROLOGIC: There are no new complaints of focal deficits or weaknesses. ALLERGIES: HE IS ALLERGIC TO ESTUARDO INHIBITOR, MEPERIDINE, AND PENICILLIN. MEDICATIONS: His current cardiac specific medications include: 1. Amiodarone 200 mg daily. 2. Apixaban 2.5 mg b.i.d. 3. Aspirin 81 mg daily. 4. Dobutamine 2.5 mcg/kg per minute. 5. Milrinone at 0.25 mcg/kg per minute. 6. Fludrocortisone 0.1 mg daily. 7. Finasteride 5 mg daily. PHYSICAL EXAMINATION: His telemetry was reviewed He is in paced rhythm; however, he has intermittent bouts of atrial fibrillation. There was an atrial fibrillation event, only lasted for 5 beats and flipped back into paced rhythm. VITAL SIGNS: Heart rate 84 to 92, blood pressure 111/53. GENERAL: He is alert, conversational, resting comfortably, reclining in bed. He is much more relaxed than yesterday. He is less tachypneic today. HEENT: Show EOMI. Oropharynx is benign with moist mucosa, but his lips are still quite dry. NECK: His JVP is about 7 cm with positive hepatojugular reflux. PULMONARY: There is good air movement bilaterally. There are no crackles. CARDIAC: Regular rate and rhythm with an occasional irregularity. There is a 2 /6 diastolic murmur at the right lower sternum border. There is a 2/6 holosystolic murmur at the apex with radiation to the left axilla. ABDOMEN: Soft, nontender. There is an ostomy bag in place. EXTREMITIES: Lower extremity are warm and well perfused. There is essentially no edema. LABORATORY VALUES: From today are white cell count 8.5, hemoglobin 11.6, platelet count 180. Chemistry show sodium 127, potassium 4.6, bicarb at 9, BUN 138, creatinine is little bit worse than yesterday creatinine 4.58. This is an improvement from yesterday. His magnesium is at 2.4. His albumin value is 3.4. ASSESSMENT: 84-year-old gentleman continued to have metabolic acidosis from acute renal failure. His acute renal failure is most likely due to dehydration. His net input/output yesterday was only very mildly positive at 1130 in and 975 out. He will need much more fluid resuscitation today; however, due to his heart failure with ejection fraction of 25%, his fluid replacement will need to be gentle and carefully measured. He still resides in [place] Heart [employer] stage C and also [place] Heart [employer] class III heart failure with reduced ejection fraction due to ischemic cardiomyopathy. He will continue to need inotrope therapy periods for him. Due to his acute renal failure, he will need combination of dobutamine and low-dose milrinone. We may need to titrate off milrinone completely and reliant on dobutamine, but we will try it another day with this combination for now. Reason why is milrinone, it is less arrhythmogenic. Please see the following for my recommendations. RECOMMENDATIONS: 1. Please provide sodium bicarb with 150 mEq and D5 running at 60 mL/hours for 1 L. 2. Continue dobutamine at 2.5 mcg/kg per minute. 3. Continue milrinone at 0.25 mcg/kg per minute. We may need to decrease this later. 4. His lab value of Cortrosyn stimulation test came back. It did not show him being adrenally insufficient. Thus, his fludrocortisone was most likely used for orthostatic hypotension and hyponatremia instead of adrenal insufficiency. To be exact, his Cortrosyn stimulation value, which is at baseline 14.6, at 30 minutes is 22.8, at 60 minutes is 30.7, at 90 minutes is 36.4. Consequently, he had an increase of 20 over 90 minutes. He had increase of about 15 at 60 minutes, although a bit slow response, but he has adequate increase in cortisol, so he does not have adrenal insufficiency. For now, we will continue the fludrocortisone at 0.1 mg daily for hyponatremia and possibly orthostatic hypotension. 5. Appreciate Dr. Luna, terminal manager for coming by. We will continue to give him careful fluids on a daily basis. It has been a pleasure taking care of Ab Juan Alberto Baer. If you have any questions, please give me a call. Job ID: [id number] MTDD
--- NOTE | 2020-07-23 10:32 | PDOC.HOSPP ---
- Subjective Encounter Date: 07/23/20 Encounter Time: 10:07 Subjective: Patient complaining of feeling trapped in bed due to multiple blankets on. Otherwise has no complaints. States he feels much better and had no issues overnight. Has been tolerating oral intake. States he was seen by Dr. Luna late last night. Resting comfortably. - Objective Vital Signs & Weight: Vital Signs (12 hours) Temp Pulse Pulse Pulse Resp BP BP 07/23/20 09:35 89 79 89/52 L 91/49 L 07/23/20 08:45 07/23/20 07:50 97.6 F 89 18 07/23/20 03:21 97.7 F 89 18 07/23/20 00:00 92 BP Pulse Ox 07/23/20 09:35 07/23/20 08:45 96 07/23/20 07:50 98/50 L 96 07/23/20 03:21 115/58 L 96 07/23/20 00:00 Weight Weight 137 lb 1.6 oz I&O: 07/22/20 07/23/20 07/24/20 06:59 06:59 06:59 Intake Total 1130 Output Total 975 Balance 155 Result Diagrams: 07/23/20 03:47 07/24/20 07:58 Hospitalist ROS - Review of Systems Constitutional: denies: fever, chills, sweats, weakness, malaise, other Eyes: denies: pain, vision change, conjunctivae inflammation, eyelid inflammation, redness, other ENT: denies: ear pain, ear discharge, nose pain, nose discharge, nose congestion , mouth pain, mouth swelling, throat pain, throat swelling, other Respiratory: denies: cough, dry, shortness of breath, hemoptysis, SOB with excertion, pleuritic pain, sputum, wheezing, other Cardiovascular: denies: chest pain, palpitations, orthopnea, paroxysmal noc. dyspnea, edema, light headedness, other Gastrointestinal: denies: nausea, vomiting, abdominal pain, diarrhea, constipation, melena, hematochezia, other Musculoskeletal: denies: neck pain, shoulder pain, arm pain, back pain, hand pain, leg pain, foot pain, other - Medication Medications: Active Medications Generic Name Dose Route Start Last Admin Trade Name Freq PRN Reason Stop Dose Admin Amiodarone HCl 200 mg 07/23/20 09:00 07/23/20 09:00 Cordarone PO 200 mg DAILY MAXI Administration Apixaban 2.5 mg 07/22/20 21:00 07/23/20 07:55 Eliquis PO 2.5 mg BID MAXI Administration Aspirin 81 mg 07/23/20 09:00 07/23/20 07:54 Ecotrin PO 81 mg DAILY MAXI Administration Cosyntropin 250 mcg 07/22/20 16:45 07/22/20 21:20 Cortrosyn SLOW IVP 250 mcg WILLCALL MAXI Administration Finasteride 5 mg 07/23/20 09:00 07/23/20 07:54 Proscar PO 5 mg DAILY MAXI Administration Fludrocortisone Acetate 0.1 mg 07/23/20 09:00 07/23/20 07:54 Florinef PO 0.1 mg DAILY MAXI Administration Dobutamine HCl/Dextrose 250 mls @ 9.328 mls/hr 07/22/20 15:30 07/22/20 16:30 Dobutamine 500 Mg/250 Ml IVPB 250 mls INF MAXI Administration 5 MCG/KG/MIN Ceftriaxone Sodium 1 gm/ 100 mls @ 200 mls/hr 07/22/20 18:00 07/22/20 18:08 Sodium Chloride IVPB 100 mls Q24HR MAXI Administration Sodium Bicarbonate 150 meq/ 1,150 mls @ 60 mls/hr 07/23/20 08:00 07/23/20 08: 59 Dextrose/Water IV 07/24/20 03:09 1,150 mls NOW MAXI Administration Levothyroxine Sodium 25 mcg 07/23/20 06:00 07/23/20 05:14 Synthroid PO 25 mcg 0600 MAXI Administration Metoprolol Succinate 12.5 mg 07/23/20 09:00 07/23/20 09:00 Toprol Xl PO 12.5 mg Q12HR MAXI Administration Triamcinolone Acetonide 0 gm 07/22/20 21:00 07/23/20 09:00 Kenalog 0.1% Cream TOP Not Given BID MAXI - Exam General Appearance: NAD, awake alert Eye: PERRL, anicteric sclera ENT: normocephalic atraumatic, no oropharyngeal lesions Neck: supple Heart: RRR, normal peripheral pulses Respiratory: CTAB, no wheezes, no rales, normal chest expansion Gastrointestinal: soft, non-tender, non-distended, no guarding Gastrointestinal - other findings: Ostomy bag in place in RLQ Extremities: no edema Skin: normal turgor, no lesions, no rashes Neurological: cranial nerve grossly intact Musculoskeletal: normal tone, normal strength Psychiatric: normal affect, normal behavior, A&O x 3 Hosp A/P (1) Metabolic acidosis Code(s): E87.2 - ACIDOSIS Status: Acute (2) Dehydration Code(s): E86.0 - DEHYDRATION Status: Acute (3) Acute on chronic renal failure Code(s): N17.9 - ACUTE KIDNEY FAILURE, UNSPECIFIED; N18.9 - CHRONIC KIDNEY DISEASE, UNSPECIFIED Status: Acute (4) Hyponatremia Code(s): E87.1 - HYPO-OSMOLALITY AND HYPONATREMIA Status: Acute (5) CHF (congestive heart failure), NYHA class IV Code(s): I50.9 - HEART FAILURE, UNSPECIFIED Status: Chronic Qualifiers: Congestive heart failure chronicity: acute on chronic (6) Atrial fibrillation Code(s): I48.91 - UNSPECIFIED ATRIAL FIBRILLATION Status: Chronic (7) CAD (coronary artery disease) Code(s): I25.10 - ATHSCL HEART DISEASE OF [place] CORONARY ARTERY W/O ANG PCTRS Status: Chronic Qualifiers: Coronary Disease-Associated Artery/Lesion type: [place] artery [place] vs. transplanted heart: [place] heart Associated angina: without angina Qualified Code(s): I25.10 - Atherosclerotic heart disease of [place] coronary artery without angina pectoris (8) Chronic anticoagulation Code(s): Z79.01 - MANAGER PROGRESSIVE CARE (CURRENT) USE OF ANTICOAGULANTS Status: Chronic (9) Pacemaker Code(s): Z95.0 - PRESENCE OF CARDIAC PACEMAKER Status: Chronic (10) Hx of malignant neoplasm of colon Code(s): Z85.038 - PERSONAL HISTORY OF MALIGNANT NEOPLASM OF LARGE INTESTINE Status: Acute (11) BPH (benign prostatic hyperplasia) Code(s): N40.0 - BENIGN PROSTATIC HYPERPLASIA WITHOUT LOWER URINRY TRACT SYMP Status: Chronic Qualifiers: Lower urinary tract symptom presence: symptoms absent Qualified Code(s): N40.0 - Benign prostatic hyperplasia without lower urinary tract symptoms (12) History of partial colectomy Code(s): Z90.49 - ACQUIRED ABSENCE OF OTHER SPECIFIED PARTS OF DIGESTIVE TRACT Status: Chronic (13) Hypothyroidism Code(s): E03.9 - HYPOTHYROIDISM, UNSPECIFIED Status: Acute (14) GERD (gastroesophageal reflux disease) Code(s): K21.9 - GASTRO-ESOPHAGEAL REFLUX DISEASE WITHOUT ESOPHAGITIS Status: Chronic (15) History of malignant melanoma of skin Code(s): Z85.820 - PERSONAL HISTORY OF MALIGNANT MELANOMA OF SKIN Status: Chronic - Plan Continue IV fluids with bicarb as per Dr. Luna. Patient on renal diet Cultures pending (urine and blood) Continue IV antibiotics Monitor O2 sats, repeat ABG Dr. Avalos following, awaiting cortosyn stim results. Continue Fludrocortisone 0.1 mg daily as per discussion with Dr. Avalos, may need to be increased to BID. GI prophylaxis with PPI PT/OT consult. Addendum - Attending - Attending Attestation Date/Time: 07/24/20 2067 I personally evaluated the patient and discussed the management with LILIA Leger I agree with the History, Examination, Assessment and Plan documented above with any addition or exceptions noted below.
[2020-07-23] MEDS: Acetaminophen 325 MG TAB PO PRN ×2 (16:35→23:30)
[2020-07-23] MEDS: cefTRIAXone\\ROCEPHIN 1 GM in Sodium Chloride 0.9% 100 ML IVPB SCH (17:26)
[2020-07-23] MEDS ORDERED: Melatonin 3 MG TAB PO SCH (23:45)
[2020-07-24] MEDS: Ondansetron ODT 4 MG TAB PO PRN (00:25)
[2020-07-24] MEDS: DOBUTamine 500 mg/250 ml 250 ML IVPB SCH (03:55)
[2020-07-24] MEDS: Levothyroxine Sodium 25 MCG TAB PO SCH (05:26)
[2020-07-24 08:35] LABS: ALT (SGPT) 20 U/L (8-55); AST (SGOT) 17 U/L (5-34); Albumin 3.2 g/dL (3.4-4.8); Alkaline Phosphatase 63 U/L (40-110); Anion Gap 18 mmol/L (10-20); Bilirubin, Total 0.5 mg/dL (0.2-1.2); Calc. Creatinine Clearance 11 mL/min (70-130); Calcium 8.3 mg/dL (7.8-10.44); Carbon Dioxide 13 mmol/L (23-31); Chloride 100 mmol/L (98-107); Estimated GFR-MDRD 13; Globulin 2.4 g/dL (2.4-3.5); Glucose 86 mg/dL (83-110); Magnesium 2.3 mg/dL (1.6-2.6); Protein, Total 5.6 g/dL (5.8-8.1); Sodium 127 mmol/L (136-145)
[2020-07-24 08:46] LABS: BUN (Urea Nitrogen) 130 mg/dL (8.4-25.7)
[2020-07-24] MEDS ORDERED: DOBUTamine 500 mg/250 ml 250 ML IVPB SCH (09:45)
[2020-07-24] MEDS: Fludrocortisone Acetate 0.1 MG TAB PO SCH ×2 (09:51→17:51)
[2020-07-24] MEDS: Apixaban 2.5 MG TAB PO SCH ×2 (09:52→22:23)
[2020-07-24] MEDS: Amiodarone 200 MG TAB PO SCH (09:52)
[2020-07-24] MEDS: Finasteride 5 MG TAB PO SCH (09:52)
[2020-07-24] MEDS: Aspirin 81 mg Enteric Coated Tablet PO SCH (09:52)
[2020-07-24] MEDS: Triamcinolone 0.1% Cream 15 GM TUBE TOP SCH ×2 (09:53→22:23)
[2020-07-24] MEDS ORDERED: Sodium Bicarbonate 150 MEQ in Dextrose 5% in Water 1,000 ML IV SCH (10:00)
[2020-07-24] MEDS ORDERED: Potassium Chloride 10 MEQ TAB PO SCH (10:00)
--- NOTE | 2020-07-24 10:24 | PDOC.HOSPP ---
- Subjective Encounter Date: 07/24/20 Encounter Time: 10:21 Subjective: Patient complaining of having pain all over his body from laying in bed for the last 48 hours. States he tried to get up with PT a moment ago, but became lightheaded when he stood so they opted not to get him up and moving. Patient continues with BP on low side and is currently on dobutamine. He also reports persistent SOB, which yesterday he stated felt better from when he initially presented to the ED. Today he states it feels unchanged but he notes some breathlessness while talking. He had an episode of vomiting this morning while taking his meds. States it was due to the water he was drinking. He has had no further vomiting since then. Denies any abdominal pain or bowel changes. - Objective Vital Signs & Weight: Vital Signs (12 hours) Temp Pulse Resp BP Pulse Ox 07/24/20 07:29 97.4 F L 80 20 99/53 L 97 07/24/20 03:57 98 07/24/20 03:10 97.8 F 89 18 105/53 L 98 07/23/20 23:10 80 104/55 L Weight Admit Weight 137 lb 3.2 oz Weight 138 lb 6.4 oz I&O: 07/23/20 07/24/20 07/25/20 06:59 06:59 06:59 Intake Total 1130 2050 Output Total 975 1675 Balance 155 375 Result Diagrams: 07/23/20 03:47 07/24/20 07:58 Hospitalist ROS - Review of Systems Constitutional: reports: other (generalized body aches/pain). denies: fever, chills, sweats, weakness, malaise Eyes: denies: pain, vision change, conjunctivae inflammation, eyelid inflammation, redness, other Respiratory: reports: shortness of breath (at rest when speaking) Gastrointestinal: reports: vomiting (x1). denies: nausea, abdominal pain, diarrhea, constipation, melena, hematochezia, other Genitourinary: denies: dysuria, frequency, incontinence, hematuria, retention, other Skin: denies: rash, lesions, karlo, bruising, other - Medication Medications: Active Medications Generic Name Dose Route Start Last Admin Trade Name Freq PRN Reason Stop Dose Admin Acetaminophen 650 mg 07/22/20 15:13 07/23/20 23:30 Tylenol PO 650 mg Q4H PRN Administration Headache/Fever/Mild Pain (1-3) Amiodarone HCl 200 mg 07/23/20 09:00 07/24/20 09:52 Cordarone PO 200 mg DAILY MAXI Administration Apixaban 2.5 mg 07/22/20 21:00 07/24/20 09:52 Eliquis PO 2.5 mg BID MAXI Administration Aspirin 81 mg 07/23/20 09:00 07/24/20 09:52 Ecotrin PO 81 mg DAILY MAXI Administration Cosyntropin 250 mcg 07/22/20 16:45 07/22/20 21:20 Cortrosyn SLOW IVP 250 mcg WILLCALL MAXI Administration Finasteride 5 mg 07/23/20 09:00 07/24/20 09:52 Proscar PO 5 mg DAILY MAXI Administration Ceftriaxone Sodium 1 gm/ 100 mls @ 200 mls/hr 07/22/20 18:00 07/23/20 17:26 Sodium Chloride IVPB 100 mls Q24HR MAXI Administration Levothyroxine Sodium 25 mcg 07/23/20 06:00 07/24/20 05:26 Synthroid PO 25 mcg 0600 MAXI Administration Metoprolol Succinate 12.5 mg 07/23/20 09:00 07/24/20 09:51 Toprol Xl PO 12.5 mg Q12HR MAXI Administration Ondansetron HCl 4 mg 07/22/20 15:13 07/24/20 00:25 Zofran Odt PO 4 mg Q6H PRN Administration Nausea/Vomiting Potassium Chloride 10 meq 07/24/20 10:00 07/24/20 09:57 Klor-Con 10 PO 07/24/20 12:00 10 meq 1000 MAXI Administration Triamcinolone Acetonide 0 gm 07/22/20 21:00 07/24/20 09:53 Kenalog 0.1% Cream TOP Not Given BID [facility] - Exam General Appearance: NAD General - other findings: resting comfortably in bed, thin frail appearing Eye: PERRL, anicteric sclera ENT: normocephalic atraumatic Neck: supple, no lymphadenopathy Heart: RRR Respiratory: normal chest expansion, no tachypnea Respiratory - other findings: coarse lung sounds, able to speak in full sentences Gastrointestinal: soft, non-tender, non-distended, no guarding, no rigidity Extremities: no edema Skin: normal turgor, no rashes Neurological: cranial nerve grossly intact Musculoskeletal: normal tone, generalized weakness Psychiatric: normal affect, normal behavior, A&O x 3 Hosp A/P (1) Metabolic acidosis Code(s): E87.2 - ACIDOSIS Status: Acute (2) Dehydration Code(s): E86.0 - DEHYDRATION Status: Acute (3) Acute on chronic renal failure Code(s): N17.9 - ACUTE KIDNEY FAILURE, UNSPECIFIED; N18.9 - CHRONIC KIDNEY DISEASE, UNSPECIFIED Status: Acute (4) Hyponatremia Code(s): E87.1 - HYPO-OSMOLALITY AND HYPONATREMIA Status: Acute (5) CHF (congestive heart failure), NYHA class IV Code(s): I50.9 - HEART FAILURE, UNSPECIFIED Status: Chronic Qualifiers: Congestive heart failure chronicity: acute on chronic (6) Atrial fibrillation Code(s): I48.91 - UNSPECIFIED ATRIAL FIBRILLATION Status: Chronic (7) CAD (coronary artery disease) Code(s): I25.10 - ATHSCL HEART DISEASE OF [place] CORONARY ARTERY W/O ANG PCTRS Status: Chronic Qualifiers: Coronary Disease-Associated Artery/Lesion type: [place] artery [place] vs. transplanted heart: [place] heart Associated angina: without angina Qualified Code(s): I25.10 - Atherosclerotic heart disease of [place] coronary artery without angina pectoris (8) Chronic anticoagulation Code(s): Z79.01 - IT TRAINING SPECIALIST (CURRENT) USE OF ANTICOAGULANTS Status: Chronic (9) Pacemaker Code(s): Z95.0 - PRESENCE OF CARDIAC PACEMAKER Status: Chronic (10) Hx of malignant neoplasm of colon Code(s): Z85.038 - PERSONAL HISTORY OF MALIGNANT NEOPLASM OF LARGE INTESTINE Status: Acute (11) BPH (benign prostatic hyperplasia) Code(s): N40.0 - BENIGN PROSTATIC HYPERPLASIA WITHOUT LOWER URINRY TRACT SYMP Status: Chronic Qualifiers: Lower urinary tract symptom presence: symptoms absent Qualified Code(s): N40.0 - Benign prostatic hyperplasia without lower urinary tract symptoms (12) History of partial colectomy Code(s): Z90.49 - ACQUIRED ABSENCE OF OTHER SPECIFIED PARTS OF DIGESTIVE TRACT Status: Chronic (13) Hypothyroidism Code(s): E03.9 - HYPOTHYROIDISM, UNSPECIFIED Status: Acute (14) GERD (gastroesophageal reflux disease) Code(s): K21.9 - GASTRO-ESOPHAGEAL REFLUX DISEASE WITHOUT ESOPHAGITIS Status: Chronic (15) History of malignant melanoma of skin Code(s): Z85.820 - PERSONAL HISTORY OF MALIGNANT MELANOMA OF SKIN Status: Chronic - Plan 07/23- Continue IV fluids with bicarb as per Dr. Luna. Patient on renal diet Cultures pending (urine and blood) Continue IV antibiotics Monitor O2 sats, repeat ABG Dr. Avalos following, awaiting cortosyn stim results. Continue Fludrocortisone 0.1 mg daily as per discussion with Dr. Avalos, may need to be increased to BID. GI prophylaxis with PPI PT/OT consult. 07/24- Blood cultures without any growth to date. UCx pending. IV fluids as per Dr. Luna. Continue IV antibiotics. Repeat ABG. Albuterol neb ordered for symptomatic relief. Discuss with Dr. Masters if Fludrocortisone should be increased to BID, given low BP. Addendum - Physician - Physician Attestation Date/Time: 07/24/20 9283 I personally performed or re-performed the physical examination and medical decision making. I have verified all [facility]'s documentation or findings, including history, physical exam and/or medical decision making. patient remains tachypnic 18-20. Otherwise, no other complaints. 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 Proper urine output. Continue dobutamine and bicarb as per cardiology. #UTI -culutre NTD; if final negative, stop ABx #orthostatic hypotension -daily measurements #low TSH low but may be context of acute illness
[2020-07-24] MEDS ORDERED: Albuterol Sulfate 1.25 MG/3 ML NEB EZPAP SCH (10:30)
[2020-07-24] MEDS ORDERED: Amiodarone 200 MG TAB PO SCH (11:00)
[2020-07-24] MEDS ORDERED: Fludrocortisone Acetate 0.1 MG TAB PO SCH (11:00)
--- NOTE | 2020-07-24 12:43 | PRG ---
DATE OF SERVICE: 07/24/2020 HISTORY: Mr. Juan Alberto Baer had a variable day. He said that he was stuck in bed, and believed unable to get out. One time, he lost his call button, so he felt trapped. He said that he has difficulty regaining his strength to get out. He now has diffuse back pain due to being stuck in bed. He also said he does not have a good appetite. He has urinary tract infection and also ceftriaxone was started. His daughter has important paperwork in terms of his will that needs to be signed by [facility]. They are requesting a way to come into the hospital. REVIEW OF SYSTEMS: GENERAL: There is no fever, chills or productive cough. HEENT: There is no change in vision, hearing or swallowing. He is hard of hearing. He uses hearing aids. PULMONARY: He is less short of breath, but he still has occasional short of breath, but this is actually tachypnea due to metabolic acidosis. CARDIAC: There is no complaint of chest pain, palpitations or syncope. GI: He does not have appetite. : He has a chronic indwelling Villegas catheter. MUSCULOSKELETAL: He complains of diffuse back pain. INTEGUMENT: There are no new complaints of skin breakdown. NEUROLOGIC: There are no new focal deficits or weaknesses. CARDIAC MEDICATIONS: 1. Amiodarone 200 mg daily. 2. Apixaban 2.5 mg twice a day. 3. Aspirin 81 mg daily. 4. Dobutamine currently at 5 mcg/kg/min. 5. Fludrocortisone 0.1 mg daily. 6. Levothyroxine 25 mcg daily. 7. Toprol-XL 12.5 mg q.12 hours. Telemetry review shows variety of AV paced, bi-V paced, and there is occasional PVC. There was no concerning arrhythmias. PHYSICAL EXAMINATION: VITAL SIGNS: Heart rate paced at 80 and blood pressure 99/53. He is saturating 97% on room air. GENERAL: He is alert and conversational, reclining in bed. HEENT: EOMI. Oropharynx, mucosa is moist, but his lips still dry. NECK: His JVP is about 8 cm with positive hepatojugular reflux. PULMONARY: He has good air movement bilateral. There are no crackles. CARDIAC: Regular rate and rhythm with occasional irregularity, there is 2/6 diastolic murmur at the right lower sternal border. There is 2/6 holosystolic murmur at the apex with radiation to the left axilla. ABDOMEN: Soft and nontender. Positive bowel sounds. There is ostomy bag in place with material in it. He also has a Villegas in place with color urine. EXTREMITIES: Lower extremities are without edema with positive dorsalis pedis pulses bilaterally. LABORATORY DATA: This morning, sodium 127, potassium 4, bicarb is improved to 13, BUN decreased from 138 down to 130, creatinine has decreased from 4.58 down to 4.29. ASSESSMENT: This is an 84-year-old gentleman, who is making slow but steady recovery from acute renal failure and metabolic acidosis due to likely dehydration. Combination of dobutamine and sodium bicarb IVGTT has improved the situation. Due to severity of renal failure, milrinone cannot be started at this point. Fortunately, he is making excellent urine. He had 2050 in. He has urine output, yesterday it was 1675. He will need to have continued dobutamine support and sodium bicarb and with careful volume resuscitation. Please see the following for my recommendations. RECOMMENDATIONS: 1. Increase dobutamine to 6 mcg/kg/min. 2. Sodium bicarb 150 mEq in D5, 50 mL/hr for total of 750 mL. 3. Please do PT/OT to help the patient to regain function. 4. Please provide nutrition consult. 5. Please provide potassium chloride 20 mEq p.o. one dose. 6. Please add TH to the labs collected this morning, because he could also be having hypothyroidism. 7. Please allow his daughter to bring in his will and please help the patient with finding a public speaking professor, so this can be signed. The patient will need to have continued inotropic support and careful hydration daily until his fluid status and renal function have returned to normal. Due to his combined systolic and diastolic dysfunction, we only can do this slowly over time. It has been a pleasure taking care of Mr. Baer. If you have any questions, please give me a call. Job ID: [id number] MTDD
[2020-07-24] MEDS: cefTRIAXone\\ROCEPHIN 1 GM in Sodium Chloride 0.9% 100 ML IVPB SCH (17:51)
[2020-07-24] MEDS ORDERED: Melatonin 3 MG TAB PO SCH ×2 (21:00→23:59)
[2020-07-24] MEDS: Acetaminophen 325 MG TAB PO PRN (22:23)
[2020-07-25] MEDS: DOBUTamine 500 mg/250 ml 250 ML IVPB SCH (00:39)
[2020-07-25 04:20] VITALS: BMI 20.8
[2020-07-25 04:39] LABS: #Basophils 0.1 thou/uL (0.0-0.2); #Eosinphils 0.1 thou/uL (0.0-0.7); #Lymphocytes 0.2 thou/uL (1.20-3.40); #Monocytes 0.7 thou/uL (0.11-0.59); %Basophils 0.6 % (0.0-1.0); %Eosinophils 0.8 % (0.0-10.0); %Lymphocytes 1.5 % (21.0-51.0); %Monocytes 5.7 % (0.0-10.0); %Neutrophils 91.3 % (42.0-75.0); Mean Corpuscular HGB CONC 32.3 g/dL (32.0-36.0); Mean Corpuscular Hemoglobin 30.7 pg (27.0-31.0); Mean Corpuscular Volume 94.9 fL (78.0-98.0); Platelet Count 150 thou/uL (130-400); RBC Distribution Width 11.8 % (11.5-14.5); Red Blood Cell (RBC) Count 3.91 mill/uL (4.70-6.10)
[2020-07-25 04:52] LABS: Anion Gap 19 mmol/L (10-20); BUN (Urea Nitrogen) 124 mg/dL (8.4-25.7); Calc. Creatinine Clearance 12 mL/min (70-130); Calcium 8.2 mg/dL (7.8-10.44); Carbon Dioxide 17 mmol/L (23-31); Chloride 97 mmol/L (98-107); Estimated GFR-MDRD 15; Glucose 94 mg/dL (83-110); Magnesium 2.4 mg/dL (1.6-2.6); Potassium 4.2 mmol/L (3.5-5.1); Sodium 129 mmol/L (136-145)
[2020-07-25] MEDS: Fludrocortisone Acetate 0.1 MG TAB PO SCH ×2 (05:30→18:24)
[2020-07-25] MEDS: Levothyroxine Sodium 25 MCG TAB PO SCH (05:30)
[2020-07-25] MEDS ORDERED: Sodium Chloride 0.9% 500 ML IVPB SCH (08:45)
[2020-07-25] MEDS: Aspirin 81 mg Enteric Coated Tablet PO SCH ×2 (09:06→11:13)
[2020-07-25] MEDS: Apixaban 2.5 MG TAB PO SCH ×3 (09:06→20:37)
[2020-07-25] MEDS: Finasteride 5 MG TAB PO SCH ×2 (09:06→11:13)
[2020-07-25] MEDS: Amiodarone 200 MG TAB PO SCH ×2 (09:06→11:13)
[2020-07-25 09:07] LABS: Free T4 (Free Thyroxine) 1.45 ng/dL (0.70-1.48)
[2020-07-25] MEDS: Triamcinolone 0.1% Cream 15 GM TUBE TOP SCH ×2 (09:08→20:38)
--- NOTE | 2020-07-25 09:10 | PRG ---
DATE OF SERVICE: 07/25/2020 SUBJECTIVE: Mr. Juan Alberto Baer had a good day. He said that his generalized body pains and aches have decreased. He is breathing easier. For the first time, he was able to sleep for at least 4 hours. However, he still has decreased appetite, did not want to eat. He wanted some ice cream yesterday, but he was not given ice cream. He was told that the hospital does not have any ice cream. He was visited by his daughter and also publications manager, so his will was signed. Generally, he is more pleased and more pleasant today. REVIEW OF SYSTEMS: GENERAL: There is no fever, chills, productive cough. HEENT: There is no change in vision, hearing, or swallowing. However, he is chronically hard of hearing, requiring hearing aid. PULMONARY: Please see HPI. CARDIAC: There is no palpitation, chest pain or syncope. GI: Please see HPI. : He has chronic indwelling Villegas catheter. MUSCULOSKELETAL: He still has chronic back pains. INTEGUMENT: There are no new complaints, skin breakdowns. NEUROLOGIC: There are no new complaints or focal deficits or weaknesses. OBJECTIVE: His telemetry was reviewed. He has a paced rhythm. There are occasional PVCs. VITAL SIGNS: His heart rate is paced at 80, blood pressure 111/52. GENERAL: He is alert and conversational, reclining comfortably in bed. HEENT: Show EOMI. Oropharynx benign. Mucosa is moist. Lips still dry, but less so. NECK: JVP is about 9 cm with positive hepatojugular reflux. PULMONARY: There is good air movement bilateral. There are no crackles. CARDIAC: Regular rate and rhythm with normal S1, S2, there is 2/6 diastolic murmur at the right lower sternal border and there is also 2/6 holosystolic murmur at the apex with radiation to the left axilla. ABDOMEN: Soft, nontender. Positive bowel sounds. He has ileostomy bag in place in the right upper quadrant. There is fluid noted, green material in it. EXTREMITIES: Lower extremity are without edema. LABORATORY VALUES: White cell count elevated today at 12, hemoglobin 12, and platelets 150. His chemistry has improved with sodium 129, potassium 4.2. BUN has decreased from 130 down to 124. His creatinine also has decreased down to 3.82. His 24-hour I's and O's is not correct. It is documented as 900 in and 1100 out. This could not be possible because there was more IV fluids that came in. ASSESSMENT: 84-year-old gentleman is making steady progress toward recovering renal function. Due to his severe heart failure with reduced ejection fraction, we cannot javier the rehydration, hence the sodium bicarb replacement. He was originally admitted for acute renal failure with metabolic acidosis and severe dehydration. With careful sodium bicarb, IV fluids and fludrocortisone, he has been recovering his renal function. His milrinone has to be stopped and this is to convert over to dobutamine. Dobutamine does not require Renal clearance, that is the reason why for the switch. At this point, with steady improvement with a bicarb heading towards normal, we will use a 50:50 mixture of sodium bicarb and normal saline. Please see the following for my recommendations. RECOMMENDATIONS: 1. Please do normal saline at 60 mL/h for 8 hours. 2. Please infuse sodium bicarbonate 150 mEq and D5 at 60 mL/h for 0.5 L. 3. Please investigate why his white cell count is increasing. We want to avoid any type of infection. 4. Please do PT/OT, and encourage the patient to participate. 5. Please liberalize his fluid restriction to 2.5 L per day. 6. Please provide ice cream or whatever the patient likes to eat. At this point , the patient needs to eat. It has been a pleasure taking care of Mr. Baer. If you have any questions, please give me a call. Job ID: [id number] MTDD
[2020-07-25] MEDS: Ondansetron PF 4 MG/2 ML Vial IVP PRN ×2 (09:12→15:21)
--- NOTE | 2020-07-25 09:39 | RAD ---
PORTABLE CHEST 1 VIEW: DATE: 07/25/2020. TIME: 8:51 AM. HISTORY: Elevated WBCs. Shortness of breath. COMPARISON: 07/22/2020. FINDINGS: Changes of median sternotomy are again seen. Left-sided AICD remains in place. Left-sided central v enous catheter with tip in the projection of the cavoatrial junction is again noted. The heart size is normal. The aorta is tortuous. The lungs are expanded without lobar consolidation, pneumothorace s, josseline pulmonary edema, or pleural effusions. There is evidence of old granulomatous disease. IMPRESSION: Stable exam. No acute process. POS: OFF
[2020-07-25] MEDS: Cefepime 1 GM in Sodium Chloride 0.9% 100 ML IVPB SCH (11:05)
[2020-07-25 11:46] LABS: Lactic Acid 1.3 mmol/L (0.5-2.2)
--- NOTE | 2020-07-25 14:15 | PDOC.HOSPP ---
- Subjective Encounter Date: 07/25/20 Encounter Time: 10:13 Subjective: Patient reports he is feeling tired and with a lack of appetite. He has no interest in getting up with PT today. States he hasnt been eating or drinking. Reports having difficulty sleeping since being admitted. No further vomiting since yesterday. Has not had further increased output than usual from ostomy. Remains afebrile and denies any chills. Denies any cough or sob. No abdominal pain. Good urine output (atwood in place) and denies any discomfort associated with it. Remains on antibiotics for UTI, UCx pending. Renal function is slowly improving as well as bicarb. - Objective Vital Signs & Weight: Vital Signs (12 hours) Temp Pulse Resp BP Pulse Ox 07/25/20 11:05 98.4 F 79 16 102/53 L 98 07/25/20 07:55 97 07/25/20 07:20 98.4 F 81 16 111/52 L 97 07/25/20 04:00 97.7 F 79 15 109/55 L 98 Weight Admit Weight 137 lb 3.2 oz Weight 132 lb 14.4 oz I&O: 07/24/20 07/25/20 07/26/20 06:59 06:59 06:59 Intake Total 2050 900 Output Total 1675 1100 Balance 375 -200 Result Diagrams: 07/25/20 04:05 07/25/20 04:05 Hospitalist ROS - Review of Systems Constitutional: reports: weakness, malaise Respiratory: denies: cough, dry, shortness of breath, hemoptysis, SOB with excertion, pleuritic pain, sputum, wheezing, other Cardiovascular: denies: chest pain, palpitations, orthopnea, paroxysmal noc. dyspnea, edema, light headedness, other Gastrointestinal: reports: nausea, other (decreased appetite). denies: vomiting , abdominal pain, diarrhea, constipation, melena, hematochezia Genitourinary: reports: other (Atwood in place, on abx for UTI) Musculoskeletal: denies: neck pain, shoulder pain, arm pain, back pain, hand pain, leg pain, foot pain, other Skin: denies: rash, lesions, karlo, bruising, other - Medication Medications: Active Medications Generic Name Dose Route Start Last Admin Trade Name Freq PRN Reason Stop Dose Admin Acetaminophen 650 mg 07/22/20 15:13 07/24/20 22:23 Tylenol PO 650 mg Q4H PRN Administration Headache/Fever/Mild Pain (1-3) Amiodarone HCl 200 mg 07/23/20 09:00 07/25/20 11:13 Cordarone PO Not Given DAILY [facility] Apixaban 2.5 mg 07/22/20 21:00 07/25/20 11:13 Eliquis PO Not Given BID [facility] Aspirin 81 mg 07/23/20 09:00 07/25/20 11:13 Ecotrin PO Not Given DAILY [facility] Cosyntropin 250 mcg 07/22/20 16:45 07/22/20 21:20 Cortrosyn SLOW IVP 250 mcg WILLCALL MAXI Administration Finasteride 5 mg 07/23/20 09:00 07/25/20 11:13 Proscar PO Not Given DAILY [facility] Fludrocortisone Acetate 0.1 mg 07/24/20 18:00 07/25/20 05:30 Florinef PO 0.1 mg 0600,1800 MAXI Administration Dobutamine HCl/Dextrose 250 mls @ 13.992 mls/hr 07/24/20 10:00 07/25/20 00:39 Dobutamine 500 Mg/250 Ml IVPB 250 mls INF MAXI Administration 7.5 MCG/KG/MIN Sodium Chloride 500 mls @ 60 mls/hr 07/25/20 08:45 07/25/20 09:07 Normal Saline 0.9% IVPB 07/25/20 17:04 500 mls INF MAXI Administration Cefepime HCl 1 gm/ Sodium 100 mls @ 200 mls/hr 07/25/20 11:00 07/25/20 11:05 Chloride IVPB 100 mls 1100 MAXI Administration Levothyroxine Sodium 25 mcg 07/23/20 06:00 07/25/20 05:30 Synthroid PO 25 mcg 0600 MAXI Administration Metoprolol Succinate 12.5 mg 07/23/20 09:00 07/25/20 11:13 Toprol Xl PO Not Given Q12HR [facility] Ondansetron HCl 4 mg 07/22/20 15:13 07/24/20 00:25 Zofran Odt PO 4 mg Q6H PRN Administration Nausea/Vomiting Ondansetron HCl 4 mg 07/22/20 15:13 07/25/20 09:12 Zofran IVP 4 mg Q6H PRN Administration Nausea/Vomiting Triamcinolone Acetonide 0 gm 07/22/20 21:00 07/25/20 09:08 Kenalog 0.1% Cream TOP Not Given BID MAXI - Exam General Appearance: NAD, awake alert General - other findings: appears thin and frail, found sleeping. Eye: PERRL ENT: normocephalic atraumatic, no oropharyngeal lesions, dry oral mucosa Neck: supple Heart: RRR, murmur present Respiratory: CTAB, no wheezes, no rales Gastrointestinal: soft, non-tender, non-distended, normal bowel sounds Gastrointestinal - other findings: ostomy to right abdomen, stoma unremarkable Extremities: no edema Musculoskeletal: generalized weakness Psychiatric: A&O x 3 Psychiatric - other findings: Appears to be in low spirits today, and tired. Hosp A/P (1) Leukocytosis Code(s): D72.829 - ELEVATED WHITE BLOOD CELL COUNT, UNSPECIFIED Status: Acute Plan: WCC elevated today, unclear if due to infection. Known to have UTI and on rocephin. Remains afebrile. Will obtain CXR. Blood cultures negative. (2) UTI (urinary tract infection) Status: Acute Plan: Patient has been on Rocephin for UTI. UCx pending. (3) Appetite loss Code(s): R63.0 - ANOREXIA Status: Acute Plan: Patient with reduced appetite. Agency Trainer input appreciated. (4) Generalized weakness Code(s): R53.1 - WEAKNESS Status: Acute Plan: PT/OT following. Initially difficult to mobilize patient due to orthostasis. Given improvement in hydration status, please repeat Orthostatic BPs. If normal, please encourage ambulation with PT. (5) Metabolic acidosis Code(s): E87.2 - ACIDOSIS Status: Acute Plan: Slowly improving. Continue bicarb as per Dr. Avalos. (6) Dehydration Code(s): E86.0 - DEHYDRATION Status: Acute Plan: Slowly improving on gentle IV hdyration. Continue to monitor renal function. (7) Acute on chronic renal failure Code(s): N17.9 - ACUTE KIDNEY FAILURE, UNSPECIFIED; N18.9 - CHRONIC KIDNEY DISEASE, UNSPECIFIED Status: Acute Plan: As above, improving on gentle hydration. (8) Hyponatremia Code(s): E87.1 - HYPO-OSMOLALITY AND HYPONATREMIA Status: Acute Plan: Trending upward, currently 129 from 127. Continue to monitor. (9) CHF (congestive heart failure), NYHA class IV Code(s): I50.9 - HEART FAILURE, UNSPECIFIED Status: Chronic Qualifiers: Congestive heart failure chronicity: acute on chronic Plan: As per Dr. Avalos. (10) Atrial fibrillation Code(s): I48.91 - UNSPECIFIED ATRIAL FIBRILLATION Status: Chronic (11) CAD (coronary artery disease) Code(s): I25.10 - ATHSCL HEART DISEASE OF [place] CORONARY ARTERY W/O ANG PCTRS Status: Chronic Qualifiers: Coronary Disease-Associated Artery/Lesion type: [place] artery [place] vs. transplanted heart: [place] heart Associated angina: without angina Qualified Code(s): I25.10 - Atherosclerotic heart disease of [place] coronary artery without angina pectoris (12) Chronic anticoagulation Code(s): Z79.01 - LICENSING OFFICER (CURRENT) USE OF ANTICOAGULANTS Status: Chronic (13) Pacemaker Code(s): Z95.0 - PRESENCE OF CARDIAC PACEMAKER Status: Chronic (14) Hx of malignant neoplasm of colon Code(s): Z85.038 - PERSONAL HISTORY OF MALIGNANT NEOPLASM OF LARGE INTESTINE Status: Acute (15) BPH (benign prostatic hyperplasia) Code(s): N40.0 - BENIGN PROSTATIC HYPERPLASIA WITHOUT LOWER URINRY TRACT SYMP Status: Chronic Qualifiers: Lower urinary tract symptom presence: symptoms absent Qualified Code(s): N40.0 - Benign prostatic hyperplasia without lower urinary tract symptoms (16) History of partial colectomy Code(s): Z90.49 - ACQUIRED ABSENCE OF OTHER SPECIFIED PARTS OF DIGESTIVE TRACT Status: Chronic (17) Hypothyroidism Code(s): E03.9 - HYPOTHYROIDISM, UNSPECIFIED Status: Acute (18) GERD (gastroesophageal reflux disease) Code(s): K21.9 - GASTRO-ESOPHAGEAL REFLUX DISEASE WITHOUT ESOPHAGITIS Status: Chronic (19) Insomnia Code(s): G47.00 - INSOMNIA, UNSPECIFIED Status: Acute Plan: Melatonin 6 mg PO QHS. - Plan atwood catheter, PT/OT, GI proph ADDENDUM: UCx came back positive for pseudomonas. Rocephin therefore switched to Cefepime. Per Dr. Masters family interested in speaking to Dr. Avalos re: wishes to place patient on hospice. Would benefit from Palliative Care consult to discuss goals of care, etc. Addendum - Attending - Attending Attestation Date/Time: 07/25/20 9930 I personally evaluated the patient and discussed the management with LILIA Leger I agree with the History, Examination, Assessment and Plan documented above with any addition or exceptions noted below. During encounter with daughter at bedside, patient repeatedly requesting to stop aggressive management and go home. Endorses loss of appetite for the past two weeks, being tired. Daughter at bedside requested to have palliative team discussion after she initiated discussion regarding hospice. Requested that daughter involves Dr. Avalos prior to moving forward considering his active role in caring for patient. Exam unchanged. Labs showing improved renal function and acidosis; neutrophilia and urine culture growing pseudomonas and gram negatives. Changed antibiotic to cefepime pending finalization.
--- NOTE | 2020-07-25 14:44 | RAD ---
EXAM: Single view of the abdomen HISTORY: Obstruction COMPARISON: 11/04/2003 FINDINGS: Single view of the abdomen shows a nonspecific, nonobstructive bowel gas pattern. An ostomy projects over the right lower quadrant of the abdomen. Surgical clips are seen in the pelvis. No suspicious calcifications are seen. The bones are unremarkable. IMPRESSION: Nonobstructive bowel gas pattern
[2020-07-25] MEDS ORDERED: Melatonin 3 MG TAB PO PRN ×2 (15:53→17:20)
--- NOTE | 2020-07-25 16:43 | PDOC.PALCO ---
Palliative Care Consult - Consult Details Requesting Physician: Dr Masters Reason for Consult: goals of care, complex decision-making Family Members Present: Daughter - Pertinent HPI 84 year old male who resides with his in an independent apartment/adult living. He has on onset of shortness of breath for two days that increased with ambulation and activity. They called Dr Avalos who referred them to the emergency room. He denied reports of chest pain/discomfort, edema, palpitations, change in medications, nausea, vomiting, altered mental status. He was evaluated in the emergency room and noted to have an elevated troponin, acute renal failure and acidotic, admitted to telemetry for further evaluation. Today it was reported patient was refusing diagnostics and wanted to stop therapies and "go home" meaning to " and go to [facility]". - Pertinent PMH Afib, CAD, CHF, HTN, Colon Cancer, Colon resection, CABG, - Social History Smoking Status: Former smoker Smoking: cigarettes Alcohol Use: none Drug Use History: none Living Situation: independent, - Medications MAR Reviewed: Yes - Allergies Allergies/Adverse Reactions: Allergies Allergy/AdvReac Type Severity Reaction Status Date / Time ESTUARDO Inhibitors Allergy Verified 02/11/20 04:54 meperidine Allergy Verified 02/11/20 04:54 Penicillins Allergy Verified 02/11/20 04:54 Thoygwd-Bzi-Iiu Reductase Allergy Verified 02/11/20 04:54 Inhibitor - Subjective Hard of hearing, decisional. Weakness. On Dubutamine IV to sustain pressure - ROS Constitutional: loss appetite, weakness ENT: change in hearing, other (Negative for difficulity swallowing, congestion) Respiratory: shortness of breath Cardiology: other (Denies palpitations, chest pain) Gastrointestinal: other (Denies vomiting, nausea, ) Genitourinary: other (Atwood) Musculoskeletal: arthritis/arthralgias Neurological: other (deneis numbness, seiaure, syncope) Skin: other (Denies puritis, rash) - Objective Vital Signs: Vital Signs - Most Recent Temp Pulse Resp BP Pulse Ox 98.4 F 79 16 102/53 L 98 07/25/20 11:05 07/25/20 11:05 07/25/20 11:05 07/25/20 11:05 07/25/20 11:05 Palliative Performance Scale: 50 - Physical Exam Constitutional: ill appearing HEENT: EOMI, moist MMs, sclera anicteric Respiratory: no rales, no wheezing Deviation from normal: Mild shortness of breath with conversation Cardiovascular: RRR Deviation from normal: Murmur Gastrointestinal: soft, non-tender, colostomy Genitourinary: atwood catheter Musculoskeletal: no cyanosis, no clubbing, diffuse muscle atrophy Neurology: moves all 4 limbs, no focal deficits Skin: cap refill <2 seconds, no lesions Deviation from normal: Pallor Psychiatric: A&O x 3 - Problem List (1) Palliative care encounter Code(s): Z51.5 - ENCOUNTER FOR PALLIATIVE CARE Current Visit: Yes Status: Acute (2) Acute renal failure Current Visit: Yes Status: Acute (3) Appetite loss Code(s): R63.0 - ANOREXIA Current Visit: Yes Status: Acute (4) Generalized weakness Code(s): R53.1 - WEAKNESS Current Visit: Yes Status: Acute (5) Hx of malignant neoplasm of colon Code(s): Z85.038 - PERSONAL HISTORY OF MALIGNANT NEOPLASM OF LARGE INTESTINE Current Visit: No Status: Acute (6) CHF (congestive heart failure), NYHA class IV Code(s): I50.9 - HEART FAILURE, UNSPECIFIED Current Visit: No Status: Chronic Qualifiers: Congestive heart failure chronicity: acute on chronic - Plan/Recommendations Plan: Visited with patient and Daughter (I believe step daughter) at length. Mr Baer states he is ready to stop all treatment. He had met with Dr Avalos and is agreeable to continue for a day or two current medications. He is ready to transition to hospice. Consideration is family is not certain he can transition home to residence with his secondary to elevated need for care. May qualify for inpatient hospice if there are symptoms to manage. Daughter also confirms they may consider moving her parents into her home, transition home with hospice. The daughter and patient will come tomorrow to further discuss hospice. It appears that the end point will be hospice, the decision will need to be made as to "when" that occurs. Patient expressed to the family today his wishes , they are "processing" but want to honor his goal of care and wish to transition to hospice. Will revisit tomorrow at 2pm with patient, his , and daughter. [50] minutes spent on this encounter with >50% of the time in counseling and coordination of care. Thank you for this very appropriate consult.
[2020-07-25] MEDS ORDERED: Sodium Bicarbonate 75 MEQ in Dextrose 5% in Water 500 ML IV SCH (17:00)
[2020-07-25] MEDS: Ondansetron ODT 4 MG TAB PO PRN (20:37)
[2020-07-25] MEDS: Acetaminophen 325 MG TAB PO PRN (20:37)
[2020-07-26] MEDS: Ondansetron ODT 4 MG TAB PO PRN (03:44)
[2020-07-26 04:13] LABS: #Basophils 0.1 thou/uL (0.0-0.2); #Eosinphils 0.1 thou/uL (0.0-0.7); #Lymphocytes 0.1 thou/uL (1.20-3.40); #Monocytes 0.6 thou/uL (0.11-0.59); #Neutrophils 9.5 thou/uL (1.40-6.50); %Basophils 0.8 % (0.0-1.0); %Eosinophils 1.2 % (0.0-10.0); %Lymphocytes 1.2 % (21.0-51.0); %Monocytes 5.7 % (0.0-10.0); %Neutrophils 91.1 % (42.0-75.0); Hemoglobin 12.2 g/dL (14.0-18.0); Mean Corpuscular HGB CONC 33.9 g/dL (32.0-36.0); Mean Corpuscular Volume 94.5 fL (78.0-98.0); Mean Platelet Volume 8.3 fL (7.4-10.4); Platelet Count 139 thou/uL (130-400); RBC Distribution Width 11.8 % (11.5-14.5); White Blood Cell (WBC) Count 10.5 thou/uL (4.8-10.8)
[2020-07-26 04:39] LABS: Anion Gap 16 mmol/L (10-20); BUN (Urea Nitrogen) 115 mg/dL (8.4-25.7); Calc. Creatinine Clearance 13 mL/min (70-130); Calcium 7.9 mg/dL (7.8-10.44); Carbon Dioxide 24 mmol/L (23-31); Chloride 92 mmol/L (98-107); Estimated GFR-MDRD 16; Glucose 98 mg/dL (83-110); Magnesium 2.4 mg/dL (1.6-2.6); Potassium 3.7 mmol/L (3.5-5.1); Sodium 128 mmol/L (136-145)
[2020-07-26] MEDS: Fludrocortisone Acetate 0.1 MG TAB PO SCH ×2 (05:33→17:17)
[2020-07-26] MEDS: Levothyroxine Sodium 25 MCG TAB PO SCH (05:33)
[2020-07-26] MEDS: Amiodarone 200 MG TAB PO SCH (08:53)
[2020-07-26] MEDS: Aspirin 81 mg Enteric Coated Tablet PO SCH (08:53)
[2020-07-26] MEDS: Apixaban 2.5 MG TAB PO SCH ×2 (08:53→21:16)
[2020-07-26] MEDS: Triamcinolone 0.1% Cream 15 GM TUBE TOP SCH ×2 (08:54→21:16)
[2020-07-26] MEDS: Finasteride 5 MG TAB PO SCH (08:54)
[2020-07-26] MEDS: Sodium Chloride 0.9% 1,000 ML IV SCH (08:54)
[2020-07-26] MEDS ORDERED: Vancomycin 1 GM in Premix Bag 1 BAG IVPB SCH (10:30)
[2020-07-26] MEDS ORDERED: Calcium Gluconate 4.6 MEQ in Sodium Chloride 0.9% 100 ML IVPB SCH (10:45)
[2020-07-26] MEDS ORDERED: Potassium Chloride 20 MEQ TAB PO SCH (10:45)
--- NOTE | 2020-07-26 10:51 | PRG ---
DATE OF SERVICE: 07/26/2020 SERVICE: Advanced Heart Failure Cardiology Consulting Service. SUBJECTIVE: Mr. Juan Alberto Baer had a good day and he is also improved. Yesterday, he was quite despondent, wanting to stop care. However, it was explained to him there is nothing that will take his life immediately. The only way that he can pass quickly is intervention and that is not possible. After he understood that he was trying to cooperate with our nursing staff and participating care. IV fluids continued on. He actually improved. He feels better now. He is more energetic, wants to eat and wants to try to move. So, he has significant improvement since yesterday. REVIEW OF SYSTEMS: GENERAL: There is no fever, chills, or productive cough. HEENT: There is no changing in vision, hearing, or swallowing. PULMONARY: He is not short of breath. He is not tachypneic. He is back to his baseline. CARDIAC: There is no chest pain, palpitations, or syncope. GI: He is not nauseated or vomiting now. He is able to eat. He was able to eat some grapes today. : He has a chronic indwelling Villegas catheter in place. This will need to be converted to suprapubic catheter later. MUSCULOSKELETAL: He is not complaining of the diffuse pains this morning. INTEGUMENT: There is no report of new skin breakdown. NEUROLOGIC: There are no focal deficits or weaknesses. MEDICATIONS: His cardiac medications include: 1. Amiodarone 200 mg daily. 2. Apixaban 2.5 mg b.i.d. 3. Aspirin 81 mg daily. 4. Dobutamine currently running at 7.5 mcg/kg/minute. 5. Fludrocortisone 0.1 mg twice a day. 6. Levothyroxine 25 mcg daily. 7. Toprol-XL 12.5 mg q.12 hours. Telemetry was reviewed. He is in variety of biventricular paced A paced, V paced rhythm. There is occasional PVC. There is no concerning arrhythmia. PHYSICAL EXAMINATION: VITAL SIGNS: His latest heart rate 80 and blood pressure 97/55. GENERAL: He is alert and conversational, reclining comfortably in bed. He is much more energetic today. He is not tachypneic. HEENT: Show EOMI. Oropharynx is benign with moist mucosa. His lips little bit more wet today which is better than yesterday. NECK: His JVP about 8 cm with positive hepatojugular reflux. PULMONARY: There is good air movement bilateral. No crackles. CARDIAC: Regular rate and rhythm with normal S1, S2, there is 2/6 diastolic murmur at the right lower sternal border. There is also 2/6 holosystolic murmur at the apex with radiation to the left axilla. ABDOMEN: There is the ileostomy bag in place with fluid and pre-fecal material. His abdomen is soft. EXTREMITIES: Lower extremity are without edema with palpable dorsalis pedis pulses. LABORATORY VALUES: Sodium 128, potassium 3.7, bicarb 24, this has been normalized. BUN 115 decreased from 124, creatinine is 3.56, this has decreased from 3.82 yesterday. Calcium 7.9, magnesium 2.4. His T4 is in normal range. ASSESSMENT: 84-year-old gentleman is making steady progress, recovering from acute renal failure and metabolic acidosis. Acute failure and metabolic acidosis caused by fluid emptying into his ileostomy bag that was not being replenished. He also has heart failure with reduced ejection fraction due to ischemic cardiomyopathy with EF about 20%. Due to this limitation, aggressive IV fluids could not be given. However, a steady flow of measure of IV fluid and correction for his metabolic acidosis has corrected his acid-base situation and greatly improved his renal function. For that is the reason why that he has reached a level that he feels stronger and better today. However, we will need to continue this carefully. Please see my recommendations. RECOMMENDATION: 1. Continue dobutamine at 7.5 mcg/kg/minute. This will be needed to sustain cardiac output to his kidneys to recover his kidneys. 2. Please give normal saline 60 mL/h for 24 hours. This will help to recover his kidneys. 3. Please give calcium gluconate 1 g IV. 4. Please give potassium chloride 10 mEq one dose. 5. Please encourage the patient to eat and participate with PT/OT. It has been a pleasure taking care of Mr. Juan Alberto Baer. If you have any questions, please give me a call. Job ID: [id number] [facility]
[2020-07-26] MEDS: Cefepime 1 GM in Sodium Chloride 0.9% 100 ML IVPB SCH (11:49)
[2020-07-26] MEDS: Ondansetron PF 4 MG/2 ML Vial IVP PRN (11:49)
[2020-07-26] MEDS ORDERED: Melatonin 3 MG TAB PO PRN (15:06)
[2020-07-26] MEDS: DOBUTamine 500 mg/250 ml 250 ML IVPB SCH (18:16)
--- NOTE | 2020-07-26 19:28 | PDOC.HOSPP ---
- Subjective Encounter Date: 07/26/20 Encounter Time: 08:00 Subjective: no overnight events. this morning, feeling better though says didn't have much sleep. otherwise no complaints. - Objective Vital Signs & Weight: Vital Signs (12 hours) Temp Pulse Pulse Pulse Resp BP BP 07/26/20 15:35 97.7 F 82 16 07/26/20 13:35 80 80 104/55 L 96/52 L 07/26/20 11:50 97.8 F 80 16 07/26/20 07:25 97.7 F 80 18 BP Pulse Ox 07/26/20 15:35 108/58 L 99 07/26/20 13:35 07/26/20 11:50 97/55 L 97 07/26/20 07:25 94/51 L 98 Weight Admit Weight 137 lb 3.2 oz Weight 132 lb 11.104 oz I&O: 07/25/20 07/26/20 07/27/20 06:59 06:59 06:59 Intake Total 900 1388 1858 Output Total 1100 1025 965 Balance -200 363 893 Result Diagrams: 07/26/20 03:57 07/26/20 03:57 Hospitalist ROS - Review of Systems Constitutional: denies: chills, sweats Respiratory: denies: cough, dry, shortness of breath Cardiovascular: denies: chest pain, palpitations, orthopnea Gastrointestinal: denies: nausea, vomiting, abdominal pain Genitourinary: denies: hematuria - Medication Medications: Active Medications Generic Name Dose Route Start Last Admin Trade Name Freq PRN Reason Stop Dose Admin Acetaminophen 650 mg 07/22/20 15:13 07/25/20 20:37 Tylenol PO 650 mg Q4H PRN Administration Headache/Fever/Mild Pain (1-3) Amiodarone HCl 200 mg 07/23/20 09:00 07/26/20 08:53 Cordarone PO 200 mg DAILY MAXI Administration Apixaban 2.5 mg 07/22/20 21:00 07/26/20 08:53 Eliquis PO 2.5 mg BID MAXI Administration Aspirin 81 mg 07/23/20 09:00 07/26/20 08:53 Ecotrin PO 81 mg DAILY MAXI Administration Cosyntropin 250 mcg 07/22/20 16:45 07/22/20 21:20 Cortrosyn SLOW IVP 250 mcg WILLCALL MAXI Administration Finasteride 5 mg 07/23/20 09:00 07/26/20 08:54 Proscar PO 5 mg DAILY MAXI Administration Fludrocortisone Acetate 0.1 mg 07/24/20 18:00 07/26/20 17:17 Florinef PO 0.1 mg 0600,1800 MAXI Administration Dobutamine HCl/Dextrose 250 mls @ 13.992 mls/hr 07/24/20 10:00 07/26/20 18:16 Dobutamine 500 Mg/250 Ml IVPB 250 mls INF MAXI Administration 7.5 MCG/KG/MIN Sodium Chloride 1,000 mls @ 60 mls/hr 07/26/20 08:45 07/26/20 08:54 Normal Saline 0.9% IV 07/27/20 08:46 1,000 mls .[id number] MAXI Administration Levothyroxine Sodium 25 mcg 07/23/20 06:00 07/26/20 05:33 Synthroid PO 25 mcg 0600 MAXI Administration Metoprolol Succinate 12.5 mg 07/23/20 09:00 07/26/20 08:53 Toprol Xl PO 12.5 mg Q12HR MAXI Administration Ondansetron HCl 4 mg 07/22/20 15:13 07/26/20 03:44 Zofran Odt PO 4 mg Q6H PRN Administration Nausea/Vomiting Ondansetron HCl 4 mg 07/22/20 15:13 07/26/20 11:49 Zofran IVP 4 mg Q6H PRN Administration Nausea/Vomiting Triamcinolone Acetonide 0 gm 07/22/20 21:00 07/26/20 08:54 Kenalog 0.1% Cream TOP Not Given BID MAXI - Exam General Appearance: NAD, awake alert Neck: no JVD Heart: RRR, no gallops, no rubs Heart - other findings: Biv pacing on tele Respiratory: CTAB, no wheezes, no rales, no ronchi Gastrointestinal: soft, non-tender, non-distended, normal bowel sounds Gastrointestinal - other findings: colostomy bag functional Extremities: no edema Psychiatric: normal affect, normal behavior, A&O x 3 Hosp A/P (1) Leukocytosis Code(s): D72.829 - ELEVATED WHITE BLOOD CELL COUNT, UNSPECIFIED Status: Acute (2) UTI (urinary tract infection) Status: Acute (3) Appetite loss Code(s): R63.0 - ANOREXIA Status: Acute (4) Generalized weakness Code(s): R53.1 - WEAKNESS Status: Acute (5) Metabolic acidosis Code(s): E87.2 - ACIDOSIS Status: Acute (6) Dehydration Code(s): E86.0 - DEHYDRATION Status: Acute (7) Acute on chronic renal failure Code(s): N17.9 - ACUTE KIDNEY FAILURE, UNSPECIFIED; N18.9 - CHRONIC KIDNEY DISEASE, UNSPECIFIED Status: Acute (8) Hyponatremia Code(s): E87.1 - HYPO-OSMOLALITY AND HYPONATREMIA Status: Acute (9) CHF (congestive heart failure), NYHA class IV Code(s): I50.9 - HEART FAILURE, UNSPECIFIED Status: Chronic Qualifiers: Congestive heart failure chronicity: acute on chronic (10) Atrial fibrillation Code(s): I48.91 - UNSPECIFIED ATRIAL FIBRILLATION Status: Chronic (11) CAD (coronary artery disease) Code(s): I25.10 - ATHSCL HEART DISEASE OF [place] CORONARY ARTERY W/O ANG PCTRS Status: Chronic Qualifiers: Coronary Disease-Associated Artery/Lesion type: three affiliated artery [place] vs. transplanted heart: three affiliated heart Associated angina: without angina Qualified Code(s): I25.10 - Atherosclerotic heart disease of three affiliated coronary artery without angina pectoris (12) Chronic anticoagulation Code(s): Z79.01 - TREATING MACHINE OPERATOR (CURRENT) USE OF ANTICOAGULANTS Status: Chronic (13) Pacemaker Code(s): Z95.0 - PRESENCE OF CARDIAC PACEMAKER Status: Chronic (14) Hx of malignant neoplasm of colon Code(s): Z85.038 - PERSONAL HISTORY OF MALIGNANT NEOPLASM OF LARGE INTESTINE Status: Acute (15) BPH (benign prostatic hyperplasia) Code(s): N40.0 - BENIGN PROSTATIC HYPERPLASIA WITHOUT LOWER URINRY TRACT SYMP Status: Chronic Qualifiers: Lower urinary tract symptom presence: symptoms absent Qualified Code(s): N40.0 - Benign prostatic hyperplasia without lower urinary tract symptoms (16) History of partial colectomy Code(s): Z90.49 - ACQUIRED ABSENCE OF OTHER SPECIFIED PARTS OF DIGESTIVE TRACT Status: Chronic (17) Hypothyroidism Code(s): E03.9 - HYPOTHYROIDISM, UNSPECIFIED Status: Acute (18) GERD (gastroesophageal reflux disease) Code(s): K21.9 - GASTRO-ESOPHAGEAL REFLUX DISEASE WITHOUT ESOPHAGITIS Status: Chronic (19) Insomnia Code(s): G47.00 - INSOMNIA, UNSPECIFIED Status: Acute - Plan ADDENDUM: repeat UCx enterococcus; stopped cefepime and started vanc; renal function improving; proper urine output pending hospice placement ELOS: 1-2 nights
[2020-07-27] MEDS: Sodium Chloride 0.9% 1,000 ML IV SCH (01:28)
[2020-07-27 04:53] LABS: #Eosinphils 0.1 thou/uL (0.0-0.7); #Lymphocytes 0.3 thou/uL (1.20-3.40); #Monocytes 0.7 thou/uL (0.11-0.59); #Neutrophils 10.7 thou/uL (1.40-6.50); %Basophils 0.3 % (0.0-1.0); %Eosinophils 0.9 % (0.0-10.0); %Lymphocytes 2.2 % (21.0-51.0); %Monocytes 5.6 % (0.0-10.0); %Neutrophils 91.1 % (42.0-75.0); Hemoglobin 12.3 g/dL (14.0-18.0); Mean Corpuscular HGB CONC 32.6 g/dL (32.0-36.0); Mean Corpuscular Hemoglobin 31.6 pg (27.0-31.0); Mean Corpuscular Volume 96.9 fL (78.0-98.0); Mean Platelet Volume 8.5 fL (7.4-10.4); Platelet Count 137 thou/uL (130-400); RBC Distribution Width 11.9 % (11.5-14.5); White Blood Cell (WBC) Count 11.8 thou/uL (4.8-10.8)
[2020-07-27 05:20] LABS: Anion Gap 19 mmol/L (10-20); BUN (Urea Nitrogen) 114 mg/dL (8.4-25.7); Calc. Creatinine Clearance 12 mL/min (70-130); Carbon Dioxide 17 mmol/L (23-31); Chloride 96 mmol/L (98-107); Estimated GFR-MDRD 15; Glucose 100 mg/dL (83-110); Magnesium 2.3 mg/dL (1.6-2.6); Potassium 4.1 mmol/L (3.5-5.1); Sodium 128 mmol/L (136-145)
[2020-07-27] MEDS: Levothyroxine Sodium 25 MCG TAB PO SCH (05:39)
[2020-07-27] MEDS: Fludrocortisone Acetate 0.1 MG TAB PO SCH ×2 (05:39→20:25)
[2020-07-27 08:01] VITALS: BP 93/53
[2020-07-27] MEDS: Aspirin 81 mg Enteric Coated Tablet PO SCH (09:00)
[2020-07-27] MEDS: Finasteride 5 MG TAB PO SCH (09:00)
[2020-07-27] MEDS: Apixaban 2.5 MG TAB PO SCH ×2 (09:00→20:25)
[2020-07-27] MEDS: Amiodarone 200 MG TAB PO SCH (09:00)
[2020-07-27] MEDS ORDERED: Cefepime 1 GM in Sodium Chloride 0.9% 100 ML IVPB SCH (09:00)
[2020-07-27] MEDS: Albumin 25% 25 GM/100 ML BOT IVPB SCH ×2 (09:01→20:25)
[2020-07-27] MEDS: Triamcinolone 0.1% Cream 15 GM TUBE TOP SCH ×2 (09:02→20:30)
[2020-07-27] MEDS: Acetaminophen 325 MG TAB PO PRN (09:45)
[2020-07-27] MEDS: DOBUTamine 500 mg/250 ml 250 ML IVPB SCH ×2 (10:50→21:25)
[2020-07-27] MEDS: Vasopressin 20 UNIT, Admixture Fee 1 EACH in Sodium Chloride 0.9% 50 ML IV SCH ×2 (10:51→16:59)
[2020-07-27] MEDS ORDERED: Vancomycin 1 GM in Premix Bag 1 BAG IVPB SCH (11:00)
[2020-07-27] MEDS ORDERED: Sodium Bicarbonate 150 MEQ in Dextrose 5% in Water 1,000 ML IV SCH (11:00)
--- NOTE | 2020-07-27 11:49 | PDOC.HOSPP ---
- Subjective Encounter Date: 07/27/20 Encounter Time: 11:39 Subjective: Patient seen for follow-up regarding congestive heart failure exacerbation. He reports generalized weakness. - Objective Vital Signs & Weight: Vital Signs (12 hours) Temp Pulse Resp BP Pulse Ox 07/27/20 07:15 97.7 F 80 16 93/53 L 99 07/27/20 04:00 97.4 F L 80 18 101/52 L 98 07/27/20 02:32 98 Weight Admit Weight 137 lb 3.2 oz Weight 135 lb 3.2 oz I&O: 07/26/20 07/27/20 07/28/20 06:59 06:59 06:59 Intake Total 1388 2338 Output Total 1025 1990 Balance 363 348 Result Diagrams: 07/27/20 04:22 07/27/20 04:22 Additional Labs: I reviewed labs and MAR EKG Reviewed by me: Yes (Telemetry: V paced rhythm) Hospitalist ROS - Review of Systems Constitutional: reports: weakness Respiratory: reports: SOB with excertion Cardiovascular: denies: chest pain, palpitations, orthopnea, paroxysmal noc. dyspnea, edema, light headedness Genitourinary: denies: dysuria, frequency, incontinence, hematuria, retention - Medication Medications: Active Medications Generic Name Dose Route Start Last Admin Trade Name Freq PRN Reason Stop Dose Admin Acetaminophen 650 mg 07/22/20 15:13 07/27/20 09:45 Tylenol PO 650 mg Q4H PRN Administration Headache/Fever/Mild Pain (1-3) Albumin Human 25 gm 07/27/20 09:00 07/27/20 09:01 Albumin 25% IVPB 07/28/20 09:01 25 gm 0900,2100 MAXI Administration Amiodarone HCl 200 mg 07/23/20 09:00 07/27/20 09:00 Cordarone PO 200 mg DAILY MAXI Administration Apixaban 2.5 mg 07/22/20 21:00 07/27/20 09:00 Eliquis PO 2.5 mg BID MAXI Administration Aspirin 81 mg 07/23/20 09:00 07/27/20 09:00 Ecotrin PO 81 mg DAILY MAXI Administration Cosyntropin 250 mcg 07/22/20 16:45 07/22/20 21:20 Cortrosyn SLOW IVP 250 mcg WILLCALL MAXI Administration Finasteride 5 mg 07/23/20 09:00 07/27/20 09:00 Proscar PO 5 mg DAILY MAXI Administration Fludrocortisone Acetate 0.1 mg 07/24/20 18:00 07/27/20 05:39 Florinef PO 0.1 mg 0600,1800 MAXI Administration Dobutamine HCl/Dextrose 250 mls @ 13.992 mls/hr 07/24/20 10:00 07/27/20 10:50 Dobutamine 500 Mg/250 Ml IVPB 250 mls INF MAXI Administration 7.5 MCG/KG/MIN Cefepime HCl 1 gm/ Sodium 100 mls @ 200 mls/hr 07/27/20 09:00 07/27/20 09:01 Chloride IVPB 100 mls Q12HR MAXI Administration Sodium Bicarbonate 150 meq/ 1,150 mls @ 50 mls/hr 07/27/20 11:00 07/27/20 10: 51 Dextrose/Water IV 07/28/20 04:15 1,150 mls 1100 MAXI Administration Vasopressin 20 unit/ 51 mls @ 0 mls/hr 07/27/20 09:00 07/27/20 10:51 Miscellaneous Medication 1 IV 51 mls each/ Sodium Chloride INF MAXI Administration Protocol As Directed Levothyroxine Sodium 25 mcg 07/23/20 06:00 07/27/20 05:39 Synthroid PO 25 mcg 0600 MAXI Administration Melatonin 6 mg 07/26/20 15:06 07/26/20 23:38 Melatonin PO 6 mg HS PRN Administration Insomnia Metoprolol Succinate 12.5 mg 07/23/20 09:00 07/27/20 09:00 Toprol Xl PO Not Given Q12HR MAXI Ondansetron HCl 4 mg 07/22/20 15:13 07/26/20 03:44 Zofran Odt PO 4 mg Q6H PRN Administration Nausea/Vomiting Ondansetron HCl 4 mg 07/22/20 15:13 07/26/20 11:49 Zofran IVP 4 mg Q6H PRN Administration Nausea/Vomiting Triamcinolone Acetonide 0 gm 07/22/20 21:00 07/27/20 09:02 Kenalog 0.1% Cream TOP Not Given BID MAXI - Exam General Appearance: awake alert Eye: anicteric sclera ENT: normocephalic atraumatic Neck: supple Heart: RRR Respiratory: rales Gastrointestinal: soft, non-tender Skin: no rashes Psychiatric: normal affect, normal behavior Hosp A/P - Plan (1) acute on chronic systolic congestive heart failure NYHA class III Status: Acute (2) UTI (urinary tract infection) Status: Acute (3) Appetite loss Code(s): R63.0 - ANOREXIA Status: Acute (4) Generalized weakness Code(s): R53.1 - WEAKNESS Status: Acute (5) Metabolic acidosis Code(s): E87.2 - ACIDOSIS Status: Acute (6) Dehydration Code(s): E86.0 - DEHYDRATION Status: Acute (7) Acute on chronic renal failure Code(s): N17.9 - ACUTE KIDNEY FAILURE, UNSPECIFIED; N18.9 - CHRONIC KIDNEY DISEASE, UNSPECIFIED Status: Acute (8) Hyponatremia Code(s): E87.1 - HYPO-OSMOLALITY AND HYPONATREMIA Status: Acute (9) CHF (congestive heart failure), NYHA class IV Code(s): I50.9 - HEART FAILURE, UNSPECIFIED Status: Chronic Qualifiers: Congestive heart failure chronicity: acute on chronic (10) Atrial fibrillation Code(s): I48.91 - UNSPECIFIED ATRIAL FIBRILLATION Status: Chronic (11) CAD (coronary artery disease) Code(s): I25.10 - ATHSCL HEART DISEASE OF [place] CORONARY ARTERY W/O ANG PCTRS Status: Chronic Qualifiers: Coronary Disease-Associated Artery/Lesion type: [place] artery [place] vs. transplanted heart: [place] heart Associated angina: without angina Qualified Code(s): I25.10 - Atherosclerotic heart disease of [place] coronary artery without angina pectoris (12) Chronic anticoagulation Code(s): Z79.01 - REELING OPERATOR (CURRENT) USE OF ANTICOAGULANTS Status: Chronic (13) Pacemaker Code(s): Z95.0 - PRESENCE OF CARDIAC PACEMAKER Status: Chronic (14) Hx of malignant neoplasm of colon Code(s): Z85.038 - PERSONAL HISTORY OF MALIGNANT NEOPLASM OF LARGE INTESTINE Status: Acute (15) BPH (benign prostatic hyperplasia) Code(s): N40.0 - BENIGN PROSTATIC HYPERPLASIA WITHOUT LOWER URINRY TRACT SYMP Status: Chronic Qualifiers: Lower urinary tract symptom presence: symptoms absent Qualified Code(s): N40.0 - Benign prostatic hyperplasia without lower urinary tract symptoms (16) History of partial colectomy Code(s): Z90.49 - ACQUIRED ABSENCE OF OTHER SPECIFIED PARTS OF DIGESTIVE TRACT Status: Chronic (17) Hypothyroidism Code(s): E03.9 - HYPOTHYROIDISM, UNSPECIFIED Status: Acute (18) GERD (gastroesophageal reflux disease) Code(s): K21.9 - GASTRO-ESOPHAGEAL REFLUX DISEASE WITHOUT ESOPHAGITIS Status: Chronic (19) Insomnia Code(s): G47.00 - INSOMNIA, UNSPECIFIED Status: Acute - Plan Renal function worsened today, patient has been taken off of vancomycin. We will start him on cefepime and request ID service consult regarding urinary tract infection. Patient has been moved to CCU for vasopressin drip to keep MAP greater than 75. May need norepinephrine drip if no improvement. Palliative care service following, there was discussion around hospice care.
--- NOTE | 2020-07-27 15:19 | PRG ---
DATE OF SERVICE: 07/27/2020 SUBJECTIVE: Mr. Baer had a good day, but then he deteriorated. Yesterday, he had a much more energy level. He was interactive. For first time in four days, he ate some food. He is looking forward to being able to discharge in near future. It was decided that at the best overall of course he will be going home on hospice with inotropic support. However, during the day, vancomycin was given. After the vancomycin was given, his urine output went down and BUN and creatinine both increased. Mr. Baer was sleepy this morning. He was not able to sleep until for a few moments this morning. Melatonin did not have any effect with helping him to sleep last night. REVIEW OF SYSTEMS: GENERAL: He is sleepy in the bed exhausted. HEENT: There is no change in hearing, swallowing, or vision. However, he does have hard of hearing. He needs his hearing aid. PULMONARY: He is not tachypneic. GI: He ate better, but then right now, he is too sleepy to eat. : He has chronic indwelling catheter. MUSCULOSKELETAL: He still has back pain from lying in bed. INTEGUMENT: There is no complaint of new skin breakdown. NEUROLOGIC: There are no focal deficits or weaknesses. MEDICATIONS: His medications that have a cardiac effect are: 1. Amiodarone 200 mg daily. 2. Apixaban 2.5 mg b.i.d. 3. Aspirin 81 mg daily. 4. Dobutamine currently at 7.5 mcg/kg/minute. 5. Fludrocortisone 0.1 mg at 6 in the morning at 6 in the afternoon. 6. Levothyroxine 25 mcg daily. 7. Toprol-XL 25 mg q.12 hours. 8. He is on some normal saline at 60 mL/h. PHYSICAL EXAMINATION: Telemetry was reviewed. He is paced at 80 beats per minute. VITAL SIGNS: His latest vitals are heart rate 80 and blood pressure 93/53. GENERAL: He is sleepy, but he will be easily arousable, answer questions. HEENT: EOMI. Oropharynx, his lips are very dry. His mucosa is wet. NECK: JVP is about 9 cm with positive hepatojugular reflux. PULMONARY: He is clear to auscultation bilaterally. CARDIAC: Regular rate and rhythm with normal S1, S2. There is 2/6 holosystolic murmur at the apex with radiation to the left axilla. ABDOMEN: Soft. He has ileostomy in place. There is material emptying into the ileostomy. EXTREMITIES: Lower extremities are without edema with positive dorsalis pedis pulses. LABORATORY VALUES: White cell count 11.8, hemoglobin 12.3, platelet at 137. His chemistry is still the worse today. Sodium is the same, it is 128, potassium is 4.1, BUN is 114, creatinine has risen from 3.56 to 3.79. His urine output also has decreased. ASSESSMENT: An 84-year-old gentleman suffering from acute renal failure due to dehydration and is also complicated by metabolic acidosis. Most likely, the vancomycin in the current vulnerable state has made his renal failure worse as shown by sudden reversal of worsening creatinine and decreasing urine output despite good BP and overall input volume. At this point, we will need to put out maximum effort to recover his kidneys. Otherwise, he will decline quickly. To do this, we will need to maintain MAP above 75 necessitating a transfer to an ICU. The dobutamine can be titrated up and vasopressin could be added. If vasopressin is insufficient, then norepinephrine will also be needed. Vancomycin needs to be stopped because his metabolic acidosis will need to be addressed with sodium bicarb drip. He also has [place] [employer] likely stage D and [place] Heart Association class 3B heart failure with reduced ejection fraction due to ischemic cardiomyopathy and valvular heart defect. He has both combined systolic and diastolic dysfunction. This is an underlying condition that makes the treatment of his renal dysfunction more difficult. Heart Failure was not his admission problem, but is a limitation to work with. Overall, his prognosis is quite grim. It will be the best if he can eventually go home on hospice care. With cardiac condition, hospice care will need to handle dobutamine. The reason why dobutamine was chosen is because he does not require renal clearance. Please see the following for more recommendations. RECOMMENDATIONS: 1. Stop normal saline now. 2. Please give albumin 25 g IV q.12 hours. 3. Switch to sodium bicarb 150 mEq in D5, run at 50 mL/hour for a total of 0.75 L. Start this sometime after 11 a.m. 4. Transfer to ICU. 5. Start vasopressin at 0.04 units/minute. This is to support his vascular tone to perfuse kidneys. 6. May titrate up dobutamine to no more than 12 mcg/kg per minute to maintain a MAP above 75 to perfuse his kidneys. Please avoid all nephrotoxic medications. 7. Please work with the patient's daughter in-law, Ms Cami Zuniga. She has appointment with [facility]. Ideally, the patient will be aimed to discharge with hospice that can maintain his inotropic drip. 8. It is hoped that Mr. Baer can recover well enough to go home. It has been a pleasure taking care of him. If any questions, please give me a call. This is a much longer visit including coordination between units, explaining/ counseling family, and finding a suitable Hospice agency. This overall time was 60 minutes. Job ID: [id number] [email or web address]
--- NOTE | 2020-07-27 16:52 | CON ---
DATE OF CONSULTATION: 07/27/2020 REASON FOR CONSULTATION: UTI. 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 He was found to have abnormal urinalysis with positive urine cultures in 2 different days since admission. We were asked to evaluate for the urinary infection. Right now, the patient is in the ICU. He is not intubated. He does not have oxygen supplementation either. A little bit confused. Apparently, he has been accepted for hospice and inpatient with eventual transition home. It looks like the drips are going to be discontinued. His currently on a vasopressin infusion as well. Denies any headaches. He is continuously short of breath. No sputum production or chest pain. No abdominal pain. He has a Villegas catheter chronically, which is exchanged once a month. He has an ileostomy, which has been there since December of this year when he was diagnosed with colon cancer, was resected, had some anastomotic leakage, which led the ileostomy for diversion. PAST MEDICAL HISTORY: Includes: 1. Cardiomyopathy, ischemic, AICD. 2. Hypertension. 3. Colon cancer in 2002 and now recurrence with resection, anastomotic leak, diverting ileostomy and repair. SURGICAL HISTORY: 1. Hernia repair. 2. Colon resection. 3. Bypass graft surgery. 4. AICD placement. 5. Stubbs catheter placement for milrinone infusion in the home setting. FAMILY HISTORY: Hypertension. SOCIAL HISTORY: Former smoker. Retired. ALLERGY HISTORY: ESTUARDO inhibitors, meperidine, penicillin, and statins. CURRENT MEDICATIONS: 1. Albumin. 2. Cordarone. 3. Eliquis. 4. Ecotrin. 5. Cefepime. 6. Cortrosyn. 7. Dobutamine. 8. Proscar. 9. Florinef. 10. Synthroid. 11. Ondansetron. 12. Vasopressin. PHYSICAL EXAMINATION: VITAL SIGNS: He has been afebrile, T-max 98, blood pressure 112/54, heart rate 80, respiratory rate 16, and O2 saturation 93 to 98 on room air. SKIN: Stubbs catheter in left subclavian location. Villegas catheter. A small little round shaped ulcer about 0.5 cm in diameter with a little bit of erythema around it, quite shallow, yellow base, this localized to the left presacral region. No lymphadenopathy. HEENT: Ocular movements conjugate. Sclerae are white. Oral cavity with no remarkable findings noted. NECK: Some jugular vein distention. LUNGS: Bibasilar inspiratory crackles. HEART: S1 and S2. Regular rate. ABDOMEN: Soft, not distended. AICD pocket normal. EXTREMITIES: Able to move extremities, but is diffusely weak. LABORATORY DATA: White cell count is up to 11.8, hemoglobin 12, and platelets 137 with 91% neutrophils. D-dimer 3.05. A pCO2 of 18 and PO2 of 123. Sodium 128 and creatinine 3.79, this is down from admission when it was 4.82. Liver profile normal. Troponin 0.369. BNP 241. Albumin 3.9. Urinalysis greater than 50 wbc's. SARS-CoV was negative. Urine culture from admission on 07/22 with gram-negative jaun, P aeruginosa. The 2nd urine culture from 07/25 with E faecalis with a very broad susceptibility profile. Chest x-ray with AICD, chronic lung changes, sternotomy, well-expanded lungs, no lobar consolidation, no pneumothorax or pleural effusions. There is an abdomen x-ray from 07/25 with nonobstructive bowel gas pattern. ASSESSMENT: 1. Ischemic cardiomyopathy, automatic implantable cardioverter-defibrillator and milrinone drip via Stubbs catheter. 2. Myelodysplastic syndrome. 3. Colon cancer, in remission with recent resection, ileostomy for diverting purposes. 4. Abnormal urinalysis. 5. Indwelling Villegas catheter. DISCUSSION: At this point in time, it is likely that urinalysis reflects colonization of the bladder rather than an invasive process. This is a moot point anyway because he is going to be admitted to hospice care soon, so what I would advise right now is discontinuation of antimicrobial therapy and proceed with the transfer plans as indicated previously. It looks like all the other drips are going to be discontinued as well. Job ID: [id number]
[2020-07-28] MEDS: Vasopressin 20 UNIT, Admixture Fee 1 EACH in Sodium Chloride 0.9% 50 ML IV SCH ×2 (00:28→09:19)
[2020-07-28 04:49] LABS: #Lymphocytes 0.2 thou/uL (1.20-3.40); #Monocytes 0.7 thou/uL (0.11-0.59); #Neutrophils 11.3 thou/uL (1.40-6.50); %Basophils 0.1 % (0.0-1.0); %Eosinophils 0.3 % (0.0-10.0); %Lymphocytes 1.7 % (21.0-51.0); %Monocytes 5.8 % (0.0-10.0); %Neutrophils 92.2 % (42.0-75.0); Hemoglobin 11.5 g/dL (14.0-18.0); Mean Corpuscular HGB CONC 32.8 g/dL (32.0-36.0); Mean Corpuscular Hemoglobin 31.7 pg (27.0-31.0); Mean Corpuscular Volume 96.8 fL (78.0-98.0); Platelet Count 126 thou/uL (130-400); RBC Distribution Width 11.8 % (11.5-14.5); Red Blood Cell (RBC) Count 3.62 mill/uL (4.70-6.10); White Blood Cell (WBC) Count 12.3 thou/uL (4.8-10.8)
[2020-07-28 05:04] LABS: Anion Gap 18 mmol/L (10-20); BUN (Urea Nitrogen) 118 mg/dL (8.4-25.7); Calc. Creatinine Clearance 12 mL/min (70-130); Calcium 8.3 mg/dL (7.8-10.44); Carbon Dioxide 24 mmol/L (23-31); Chloride 90 mmol/L (98-107); Estimated GFR-MDRD 15; Glucose 179 mg/dL (83-110); Magnesium 2.3 mg/dL (1.6-2.6); Potassium 4.1 mmol/L (3.5-5.1); Sodium 128 mmol/L (136-145)
[2020-07-28] MEDS: Fludrocortisone Acetate 0.1 MG TAB PO SCH ×2 (05:59→19:49)
[2020-07-28] MEDS: Levothyroxine Sodium 25 MCG TAB PO SCH (05:59)
[2020-07-28] MEDS ORDERED: Sodium Chloride 0.9% 1,000 ML IV SCH ×2 (08:45→21:00)
[2020-07-28] MEDS: Apixaban 2.5 MG TAB PO SCH ×2 (09:17→19:48)
[2020-07-28] MEDS: Finasteride 5 MG TAB PO SCH (09:17)
[2020-07-28] MEDS: Albumin 25% 25 GM/100 ML BOT IVPB SCH (09:17)
[2020-07-28] MEDS: Amiodarone 200 MG TAB PO SCH (09:17)
[2020-07-28] MEDS: Aspirin 81 mg Enteric Coated Tablet PO SCH (09:17)
[2020-07-28] MEDS: Triamcinolone 0.1% Cream 15 GM TUBE TOP SCH (09:18)
[2020-07-28] MEDS: DOBUTamine 500 mg/250 ml 250 ML IVPB SCH (09:20)
--- NOTE | 2020-07-28 10:28 | PRG ---
DATE OF SERVICE: 07/28/2020 SUBJECTIVE: Mr. Juan Alberto Baer had a relatively good day. Due to worsening renal function, likely secondary to acute interstitial nephritis and less than optimal blood pressure, he was moved from telemetry to ICU. Dobutamine was titrated up to 12 mcg/kg per minute and basal was started at 0.04 units/minute. He did quite well with that. He was able to sustain blood pressure around 100-110. He had a good average urine output with that. He also receives sodium bicarb drip to correct his metabolic acidosis. He was able to tolerate overall regimen. He still does not eat very much. He did drink some milk last night. For the first time, he was able to fall asleep and went to sleep about 4 or 5 hours overnight. This morning, he said he is feeling fine after having slept and a bath was done. Extensive conversation between the daughter and [facility] took place. I will summarize the events in the assessment section. REVIEW OF SYSTEMS: GENERAL: There is no fever or chills; however, I see that he has some productive cough. He coughed up some yellow sputum yesterday. HEENT: There is no change in hearing, vision, or swallowing; however, he is hard of hearing and he needs a hearing aid. PULMONARY: He has chronic shortness of breath, but this is not a change. He is actually less tachypneic than on admission. CARDIAC: There is no palpitation, chest pains, or syncope. GI: He does not eat very much. : He has a chronic indwelling Villegas catheter. MUSCULOSKELETAL: He not complaining of back pain this morning, but he probably does have chronic back pain. INTEGUMENT: There is a skin breakdown in the left upper back shoulder. NEUROLOGIC: There are no complaints of focal deficits or weaknesses. MEDICATIONS: Medications that have cardiac effect includes: 1. Albumin 25 g IV q.12 hours. 2. Amiodarone 200 mg daily. 3. Apixaban 2.5 mg b.i.d. 4. Dobutamine now at 12 mcg/kg per minute. 5. Fludrocortisone 0.1 mg twice a day. 6. Levothyroxine 25 mcg daily. 7. Vasopressin 0.04 units/minute. PHYSICAL EXAMINATION: Telemetry was examined. He was paced at 80 beats per minute. There was no concerning arrhythmia at all. VITAL SIGNS: When I saw him were heart rate 80, blood pressure 117/49. GENERAL: He is alert and , conversational, about to eat his breakfast, reclining comfortably in bed. HEENT: Show EOMI. Oropharynx is with moist mucosa. His lips are bit dry. NECK: JVP is about 9 cm with positive hepatojugular reflux. PULMONARY: There is good air movement bilaterally. There are no crackles bilaterally. HEART: Regular rate and rhythm with normal S1, S2. There is 2/6 diastolic murmur in the right lower sternal border. There is 2/6 holosystolic murmur at the apex in relation to the left axilla. ABDOMEN: Soft, nontender. Positive bowel sounds. There is fluid and green fecal-like material emptying into the ileostomy bag. EXTREMITIES: Lower extremities are without edema, but there is minimal, if any, muscle mass. He has quite debilitated, cachetic, positive dorsalis pedis pulses. LABORATORY VALUES: White cell count 12.2, slightly increased from yesterday, hemoglobin 11.5, platelet 126. His chemistry show sodium 128, potassium 4.1, chloride 90, bicarb has improved to 24, BUN slightly increased at 118 and creatinine is stable from yesterday, it is 3.8. ASSESSMENT: 84-year-old gentleman is approaching end-of-life with a variety of problems. He was admitted for acute renal failure and metabolic acidosis. This is due to severe dehydration. Careful fluid management, sodium and bicarb supplementation greatly improved his situation. His BUN and creatinine were steadily decreasing and urine output increasing until vancomycin was given. Vancomycin has been stopped, most likely has caused acute interstitial nephritis (AIN). The combination of suddenly worsening of creatinine, decrease in urine output, and drop in bicarb showing there is a metabolic acidosis returning, all points to AIN. With increased blood pressures and cardiac output, creatinine stayed same, again this showed that it is likely an interstitial nephritis process, not just volume depletion. At this point, we will give a short steroid burst to treat his interstitial nephritis. We will continue with careful fluid hydration. Due to his heart failure with reduced ejection fraction, we cannot do too much, but about a liter per day. He also has heart failure with reduced ejection fraction due to ischemic cardiomyopathy, and he has both systolic and diastolic dysfunction. He is [place] Heart Association stage D and [place] Heart Association class 4, heart failure with reduced ejection fraction. He does require chronic inotrope therapy to sustain life and give him quality of life. Due to the renal failure, milrinone cannot be used again. He has been converted over to dobutamine. If he goes on hospice, he will need to have dobutamine for comfort. Currently, [facility] is on board with dobutamine. Extensive discussion took place between the patient, [id number], and hospice agency. It was explained the progression of the disease with his daughter and what to expect at home was also explained. [facility] has guaranteed that dobutamine will be supplied with his hospice agency and hospital bed will be placed. After multiple conversations, we now are aiming to have the patient discharged to home hospice with [facility] tomorrow, July 29, 2020. RECOMMENDATIONS: 1. Give Solu-Medrol 500 mg IV one dose. 2. For the next two days, please give prednisone 40 mg daily, this is the pulse dose steroid meant to reverse interstitial nephritis process. 3. Stop Toprol-XL. 4. Continue dobutamine at 12 mcg/kg per minute. This will likely be his home dosage. This meant to match his maximum dose milrinone that he was getting at home. 5. Please slowly titrate off vasopressin over the next 24 hours. 6. Please continue with normal saline fluid supplementation at 50 mL/hour [address] order for device pharmaceutical representative for [email or web address] to turn off the defibrillator portion of [employer] Device. 8. Please keep the pacemaker portion on. 9. I will also contact the device pharmaceutical representative directly to have the defibrillator portion turned off before he goes home tomorrow. This is extensive ICU visit with multiple family and patient consultations. Greater than 50% of time was used in family consultation, explaining the process to the patient and working with multiple agencies. The total ICU time for this extensive multiple visits day is about 80 minutes. It has been a pleasure taking care of Mr. Juan Alberto Baer. If you have questions , please give me a call. Job ID: [id number] [facility]
--- NOTE | 2020-07-28 13:28 | PDOC.HOSPP ---
- Subjective Encounter Date: 07/28/20 Encounter Time: 13:26 Subjective: Patient seen for follow-up regarding congestive heart failure exacerbation. He reports feeling tired. Did not sleep well last night. - Objective Vital Signs & Weight: Vital Signs (12 hours) Temp Pulse Ox 07/28/20 12:00 97.6 F 07/28/20 08:00 100 07/28/20 07:00 96.9 F L 07/28/20 04:00 98.6 F Weight Admit Weight 137 lb 3.2 oz Weight 135 lb 2.294 oz Most Recent Monitor Data Heart Rate from ECG 80 NIBP 126/63 NIBP BP-Mean 84 Respiration from ECG 18 SpO2 97 I&O: 07/27/20 07/28/20 07/29/20 06:59 06:59 06:59 Intake Total 2338 2399.3 295 Output Total 1989 1218 113 Balance 348 1181.3 182 Result Diagrams: 07/28/20 03:45 07/28/20 03:45 Additional Labs: I reviewed patient's labs and MAR EKG Reviewed by me: Yes (Telemetry: Normal sinus rhythm) Hospitalist ROS - Review of Systems Constitutional: reports: weakness Respiratory: reports: SOB with excertion. denies: cough, shortness of breath, wheezing Cardiovascular: denies: chest pain, palpitations, orthopnea, paroxysmal noc. dyspnea, edema, light headedness, other Skin: denies: rash, lesions, karlo, bruising - Medication Medications: Active Medications Generic Name Dose Route Start Last Admin Trade Name Freq PRN Reason Stop Dose Admin Acetaminophen 650 mg 07/22/20 15:13 07/27/20 09:45 Tylenol PO 650 mg Q4H PRN Administration Headache/Fever/Mild Pain (1-3) Amiodarone HCl 200 mg 07/23/20 09:00 07/28/20 09:17 Cordarone PO 200 mg DAILY MAXI Administration Apixaban 2.5 mg 07/22/20 21:00 07/28/20 09:17 Eliquis PO 2.5 mg BID MAXI Administration Aspirin 81 mg 07/23/20 09:00 07/28/20 09:17 Ecotrin PO 81 mg DAILY MAXI Administration Cosyntropin 250 mcg 07/22/20 16:45 07/22/20 21:20 Cortrosyn SLOW IVP 250 mcg WILLCALL MAXI Administration Finasteride 5 mg 07/23/20 09:00 07/28/20 09:17 Proscar PO 5 mg DAILY MAXI Administration Fludrocortisone Acetate 0.1 mg 07/24/20 18:00 07/28/20 05:59 Florinef PO 0.1 mg 0600,1800 MAXI Administration Dobutamine HCl/Dextrose 250 mls @ 13.992 mls/hr 07/24/20 10:00 07/28/20 09:20 Dobutamine 500 Mg/250 Ml IVPB 250 mls INF MAXI Administration 7.5 MCG/KG/MIN Vasopressin 20 unit/ 51 mls @ 0 mls/hr 07/27/20 09:00 07/28/20 09:19 Miscellaneous Medication 1 IV 51 mls each/ Sodium Chloride INF MAXI Administration Protocol As Directed Sodium Chloride 1,000 mls @ 50 mls/hr 07/28/20 08:45 07/28/20 09:16 Normal Saline 0.9% IV 07/29/20 04:44 1,000 mls .Q20H MAXI Administration Methylprednisolone Sodium 108 mls @ 216 mls/hr 07/28/20 08:45 07/28/20 09:16 Succinate 500 mg/ Sodium IVPB 07/28/20 14:00 108 mls Chloride NOW MAXI Administration Levothyroxine Sodium 25 mcg 07/23/20 06:00 07/28/20 05:59 Synthroid PO 25 mcg 0600 MAXI Administration Melatonin 6 mg 07/26/20 15:06 07/26/20 23:38 Melatonin PO 6 mg HS PRN Administration Insomnia Ondansetron HCl 4 mg 07/22/20 15:13 07/26/20 03:44 Zofran Odt PO 4 mg Q6H PRN Administration Nausea/Vomiting Ondansetron HCl 4 mg 07/22/20 15:13 07/26/20 11:49 Zofran IVP 4 mg Q6H PRN Administration Nausea/Vomiting Triamcinolone Acetonide 0 gm 07/22/20 21:00 07/28/20 09:18 Kenalog 0.1% Cream TOP Not Given BID MAXI - Exam General - other findings: Sleepy but arousable Eye: anicteric sclera ENT: moist mucosa Neck: supple, JVD Heart: RRR Respiratory - other findings: Bibasilar crackles Gastrointestinal: soft, non-tender Extremities: no cyanosis Skin: no rashes Psychiatric: lethargic Hosp A/P - Plan (1) acute on chronic systolic congestive heart failure NYHA class III Status: Acute (2) UTI (urinary tract infection) Status: Acute (3) Appetite loss Code(s): R63.0 - ANOREXIA Status: Acute (4) Generalized weakness Code(s): R53.1 - WEAKNESS Status: Acute (5) Metabolic acidosis Code(s): E87.2 - ACIDOSIS Status: Acute (6) Dehydration Code(s): E86.0 - DEHYDRATION Status: Acute (7) Acute on chronic renal failure Code(s): N17.9 - ACUTE KIDNEY FAILURE, UNSPECIFIED; N18.9 - CHRONIC KIDNEY DISEASE, UNSPECIFIED Status: Acute (8) Hyponatremia Code(s): E87.1 - HYPO-OSMOLALITY AND HYPONATREMIA Status: Acute (9) CHF (congestive heart failure), NYHA class IV Code(s): I50.9 - HEART FAILURE, UNSPECIFIED Status: Chronic Qualifiers: Congestive heart failure chronicity: acute on chronic (10) Atrial fibrillation Code(s): I48.91 - UNSPECIFIED ATRIAL FIBRILLATION Status: Chronic (11) CAD (coronary artery disease) Code(s): I25.10 - ATHSCL HEART DISEASE OF [place] CORONARY ARTERY W/O ANG PCTRS Status: Chronic Qualifiers: Coronary Disease-Associated Artery/Lesion type: [place] artery [place] vs. transplanted heart: [place] heart Associated angina: without angina Qualified Code(s): I25.10 - Atherosclerotic heart disease of [place] coronary artery without angina pectoris (12) Chronic anticoagulation Code(s): Z79.01 - FPC (CURRENT) USE OF ANTICOAGULANTS Status: Chronic (13) Pacemaker Code(s): Z95.0 - PRESENCE OF CARDIAC PACEMAKER Status: Chronic (14) Hx of malignant neoplasm of colon Code(s): Z85.038 - PERSONAL HISTORY OF MALIGNANT NEOPLASM OF LARGE INTESTINE Status: Acute (15) BPH (benign prostatic hyperplasia) Code(s): N40.0 - BENIGN PROSTATIC HYPERPLASIA WITHOUT LOWER URINRY TRACT SYMP Status: Chronic Qualifiers: Lower urinary tract symptom presence: symptoms absent Qualified Code(s): N40.0 - Benign prostatic hyperplasia without lower urinary tract symptoms (16) History of partial colectomy Code(s): Z90.49 - ACQUIRED ABSENCE OF OTHER SPECIFIED PARTS OF DIGESTIVE TRACT Status: Chronic (17) Hypothyroidism Code(s): E03.9 - HYPOTHYROIDISM, UNSPECIFIED Status: Acute (18) GERD (gastroesophageal reflux disease) Code(s): K21.9 - GASTRO-ESOPHAGEAL REFLUX DISEASE WITHOUT ESOPHAGITIS Status: Chronic (19) Insomnia Code(s): G47.00 - INSOMNIA, UNSPECIFIED Status: Acute - Plan Renal function stabilizing, creatinine is 3.80. Patient to receive steroids. Currently on dobutamine and vasopressin drips. Antibiotics were discontinued yesterday.
[2020-07-28] MEDS ORDERED: Lidocaine 5% Patch TD SCH (20:00)
[2020-07-28] MEDS ORDERED: Albumin 25% 25 GM/100 ML BOT IVPB SCH (21:00)
[2020-07-29] MEDS: Triamcinolone 0.1% Cream 15 GM TUBE TOP SCH ×2 (02:32→10:00)
[2020-07-29 04:56] LABS: #Lymphocytes 0.2 thou/uL (1.20-3.40); #Monocytes 0.2 thou/uL (0.11-0.59); #Neutrophils 8.2 thou/uL (1.40-6.50); %Eosinophils 0.1 % (0.0-10.0); %Lymphocytes 1.9 % (21.0-51.0); %Monocytes 2.7 % (0.0-10.0); %Neutrophils 95.3 % (42.0-75.0); Mean Corpuscular Hemoglobin 30.9 pg (27.0-31.0); Mean Corpuscular Volume 96.4 fL (78.0-98.0); Mean Platelet Volume 9.3 fL (7.4-10.4); Platelet Count 126 thou/uL (130-400); RBC Distribution Width 11.8 % (11.5-14.5); Red Blood Cell (RBC) Count 3.56 mill/uL (4.70-6.10); White Blood Cell (WBC) Count 8.6 thou/uL (4.8-10.8)
[2020-07-29 05:17] LABS: Anion Gap 19 mmol/L (10-20); BUN (Urea Nitrogen) 122 mg/dL (8.4-25.7); Calc. Creatinine Clearance 11 mL/min (70-130); Calcium 8.5 mg/dL (7.8-10.44); Carbon Dioxide 22 mmol/L (23-31); Chloride 92 mmol/L (98-107); Estimated GFR-MDRD 13; Glucose 113 mg/dL (83-110); Magnesium 2.3 mg/dL (1.6-2.6); Potassium 4.4 mmol/L (3.5-5.1); Sodium 129 mmol/L (136-145)
[2020-07-29] MEDS: Fludrocortisone Acetate 0.1 MG TAB PO SCH (07:46)
[2020-07-29] MEDS: Levothyroxine Sodium 25 MCG TAB PO SCH (07:46)
[2020-07-29] MEDS ORDERED: predniSONE 20 MG TAB PO SCH (08:00)
[2020-07-29] MEDS ORDERED: Lidocaine Patch Removal 1 EACH TOP SCH (08:00)
[2020-07-29] MEDS: Amiodarone 200 MG TAB PO SCH (09:40)
[2020-07-29] MEDS: DOBUTamine 500 mg/250 ml 250 ML IVPB SCH (09:40)
[2020-07-29] MEDS: Finasteride 5 MG TAB PO SCH (09:40)
[2020-07-29] MEDS: Aspirin 81 mg Enteric Coated Tablet PO SCH (09:41)
[2020-07-29] MEDS: Apixaban 2.5 MG TAB PO SCH (09:44)
[2020-07-29 10:23] LABS: Anion Gap 23 mmol/L (10-20); Calc. Creatinine Clearance 11 mL/min (70-130); Calcium 8.5 mg/dL (7.8-10.44); Carbon Dioxide 18 mmol/L (23-31); Chloride 92 mmol/L (98-107); Estimated GFR-MDRD 13; Glucose 110 mg/dL (83-110); Potassium 4.5 mmol/L (3.5-5.1); Sodium 128 mmol/L (136-145)
[2020-07-29 10:34] LABS: BUN (Urea Nitrogen) 117 mg/dL (8.4-25.7)
[2020-07-29 11:25] VITALS: TEMP 97.9
--- NOTE | 2020-07-29 12:37 | DIS ---
DATE OF ADMISSION: 07/22/2020 DATE OF DISCHARGE: 07/29/2020 PRIMARY CARE PROVIDER: Ancelmo Avila, DISCHARGE DIAGNOSES: 1. Acute on chronic stage 4 renal failure. 2. Metabolic acidosis. 3. Dehydration. 4. Urinary tract infection. 5. Hyponatremia. 6. Chronic systolic congestive heart failure. CONDITION: Condition of the patient on the day of discharge: I assessed Mr. Baer on the day of discharge. He denies any chest pain or shortness of breath. Vital signs are stable, he is maintaining systolic blood pressure greater than 100, on dobutamine drip. S1 and S2 are heard, regular. He has bibasilar crackles. CONSULTATIONS DURING THIS HOSPITALIZATION: Congestive heart failure specialist, Dr. Avalos and Nephrology, Dr. Juan Alberto Luna and Infectious Diseases, Dr. Carpio. DISCHARGE MEDICATIONS: 1. Dobutamine drip 12.5 mcg/kg per minute intravenously. 2. Apixaban 2.5 mg 2 times a day. 3. Aspirin 81 mg daily. 4. Finasteride 5 mg daily. 5. Florinef 0.1 mg 2 times a day. 6. Levothyroxine 25 mcg daily. 7. Amiodarone 200 mg daily. 8. Prednisone 40 mg p.o. x1 on the morning of July 30, 2020. HOSPITAL COURSE: Mr. Baer is a pleasant 84-year-old gentleman, who was admitted to [facility] on July 22, 2020 for acute on chronic renal failure and dehydration in the context of poor oral intake. He was seen by heart failure specialist, he has a history of advanced congestive heart failure. He was on Milrinone drip prior to this admission. Milrinone was discontinued. He was started on dobutamine drip. His renal failure continued to worsen. He was transferred to the Critical Care Unit and was started on vasopressin drip as well. He was seen by a palliative care team. He wished to pursue hospice care. Arrangements are being made for hospice care at home prior to discharge. He also had a urine culture that grew Enterococcus. He was treated with intravenous antibiotics. He was subsequently seen by Infectious Disease Service, who felt that this was possibly colonization. Antibiotics were discontinued. Many thanks for allowing me to participate in your patient's care. Please feel free to contact me with any questions or concerns. ACTIVITY: As tolerated. DIET: Heart healthy. DISCHARGE DESTINATION: Home. POST-ACUTE CARE FOLLOWUP: With primary care provider in 3 days and with Cardiology Service in 2-3 weeks. TIME SPENT: Total amount of time spent coordinating this discharge: 32 minutes. Job ID: [id number]
--- NOTE | 2020-07-30 07:33 | PRG ---
DATE OF SERVICE: 07/29/2020 SERVICE: Advanced Heart Failure Cardiology Consulting Service. SUBJECTIVE: Mr. Juan Alberto Baer had a variable day yesterday. He stopped eating. He stopped drinking. His oral intake was extraordinarily poor yesterday, essentially nothing. He might have taken a few bites and might have taken a few sips of liquid and that was it. In preparation of discharge on hospice, his vasopressin was titrated off. Due to his poor oral intake, his urine output dropped significantly from about 30 to 40 mL/hours down to around 10 to 15. This was noted overnight. His IV fluid supplementation was increased overnight and second dose of albumin 25 g IV was given overnight. Since about midnight, he seemed to have a significant turnaround. His systolic blood pressure increased significantly, now on average around 110 to 130. Then, around 5 o'clock in the morning, his urine output increased. The urine output the last hour about 7:00 a.m. has increased up to 50 mL/hr. This suggests that he again is starting to show signs of renal recovery. He was visited by [employer] cordage sales representative yesterday. His defibrillator portion was turned off. However, the pacemaker is left on at a pacing of 80 beats per minute. REVIEW OF SYSTEM: GENERAL: There is no complaint of fever, chills, or cough. HEENT: There is no change in vision, hearing, or swallowing. Of note, he is chronically hard of hearing. He needs a hearing aid. PULMONARY: He has chronic shortness of breath, this is unchanged. If he exerts himself a lot or talks in long sentence, he will get short of breath. However, he is not tachypneic like he was on admission. CARDIAC: There is no complaint of palpitation, chest pain, or syncope. GI: Please see HPI. He just did not want to eat because he wants to go quickly. : He has a chronic indwelling Villegas catheter, with tapering off of urine output, but down to about 10 mL/hr or less. However, it increased back up this morning , now it has increased back up to 50 mL/hr or more. MUSCULOSKELETAL: He is not complaining of pain. However, he does have chronic back pain. INTEGUMENT: He has a left upper shoulder bandage, possible skin breakdown there, but there are no new complaints of new breakdown. NEUROLOGIC: There are no focal deficits or weaknesses. PSYCHIATRIC: He wants to go hospice. He is praying that he would "pass on to see Cuauhtemoc quickly." MEDICATIONS: His current medications that have cardiac effects are: 1. Amiodarone 200 mg daily. 2. Apixaban 2.5 mg b.i.d. 3. Aspirin 81 mg daily. 4. Dobutamine 12 mcg/kg per minute. 5. Fludrocortisone 0.1 mg twice a day. 6. Levothyroxine 25 mcg daily. PHYSICAL EXAMINATION: TELEMETRY: Reviewed. It show paced rhythm at 80 beats per minute. There was a lot of noise artifact. There was no concerning arrhythmia beyond the paced rhythm. VITAL SIGNS: Heart rate 80, blood pressure 122/68. GENERAL: He is alert and conversational, reclining comfortably in bed. He appears to be a little bit more energetic than yesterday. HEENT: Show EOMI. Oropharynx is benign with moist mucosa. Lips are not dry this morning. NECK: His neck veins are now elevated about 11 cm. PULMONARY: There is still good air movement bilaterally. There are no crackles. CARDIAC: Regular rate and rhythm with normal S1, S2. There is 2/6 diastolic murmur at the right sternal border. There is also 2/6 holosystolic murmur at the apex with radiation to the left axilla. ABDOMEN: A little bit more full today. There is some material emptying into the ileostomy bag. EXTREMITIES: His lower extremities are without edema at the lower leg and feet, however, there is some slight edema at the upper thigh. LABORATORY DATA: White cell count 8.4, hemoglobin 11, hematocrit 34, platelets 126. His electrolytes show sodium 129, potassium 4.4, chloride 92, bicarb 22. His BUN has elevated to 122, creatinine is elevated at 4.21. PROCEDURE PERFORMED: His PORT PATROL OFFICER-D device was interrogated. - It is [employer] device model Viva XT PORT PATROL OFFICER-D [id number] with serial #[id number]. - It is a PORT PATROL OFFICER-D device with leads in the atria, right ventricle, and left ventricle. - There have been no ventricular fibrillations nor ventricular tachycardia. - He has been in fast atrial flutter that is blocked and is paced at 80 beats per minute. - He is currently in DDDR mode with lower rate of 80 beats per minute. He is currently at [employer] BiV pacing. - Importantly, his VF detection is off and treatment is off. His fast VT detection is off and treatment off. His ventricular tachycardia detection is off and therapy is off. His defibrillator has been successfully turned off and his pacing is remaining. ASSESSMENT: 84-year-old gentleman is near the end of life with multiple comorbidity. His most recent insult is acute renal failure and metabolic acidosis. Of note, he was admitted for acute renal failure, metabolic acidosis. These are due to dehydration. Apparently, he stopped taking fluids. Then he had a net loss of greater than 10 pounds in about 2 weeks. His creatinine went from baseline about 2.5 to a high of 4.82. He also has severe metabolic acidosis. His pH was 7.24 and his serum bicarb is low as 8. Combination of sodium bicarb, fluid hydration, and switching from milrinone to dobutamine recovered him. Milrinone had to be switched off because milrinone required renal clearance. His BUN steadily decreased and creatinine decreased down to 3.56 at best. Then, a dose of vancomycin was given. After vancomycin was given, his creatinine reversed and immediately increased to 3.8. He was moved from telemetry to CCU as an attempt to recover. Recovery attempt includes combination of increasing dose of dobutamine , addition of vasopressin. This had effect of stabilizing for about a day. Pulsed dose steroids were also started to treat acute interstitial nephritis. However , his poor input from yesterday caused another round of renal insult; but with increased fluid supplementation, his blood pressure came up and urine output picked up again, suggesting he again is showing signs of renal recovery. Regardless, the final outcome, for now he is showing signs of renal recovery, so he is at the best possible condition for discharge to hospice at home. He does have heart failure with reduced ejection fraction. He has combined systolic and diastolic dysfunction. He relies on maximum dose of milrinone at home. For continued comfort, he will be continued on dobutamine 12 mcg/kg/minute. He also has underlying rhythm of atrial flutter. Amiodarone is blocking the conduction of the atrial flutter down to the ventricle. That is the reason why he was paced at 80 , so amiodarone will need to be maintained on board to maintain AV block, so his fast atrial flutter does not conduct. Please see the following for my recommendations. RECOMMENDATIONS: 1. Continue dobutamine at 12 mcg/kg per minute. This will be his hospice dosage. 2. Please continue amiodarone 200 mg daily, this is to prevent conduction of fast atrial flutter down to the ventricles. 3. Please continue apixaban 2.5 mg twice a day. This is to prevent a stroke. 4. Please continue with other medications. 5. There will be no diuretics. He empties into his ostomy bag. Emptying into ileostomy will exceed his oral intake. 6. Please continue fludrocortisone 0.1 mg twice a day. 7. Please finish a short pulsed dose of prednisone of 40 mg daily for 2 more days. 8. IV fluid hydration per wishes of the family and the patient and hospice. Alternatively, he can be encouraged to intake about 7 cups liquid volume per day to sustain renal function. This amount is about 1,650 ml per day, which should not cause volume overload but sufficient for blood volume. At this point, with multiple comorbidity of recurrence of colon cancer, the need for chronic indwelling Villegas catheter, chronic renal failure, now with severe acute renal failure on top of that and heart failure with reduced ejection fraction without any chance to recovery, and very debilitated state, these all combine to show that going home on hospice is the best option. If needs to be, he may be a candidate for inpatient hospice in the future. It has been a pleasure taking care of Mr. Juan Alberto Baer. If you have any questions, please give me a call. Job ID: [id number] [id number]
== END 2020-07-29 13:09 | disposition hospice, home (50) | DRG 682 ==
LOC: ERS 10:28 → ERHOLD 13:34 → 2NO 15:03 → CCU 07-27 10:33
PROVIDERS: ADMIT Internal Medicine; ATTEND Internal Medicine
DX: N17.9 Acute kidney failure, unspecified (principal); I50.23 Acute on chronic systolic (congestive) heart failure; N39.0 Urinary tract infection, site not specified; T83.511A Infection and inflammatory reaction due to indwelling urethral catheter, initial encounter; E87.2 Acidosis; E87.1 Hypo-osmolality and hyponatremia; I13.0 Hypertensive heart and chronic kidney disease with heart failure and stage 1 through stage 4 chronic kidney disease, or unspecified chronic kidney disease; I42.0 Dilated cardiomyopathy; Z66 Do not resuscitate; Z51.5 Encounter for palliative care; Z20.828 Contact with and (suspected) exposure to other viral communicable diseases; N18.4 Chronic kidney disease, stage 4 (severe); E86.0 Dehydration; I25.10 Atherosclerotic heart disease of native coronary artery without angina pectoris; N40.1 Benign prostatic hyperplasia with lower urinary tract symptoms; R33.8 Other retention of urine; I48.0 Paroxysmal atrial fibrillation; I25.5 Ischemic cardiomyopathy; K21.9 Gastro-esophageal reflux disease without esophagitis; G47.00 Insomnia, unspecified; B96.5 Pseudomonas (aeruginosa) (mallei) (pseudomallei) as the cause of diseases classified elsewhere; R63.0 Anorexia; D46.9 Myelodysplastic syndrome, unspecified; E03.9 Hypothyroidism, unspecified; N00.8 Acute nephritic syndrome with other morphologic changes; Z68.21 Body mass index [BMI] 21.0-21.9, adult; Z95.1 Presence of aortocoronary bypass graft; Z79.01 Long term (current) use of anticoagulants; Z93.3 Colostomy status; I25.2 Old myocardial infarction; Z88.5 Allergy status to narcotic agent; Z88.0 Allergy status to penicillin; Z79.899 Other long term (current) drug therapy; Z79.890 Hormone replacement therapy; Z93.2 Ileostomy status; Z79.82 Long term (current) use of aspirin; Z85.038 Personal history of other malignant neoplasm of large intestine; Z87.891 Personal history of nicotine dependence
CPT/HCPCS: 36415; 71045; 74018; 80048; 80053; 80400; 81003; 81015; 82553; 82570; 82805; 83605; 83735; 83880; 84300; 84439; 84443; 84484; 85025; 85379; 87040; 87077; 87086; 87186; 93005; 94640; 94760; 96365; 96366; 97139; J0692; J0696; J0834; J1250; J2260; J2405; J2930; J3370; J3490; J7030; J7070; J7512; P9047; Q0162; U0002